=== PATIENT | female | born 1950 | race Caucasian/White ===

== ENCOUNTER → 2016-10-21 | Outpatient (CLI) | payer OTHER ==
[~2016-10-21] MED LIST: CLR10 PO; COEN30CA6 PO; FRS/40 PO; LISI-786 PO; LIVALO PO; MAXAIR INH; MONT1TAB3 PO; POTA1TAB97 PO
[2016-10-21 13:29] LABS: BLOOD UREA NITROGEN 17 mg/dl (7-18); BUN/CREATININE RATIO 23.6 (10-20); CALCIUM 10.2 mg/dl (8.5-10.1); CARBON DIOXIDE 27 mmol/L (21-32); CHLORIDE 103 mmol/L (98-107); CHOLESTEROL 257 mg/dl (0-200); GLUCOSE 94 mg/dl (70-99); SODIUM 137 mmol/L (136-145); TRIGLYCERIDES 107 mg/dl (0-150); VERY LOW DENSITY LIPOPROT CALC 21 mg/dl
[2016-10-21 13:33] LABS: CHOLESTEROL/HDL RATIO 3.6; HDL CHOLESTEROL 72 mg/dl; LDL CHOLESTEROL CALCULATED 164 mg/dl
== END | disposition home or self-care (01) ==
LOC: C.LABPVFM 10:58
PROVIDERS: ATTEND Nurse Practitioner
DX: E78.00 Pure hypercholesterolemia, unspecified (principal); I10 Essential (primary) hypertension

== ENCOUNTER → 2016-12-26 | Outpatient (CLI) | payer OTHER ==
--- NOTE | 2016-12-26 12:44 | MAMMOGRAPHY REPORT ---
BILATERAL DIGITAL SCREENING MAMMOGRAM WITH CAD: 12/26/2016 CLINICAL HISTORY: Routine screening. TECHNIQUE: Current study was also evaluated with a Computer Aided Detection (CAD) system. Bilateral CC and MLO views were obtained. COMPARISON: Comparison is made to exams dated: 04/28/2014 mammogram - [facility] and 12/29/2009 mammogram. BREAST COMPOSITION: The tissue of both breasts is almost entirely fatty. FINDINGS: No suspicious masses, calcifications, or areas of architectural distortion are noted in ei ther breast. There has been no significant interval change compared to prior exams. Scattered bilater al benign-appearing calcifications are not significantly changed. IMPRESSION: ACR BI-RADS CATEGORY 2: BENIGN There is no mammographic evidence of malignancy. A 1 year screening mammogram is recommended. The pa tient will receive written notification of the results. Approximately 10% of breast cancers are not detected with mammography. A negative mammographic report should not delay biopsy if a clinically suggestive mass is present. Autumn Raya M.D. ah/:12/26/2016 11:59:09 Putty Remover: Marian BEAR(R)(M), [facility] letter sent: Normal 1/2 BI-RADS Code: ACR BI-RADS Category 2: Benign
== END | disposition home or self-care (01) ==
LOC: C.MAMM 11:11
PROVIDERS: ATTEND Nurse Practitioner
DX: Z12.31 Encounter for screening mammogram for malignant neoplasm of breast (principal)

== ENCOUNTER → 2017-01-16 | Outpatient (CLI) | payer OTHER | END | disposition home or self-care (01) | LOC: C.LABPVFM 11:58 | PROVIDERS: ATTEND Nurse Practitioner | DX: E83.52 Hypercalcemia (principal) ==

== ENCOUNTER → 2017-01-17 | Outpatient (CLI) | payer OTHER | END | disposition home or self-care (01) | LOC: C.LABPVFM 10:40 | PROVIDERS: ATTEND Nurse Practitioner | DX: E83.52 Hypercalcemia (principal) ==

== ENCOUNTER → 2017-03-05 | Outpatient (CLI) | payer OTHER | END | disposition home or self-care (01) | LOC: C.LABPVFM 14:17 | PROVIDERS: ATTEND Family Medicine Adult Medicine | DX: R30.0 Dysuria (principal) ==

== ENCOUNTER 2019-03-28 23:35 | Inpatient (IN) ==
[~2019-03-28 23:35] MED LIST changes: -CLR10 PO; -COEN30CA6 PO; -FRS/40 PO; -LISI-786 PO; -LIVALO PO; -MAXAIR INH; -MONT1TAB3 PO; -POTA1TAB97 PO; +RAPID SEQUENCE INDUCTION BAG ONE
[2019-03-28] MEDS ORDERED: fentaNYL citrate 100 MCG/2 ML VIAL IV STA (23:53)
[2019-03-29 00:13] LABS: Basophils # (auto) 0.07 K/uL (0-0.2); Basophils % (auto) 1.3 %; Eosinophils # (auto) 0.08 K/uL (0-0.5); Eosinophils % (auto) 1.5 %; Hematocrit (blood only) 38.7 % (37-47); Hemoglobin 12.9 g/dL (12.0-16.0); Immature Granulocytes # (auto) 0.02 K/uL (0.00-0.02); Immature Granulocytes % (auto) 0.4 %; Lymphocytes # (auto) 2.46 K/uL (1.2-3.4); Lymphocytes % (auto) 46.6 %; Mean Corpuscular Hgb Conc 33.3 g/dL (32-36); Mean Platelet Volume 8.6 fL (7.4-10.4); Monocytes # (auto) 0.33 K/uL (0.11-0.59); Monocytes % (auto) 6.3 %; Neutrophils # (auto) 2.32 K/uL (1.4-6.5); Neutrophils % (auto) 43.9 %; Platelet Count 305 K/uL (130-400); RDW Coefficient of Variation 12.8 % (11.5-14.5); RDW Standard Deviation 44.6 fL (36.4-46.3); Red Blood Count 4.03 M/uL (4.2-5.4); White Blood Count 5.28 K/uL (4.8-10.8)
[2019-03-29 00:31] LABS: Prothrombin Time 9.9 Seconds (9.0-12.0)
[2019-03-29 00:43] LABS: BUN Creatinine Ratio 17.6 (10-20); Creatinine Clr Calc Pharmacy 78.1 ml/min; Est GFR (African American) 98.1; Est GFR (Non-African American) 84.6
[2019-03-29] MEDS ORDERED: lisinopriL 20 MG TAB PO STA (02:58)
[2019-03-29 03:22] LABS: Magnesium 2.4 mg/dl (1.8-2.4)
--- NOTE | 2019-03-29 03:43 | History & Physical Report ---
Date of Service March 29, 2019 Assessment & Plan (1) Ankle fracture, right: Secondary to mechanical fall Patient at risk for injury if discharged home from the ER due to alcohol intake. hypertension, stable Hyperglycemia rule out DM Daily alcohol intake, denies abuse OBS [facility] Orthopedics consult RE Right ankle fracture (ER provider already in touch with Dr. Burns.) NPO for now in anticipation of procedure in a.m. Check hemoglobin A1c DVT prophylaxis. SCDs RE possible surgery (Recommend pharmacologic anticoagulation once bleeding risk is deemed to be minimal eligible pending Orthopedics eval.) Full code History of Present Illness Chief Complaint: Right ankle pain, fall Primary Care Provider: Annalee Avalos, DO History obtained from patient and records. Medical history significant for hypertension, GERD, anxiety. Patient was at a neighborhood alliance party last night when she slipped down 5 steps of stairs landing on her right leg. No head trauma, no chest pain, no S OB, no syncope. Patient noted excruciating right ankle pain and deformity. Patient brought to the ER by EMS for evaluation. 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 Verified 03/29/19 00:15 Latex2 -Systemic Allergic Allergy Unknown ANAPHYLAXIS Uncoded 03/29/19 00:15 Response Home Medications Home Medications Medication Instructions Recorded Confirmed Type lisinopril 20 mg PO DAILY 03/29/19 03/29/19 History lorazepam 0.5 mg PO HS 03/29/19 03/29/19 History multivitamin 1 tab PO DAILY 03/29/19 03/29/19 History Past Med/Surg History Medical History GERD (gastroesophageal reflux disease) Hypertension Surgical History S/P right inguinal herniorrhaphy Family History Other No pertinent family history in first degree relatives Social History Preferred Language: Uzbek Communication Ability: Effective Beliefs That Will Affect Care: None marital status: Current Living Situation: Spouse Other Information That Helps Us Care for You: No Feels Safe at Home: Yes Safety Concerns: Feels Safe At This Time Smoking Status: Never smoker Do You Dip or Chew Tobacco: No ; Second Hand Exposure: No ; Hx Alcohol Use: Yes Hx Substance Use: Yes substance use type: marijuana Last Used Substance: Unknown Review of Systems Review of Systems: As per HPI, all 10 systems reviewed, all other ROS negative Physical Exam Physical Exam: GENERAL: Comfortable, pleasant, obese, alcoholic fever, no respiratory distress SKIN: Normal color, warm HEENT: Bespectacled, pink palpebral conjunctivae, no ptosis, dry buccal mucosa NECK : Supple, short neck, no tenderness CHEST : CTA, no tenderness HEART : RRR, no obvious murmurs ABDOMEN: Some distention, nontender EXTREMITIES : RLE splint, no other conspicuous deformities noted NEUROLOGIC : Coherent, no facial asymmetry, no other gross focality Results & Data Vital Signs (Past 12 Hours) Vital Signs Temp Pulse Resp BP Pulse Ox 03/29/19 01:31 76 11 L 95 03/29/19 01:30 81 18 118/75 94 03/29/19 01:01 77 12 97 03/29/19 01:00 78 13 130/69 97 03/29/19 00:31 78 17 130/69 95 03/29/19 00:30 79 16 95 03/29/19 00:01 81 12 99 03/29/19 00:00 84 19 145/84 H 96 03/28/19 23:56 84 20 94 03/28/19 23:55 82 22 138/76 98 03/28/19 23:20 36.7 C 78 22 138/76 96 Laboratory Results Laboratory Results WBC 5.28 K/uL (4.8-10.8) 03/28/19 00:09 RBC 4.03 M/uL (4.2-5.4) L 03/28/19 00:09 Hgb 12.9 g/dL (12.0-16.0) 03/28/19 00:09 Hct 38.7 % (37-47) 03/28/19 00:09 MCV 96.0 fL (80-100) 03/28/19 00:09 MCH 32.0 pg (25-34) 03/28/19 00:09 MCHC 33.3 g/dL (32-36) 03/28/19 00:09 RDW Std Deviation 44.6 fL (36.4-46.3) 03/28/19 00:09 RDW Coeff of Eneida 12.8 % (11.5-14.5) 03/28/19 00:09 Plt Count 305 K/uL (130-400) 03/28/19 00:09 MPV 8.6 fL (7.4-10.4) 03/28/19 00:09 Immature Gran % (Auto) 0.4 % 03/28/19 00:09 Neut % (Auto) 43.9 % 03/28/19 00:09 Lymph % (Auto) 46.6 % 03/28/19 00:09 Addison % (Auto) 6.3 % 03/28/19 00:09 Eos % (Auto) 1.5 % 03/28/19 00:09 Baso % (Auto) 1.3 % 03/28/19 00:09 Immature Gran # (Auto) 0.02 K/uL (0.00-0.02) 03/28/19 00:09 Neut # (Auto) 2.32 K/uL (1.4-6.5) 03/28/19 00:09 Lymph # (Auto) 2.46 K/uL (1.2-3.4) 03/28/19 00:09 Addison # (Auto) 0.33 K/uL (0.11-0.59) 03/28/19 00:09 Eos # (Auto) 0.08 K/uL (0-0.5) 03/28/19 00:09 Baso # (Auto) 0.07 K/uL (0-0.2) 03/28/19 00:09 PT 9.9 Seconds (9.0-12.0) 03/28/19 00:09 INR 1.0 (0.9-1.1) 03/28/19 00:09 Sodium 138 mmol/L (136-145) 03/28/19 00:09 Potassium 4.0 mmol/L (3.5-5.1) 03/28/19 00:09 Chloride 103 mmol/L (98-107) 03/28/19 00:09 Carbon Dioxide 25 mmol/L (21-32) 03/28/19 00:09 Anion Gap 9.0 (3-11) 03/28/19 00:09 BUN 13 mg/dl (7-18) 03/28/19 00:09 Creatinine 0.73 mg/dl (0.6-1.2) 03/28/19 00:09 Est Cr Clr Drug Dosing 78.1 ml/min 03/28/19 00:09 Est GFR ( Amer) 98.1 03/28/19 00:09 Est GFR (Non-Af Amer) 84.6 03/28/19 00:09 BUN/Creatinine Ratio 17.6 (10-20) 03/28/19 00:09 Glucose 121 mg/dl (70-99) H 03/28/19 00:09 Calcium 9.0 mg/dl (8.5-10.1) 03/28/19 00:09 Magnesium 2.4 mg/dl (1.8-2.4) 03/28/19 00:09 Ethyl Alcohol mg/dL 280.0 mg/dl (0-3) H 03/29/19 00:09 Diagnostic Findings Right ankle x-ray as per my interpretation : bimalleolar fracture
[2019-03-29] MEDS ORDERED: LORazepam 0.5 MG/1 ML VIAL IV PRN (05:10)
[2019-03-29] MEDS ORDERED: KETOROLAC TROMETHAMINE 15 MG/ML VIAL IV PRN (05:10)
[2019-03-29] MEDS ORDERED: LORazepam 0.5 MG TAB PO PRN (05:19)
--- NOTE | 2019-03-29 06:10 | Emergency Department Note ---
Entered by Vanessa Mejia acting as a scribe for History of Present Illness General Chief complaint: Fall Stated complaint: Fall, ankle injury Time Seen by Provider: 03/28/19 23:42 Source: patient and family () Mode of arrival: EMS History of Present Illness Onset (ago): hour(s) (just prior to arrival) Location: ankle (right) and buttocks Pain Consistency: + other (episode) Quality: + other (fall) Associated symptoms: + other (positive loss of consciousness; positive right ankle pain) Treatments prior to arrival: none The patient is a 68 year old female with PMHx of HTN who presents to the Emergency Room with complaints of an episode of a fall that occurred just prior to arrival. The patient states that she was walking outside when she slipped on some ice and fell down 5 stairs onto concrete. She states that her right ankle twisted during the fall and she currently has pain in this ankle. The patient states that she landed on her buttocks. She denies hitting her head. The patient's states that after the fall the patient stayed on the ground for approximately 20 minutes and at this time she lost consciousness for approximately 5 seconds. The patient denies receiving pain medication in the ambulance. She states that she was drinking alcohol prior to this episode, stating that she had approximately 5 glasses of champagne. The patient denies any drug use tonight. Home Medications Home Medications Medication Instructions Recorded Confirmed Type lisinopril 20 mg PO DAILY 03/29/19 03/29/19 History lorazepam 0.5 mg PO HS 03/29/19 03/29/19 History multivitamin 1 tab PO DAILY 03/29/19 03/29/19 History Allergies Allergy/AdvReac Type Severity Reaction Status Date / Time Sulfa (Sulfonamide Allergy Severe ANAPHYLAXIS Verified 03/29/19 00:15 Antibiotics) bee venom protein (honey bee) Allergy Unknown . Verified 03/29/19 00:15 Latex2 -Systemic Allergic Allergy Unknown ANAPHYLAXIS Uncoded 03/29/19 00:15 Response Past Med/Surg History Medical History Hypertension Family History Other No pertinent family history in first degree relatives Social History Preferred Language: Micronesian Communication Ability: Effective Beliefs That Will Affect Care: None Current Living Situation: Spouse Other Information That Helps Us Care for You: No Feels Safe at Home: Yes Safety Concerns: Feels Safe At This Time Smoking Status: Never smoker Do You Dip or Chew Tobacco: No ; Second Hand Exposure: No ; Hx Alcohol Use: Yes Hx Substance Use: Yes substance use type: marijuana Last Used Substance: Unknown Review of Systems See HPI for pertinent positives & negatives. and A total of 10 systems reviewed and were otherwise negative Physical Exam Vital Signs Vital Signs - 24 hr 03/28/19 23:20 03/28/19 23:55 03/28/19 23:56 Temperature 36.7 C Temperature Source Oral Pulse Rate 78 82 84 Pulse Rate from SpO2 Sensor 83 87 Respiratory Rate 22 22 20 Respiratory Effort / Characteristics Non-Labored Respiratory Pattern Regular Blood Pressure 138/76 138/76 Blood Pressure Mean 96 102 Blood Pressure Position Lying Pulse Oximetry 96 98 94 Oxygen Delivery Method Room Air Sepsis Recent Fever Within 48 Hours No Sepsis New/Unexplained Change in Mental Status No Sepsis Action Taken by Nursing No Action Required 03/29/19 00:00 03/29/19 00:01 03/29/19 00:30 Temperature Temperature Source Pulse Rate 84 81 79 Pulse Rate from SpO2 Sensor 82 80 79 Respiratory Rate 19 12 16 Respiratory Effort / Characteristics Respiratory Pattern Blood Pressure 145/84 H Blood Pressure Mean 104 Blood Pressure Position Pulse Oximetry 96 99 95 Oxygen Delivery Method Sepsis Recent Fever Within 48 Hours Sepsis New/Unexplained Change in Mental Status Sepsis Action Taken by Nursing 03/29/19 00:31 03/29/19 01:00 03/29/19 01:01 Temperature Temperature Source Pulse Rate 78 78 77 Pulse Rate from SpO2 Sensor 78 78 80 Respiratory Rate 17 13 12 Respiratory Effort / Characteristics Respiratory Pattern Blood Pressure 130/69 130/69 Blood Pressure Mean 86 87 Blood Pressure Position Pulse Oximetry 95 97 97 Oxygen Delivery Method Sepsis Recent Fever Within 48 Hours Sepsis New/Unexplained Change in Mental Status Sepsis Action Taken by Nursing 03/29/19 01:30 03/29/19 01:31 03/29/19 02:00 Temperature Temperature Source Pulse Rate 81 76 72 Pulse Rate from SpO2 Sensor 80 76 72 Respiratory Rate 18 11 L 16 Respiratory Effort / Characteristics Respiratory Pattern Blood Pressure 118/75 126/72 Blood Pressure Mean 81 89 Blood Pressure Position Pulse Oximetry 94 95 96 Oxygen Delivery Method Sepsis Recent Fever Within 48 Hours Sepsis New/Unexplained Change in Mental Status Sepsis Action Taken by Nursing 03/29/19 02:01 03/29/19 02:30 03/29/19 02:31 Temperature Temperature Source Pulse Rate 72 71 69 Pulse Rate from SpO2 Sensor 72 71 70 Respiratory Rate 12 15 14 Respiratory Effort / Characteristics Respiratory Pattern Blood Pressure 112/64 Blood Pressure Mean 77 Blood Pressure Position Pulse Oximetry 95 94 Oxygen Delivery Method Sepsis Recent Fever Within 48 Hours Sepsis New/Unexplained Change in Mental Status Sepsis Action Taken by Nursing 03/29/19 03:00 03/29/19 03:01 03/29/19 03:30 Temperature Temperature Source Pulse Rate 75 73 80 Pulse Rate from SpO2 Sensor 72 73 81 Respiratory Rate 13 18 23 Respiratory Effort / Characteristics Respiratory Pattern Blood Pressure 120/75 Blood Pressure Mean 85 Blood Pressure Position Pulse Oximetry 98 97 96 Oxygen Delivery Method Sepsis Recent Fever Within 48 Hours Sepsis New/Unexplained Change in Mental Status Sepsis Action Taken by Nursing 03/29/19 03:31 Temperature Temperature Source Pulse Rate 83 Pulse Rate from SpO2 Sensor 83 Respiratory Rate 19 Respiratory Effort / Characteristics Respiratory Pattern Blood Pressure 131/87 Blood Pressure Mean 99 Blood Pressure Position Pulse Oximetry 97 Oxygen Delivery Method Sepsis Recent Fever Within 48 Hours Sepsis New/Unexplained Change in Mental Status Sepsis Action Taken by Nursing GENERAL: Awake, alert, well-appearing, in no distress, appears mildly intox icated. HENT: Normocephalic, atraumatic. Oropharynx unremarkable. EYES: Normal conjunctiva. Sclera non-icteric. PERRL. NECK: Supple. No nuchal rigidity. RESPIRATORY: Clear to auscultation. No wheezes. Normal respiratory effort. CARDIAC: Normal rate. Normal rhythm. Extremities warm and well perfused. GI: Soft, non-distended. No tenderness to palpation. No rebound or guarding. RECTAL: Deferred. MUSCULOSKELETAL: Atraumatic. Chest examination reveals no tenderness. LOWER EXTREMITIES: Right foot rotated posteriorly and distracted. NVI right foot. Medial right ankle skin tenting. No right knee or fibular head tenderness. Wiggles R toes. NEURO: No sensory deficits noted. No facial droop. Slightly slurred speech. SKIN: Warm and dry. No rash or jaundice noted. Procedures Orthopedic Fracture Reduction Fracture #1: Time Out Performed: Yes Side: right Fracture Reduction Location: other (ankle) Analgesia: other (fentanyl ) Technique: direct manipulation Post Reduction X-rays Demonstrate: acceptable reduction Post-reduction neuro exam: intact Post-reduction vascular exam: intact Splint Applied: Yes Patient Tolerated Procedure: well Course Course 2348: Past medical records reviewed. The patient was evaluated in room B7. A complete history and physical exam was performed. 0132: I checked on and updated the patient on all results. 0244: I discussed the case with Dr. Burns-Orthopedics who agreed with the care and plan and states that he will see the patient in the morning. 0301: [facility] for further evaluation. Administered Medications Discontinued Medications Fentanyl Citrate (Fentanyl Citrate) 100 mcg IV NOW STA Stop: 03/28/19 23:54 Last Admin: 03/29/19 00:04 Dose: 100 mcg Documented by: [id number] Lisinopril (Zestril) 20 mg PO NOW STA Stop: 03/29/19 02:59 Last Admin: 03/29/19 03:20 Dose: 20 mg Documented by: [id number] Medical Decision Making Differential Diagnosis Differential diagnoses include major intracranial, cervical, spinal, thoracic, abdominal, pelvic and neurologic injury. Fracture, contusion, sprain, strain, laceration, abrasions included as well. Medical Records Attestation: I reviewed the patient's medical records. Home Medications Current Medication List: was personally reviewed by me Laboratory Data Attestation: I reviewed the patient's lab results. Result diagrams: 03/28/19 00:09 03/28/19 00:09 Lab Results 03/28/19 03/28/19 03/28/19 Range/Units 00:09 00:09 00:09 WBC 5.28 (4.8-10.8) K/uL RBC 4.03 L (4.2-5.4) M/uL Hgb 12.9 (12.0-16.0) g/dL Hct 38.7 (37-47) % MCV 96.0 (80-100) fL MCH 32.0 (25-34) pg MCHC 33.3 (32-36) g/dL RDW Std Deviation 44.6 (36.4-46.3) fL RDW Coeff of Eneida 12.8 (11.5-14.5) % Plt Count 305 (130-400) K/uL MPV 8.6 (7.4-10.4) fL Immature Gran % (Auto) 0.4 % Neut % (Auto) 43.9 % Lymph % (Auto) 46.6 % Maries % (Auto) 6.3 % Eos % (Auto) 1.5 % Baso % (Auto) 1.3 % Immature Gran # (Auto) 0.02 (0.00-0.02) K/uL Neut # (Auto) 2.32 (1.4-6.5) K/uL Lymph # (Auto) 2.46 (1.2-3.4) K/uL Maries # (Auto) 0.33 (0.11-0.59) K/uL Eos # (Auto) 0.08 (0-0.5) K/uL Baso # (Auto) 0.07 (0-0.2) K/uL PT 9.9 (9.0-12.0) Seconds INR 1.0 (0.9-1.1) Sodium 138 (136-145) mmol/L Potassium 4.0 (3.5-5.1) mmol/L Chloride 103 (98-107) mmol/L Carbon Dioxide 25 (21-32) mmol/L Anion Gap 9.0 (3-11) BUN 13 (7-18) mg/dl Creatinine 0.73 (0.6-1.2) mg/dl Est Cr Clr Drug Dosing 78.1 ml/min Est GFR ( Amer) 98.1 Est GFR (Non-Af Amer) 84.6 BUN/Creatinine Ratio 17.6 (10-20) Glucose 121 H (70-99) mg/dl Calcium 9.0 (8.5-10.1) mg/dl Magnesium 2.4 (1.8-2.4) mg/dl Ethyl Alcohol mg/dL (0-3) mg/dl 03/29/19 Range/Units 00:09 WBC (4.8-10.8) K/uL RBC (4.2-5.4) M/uL Hgb (12.0-16.0) g/dL Hct (37-47) % MCV (80-100) fL MCH (25-34) pg MCHC (32-36) g/dL RDW Std Deviation (36.4-46.3) fL RDW Coeff of Eneida (11.5-14.5) % Plt Count (130-400) K/uL MPV (7.4-10.4) fL Immature Gran % (Auto) % Neut % (Auto) % Lymph % (Auto) % Maries % (Auto) % Eos % (Auto) % Baso % (Auto) % Immature Gran # (Auto) (0.00-0.02) K/uL Neut # (Auto) (1.4-6.5) K/uL Lymph # (Auto) (1.2-3.4) K/uL Maries # (Auto) (0.11-0.59) K/uL Eos # (Auto) (0-0.5) K/uL Baso # (Auto) (0-0.2) K/uL PT (9.0-12.0) Seconds INR (0.9-1.1) Sodium (136-145) mmol/L Potassium (3.5-5.1) mmol/L Chloride (98-107) mmol/L Carbon Dioxide (21-32) mmol/L Anion Gap (3-11) BUN (7-18) mg/dl Creatinine (0.6-1.2) mg/dl Est Cr Clr Drug Dosing ml/min Est GFR ( Amer) Est GFR (Non-Af Amer) BUN/Creatinine Ratio (10-20) Glucose (70-99) mg/dl Calcium (8.5-10.1) mg/dl Magnesium (1.8-2.4) mg/dl Ethyl Alcohol mg/dL 280.0 H (0-3) mg/dl Imaging Data Attestation: I personally reviewed and interpreted this imaging study as follows: My Impression: TIBIA FIBULA X-RAY: Fibular head fracture. Ankle fracture bhargav. ANKLE X-RAY: Bhargav fracture, medial displacement with some mortise malalignment. FOOT X-RAY: Ankle fracture. 2/3rd metatarsal fracture at base. ECG Data Attestation: I personally reviewed and interpreted this ECG as follows: Indication: + other (trauma) Rate (beats per minute): 75 Rhythm: + normal sinus ECG ST segments: no ST depression and no ST elevation ECG Findings: + Other (normal intervals); no PVCs Blood Pressure Blood Pressure Findings: Elevated blood pressure Blood Pressure Disposition: further management by hospitalist MDM Narrative Patient is a 68-year-old female with a past medical history including hypertension presenting today after slipped on some icy stairs after [employer]. Does states that she drank 5 glasses/flukes of champagne this evening. Appears somewhat intoxicated upon arrival. Has obvious right ankle deformity. Denies other pain. States she had a few second blackout at some point earlier she believes secondary to pain. Denies hitting her head. Neurovascular intact in left foot but evidence of skin tenting. Given her alcohol use and the need for emergent reduction given a dose of fentanyl and reduction performed. Neurovascular intact afterwards. Verbal consent from patient and after discussing risk and benefits. X-ray obtained here. EKG and basic labs obtained as well as medical alcohol. EKG and basic labs unremarkable other than note of a significantly elevated alcohol level. X-rays show improved alignment although not anatomical as well as several metatarsal fracture and fibular head fracture. Discussed with on-call Ortho and given her intoxicated status cussed with medicine team to admit her and watch her overnight for further orthopedic consultation in the morning. Ankle likely surigcal. Patient declined additional pain medications. Given her evening dose of lisinopril. Impression & Plan Fracture of head of right fibula, Displaced bimalleolar fracture of right ankle, Fracture of right foot, Alcohol intoxication Discharge Plan Visit Data *Final* Discharge Date/Time: 03/29/19 04:38 Chief Complaint: Fall Stated Complaint: Fall, ankle injury ED Provider: Cliff Fernandes Discharge Problem: Fracture of head of right fibula, Displaced bimalleolar fracture of right ankle, Fracture of right foot, Alcohol intoxication Patient Disposition: Admitted As Inpatient Discharge Instructions Interventions: ED Discharge Assessment Last Done: 03/29/19 04:38 Discharge Problem: Fracture of head of right fibula Qualifiers: Encounter type: initial encounter Fracture type: closed Qualified Code(s): S82.831A - Other fracture of upper and lower end of right fibula, initial encou nter for closed fracture Displaced bimalleolar fracture of right ankle Qualifiers: Encounter type: initial encounter Fracture type: closed Qualified Code(s): S82.841A - Displaced bimalleolar fracture of right lower leg, initial encounter for closed fracture Fracture of right foot Qualifiers: Encounter type: initial encounter Fracture type: closed Qualified Code(s): S92. 901A - Unspecified fracture of right foot, initial encounter for closed fracture Alcohol intoxication Qualifiers: Complication of substance-induced condition: uncomplicated Qualified Code(s): F10.920 - Alcohol use, unspecified with intoxication, uncomplicated The scribe's documentation has been prepared under my direction and personally reviewed by me in its entirety. I confirm that the note above accurately reflects all work, treatment, procedures, and medical decision making performed by me.
[2019-03-29] MEDS: SODIUM CHLORIDE 0.9% 1000ML 1,000 ML IV SCH ×2 (06:23→20:46)
[2019-03-29 06:37] LABS: Estimated Average Glucose 114 mg/dl; Hemoglobin A1C 5.6 % (4.5-5.6)
[2019-03-29] MEDS ORDERED: IBUPROFEN 200 MG TAB PO PRN (06:45)
--- NOTE | 2019-03-29 07:22 | XRay Report ---
XR tibia fibula RT 2V CLINICAL HISTORY: 68 years-old Female presenting with fall. TECHNIQUE: Frontal and lateral views of the right lower leg were obtained. COMPARISON: Plain radiographs of the right knee from 2016. FINDINGS: Fiberglas casting of the right lower leg is evident. This only mildly obscures underlying osseous det ail. There is a minimally displaced obliquely oriented fracture of the proximal fibular metaphysis as well as fracture dislocation at the ankle mortise. The knee joint remains congruent. The ankle morti se is disrupted. Atherosclerosis noted. Please see separately dictated ankle radiographs. IMPRESSION: Proximal fibular metaphyseal fracture in the setting of fracture dislocation at the ankle. Please see separately dictated ankle radiographs. Electronically signed by: Amado Hoskins M.D. 03/29/2019 7:21 AM
--- NOTE | 2019-03-29 07:28 | XRay Report ---
XR ankle RT min 3V routine CLINICAL HISTORY: 68 years-old Female presenting with fall, fracture. TECHNIQUE: Frontal, mortise, and lateral views of the right ankle were obtained. COMPARISON: None. FINDINGS: A fiberglass splint minimally obscures underlying osseous detail. Fracture dislocation of the ankle m ortise with widening of the tibiofibular syndesmosis. Obliquely oriented fracture of the distal fibul ar metaphysis at the level of the syndesmosis extending from the posterior cortex proximally to the a nterior cortex distally. There is less than one half shaft width displacement. Transversely oriented fracture of the medial malleolus with 7 mm of lateral displacement of the tibia relative to the media l malleolar fracture fragment. The posterior malleolus is grossly intact. There is widening of the an kle mortise anteriorly measuring nearly 1 cm. An os trigonum is noted. IMPRESSION: Bimalleolar fracture dislocation at the ankle mortise. Presumably there is disruption of posterior li gamentous structures given the absence of an posterior malleolar fracture. Displacement is described above. Electronically signed by: Amado Hoskins M.D. 03/29/2019 7:26 AM
--- NOTE | 2019-03-29 07:30 | XRay Report ---
XR foot RT min 3V routine CLINICAL HISTORY: 68 years-old Female presenting with fall. TECHNIQUE: Frontal, oblique, and lateral views of the right foot were obtained. COMPARISON: 01/26/2013. FINDINGS: A fiberglass cast is in place, which only minimally obscures underlying osseous detail. Mild degenera tive changes at the first metatarsophalangeal joint with osteophytosis and overall preservation of emy int space. There is evidence of a fracture dislocation of the ankle mortise with a displaced transver sely oriented medial malleolar fracture and obliquely oriented distal fibular fracture at the level o f the syndesmosis. Mild soft tissue swelling. Os trigonum noted. No additional fracture in the foot. IMPRESSION: 1. Fracture dislocation of the ankle mortise. No additional fracture is evident in the foot. 2. Mild degenerative changes at the first MTP joint. Electronically signed by: Amado Hoskins M.D. 03/29/2019 7:28 AM
[2019-03-29] MEDS: MULTIVITAMIN TAB PO SCH (08:16)
--- NOTE | 2019-03-29 09:05 | Orthopedic Consultation ---
Date of Consultation March 29, 2019 Assessment & Plan (1) Displaced bimalleolar fracture of right ankle: Continue n.p.o. status at this time. Ice, elevation of the right lower extremity. Dr. Guzman to see patient later today. Discussed plans with the possibility of a close reduction possibly today with fixation of the fracture within a week to allow for decreased swelling versus ORIF within the next 48 hours if swelling is minimal. Dr. Guzman to finalize plans today. Supervising Physician Co-Signing Physician Notes Patient seen and examined, agree with above assessment and plan. Will proceed with OR 03/30/19, closed reduction vs ORIF right ankle. NPO after midnight. History of Present Illness Reason for Consultation: Right ankle fracture Attending Physician: Darnell Cowan MD History of Present Illness Patient is a 68-year-old white female who states that she was at a local get together with friends. She states that there was some champagne involved however she had not overindulged. She was going down a flight of stairs which were slippery and she ended up slipping and falling down at least 5 steps. At the end of the fall she noticed that she had moderate to severe pain in her right ankle. She denies bumping her head during the fall. She denies any shortness of breath, chest pain, lightheadedness prior to the fall. She states that she did try to move the ankle into a better position and the pain was excr uciating and she passed out for a minute or 2. Her was there and witnessed the event. She was unable to ambulate and was brought to [facility] emergency room. X-rays were taken and found that she had a right bimalleolar ankle fracture dislocation and also a proximal right fibular head fracture. She was admitted by the medicine service for pain control and we have been asked to see her for her ankle fracture. Allergies Allergy/AdvReac Type Severity Reaction Status Date / Time Sulfa (Sulfonamide Allergy Severe ANAPHYLAXIS Verified 03/29/19 00:15 Antibiotics) bee venom protein (honey bee) Allergy Unknown . Verified 03/29/19 00:15 Latex2 -Systemic Allergic Allergy Unknown ANAPHYLAXIS Uncoded 03/29/19 00:15 Response Home Medications Home Medications Medication Instructions Recorded Confirmed Type lisinopril 20 mg PO DAILY 03/29/19 03/29/19 History lorazepam 0.5 mg PO HS 03/29/19 03/29/19 History multivitamin 1 tab PO DAILY 03/29/19 03/29/19 History Patient History Medical History GERD (gastroesophageal reflux disease) Hypertension Surgical History S/P right inguinal herniorrhaphy Family History Other No pertinent family history in first degree relatives Social History Preferred Language: Wallisian Communication Ability: Effective Beliefs That Will Affect Care: None marital status: Current Living Situation: Spouse Other Information That Helps Us Care for You: No Feels Safe at Home: Yes Safety Concerns: Feels Safe At This Time Smoking Status: Never smoker Do You Dip or Chew Tobacco: No ; Second Hand Exposure: No ; Hx Alcohol Use: Yes Hx Substance Use: Yes substance use type: marijuana Last Used Substance: Unknown Physical Exam Physical Exam: Patient is a 68-year-old white female who looks younger than her stated age. She is currently awake and alert and oriented x3. She is in no acute distress. Focusing on her affected extremity, her right lower extremity has a posterior splint applied at the ankle that goes up to the knee along with a lateral/medial buttress splints. This is left on during exam. Toes are pink and warm with good capillary refill less than 2 seconds. Sensation is intact and she has good range of motion of all of her toes. He has some mild d iscomfort over the lateral knee near the fibular head region due to fracture. She is able to do gentle range of motion of the right knee at this time. Right hip is not affected. Lower extremity is essentially benign at this time and range of motion is within normal limits of the hip knee and ankle. Upper extremities are unaffected and she is nontender at the shoulders elbows and wrists with good range of motion. No overt cervical, thoracic, or or lumbar pain at this time. No gross motor or sensory loss at this time. Results & Data Vital Signs (Past 12 Hours) Vital Signs Temp Pulse Pulse Resp BP BP Pulse Ox 03/29/19 07:14 36.8 C 73 16 108/69 93 03/29/19 05:00 36.8 C 85 16 144/81 H 96 03/29/19 04:31 77 19 03/29/19 04:30 79 20 130/79 97 03/29/19 04:01 70 12 03/29/19 04:00 73 14 126/81 03/29/19 03:31 83 19 131/87 97 03/29/19 03:30 80 23 96 03/29/19 03:01 73 18 97 03/29/19 03:00 75 13 120/75 98 03/29/19 02:31 69 14 03/29/19 02:30 71 15 112/64 94 03/29/19 02:01 72 12 95 03/29/19 02:00 72 16 126/72 96 03/29/19 01:31 76 11 L 95 03/29/19 01:30 81 18 118/75 94 03/29/19 01:01 77 12 97 03/29/19 01:00 78 13 130/69 97 03/29/19 00:31 78 17 130/69 95 03/29/19 00:30 79 16 95 03/29/19 00:01 81 12 99 03/29/19 00:00 84 19 145/84 H 96 03/28/19 23:56 84 20 94 03/28/19 23:55 82 22 138/76 98 03/28/19 23:20 36.7 C 78 22 138/76 96 Diagnostic Findings [facility], [place] [phone] XRay Report Patient: VANDA CARABALLOdmit Date: 03/29/19 MR#: [id number]: [address] [facility] Acct ID:[id number]: Date: [address] [place] [address] Zip: [place] [address] Age: 68Location: 3W Sex: F Room/Bed: [facility] Att Phy: Darnell Cowan, MDDiagnosis: R ANKLE INJURY Vale Phy: Annalee Avalos DOService Date: 03/28/19 Fam Phy: Gwen Mcgovern, DPMInterpreting Phy: Amado Hoskins MD Admit Phy: David Guzman MD Ordering Phy: Cliff Fernandes M.D. cc: ~ XR ankle RT min 3V routine CLINICAL HISTORY: 68 years-old Female presenting with fall, fracture. TECHNIQUE: Frontal, mortise, and lateral views of the right ankle were obtained. COMPARISON: None. FINDINGS: A fiberglass splint minimally obscures underlying osseous detail. Fracture dislocation of the ankle mortise with widening of the tibiofibular syndesmosis. Obliquely oriented fracture of the distal fibular metaphysis at the level of the syndesmosis extending from the posterior cortex proximally to the anterior cortex distally. There is less than one half shaft width displacement. Transversely oriented fracture of the medial malleolus with 7 mm of lateral displacement of the tibia relative to the medial malleolar fracture fragment. The posterior malleolus is grossly intact. There is widening of the ankle mortise anteriorly measuring nearly 1 cm. An os trigonum is noted. IMPRESSION: Bimalleolar fracture dislocation at the ankle mortise. Presumably there is disruption of posterior ligamentous structures given the absence of an posterior malleolar fracture. Displacement is described above. Electronically signed by: Amado Hoskins M.D. 03/29/2019 7:26 AM Dictated: 03/29/19617 Transcribed: 03/29/19617 XR tibia fibula RT 2V CLINICAL HISTORY: 68 years-old Female presenting with fall. TECHNIQUE: Frontal and lateral views of the right lower leg were obtained. COMPARISON: Plain radiographs of the right knee from 2016. FINDINGS: Fiberglas casting of the right lower leg is evident. This only mildly obscures underlying osseous detail. There is a minimally displaced obliquely oriented fracture of the proximal fibular metaphysis as well as fracture dislocation at the ankle mortise. The knee joint remains congruent. The ankle mortise is disrupted. Atherosclerosis noted. Please see separately dictated ankle radiographs. IMPRESSION: Proximal fibular metaphyseal fracture in the setting of fracture dislocation at the ankle. Please see separately dictated ankle radiographs. Electronically signed by: Amado Hoskins M.D. 03/29/2019 7:21 AM Dictated: 03/29/19617 Transcribed: 03/29/19 (1) Displaced bimalleolar fracture of right ankle Encounter type: initial encounter Fracture type: closed Qualified Code(s): S82.841A - Displaced bimalleolar fracture of right lower leg, initial encounter for closed fracture
--- NOTE | 2019-03-29 09:44 | Hospitalist Progress Note ---
Date of Service March 29, 2019 Subjective Patient seen and examined by me, on the floor, room 352. She is lying in bed, comfortable, with a splint at her right ankle that goes up to the knee. Her is at the bedside. Currently denies any fevers, chills, chest pain, shortness of breath, abdominal pain, nausea or vomiting. She was at a [employer] party last night, and unfortunately slipped down the steps. Blood alcohol level elevated in the ED but currently feels well, except for the right ankle discomfort. Patient is breathing comfortably on room air, lungs are clear to auscultation bilaterally, without any wheezes or rhonchi. Heart is regular no murmurs noted, abdomen soft, nontender nondistended. She is able to move all 4 extremities spontaneously, she is alert and oriented and answers questions appropriately. Her toes are pink, warm, good capillary refill, no sensory loss noted. Patient was seen by Ortho this morning, final recommendations pending. Results & Data Vital Signs (Past 12 Hours) Vital Signs Temp Pulse Pulse Resp BP BP Pulse Ox 03/29/19 07:14 36.8 C 73 16 108/69 93 03/29/19 05:00 36.8 C 85 16 144/81 H 96 03/29/19 04:31 77 19 03/29/19 04:30 79 20 130/79 97 03/29/19 04:01 70 12 03/29/19 04:00 73 14 126/81 03/29/19 03:31 83 19 131/87 97 03/29/19 03:30 80 23 96 03/29/19 03:01 73 18 97 03/29/19 03:00 75 13 120/75 98 03/29/19 02:31 69 14 03/29/19 02:30 71 15 112/64 94 03/29/19 02:01 72 12 95 03/29/19 02:00 72 16 126/72 96 03/29/19 01:31 76 11 L 95 03/29/19 01:30 81 18 118/75 94 03/29/19 01:01 77 12 97 03/29/19 01:00 78 13 130/69 97 03/29/19 00:31 78 17 130/69 95 03/29/19 00:30 79 16 95 03/29/19 00:01 81 12 99 03/29/19 00:00 84 19 145/84 H 96 03/28/19 23:56 84 20 94 03/28/19 23:55 82 22 138/76 98 03/28/19 23:20 36.7 C 78 22 138/76 96
[2019-03-29] MEDS: MoRPHine SULFATE 4 MG/ML 1 ML CARP\\VIAL IV PRN (12:08)
[2019-03-29] MEDS: TRIAMCINOLONE ACET NASAL SPRAY 10.8ML BTL NAE SCH (12:57)
[2019-03-29] MEDS: OXYCODONE HCL IR 5 MG TAB (IMMEDIATE RELEASE) PO PRN ×2 (16:41→20:46)
--- NOTE | 2019-03-29 17:43 | Anesthesiology Consultation ---
Date of Service March 29, 2019 Assessment & Plan Chart Review Chart Review: Acceptable Risk for Surgery and Patient NOT seen in Pre Admission Testing Consults Requested none History Surgery Operation Date: 03/30/19 11:25 Proposed Procedures p Right Distal Ankle Fracture Closed Reduction with Splinting versus Right Distal Ankle Fracture Open Reduction Internal Fixation - Kenneth Guzman DO Height/Weight Height: 5 ft 6 in Weight: 88.1 kg Allergies Allergy/AdvReac Type Severity Reaction Status Date / Time Sulfa (Sulfonamide Allergy Severe ANAPHYLAXIS Verified 03/29/19 00:15 Antibiotics) bee venom protein (honey bee) Allergy Unknown . Verified 03/29/19 00:15 Latex2 -Systemic Allergic Allergy Unknown ANAPHYLAXIS Uncoded 03/29/19 00:15 Response Medications Home Medications Medication Instructions Recorded Confirmed Last Taken lisinopril 20 mg PO DAILY 03/29/19 03/29/19 03/28/19 lorazepam 0.5 mg PO HS 03/29/19 03/29/19 03/27/19 multivitamin 1 tab PO DAILY 03/29/19 03/29/19 03/28/19 Active Medications Generic Name Dose Route Start Last Admin Trade Name Freq PRN Reason Stop Dose Admin Sodium Chloride 1,000 mls @ 60 mls/hr 03/29/19 05:10 03/29/19 06:23 Nss 1000ml IV 04/28/19 05:09 60 mls/hr .[id number] SHARON Administration Ketorolac Tromethamine 15 mg 03/29/19 05:10 03/29/19 07:12 Toradol IV 04/03/19 05:09 15 mg Q6H PRN Administration Pain Morphine Sulfate 4 mg 03/29/19 05:10 03/29/19 12:08 Morphine Sulfate IV 04/12/19 05:09 4 mg Q4H PRN Administration Pain Multivitamins 1 tab 03/29/19 09:00 03/29/19 08:16 Multivitamin Tab PO 04/28/19 08:59 Not Given DAILY SHARON Oxycodone HCl 5 mg 03/29/19 05:10 03/29/19 16:41 Roxicodone Immediate Rel PO 04/12/19 05:09 5 mg Q4H PRN Administration Pain Triamcinolone Acetonide 2 sprays 03/29/19 12:00 03/29/19 12:57 Nasacort DAREK 04/28/19 11:59 2 sprays DAILY SHARON Administration NPO Date Last Intake of Fluids: 03/29/19 Time Last Intake of Fluids: 00:00 Date Last Intake of Solids: 03/28/19 Past Medical History Medical History GERD (gastroesophageal reflux disease) Hypertension Exercise / Class Metabolic Activity III < 4 Walking/Shop/Light housework Past Family History Family History Other No pertinent family history in first degree relatives Past Surgical History Surgical History S/P right inguinal herniorrhaphy Past Anesthesia History No Hx of Anesthesia Complications and No Family Hx of Anesthesia Complications History of PONV No Hx of PONV and No Hx of Motion Sickness Social History Smoking Status: Never smoker Do You Dip or Chew Tobacco: No Hx Alcohol Use: Yes alcohol intake frequency: 0-2 drinks per day Hx Substance Use: Yes substance use type: marijuana Last Used Substance: Unknown Physical Exam Vital Signs Last Vital Signs Temp 36.7 C 03/29/19 15:28 Pulse 77 03/29/19 15:28 Resp 16 03/29/19 15:28 BP 136/73 03/29/19 15:28 Pulse Ox 93 03/29/19 15:28 Testing Laboratory Results 03/28/19 00:09 03/28/19 00:09 PT 9.9 Seconds (9.0-12.0) 03/28/19 00:09 INR 1.0 (0.9-1.1) 03/28/19 00:09 Hemoglobin A1c 5.6 % (4.5-5.6) 03/29/19 05:45 Electrocardiogram Date: 03/28/19 Findings: + NSR @ (at 75;poor R wave progression)
[2019-03-29] MEDS: PROMETHAZINE HCL 12.5 MG in SODIUM CHLORIDE 0.9% 50 ML IV PRN (19:58)
[2019-03-29] MEDS: lisinopriL 20 MG TAB PO SCH (20:48)
[2019-03-29] MEDS ORDERED: LORazepam 0.5 MG TAB PO SCH (21:00)
[2019-03-30] MEDS: OXYCODONE HCL IR 5 MG TAB (IMMEDIATE RELEASE) PO PRN ×3 (00:53→21:18)
[2019-03-30] MEDS: MoRPHine SULFATE 4 MG/ML 1 ML CARP\\VIAL IV PRN ×2 (04:40→10:48)
--- NOTE | 2019-03-30 07:58 | Hospitalist Progress Note ---
Date of Service March 30, 2019 Assessment & Plan (1) Ankle fracture, right: Secondary to mechanical fall Orthopedics consulted for Right ankle fracture (ER provider already in touch with Dr. Burns.) Now s/p ORIF of Right ankle (03/30) - tolerated surgery well, only had mild nausea post-op Received Ancef Pain currently well controlled DVT prophylaxis. SCDs Hypertension, stable Hyperglycemia Hgb A1c 5.6% (03/29/2019) - cont. to monitor Daily alcohol intake, denies abuse DVT prophylaxis. SCDs Dispo: home with home health, wheeled walker script provided (wheeled walker now at the bedside) Full code Subjective Pt seen and examined after back from OR ( s/p ORIF of R ankle) today. She tolerated the surgery well, only had mild nausea from anesthesia. Currently feels well, her RLE is in dressings and elevated. Denies any fever, chills, chest pain, shortness of breath, abd. pain. Says she is going home tomorrow, her family is arranging their home so she does not need to use any steps and will be able to get around more easily. Review of Systems Review of Systems: All systems reviewed & are unremarkable except as noted in HPI & below Constitutional: no fever and no chills Respiratory: no cough and no dyspnea Cardiovascular: no chest pain and no palpitations Gastrointestinal: no abdominal pain, no nausea and no vomiting Physical Exam Physical Exam: GENERAL: Elderly female laying in bed in no acute distress, RLE elevated HEENT: NC/AT, EOMI, PERRL, MMM NECK : Supple, no lad CHEST : Normal to inspection HEART : RRR, no obvious murmurs ABDOMEN: soft, nontender, nondistended, + bowel sounds EXTREMITIES : RLE elevated in dressings (post-op), toes are warm and well perfused, no sensory loss, moves toes w/o difficulty NEURO: alert and orientedx3, speech fluent, no facial asymmetry, moves extremities spontaneously SKIN: warm, dry, well perfused Results & Data Vital Signs (Past 12 Hours) Vital Signs Temp Pulse Resp BP Pulse Ox 03/30/19 07:12 37.1 C 63 17 131/73 96 03/29/19 23:20 36.8 C 71 18 128/79 95 Labs reviewed
[2019-03-30] MEDS: TRIAMCINOLONE ACET NASAL SPRAY 10.8ML BTL NAE SCH (08:32)
[2019-03-30] MEDS: MULTIVITAMIN TAB PO SCH (08:32)
[2019-03-30 09:30] LABS: Hematocrit (blood only) 31.4 % (37-47); Hemoglobin 10.4 g/dL (12.0-16.0); Mean Corpuscular Hemoglobin 31.6 pg (25-34); Mean Corpuscular Hgb Conc 33.1 g/dL (32-36); Mean Corpuscular Volume 95.4 fL (80-100); Mean Platelet Volume 8.5 fL (7.4-10.4); Platelet Count 238 K/uL (130-400); RDW Coefficient of Variation 13.2 % (11.5-14.5); RDW Standard Deviation 45.8 fL (36.4-46.3); Red Blood Count 3.29 M/uL (4.2-5.4); White Blood Count 7.18 K/uL (4.8-10.8)
[2019-03-30 10:04] LABS: BUN Creatinine Ratio 16.1 (10-20); Calcium 8.9 mg/dl (8.5-10.1); Creatinine Clr Calc Pharmacy 81.3 ml/min; Est GFR (African American) 96.5; Est GFR (Non-African American) 83.2
[2019-03-30] MEDS ORDERED: DEXAMETHASONE SOD INJ 4 MG/ML VIAL ONE (12:25)
[2019-03-30] MEDS ORDERED: LIDOCAINE HCL 2% 2 ML VIAL/AMP(20MG/ML) INFIL ONE (12:25)
[2019-03-30] MEDS ORDERED: ONDANSETRON INJ 2 MG/ML 2 ML VIAL ONE (12:25)
[2019-03-30] MEDS ORDERED: PROPOFOL IV EMULSION 10 MG/ML 20 ML VIAL IV ONE (12:25)
[2019-03-30] MEDS ORDERED: MIDAZOLAM HCL 1 MG/ML 2ML VIAL ONE (12:25)
[2019-03-30] MEDS ORDERED: fentaNYL citrate 100 MCG/2 ML VIAL ONE ×3 (12:26→13:47)
--- NOTE | 2019-03-30 12:32 | History & Physical Bridge Note ---
Date of Service March 30, 2019 History & Physical Bridge Note I have examined the patient, reviewed the History & Physical and in the interval since the performance of the History & Physical I have noted the following changes of clinical significance: no changes noted
--- NOTE | 2019-03-30 12:40 | Orthopedic Progress Note ---
Date of Service March 30, 2019 Assessment & Plan (1) Displaced bimalleolar fracture of right ankle: I have indicated the patient for Closed reduction and splint application versus open reduction internal fixation of right ankle bimalleolar fracture. There is residual subluxation of the ankle mortise on x-ray. Under anesthesia we will assess the patient's soft tissue if amenable to surgical fixation at this time we will proceed with open reduction internal fixation however if the soft tissue would benefit from delayed fixation we will proceed with closed reduction and splint application. The risks, benefits, complications and alternatives to surgery were explained to the patient and family in detail. These include however not limited to infections, blood clots, acute blood loss, injury to surrounding nerves, bone, vessels, soft tissue, arthrofibrosis, chronic pain, malunion, nonunion, compartment syndrome, need for additional surgery, loss of limb and loss of life. Alternatives include no surgery which would result and worsening symptoms, nonunion or a malunion of the fracture sites. The patient wished to proceed with surgical intervention at this time and informed consent was obtained. Antibiotics on-call to the OR Subjective The patient was seen in preoperative holding. Comfortable, pain well controlled. Patient was accompanied by family. No acute issues overnight. Cleared for OR today. Review of Systems Review of Systems: All systems reviewed & are unremarkable except as noted in HPI & below Constitutional: as per Subjective / HPI Physical Exam Physical Exam: Right lower extremity is neurovascular and sensory intact grossly. Capillary refill less than 2 seconds, splint right ankle clean dry and intact. Constitutional: WD/WN, vitals as above Results & Data Vital Signs (Past 12 Hours) Vital Signs Temp Pulse Resp BP Pulse Ox 03/30/19 11:55 37.3 C 72 18 145/84 H 95 03/30/19 07:12 37.1 C 63 17 131/73 96 (1) Displaced bimalleolar fracture of right ankle Encounter type: initial encounter Fracture type: closed Qualified Code(s): S82.841A - Displaced bimalleolar fracture of right lower leg, initial encounter for closed fracture
[2019-03-30] MEDS ORDERED: BUPIVACAINE/EPINEPHRINE 0.5% MPF 1:200,000 10 ML VIAL ONE (12:43)
[2019-03-30] MEDS ORDERED: BACITRACIN INJ 50,000 UNIT VIAL ONE (12:43)
[2019-03-30] MEDS ORDERED: KETOROLAC 30 MG/ML VIAL ONE (13:17)
[2019-03-30] MEDS ORDERED: HYDROmorphone INJ 2 MG/ML SYR/VIAL ONE (14:02)
--- NOTE | 2019-03-30 15:08 | Post Operative Brief Note ---
Immediate Post Op Note v1 Date of Surgery March 30, 2019 Pre & Post Diagnosis Operation Date: 03/30/19 11:25 Pre-Op Diagnosis: R ANKLE FRACTURE Post-Op Diagnosis: R ANKLE FRACTURE I identified the patient and participated in the time-out.: Yes Procedure Operation Date: 03/30/19 11:25 Actual Procedures p Right Distal Ankle Fracture Open Reduction Internal Fixation - Kenneth Guzman DO Surgeon Kenneth Guzman DO Clutch Mechanic Chucky Newman Estimated Blood Loss 55 Findings Consistent with Post-Op Diagnosis Fluids 1500 cc LR Anesthesia Type General Regional Complications none Disposition Disposition: Recovery Room Overlapping Procedure I was present for: the critical portions of procedure. I was immediately available: during the entire case. Back up surgeon: was not required during procedure.
--- NOTE | 2019-03-30 15:14 | Operative Report ---
Post Operative Report Pre & Post Diagnosis Operation Date: 03/30/19 11:25 Pre-Op Diagnosis: R ANKLE FRACTURE Post-Op Diagnosis: R ANKLE FRACTURE I identified the patient and participated in the time-out.: Yes Procedure Operation Date: 03/30/19 11:25 Actual Procedures p Right Distal Ankle Fracture Open Reduction Internal Fixation - Kenneth Guzman DO Surgeon Kenneth Guzman DO [employer] Install[employer] Chucky Newman Estimated Blood Loss 55 Findings Consistent with Post-Op Diagnosis Fluids 1500 cc LR Specimens None Anesthesia Type General Regional Complications none Disposition Disposition: Recovery Room Indications Patient is a 68-year-old white female who states that she was at a local get together with friends. She states that there was some champagne involved however she had not overindulged. She was going down a flight of stairs which were slippery and she ended up slipping and falling down at least 5 steps. At the end of the fall she noticed that she had moderate to severe pain in her right ankle. She denies bumping her head during the fall. She denies any shortness of breath, chest pain, lightheadedness prior to the fall. She states that she did try to move the ankle into a better position and the pain was excruciating and she passed out for a minute or 2. Her was there and witnessed the event. She was unable to ambulate and was brought to [facility] emergency room. X-rays were taken and found that she had a right bimalleolar ankle fracture dislocation and also a proximal right fibular head fracture. She was admitted by the medicine service for pain control and we have been asked to see her for her ankle fracture. I have indicated the patient for Closed reduction and splint application versus open reduction internal fixation of right ankle bimalleolar fracture. There is residual subluxation of the ankle mortise on x-ray. Under anesthesia we will assess the patient's soft tissue if amenable to surgical fixation at this time we will proceed with open reduction internal fixation however if the soft tissue would benefit from delayed fixation we will proceed with closed reduction and splint application. The risks, benefits, complications and alternatives to surgery were explained to the patient and family in detail. These include however not limited to infections, blood clots, acute blood loss, injury to surrounding nerves, bone, vessels, soft tissue, arthrofibrosis, chronic pain, malunion, nonunion, compartment syndrome, need for additional surgery, loss of limb and loss of life. Alternatives include no surgery which would result and worsening symptoms, nonunion or a malunion of the fracture sites. The patient wished to proceed with surgical intervention at this time and informed consent was obtained. Antibiotics on-call to the OR Description of Procedure The patient was brought to the operating suite and placed in the supine position on the OR table. Upon the administration of general anesthesia, a well-padded tourniquet was applied to the proximal thigh of the right leg. The skin of the right ankle was carefully examined and found to be clean, dry and intact with mild edema, +wrinkle sign. The decision was made to proceed with ORIF right ankle. The surgical limb was prepped and draped in the typical sterile fashion. A time out was performed and site anita confirmed. Antibiotics were verified and given. The limb was exsanguinated and the tourniquet was inflated to 300mmHg. Utilizing c-arm fluoroscopy the lateral malleolus fracture was identified and marked out. I made a longitudinal incision over the distal aspect of the fibula. I sharply incised the skin and then used Bovie electrocautery to achieve hemostasis. Care was taken to protect the neurovascular structures. The superficial peroneal nerve was located 6cm proximal to the tip of the distal fibula, a vessel loop was used to tag the nerve. I then dissected down to the fibular fracture cleared it of any interposing soft tissue with the help of periosteal elevator, dental pick and a small curette and then reduced the fracture with a point to point clamp.Next a 3.5mm lag screw by technique measuring 22mm was placed across the fracture site and countersunk. The clamp was then removed and the fracture remained nicely reduced and was stable. I then positioned the 4 hole distal fibular locking plate laterally over the fibula, two k-wires were placed in the distal aspect of the plate to hold the plate to the bone. Once I was satisfied with the position of the plate I placed a nonlocking cortical screw measuring 14mm proximally in the plate to bring the plate down to bone. I confirmed reduction and plate position with c-arm fluoroscopy. I then placed 4 distal locking screws measuring 10, 14, 16, 16 mm and confirmed screw positioning which was all inside the bone and did not violate the joint. Next two non locking cortical screws were placed in the proximal aspect of the plate measuring 12mm and 12 mm. The c-arm fluoroscopy was utilized to confirm adequate positioning of all screws and plate. Next, I turned my attention to the medial aspect of the ankle. A 3cm curvilinear incision was made over the tip of the medial malleolus. The transverse medial malleolus fracture was cleared of all debris and reduced. Two k-wires were placed in the tip of the medial malleolus perpendicular to the fracture site holding the reduction. C-arm fluoroscopy confirmed reduction and positioning of the k-wires. Next, two 3.5 mm partially long threaded cannulated screws measuring 50 mm were placed over the k-wires. Once again screw placement and fracture reduction was assessed with c-arm fluoroscopy. Both k-wires were removed at this time. I confirmed reduction on AP, lateral and mortise views.Utilizing a towel clamp a stress was applied to the fibula laterally which demonstrated residual widening of the medial clear space. At this time we placed a 4.5mm x 58mm non locking cortical screw was placed across the syndesmosis which reduced the medial clear space nicely. Once again, I confirmed reduction on AP, lateral and mortise views. The wounds were thoroughly irrigated with sterile saline solution. Utilizing 1 Vicryl suture the periosteum was closed over the distal fibular locking place. Laterally subcutaneous tissue was closed with interrupted 2-0 Vicryl sutures and the skin closed with 3-0 vicryl suture. Medially subcutaneous tissue was closed with interrupted 2-0 Vicryl sutures and the skin closed with 3-0 vicryl suture. The skin was approximated nicely and was without tension. A sterile dressing was applied which included xeroform, 4x4s, ABDs and webrill and an AO was splint placed. The tourniquet was deflatted at 115 minutes. All needle and sponge counts were correct at the end of the procedure. The patient was transferred to the PACU in stable condition. The patient tolerated the procedure well and was without apparent complications. Due to the complex nature of the procedure, the entire surgery was performed with the operational assistance of Chucky Newman PA-C. The junior administrative assistant, under direct supervision, was involved in the actual performance of all aspects of the surgical procedure including patient positioning, hemostasis, tissue retraction, instrument management and wound closure. I attest to the content of the Intraoperative Record and any orders documented therein. Any exceptions are noted below.
--- NOTE | 2019-03-30 15:22 | Fluoroscopy Report ---
FL ankle RT 2V CLINICAL HISTORY: RT ORIF DISTALfracture COMPARISON STUDY: 03/29/2019 FLUOROSCOPY TIME: 140 seconds. NUMBER OF FLUOROSCOPIC IMAGES: 3 FINDINGS: 2 intraoperative fluoroscopic spot images are provided for interpretation. There is been fi xation of the medial malleolar fracture to cannulated screws. There is a transverse syndesmotic screw . There is a lateral metallic plate with multiple screws fixating the distal fibular fracture. IMPRESSION: Internally fixated fractures as described above. Electronically signed by: Charlie Kendrick M.D. 03/30/2019 3:21 PM
--- NOTE | 2019-03-30 15:56 | XRay Report ---
XR ankle RT 2V CLINICAL HISTORY: post of ORIF right ankle, in PACU COMPARISON STUDY: Right ankle 03/29/2019. FINDINGS: Overlying splint material obscures fine bony detail. Status post internal fixation of a bim alleolar ankle fracture with cortical plate and screws. The hardware appears intact. The alignment is near-anatomic. IMPRESSION: Status post internal fixation of a bimalleolar ankle fracture. The hardware appears inta ct. Electronically signed by: Saad Fang M.D. 03/30/2019 3:55 PM
--- NOTE | 2019-03-30 16:13 | Orthopedic Progress Note ---
Date of Service March 30, 2019 Assessment & Plan (1) Displaced bimalleolar fracture of right ankle: Status post ORIF right ankle, syndesmotic fixation -Ancef x24 -DVT prophylaxis SCDs, teds, Lovenox daily -Nonweightbearing right lower extremity -Ice and elevation right lower extremity -PT/OT -Postoperative x-ray demonstrates well aligned well fixed orthopedic implants, anatomic alignment of the fracture sites and congruent mortise -A.m. labs Subjective Post Operative Progress Note Patient seen in PACU, comfortable, denies complaints, pain well controlled, no acute issues. Review of Systems Review of Systems: All systems reviewed & are unremarkable except as noted in HPI & below Constitutional: as per Subjective / HPI Physical Exam Physical Exam: RLE NVSI +EHL/FHL SILT grossly, +2 DP pulse, compartments soft NT, dressing cdi. AO splint in place. Constitutional: WD/WN, vitals as above Results & Data Vital Signs (Past 12 Hours) Vital Signs Temp Pulse Pulse Resp BP BP Pulse Ox 03/30/19 16:00 77 16 164/77 H 94 03/30/19 15:50 69 14 122/64 93 03/30/19 15:40 37.0 C 77 84 14 117/70 142/73 H 93 03/30/19 15:34 36.8 C 76 12 122/76 98 03/30/19 11:55 37.3 C 72 18 145/84 H 95 03/30/19 07:12 37.1 C 63 17 131/73 96 (1) Displaced bimalleolar fracture of right ankle Encounter type: initial encounter Fracture type: closed Qualified Code(s): S82.841A - Displaced bimalleolar fracture of right lower leg, initial encounter for closed fracture
--- NOTE | 2019-03-30 16:23 | Anesthesiology Progress Note ---
Date of Service March 30, 2019 Anesthesia Post Procedure Vital Signs Vital Signs: Temp Pulse Pulse Resp BP BP Pulse Ox 03/30/19 16:10 62 16 147/76 H 93 03/30/19 16:00 77 16 164/77 H 94 03/30/19 15:50 69 14 122/64 93 03/30/19 15:40 37.0 C 77 84 14 117/70 142/73 H 93 03/30/19 15:34 36.8 C 76 12 122/76 98 03/30/19 11:55 37.3 C 72 18 145/84 H 95 03/30/19 07:12 37.1 C 63 17 131/73 96 03/29/19 23:20 36.8 C 71 18 128/79 95 Pain Intensity Right Ankle: Pain Intensity: 5 Transfer of Care Handoff Completed per policy Notes Mental Status: alert / awake / arousable Patient Amnestic to Procedure: Yes Nausea / Vomiting: adequately controlled Pain: adequately controlled Airway Patency, RR, SpO2: stable & adequate BP & HR: stable & adequate Hydration State: stable & adequate Anesthetic Complications: no major complications apparent
[2019-03-30] MEDS ORDERED: ePHEDrine sulfate 50 MG/ML AMP IV PRN (16:42)
[2019-03-30] MEDS ORDERED: ATROPINE SULFATE 0.1 MG/ML 10ML SYR IV PRN (16:42)
[2019-03-30] MEDS ORDERED: HYDROmorphone INJ 0.5 MG/0.5 ML SYR IV PRN (17:01)
[2019-03-30] MEDS ORDERED: bisacodyL 10 MG SUPP PR PRN (17:01)
[2019-03-30] MEDS ORDERED: ONDANSETRON INJ 2 MG/ML 2 ML VIAL IV PRN (17:01)
[2019-03-30] MEDS ORDERED: METOCLOPRAMIDE HCL INJ 5 MG/ML 2 ML VIAL IV PRN (17:01)
[2019-03-30] MEDS ORDERED: MAGNESIUM HYDROXIDE SUSP 30 ML UDC PO PRN (17:01)
[2019-03-30] MEDS ORDERED: NALOXONE HCL 0.4 MG/1 ML VIAL/CARP IV PRN (17:01)
[2019-03-30] MEDS ORDERED: SODIUM CHLORIDE 0.9% 1000ML 1,000 ML IV SCH (17:01)
[2019-03-30] MEDS: CEFAZOLIN 2000MG 2,000 MG/15 ML SYR IV SCH (18:07)
[2019-03-30] MEDS: PROMETHAZINE HCL 12.5 MG in SODIUM CHLORIDE 0.9% 50 ML IV PRN (18:07)
[2019-03-30] MEDS: SODIUM CHLORIDE 0.9% 1000ML 1,000 ML IV SCH (18:08)
[2019-03-30] MEDS: lisinopriL 20 MG TAB PO SCH (20:36)
[2019-03-30] MEDS: DOCUSATE SODIUM 100 MG CAP PO SCH (20:41)
[2019-03-30] MEDS ORDERED: SENNA 8.6 MG TAB PO SCH (21:00)
[2019-03-30] MEDS: ACETAMINOPHEN 325 MG TAB PO PRN (21:17)
[2019-03-31] MEDS: CEFAZOLIN 2000MG 2,000 MG/15 ML SYR IV SCH (02:01)
[2019-03-31 06:43] LABS: Hematocrit (blood only) 28.7 % (37-47); Hemoglobin 9.4 g/dL (12.0-16.0); Mean Corpuscular Hemoglobin 31.3 pg (25-34); Mean Corpuscular Hgb Conc 32.8 g/dL (32-36); Mean Corpuscular Volume 95.7 fL (80-100); Mean Platelet Volume 9.1 fL (7.4-10.4); Platelet Count 220 K/uL (130-400); RDW Coefficient of Variation 13.2 % (11.5-14.5); RDW Standard Deviation 45.7 fL (36.4-46.3); White Blood Count 6.37 K/uL (4.8-10.8)
[2019-03-31 07:14] LABS: BUN Creatinine Ratio 16.1 (10-20); Calcium 8.6 mg/dl (8.5-10.1); Creatinine Clr Calc Pharmacy 95.6 ml/min; Est GFR (African American) 106.8; Est GFR (Non-African American) 92.2
--- NOTE | 2019-03-31 08:41 | Orthopedic Progress Note ---
Date of Service March 31, 2019 Assessment & Plan (1) Displaced bimalleolar fracture of right ankle: Status post ORIF right ankle, syndesmotic fixation -Ancef x24 -DVT prophylaxis SCDs, teds, Lovenox daily -Nonweightbearing right lower extremity -Ice and elevation right lower extremity -PT/OT -Postoperative x-ray demonstrates well aligned well fixed orthopedic implants, anatomic alignment of the fracture sites and congruent mortise -A.m. labs: hgb 9.4 Subjective Post Operative Progress Note Patient seen sitting up in bed, comfortable, denies complaints, pain well controlled, no acute issues. Denies F/C/N/V/SOP/CP. Review of Systems Review of Systems: All systems reviewed & are unremarkable except as noted in HPI & below Constitutional: as per Subjective / HPI Physical Exam Physical Exam: RLE NVSI +EHL/FHL SILT grossly, +2 DP pulse, compartments soft NT, dressing cdi. AO splint in place Constitutional: WD/WN, vitals as above Results & Data Vital Signs (Past 12 Hours) Vital Signs Temp Pulse Pulse Resp BP Pulse Ox 03/31/19 08:15 36.8 C 52 L 14 110/70 95 03/31/19 04:01 36.7 C 52 L 16 111/63 96 03/30/19 23:50 36.7 C 56 L 16 113/67 94 Laboratory Results 03/31/19 03/31/19 03/30/19 Range/Units 06:08 06:08 09:15 WBC 6.37 (4.8-10.8) K/uL RBC 3.00 L (4.2-5.4) M/uL Hgb 9.4 L (12.0-16.0) g/dL Hct 28.7 L (37-47) % MCV 95.7 (80-100) fL MCH 31.3 (25-34) pg MCHC 32.8 (32-36) g/dL RDW Std Deviation 45.7 (36.4-46.3) fL RDW Coeff of Eneida 13.2 (11.5-14.5) % Plt Count 220 (130-400) K/uL MPV 9.1 (7.4-10.4) fL Sodium 139 138 (136-145) mmol/L Potassium 4.0 4.0 (3.5-5.1) mmol/L Chloride 109 H 107 (98-107) mmol/L Carbon Dioxide 26 26 (21-32) mmol/L Anion Gap 4.0 5.0 (3-11) BUN 10 12 (7-18) mg/dl Creatinine 0.63 0.74 (0.6-1.2) mg/dl Est Cr Clr Drug Dosing 95.6 81.3 ml/min Est GFR ( Amer) 106.8 96.5 Est GFR (Non-Af Amer) 92.2 83.2 BUN/Creatinine Ratio 16.1 16.1 (10-20) Glucose 120 H 113 H (70-99) mg/dl Calcium 8.6 8.9 (8.5-10.1) mg/dl 03/30/19 Range/Units 09:15 WBC 7.18 (4.8-10.8) K/uL RBC 3.29 L (4.2-5.4) M/uL Hgb 10.4 L (12.0-16.0) g/dL Hct 31.4 L (37-47) % MCV 95.4 (80-100) fL MCH 31.6 (25-34) pg MCHC 33.1 (32-36) g/dL RDW Std Deviation 45.8 (36.4-46.3) fL RDW Coeff of Eneida 13.2 (11.5-14.5) % Plt Count 238 (130-400) K/uL MPV 8.5 (7.4-10.4) fL Sodium (136-145) mmol/L Potassium (3.5-5.1) mmol/L Chloride (98-107) mmol/L Carbon Dioxide (21-32) mmol/L Anion Gap (3-11) BUN (7-18) mg/dl Creatinine (0.6-1.2) mg/dl Est Cr Clr Drug Dosing ml/min Est GFR ( Amer) Est GFR (Non-Af Amer) BUN/Creatinine Ratio (10-20) Glucose (70-99) mg/dl Calcium (8.5-10.1) mg/dl (1) Displaced bimalleolar fracture of right ankle Encounter type: initial encounter Fracture type: closed Qualified Code(s): S82.841A - Displaced bimalleolar fracture of right lower leg, initial encounter for closed fracture
[2019-03-31] MEDS: DOCUSATE SODIUM 100 MG CAP PO SCH (08:49)
[2019-03-31] MEDS: MULTIVITAMIN TAB PO SCH (08:49)
[2019-03-31] MEDS: ENOXAPARIN INJ 40 MG/0.4 ML SYR SQ SCH ×2 (08:50→15:56)
[2019-03-31] MEDS: TRIAMCINOLONE ACET NASAL SPRAY 10.8ML BTL NAE SCH (08:51)
[2019-03-31] MEDS ORDERED: MULTIVITAMIN TAB PO SCH (09:00)
[2019-03-31] MEDS: OXYCODONE HCL IR 5 MG TAB (IMMEDIATE RELEASE) PO PRN (10:43)
[2019-03-31] MEDS: ACETAMINOPHEN 325 MG TAB PO PRN (13:07)
[2019-03-31] MEDS ORDERED: ACETAMINOPHEN 325 MG TAB PO PRN (13:17)
[2019-03-31] MEDS ORDERED: OXYCODONE HCL IR 5 MG TAB (IMMEDIATE RELEASE) PO PRN (13:17)
--- NOTE | 2019-03-31 14:35 | Hospitalist Progress Note ---
Date of Service March 31, 2019 Assessment & Plan (1) Ankle fracture, right: Secondary to mechanical fall Pre-Op Diagnosis of Right ANKLE FRACTURE, and then Right Distal Ankle Fracture Open Reduction Internal Fixation by Kenneth Guzman DO Operation Date: 03/30/19 Acute blood loss anemia -Patient may take acetaminophen 325 mg every 6 hours as needed for pain or fever, Patient may take oxycodone 5 mg every 6 hours as needed for moderate to severe pain (16 pill supply prescribed). Patient should minimize use of Lorazepam (Ativan) when using oxycodone for pain to minimize sedating side effects. Patient should be on Lovenox (Enoxaparin) 40 mg subcutaneous daily injections to prevent blood clots for 4 weeks. While on Lovenox, patient should avoid NSAID medications such as ibuprofen, Aleve, Motrin. -hemoglobin postop of 9.4 on 03/31/19 from admission of 11 to 12 is acceptable given recent surgery -Discharge medications sent electronically to [facility] at [address], [place] [address] Follow up with family medical doctor 04/05/2019 11:20 AM Provider Annalee Avalos DO Department [facility]. Patient should have repeat hemoglobin checked by primary care doctor especially while on Lovenox -PRESCRIPTION PROVIDED TO CASE MANAGEMENT FOR KNEE SCOOTER -Orthopedic Discharge Instructions ACTIVITY RECOMMENDATIONS: ORIF Right ankle * Please maintain strict non weight bearing on your right lower extremity SPECIAL CARE INSTRUCTIONS: * Some drainage onto the dressing is normal and is no cause for alarm. * Some swelling is natural especially after walking. When resting, keep your foot elevated above the level of your heart. * Keep your splint clean and dry at all times. * Call the doctor's office at if you notice increased drainage, fever over 101 degrees F. or severe constant pain. BANDAGE: * Leave bandage/cast in place unless otherwise directed. * Keep bandage/cast dry at all times. Take your blood thinner, Lovenox 40mg Daily x 4 weeks, this is to help prevent blood clots. FOLLOW UP VISIT: If appointment is not already scheduled: Please call [facility] to make a follow-up appointment, 10-14 days after your surgery at . (2) Hypertension: -continue home lisinopril as outpatient Hyperglycemia Hgb A1c 5.6% (03/29/2019) -no acute glucose issues after being further removed from surgical day Discharge Diagnosis: Pre-Op Diagnosis of Right ANKLE FRACTURE, s/p Right Distal Ankle Fracture Open Reduction Internal Fixation, Acute blood loss anemia, Hyper tension Subjective Patient seen and examined at bedside. right leg in dressing. no acute pain of the leg. breathing on room air. no shortness of breath. no abdominal pain. no chest pain. no headache. no dizziness. Review of Systems Review of Systems: All systems reviewed & are unremarkable except as noted in HPI & below Physical Exam Constitutional: WD/WN, vitals as above Eyes: PERRL, conjunctivae normal, anicteric sclerae ENMT: external ear and nose normal, oropharynx normal Neck: normal visual inspection Respiratory: normal respiratory effort, lungs clear to auscultation Cardiovascular: RRR, no murmur, no edema Gastrointestinal (Abdomen): normal bowel sounds, soft, nontender, no hepatosplenomegaly Musculoskeletal: Head/Neck/Chest: normocephalic and head atraumatic Extremities: + lower leg abnormality (right leg in dressing) Neurologic: PERRL, EOMI, accommodation nl, no face palsy, no dysarthria CN's II-XI intact bilaterally Psychiatric: A+Ox3, euthymic affect Results & Data Vital Signs (Past 12 Hours) Vital Signs Temp Pulse Pulse Resp BP Pulse Ox 03/31/19 14:16 36.7 C 58 L 52 L 15 120/78 98 03/31/19 13:19 36.7 C 58 L 52 L 15 120/78 98 03/31/19 12:10 36.7 C 58 L 15 120/78 98 03/31/19 08:15 36.8 C 52 L 14 110/70 95 03/31/19 04:01 36.7 C 52 L 16 111/63 96
--- NOTE | 2019-03-31 14:42 | Discharge Summary ---
Date of Service March 31, 2019 Admission HPI Per Admitting Provider History obtained from patient and records. Medical history significant for hypertension, GERD, anxiety. Patient was at a neighborhood constitution party last night when she slipped down 5 steps of stairs landing on her right leg. No head trauma, no chest pain, no S OB, no syncope. Patient noted excruciating right ankle pain and deformity. Patient brought to the ER by EMS for evaluation. 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 Admission Exam Per Admitting Provider GENERAL: Comfortable, pleasant, obese, alcoholic fever, no respiratory distress SKIN: Normal color, warm HEENT: Bespectacled, pink palpebral conjunctivae, no ptosis, dry buccal mucosa NECK : Supple, short neck, no tenderness CHEST : CTA, no tenderness HEART : RRR, no obvious murmurs ABDOMEN: Some distention, nontender EXTREMITIES : RLE splint, no other conspicuous deformities noted NEUROLOGIC : Coherent, no facial asymmetry, no other gross focality Principal Diagnosis Pre-Op Diagnosis of Right ANKLE FRACTURE, s/p Right Distal Ankle Fracture Open Reduction Internal Fixation, Acute blood loss anemia, Hypertension Discharge Exam Constitutional WD/WN, vitals as above Eyes PERRL, conjunctivae normal, anicteric sclerae ENMT external ear and nose normal, oropharynx normal Neck normal visual inspection Respiratory normal respiratory effort, lungs clear to auscultation Cardiovascular RRR, no murmur, no edema Gastrointestinal (Abdomen) normal bowel sounds, soft, nontender, no hepatosplenomegaly Musculoskeletal Head/Neck/Chest: normocephalic and head atraumatic Extremities: + lower leg abnormality (right leg in dressing) Neurologic PERRL, EOMI, accommodation nl, no face palsy, no dysarthria CN's II-XI intact bilaterally Psychiatric A+Ox3, euthymic affect Discharge Data Allergies Allergy/AdvReac Type Severity Reaction Status Date / Time Sulfa (Sulfonamide Allergy Severe ANAPHYLAXIS Verified 03/29/19 00:15 Antibiotics) bee venom protein (honey bee) Allergy Unknown . Verified 03/29/19 00:15 Latex2 -Systemic Allergic Allergy Unknown ANAPHYLAXIS Uncoded 03/29/19 00:15 Response Consultations 03/29/19 01:32 ED Decision to Admit Stat 03/29/19 05:10 Consult Case Management - Discharge Planning Routine Consult Orthopedic Surgery Routine 03/30/19 17:01 Consult Case Management - Discharge Planning Routine Procedures Performed Operation Date: 03/30/19 11:25 Actual Procedures p Right Distal Ankle Fracture Open Reduction Internal Fixation - Kenneth sutherland DO Ordered Studies 03/30/19 12:00 FL ankle RT 2V Routine FL fluoroscopy <1hr Routine Hospital Course (1) Ankle fracture, right: Secondary to mechanical fall Pre-Op Diagnosis of Right ANKLE FRACTURE, and then Right Distal Ankle Fracture Open Reduction Internal Fixation by Kenneth Guzman DO Operation Date: 03/30/19 Acute blood loss anemia -Patient may take acetaminophen 325 mg every 6 hours as needed for pain or fever, Patient may take oxycodone 5 mg every 6 hours as needed for moderate to severe pain (16 pill supply prescribed). Patient should minimize use of Lorazepam (Ativan) when using oxycodone for pain to minimize sedating side effects. Patient should be on Lovenox (Enoxaparin) 40 mg subcutaneous daily injections to prevent blood clots for 4 weeks. While on Lovenox, patient should avoid NSAID medications such as ibuprofen, Aleve, Motrin. -hemoglobin postop of 9.4 on 03/31/19 from admission of 11 to 12 is acceptable given recent surgery -Discharge medications sent electronically to [facility] at [address] [place] [address] Follow up with family medical doctor 04/05/2019 11:20 AM Provider Annalee Avalos DO Department [facility]. Patient should have repeat hemoglobin checked by primary care doctor especially while on Lovenox -PRESCRIPTION PROVIDED TO CASE MANAGEMENT FOR KNEE SCOOTER -Orthopedic Discharge Instructions ACTIVITY RECOMMENDATIONS: ORIF Right ankle * Please maintain strict non weight bearing on your right lower extremity SPECIAL CARE INSTRUCTIONS: * Some drainage onto the dressing is normal and is no cause for alarm. * Some swelling is natural especially after walking. When resting, keep your foot elevated above the level of your heart. * Keep your splint clean and dry at all times. * Call the doctor's office at if you notice increased drainage, fever over 101 degrees F. or severe constant pain. BANDAGE: * Leave bandage/cast in place unless otherwise directed. * Keep bandage/cast dry at all times. Take your blood thinner, Lovenox 40mg Daily x 4 weeks, this is to help prevent blood clots. FOLLOW UP VISIT: If appointment is not already scheduled: Please call [facility] to make a follow-up appointment, 10-14 days after your surgery at . (2) Hypertension: -continue home lisinopril as outpatient Hyperglycemia Hgb A1c 5.6% (03/29/2019) -no acute glucose issues after being further removed from surgical day Discharge Diagnosis: Pre-Op Diagnosis of Right ANKLE FRACTURE, s/p Right Distal Ankle Fracture Open Reduction Internal Fixation, Acute blood loss anemia, Hypertension Total Time Total Time Spent Total Time Spent (In Minutes): 40 MINUTES Total Time Includes: Examination of the Patient, Discharge Planning, Medication Reconciliation and Communication With Other Providers Discharge Plan Discharge Items Patient Disposition: Home - Home Health Services Reason For Visit: R ANKLE INJURY Discharge Diagnosis: Pre-Op Diagnosis of Right ANKLE FRACTURE, s/p Right Distal Ankle Fracture Open Reduction Internal Fixation, Acute blood loss anemia, Hypertension Condition on Discharge: Good Activity: Per Instructions section Non-emergency contact: Primary Care Provider and Surgeon Call non-emergency contact if: you have any medication questions Follow-up/Referrals: Annalee Avalos DO [Primary Care Provider] - Diet: Regular Addtl Attending Provider Instructions: Pre-Op Diagnosis of Right ANKLE FRACTURE, and then Right Distal Ankle Fracture Open Reduction Internal Fixation by Kenneth Guzman DO Operation Date: 03/30/19 Patient may take acetaminophen 325 mg every 6 hours as needed for pain or fever, Patient may take oxycodone 5 mg every 6 hours as needed for moderate to severe pain (16 pill supply prescribed). Patient should minimize use of Lorazepam (Ativan) when using oxycodone for pain to minimize sedating side effects. Patient should be on Lovenox (Enoxaparin) 40 mg subcutaneous daily injections to prevent blood clots for 4 weeks. While on Lovenox, patient should avoid NSAID medications such as ibuprofen, Aleve, Motrin. Discharge medications sent electronically to [facility] at [address], [place] [address] Follow up with family medical doctor 04/05/2019 11:20 AM Provider Annalee Avalos DO Department [facility]. Patient should have repeat hemoglobin checked by primary care doctor especially while on Lovenox Orthopedic Discharge Instructions ACTIVITY RECOMMENDATIONS: ORIF Right ankle * Please maintain strict non weight bearing on your right lower extremity SPECIAL CARE INSTRUCTIONS: * Some drainage onto the dressing is normal and is no cause for alarm. * Some swelling is natural especially after walking. When resting, keep your foot elevated above the level of your heart. * Keep your splint clean and dry at all times. * Call the doctor's office at if you notice increased drainage, fever over 101 degrees F. or severe constant pain. BANDAGE: * Leave bandage/cast in place unless otherwise directed. * Keep bandage/cast dry at all times. Take your blood thinner, Lovenox 40mg Daily x 4 weeks, this is to help prevent blood clots. FOLLOW UP VISIT: If appointment is not already scheduled: Please call [facility] to make a follow-up appointment, 10-14 days after your surgery at . Pending Studies at Discharge: No Stand-Alone Forms: My [facility], Opioid Pain Management, Smoking Cessation Medications and DC Order Prescriptions: New sennosides [Senokot] 8.6 mg Tablet 17.2 mg PO HS 10 Days Qty: 20 RF: 0 docusate sodium 100 mg Capsule 100 mg PO BID 10 Days Qty: 20 RF: 0 enoxaparin 40 mg/0.4 mL Syringe 40 mg subcut QAM 28 Days Qty: 12 RF: 0 acetaminophen 325 mg tablet 325 mg PO Q6H PRN (Reason: fever or pain) 5 Days Qty: 20 RF: 0 oxycodone 5 mg Tablet 5 mg PO Q6H PRN (Reason: moderate to severe pain) 4 Days Qty: 16 RF: 0 Continued multivitamin Tablet 1 tab PO DAILY RF: 0 lisinopril 20 mg Tablet 20 mg PO DAILY RF: 0 lorazepam 0.5 mg Tablet 0.5 mg PO HS RF: 0 Discharge Orders: Discharge Order (Routine); Ordered 03/31/19 Ordered By: Greg Lora/Other Patient Handouts: Surgery Prevent DVT After, Injection Sub Q Giving, Enoxaparin Sodium Porcine Solution for injection Admission Data Admit Date/Time: 03/30/19 08:22 Attending Provider: Greg Zamarripa Admit Provider: David Guzman Primary Care Provider: Annalee Avalos Other Providers: [facility] ; David Guzman ; Amado Burns Other Interventions: Discharge Summary Assessment (RN) Last Done: 03/31/19 14:16
== END 2019-03-31 16:15 | disposition home health service (06) | DRG 494 ==
LOC: ED 23:35 → 3W 23:35 → SUATTDRO 03-30 08:22 → 3W 03-30 15:47

== ENCOUNTER 2023-12-07 23:06 | Inpatient (IN) ==
--- OUTSIDE RECORDS SUMMARY | 2023-12-07 23:11 | External Medical Summary | Summary of Care ---
Author Name Unknown Organization [facility] Address [address] [place] [address] Phone [phone] Care Team Providers Care Transportation Aide Name Role Phone Dominic Chen DO Primary Care Provider [phone] Reason for Visit * Reason Comments Follow Up Encounter Details Date Type Department Care Team (Latest Contact Info) Description 08/22/2023 10:40 AM EDT Office Visit Family Practice [address] [facility], [place] [address] [place] [address] Dominic Chen DO [address] [place] [address] Gastroesophageal reflux disease without esophagitis*; HTN, goal below 140/90; Hyperparathyroidism, primary (HCC); Pure hypercholesterolemia; JOSE (generalized anxiety disorder); Moderate episode of recurrent major depressive disorder (HCC); 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; Umbilical hernia without obstruction and without gangrene; Hiatal hernia; Encounter for screening mammogram for malignant neoplasm of breast; Iron deficiency anemia, unspecified iron deficiency anemia type Allergies Active Allergy Reactions Criticality Noted Date Comments Amlodipine 07/01/2022 RASH, EDEMA, HEADACHE, Bee Venom Anaphylaxis High 05/29/2017 Blue Dyes (Parenteral) Anaphylaxis,Rash High 022 Red, purple, blue Hydroxyzine 10/10/2022 Latex High 07/30/2018 Anaphalaxis Sulfa Antibiotics Anaphylaxis,Hives High 05/29/2017 Diclofenac Sodium 05/10/2022 documented as of this encounter (statuses as of 08/25/2023) Medications Medication Sig Dispensed Refills Start Date End Date Status Probiotic Acidophilus BioBeads Oral Capsule Take by mouth 1 Capsule 2 times a day . "Women's probiotic" 0 Active Loratadine 10 MG Oral Tablet (Claritin) Take 1 Tablet by mouth in the morning. 0 Active Vitamin C 500 MG Oral Tablet (Ascorbic Acid) Take 1 Tablet by mouth in the morning. 0 Active Ibuprofen 200 MG Oral Capsule Take 2 Capsules by mouth every 4 hours as needed. 0 Active Zinc 50 MG Oral Capsule Take 1 Capsule by mouth in the morning. 0 Active Metamucil Smooth Texture 28.3 % Oral Powder (Psyllium) Take by mouth . 0 Active Fluticasone Propionate 50 MCG/ACT Nasal Suspension (Flonase)Indications:ETD (Eustachian tube dysfunction), bilateral,Allergy, initial encounter Administer 2 Sprays into nostril in the morning. 48 mL 3 3 Active Lisinopril 30 MG Oral TabletIndications:HTN, goal below 140/90 Take 1 Tablet by mouth in the morning. 90 Tablet 3 3 Active Rosuvastatin Calcium 5 MG Oral Tablet (Crestor)Indications:Pur e hypercholesterolemia Take 1 Tablet by mouth in the morning. 90 Tablet 2 3 Active Famotidine 20 MG Oral Tablet (Pepcid)Indications:Chuckie roesophageal reflux disease without esophagitis Take 1 Tablet by mouth daily. 90 Tablet 2 3 Active Ipratropium [place] 0.03 % Nasal Solution (Atrovent)Indications:Ch ronic rhinitis Administer 2 Sprays into each nostril in the morning and 2 Sprays at noon and 2 Sprays before bedtime. for runny nose. 30 mL 3 4 Active LORazepam 1 MG Oral Tablet (Ativan)Indications:Unco mplicated alcohol dependence (HCC),JOSE (generalized anxiety disorder) Take 0.5 tablet by mouth in the morning and 0.5 tablet in the afternoon and 1 tablet at bedtime 60 Tablet 1 4 Active hydroCHLOROthiazide 12.5 MG Oral CapsuleIndications:HTN, goal below 140/90 Take 1 Capsule by mouth in the morning. 90 Capsule 1 4 Active Omeprazole 20 MG Oral Capsule Delayed Release (PriLOSEC)Indications:Ga stroesophageal reflux disease without esophagitis Take 1 Capsule by mouth in the morning. 1 hour before the first meal of the day. 90 Capsule 3 05/03/202 4 Active B Complete Oral Tablet Take by mouth. 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 07/13/2021 JOSE (generalized anxiety disorder) 06/04/2019 Moderate episode of recurrent major depressive d isorder 06/04/2019 HTN, goal below 140/90 05/29/2017 Pure hypercholesterolemia 05/29/2017 documented as of this encounter (statuses as of 08/25/2023) Resolved Problems Problem Noted Date Diagnosed Date Resolved Date Food insecurity 03/03/2023 06/05/2023 Overview: Per [facility] Protocol Calculus of gallbladder with out cholecystitis without obstruction 11/28/2021 03/05/2022 ETD (Eustachian tube dysfunction), bilateral 8 06/04/2019 High risk for fracture due t o osteoporosis by DEXA scan 05/29/2017 12/21/2020 Gastroesophageal reflux disease 05/29/2017 06/04/2019 Allergy 05/29/2017 07/08/2022 Overview: ICD-10 update of inactive term documented as of this encounter (statuses as of 08/25/2023) Immunizations Name Administration Dates Next Due COVID-19 mRNA, LNP-s, No Pre serve, 2-Dose Series (Sara Campbell) 02/03/2021,06/30/2020,06/02/2020 COVID-19, LNP-s, No Preserve , Aubrey-sucrose, Ages 12+ (Sara Campbell) 12/11/2021 COVID-19, MRNA-LNP, 23-24, P F, 30 MCG/0.3 mL, 12 YRS AND ABOVE, IM ([facility]) 03/14/2023 Covid-19, Mrna, Lnp-s, Pf, B ivalent, 30 Mcg, IM, 12 yrs and above (Pfizer) 03/05/2022 Pneumococcal Conjugate Vacc, 13 Valent (Prevnar) 10/04/2016 Pneumococcal Polysaccharide PPV23 (Pneumovax) 06/23/2015 RSV Vac., Bivalent, Perfusio n F, Pf,0.5 Ml (Abrysvo) 02/14/2023 Seasonal Influenza, PF, 6 M & above, IM , (FluLaval or Fluzone) 01/17/2021,01/22/2019,02/09/2018,05/29 Seasonal Influenza, Quadriva lent Hd (Fluzone Hd) 02/14/2023,01/16/2022,01/17/2021 Seasonal Influenza, Quadriva lent Hd, 65+ Yrs 02/01/2020 TD - Tetanus/Diptheria (ADULT) 11/19/2003 TDAP (age 10 and older)(Boostrix) 10/04/2016 Zoster Vaccine Recombinant (Shingrix) 02/21/2020 ,12/22/2019 documented as of this encounter Social History Tobacco Use Types Packs/Day Years Used Date Smoking Tobacco: Never Passive Smoke Exposure: Past Smokeless Tobacco: Never Tobacco Cessation:Counseling Given: Yes Alcohol Use Standard Drinks/Week Comments Not Currently 0 (1 standard drink = 0.6 oz pur e alcohol) heavy since 2018 AUDIT-C Answer Date Recorded Q1: How often do you have a drink containing alc ohol? 2-4 times a month 07/13/2021 Q2: How many drinks containi ng alcohol do you have on a typical day when you are drinking? 1 or 2 07/13/2021 Q3: How often do you have si x or more drinks on one occasion? Never 07/13/2021 PHQ-2 Answer Date Recorded PHQ Adult Total Score 0 06/20/2023 Hunger Vital Sign Answer Date Recorded Within the past 12 months, y ou worried that your food would run out before you got the money to buy more. Sometimes true Within the past 12 months, t he food you bought just didn't last and you didn't have money to get more. Sometimes true Sex and Gender Information Value Date Recorded Sex Assigned at Female 11/28/2021 9:25 AM EDT Gender Identity Female 11/28/2021 9:25 AM EDT Sexual Orientation Straight 11/28/2021 9: 25 AM EDT Job Start Date Occupation Industry Not on file Not on file Not on file documented as of this encounter Last Filed Vital Signs Vital Sign Reading Time Taken Comments Blood Pressure 136/76 08/22/2023 10:51 AM EDT Pulse 68 08/22/2023 10:51 AM EDT Temperature 36 C (96.8 F) 08/22/2023 10: 51 AM EDT Respiratory Rate 14 08/22/2023 10:5 1 AM EDT Oxygen Saturation 99% 08/22/2023 10: 51 AM EDT Inhaled Oxygen Concentration - - Weight 69.7 kg (153 lb 11.2 oz) 024 10:51 AM EDT Height 166.4 cm (5' 5.5") 08/22/2023 10 :51 AM EDT Body Mass Index 25.19 08/22/2023 10:51 AM EDT documented in this encounter Progress Notes * Dominic Chen, - 08/22/2023 12:04 PM EDT SUBJECTIVE: Anupama Caraballo is a 73 year old female. Chief Complaint Patient presents with Follow Up HPI: Patient is a 73 year old female with a history of HTN, Hyperlipidemia, GERD, Allergic Rhinitis, Alcohol Addiction, Hiatal hernia, Anxiety, and NABEEL exposure that is seen for worsening GERD symptoms. Epigastric pain is present as well for a week. No nausea or vomiting. NO chest pain or shortness of breath are present. Chronic bilateral foot pain is unchanged. 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 "Women's probiotic" Loratadine 10 MG Oral Tablet (Claritin) Take 1 Tablet by mouth in the morning. Vitamin C 500 MG Oral Tablet (Ascorbic Acid) Take 1 Tablet by mouth in the morning. Ibuprofen 200 MG Oral Capsule Take 2 Capsules by mouth every 4 hours as needed. Zinc 50 MG Oral Capsule Take 1 Capsule by mouth in the morning. Metamucil Smooth Texture 28.3 % Oral Powder (Psyllium) Take by mouth . Fluticasone Propionate 50 MCG/ACT Nasal Suspension (Flonase) Administer 2 Sprays into nostril in the morning. 48 mL 3 Lisinopril 30 MG Oral Tablet Take 1 Tablet by mouth in the morning. 90 Tablet 3 Rosuvastatin Calcium 5 MG Oral Tablet (Crestor) Take 1 Tablet by mouth in the morning. 90 Tablet 2 Famotidine 20 MG Oral Tablet (Pepcid) Take 1 Tablet by mouth daily. 90 Tablet 2 Ipratropium [place] 0.03 % Nasal Solution (Atrovent) Administer 2 Sprays into each nostril in the morning and 2 Sprays at noon and 2 Sprays before bedtime. for runny nose. 30 mL 3 LORazepam 1 MG Oral Tablet (Ativan) Take 0.5 tablet by mouth in the morning and 0.5 tablet in the afternoon and 1 tablet at bedtime 60 Tablet 1 hydroCHLOROthiazide 12.5 MG Oral Capsule Take 1 Capsule by mouth in the morning. 90 Capsule 1 Omeprazole 20 MG Oral Capsule Delayed Release (PriLOSEC) Take 1 Capsule by mouth in the morning. 1 hour before the first meal of the day. 90 Capsule 3 No current facility-administered medications for this visit. The patient's medication list was reviewed and updated as needed. 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 07/13/2021 ETD (Eustachian tube dysfunction), bilateral 05/29/2017 JOSE (generalized anxiety disorder) 06/04/2019 Gastroesophageal reflux disease 05/29/2017 Hiatal hernia 11/28/2021 HTN, goal below 140/90 05/29/2017 Moderate episode of recurrent major depressive disorder (HCC) 06/04/2019 Non-seasonal allergic rhinitis due to pollen 07/13/2021 Umbilical hernia 11/28/2021 Past Surgical History: Procedure Laterality Date EGD, FLEXIBLE, DIAGNOSTIC 02/18/2022 z-line regular, other monson normal / Biopsies from your esophagus returned mild inflammation / ESOPHAGOGASTRODUODENOSCOPY (EGD), FLEXIBLE, TRANSORAL, DIAGNOSTIC performed by Maryam Nguyen MD at ENDOSCOPY [facility] LAPAROSCOPY; CHOLECYSTECTOMY N/A 12/25/2021 LAPAROSCOPY; REPAIR INITIAL INGUINAL HERNIA Right LIGATE/CUT OVIDUCT(S) WA LAP, VENTRAL HERNIA REPAIR,REDUCIBLE N/A 12/25/2021 SKELETAL FIXATION OF ANKLE FRACTURE Right Review of patient's allergies indicates: Allergen Reactions Bee Venom Anaphylaxis Blue Dyes (Parenteral) Anaphylaxis and Rash Red, purple, blue Latex Anaphalaxis Sulfa Antibiotics Anaphylaxis and Hives Amlodipine RASH, EDEMA, HEADACHE, Hydroxyzine Voltaren [Diclofenac Sodium] Review of Systems Constitutional: Negative for appetite change, fatigue and unexpected weight change. Respiratory: Negative for cough, shortness of breath and wheezing. Cardiovascular: Negative for chest pain, palpitations and leg swelling. Gastrointestinal: Positive for abdominal pain. Negative for blood in stool, constipation, diarrhea,nausea and vomiting. Genitourinary: Negative for dysuria, frequency and hematuria. Musculoskeletal: Positive for gait problem. Negative for back pain. Bilateral foot pain Neurological: Negative for dizziness, syncope and headaches. Psychiatric/Behavioral: Negative for confusion, decreased concentration and sleep disturbance. OBJECTIVE: BP 136/76 | Pulse 68 | Temp 36 C (96.8 F) (Tympanic) | Resp 14 | Ht 1.664 m (5' 5.5") | Wt 69.7kg (153 lb 11.2 oz) | SpO2 99% | BMI 25.19 kg/m | BSA 1.79 m Physical Exam Vitals and nursing note reviewed. Constitutional: General: She is not in acute distress. Appearance: Normal appearance. She is not toxic-appearing. HENT: Head: Normocephalic and atraumatic. Cardiovascular: Rate and Rhythm: Normal rate and regular rhythm. Heart sounds: Normal heart sounds. No murmur heard. No gallop. Pulmonary: Effort: Pulmonary effort is normal. Breath sounds: Normal breath sounds. No wheezing, rhonchi or rales. Abdominal: General: Bowel sounds are normal. There is no distension. Palpations: Abdomen is soft. Tenderness: There is no abdominal tenderness. Musculoskeletal: Right lower leg: No edema. Left lower leg: No edema. Neurological: Mental Status: She is alert and oriented to person, place, and time. Mental status is at baseline. Motor: No weakness. Gait: Gait normal. Psychiatric: Mood and Affect: Mood normal. Behavior: Behavior normal. Thought Content: Thought content normal. Results for orders placed or performed in visit on 06/20/23 PTH Result Value Ref Range PTH 60 15 - 65 pg/mL COMPREHENSIVE METABOLIC PANEL Result Value Ref Range BUN 14 6 - 20 mg/dL Creatinine 0.7 0.5 - 1.0 mg/dL Estimated Glomerular Filtration Rate >90 >=60 mL/min Sodium 136 135 - 146 mmol/L Potassium 3.8 3.5 - 5.1 mmol/L Chloride 100 98 - 107 mmol/L CO2 26 22 - 32 mmol/L Anion Gap 10 7 - 15 mmol/L Glucose 123 (H) 70 - 120 mg/dL Albumin 4.9 3.8 - 5.0 g/dL AST 24 10 - 35 U/L Alkaline Phosphatase 48 35 - 130 U/L Bilirubin, Total 0.3 <=1.2 mg/dL Calcium 10.3 (H) 8.4 - 10.2 mg/dL Protein 6.8 6.0 - 8.3 g/dL ALT 23 10 - 35 U/L 25-HYDROXY VITAMIN D Result Value Ref Range 25-Hydroxy Vitamin D 29 >19 ng/mL LIPID PANEL WITH DIRECT LDL IF TG IS HIGH Result Value Ref Range Triglycerides 132 <=174 mg/dL Cholesterol 149 <200 mg/dL HDL Cholesterol 55 >49 mg/dL Non-HDL Cholesterol 94 <=159 mg/dL LDL Cholesterol 68 <=129 mg/dL CBC Result Value Ref Range WBC 3.21 (L) 4.00 - 10.80 K/uL RBC 3.58 3.85 - 5.15 M/uL HGB 11.4 (L) 12.0 - 15.3 g/dL HCT 34.9 (L) 36.0 - 45.2 % MCV 97.5 81.5 - 97.5 fL MCH 31.8 27.0 - 34.0 pg MCHC 32.7 32.0 - 36.0 g/dL RDW 12.1 11.5 - 15.5 % PLT 223 140 - 400 K/uL MPV 10.4 6.6 - 11.1 fL nRBCs 0 <=0 /100 WBCs DIFFERENTIAL, AUTOMATED Result Value Ref Range WBC 3.21 (L) 4.00 - 10.80 K/uL Neutrophils % 50.8 40.0 - 75.0 % Lymphocytes % 37.7 18.0 - 42.0 % Monocytes % 9.7 1.0 - 11.0 % Eosinophils % 0.9 0.0 - 6.0 % Basophils % 0.9 0.0 - 2.0 % Immature Granulocytes % 0.0 0.0 - 2.0 % Absolute Neutrophils 1.63 (L) 1.80 - 7.70 K/uL Absolute Lymphocytes 1.21 1.00 - 4.80 K/ul Absolute Monocytes 0.31 0.00 - 1.10 K/uL Absolute Eosinophils 0.03 0.00 - 0.70 K/uL Absolute Basophils 0.03 0.00 - 0.20 K/uL Absolute Immature Granulocytes 0.00 0.00 - 0.20 K/uL PLAN AND ASSESSMENT: Gastroesophageal reflux disease without esophagitis (Primary) - Start Omeprazole 20 MG Oral Capsule Delayed Release (PriLOSEC); Take 1 Capsule by mouth in the morning. 1 hour before the first meal of the day. 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 Dominic Chen DO 12:04 PM 08/22/2023 documented in this encounter Nursing Notes * Tamar Russ LPN - 08/22/2023 10:49 AM EDT Does have stomach problem, has problems with hiatal hernia. First bm of day is normal after that it is diarrhea. Has not taken probiotic, has since restarted. documented in this encounter Miscellaneous Notes * Result Encounter Note - Lucia Rodriguez LPN - 08/25/2023 7:54 AM EDT MyG sent to patient. documented in this encounter Plan of Treatment Upcoming Encounters Date Type Department Care Team (Late st Contact Info) Description 10/31/2023 2:20 PM EDT Office Visit Family Practice [address], [place] [address] [place] [address] Dominic Chen, [address] [place] [address] 12/26/2023 11:30 AM EDT Imaging Radiology [facility], [place] [address] [facility] [place] [address] Scheduled Orders Name Type Priority Associated Diagnoses Orde r Schedule MAMMOGRAM SCREENING KAVITHA BILATERAL Medical Imaging Routine Encounter for screening mammogram for malignant neoplasm of breast Expected: 08/22/2023, Expires: 09/21/2024 Health Maintenance Due Date Last Done Comments Colonoscopy 1995 Fecal Occult Blood Test 1995 Sigmoidoscopy 1995 Mammogram 08/10/2023 08/09/2022, 07/21, 12/08/2020, Additional history exists Cologuard 03/28/2024 03/28/2021, 02/21, 03/20/2021 Colorectal Cancer Screening 03/28/2024 GFR 06/19/2024 06/20/2023, 01/20, 09/13/2022, Additional history exists DXA Scan 10/09/2024 10/09/2021, 09/20, 09/09/2017 Albumin/Creatinine Ratio 05/10/2025 023, 03/23/2021, 09/22/2020 DTaP,Tdap,and Td Vaccines (2 - Td or Tdap) 10/04/2026 10/04/2016, 11/19/2003 Lipid Panel 06/19/2028 06/20/2023, 04/22, 03/23/2021, Additional history exists Pneumococcal Vaccine: 65+ Years Completed 10/04/2016, 06/23/2015 Zoster Vaccines Completed 02/21/2020, 05/2019, 02/17/2014 Influenza Vaccine (FLU shot) Completed , 01/16/2022, 01/17/2021, Additional history exists COVID-19 Vaccine Completed 03/14/2023, , 12/11/2021, Additional history exists GARDASIL-HPV IMMUNIZATION SERIES Aged Out No longer eligible based on patient's age to complete this topic Hepatitis B Aged Out No longer eligi ble based on patient's age to complete this topic MENINGOCOCCAL (MENACTRA/MENVEO) Aged Out No longer eligible based on patient's age to complete this topic documented as of this encounter Medical Devices Not on filedocumented as of this encounter Procedures Procedure Name Priority Date/Time Associated Diagnosis Comments DIFFERENTIAL, AUTOMATED Routine 08/22/2023 11:23 AM EDT Iron deficiency anemia, unspecified iron deficiency anemia type CBC Routine 08/22/2023 11:23 AM EDT Iron deficiency anemia, unspecified iron deficiency anemia type CBC Routine 08/22/2023 11:23 AM EDT Iron deficiency anemia, unspecified iron deficiency anemia type documented in this encounter Results * (ABNORMAL) DIFFERENTIAL, AUTOMATED (08/22/2023 11:23 AM EDT) WBC 3.64(L) 4.00 - 10.80 K/uL 08/23/2023 12:25 AM EDT [facility] Neutrophils % 47.8 40.0 - 75.0 % 08/23/2023 12:25 AM EDT [facility] Lymphocytes % 38.2 18.0 - 42.0 % 08/23/2023 12:25 AM EDT [facility] Monocytes % 12.4(H) 1.0 - 11.0 % 08/23/2023 12:25 AM EDT [facility] Eosinophils % 0.8 0.0 - 6.0 % 08/23/2023 12:25 AM EDT [facility] Basophils % 0.5 0.0 - 2.0 % 08/23/2023 12:25 AM EDT [facility] Immature Granulocytes % 0.3 0.0 - 2.0 % 08/23/2023 12:25 AM EDT [facility] Absolute Neutrophils 1.74(L) 1.80 - 7.70 K/uL 08/23/2023 12:25 AM EDT [facility] Absolute Lymphocytes 1.39 1.00 - 4.80 K/ul 08/23/2023 12:25 AM EDT [facility] Absolute Monocytes 0.45 0.00 - 1.10 K/uL 08/23/2023 12:25 AM EDT [facility] Absolute Eosinophils 0.03 0.00 - 0.70 K/uL 08/23/2023 12:25 AM EDT [facility] Absolute Basophils 0.02 0.00 - 0.20 K/uL 08/23/2023 12:25 AM EDT [facility] Absolute Immature Granulocytes 0.01 0.00 - 0.20 K/uL 08/23/2023 12:25 AM EDT [facility] Blood Venous blood specimen / Unknown Venipuncture / Unknown 08/22/2023 11:23 AM EDT 08/22/2023 11:23 AM EDT Dominic Chen DO LAB BLOOD ORDERABLES LAB[facility]ATORY [facility] [address] [place] [address] * (ABNORMAL) CBC (08/22/2023 11:23 AM EDT) WBC 3.64(L) 4.00 - 10.80 K/uL 08/23/2023 12:25 AM EDT [facility] RBC 3.63 3.85 - 5.15 M/uL 08/23/2023 12:25 AM EDT [facility] HGB 11.7(L) 12.0 - 15.3 g/dL 08/23/2023 12:25 AM EDT [facility] HCT 33.7(L) 36.0 - 45.2 % 08/23/2023 12:25 AM EDT [facility] MCV 92.8 81.5 - 97.5 fL 08/23/2023 12:25 AM EDT [facility] MCH 32.2 27.0 - 34.0 pg 08/23/2023 12:25 AM EDT [facility] MCHC 34.7 32.0 - 36.0 g/dL 08/23/2023 12:25 AM EDT [facility] RDW 12.8 11.5 - 15.5 % 08/23/2023 12:25 AM EDT [facility] PLT 239 140 - 400 K/uL 08/23/2023 12:25 AM EDT [facility] MPV 9.7 6.6 - 11.1 fL 08/23/2023 12:25 AM EDT [facility] nRBCs 0 <=0 /100 WBCs 08/23/2023 12:25 AM EDT [facility] Blood Venous blood specimen / Unknown Venipuncture / Unknown 08/22/2023 11:23 AM EDT 08/22/2023 11:23 AM EDT Dominic Chen DO LAB BLOOD ORDERABLES Performing Organization Address City/State/[facility] Co de Phone Number [facility] [address] [place] [address] documented in this encounter Visit Diagnoses Diagnosis Gastroesophageal reflux disease without esophagitis- Primary Esophageal reflux HTN, goal below 140/90 Unspecified essential hypertension Hyperparathyroidism, primary (HCC) Primary hyperparathyroidism Pure hypercholesterolemia JOSE (generalized anxiety disorder) Generalized anxiety disorder Moderate episode of recurrent major depressive disorder (HCC) 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
--- OUTSIDE RECORDS SUMMARY | 2023-12-07 23:11 | External Medical Summary | Summary of Care ---
Author Name Unknown Organization [facility] Address [address] [place] [address] Phone [phone] Care Team Providers Care [employer] Teacher Name Role Phone Dominic Chen DO Primary Care Provider [phone] Reason for Visit * Reason Comments Follow Up Encounter Details Date Type Department Care Team (Latest Contact Info) Description 08/22/2023 10:40 AM EDT Office Visit Family Practice [facility], [place] [address] [place] [address] Dominic Chen DO [address] [place] [address] Gastroesophageal reflux disease without esophagitis*; HTN, goal [...] as of this encounter (statuses as of 08/22/2023) Medications Medication Sig Dispensed Refills Start Date [...] daily. 90 Tablet 2 3 Active Ipratropium [place] 0.03 % Nasal Solution (Atrovent)Indications:Ch ronic rhinitis [...] as of this encounter (statuses as of 08/22/2023) Active Problems Problem Noted Date Diagnosed Date [...] as of this encounter (statuses as of 08/22/2023) Resolved Problems Problem Noted Date Diagnosed Date [...] as of this encounter (statuses as of 08/22/2023) Immunizations Name Administration Dates Next Due COVID-19 mRNA, LNP-s, No Pre serve, 2-Dose Series ([employer]) 02/03/2021,06/30/2020,06/02/2020 COVID-19, LNP-s, No Preserve , Aubrey-sucrose, Ages 12+ ([employer]) 12/11/2021 COVID-19, MRNA-LNP, 23-24, P F, 30 MCG/0.3 mL, 12 YRS AND ABOVE, IM ([facility]) 03/14/2023 Covid-19, Mrna, Lnp-s, Pf, B [...] by mouth daily. 90 Tablet 2 Ipratropium [place] 0.03 % Nasal Solution (Atrovent) Administer 2 [...] performed by Maryam Nguyen MD at [facility] LAPAROSCOPY; CHOLECYSTECTOMY N/A 12/25/2021 LAPAROSCOPY; REPAIR INITIAL INGUINAL HERNIA Right LIGATE/CUT OVIDUCT(S) DC LAP, VENTRAL HERNIA REPAIR,REDUCIBLE N/A 12/25/2021 SKELETAL [...] has since restarted. documented in this encounter Plan of Treatment Upcoming Encounters Date Type Department Care Team (Late st Contact Info) Description 10/31/2023 2:20 PM EDT Office Visit Family Practice [address], [place] [address] [place] [id number] Dominic Chen DO 293 [place] [address] 12/26/2023 11:30 AM EDT Imaging Radiology [facility] 1st [facility], [place] [address] [facility] [place] [address] Pending Results Name Type Priority Associated Diagnoses Date /Time CBC WITH WBC DIFFERENTIAL Lab Routine Iron deficiency anemia, unspecified iron deficiency anemia type 08/22/2023 11:23 AM EDT CBC Lab Routine Iron deficiency anemia, unspecified iron deficiency anemia type 08/22/2023 11:23 AM EDT DIFFERENTIAL, AUTOMATED Lab Routine Iron deficiency anemia, unspecified iron deficiency anemia type 08/22/2023 11:23 AM EDT Scheduled Orders Name Type Priority Associated Diagnoses [...] Not on filedocumented as of this encounter Visit Diagnoses Diagnosis Gastroesophageal reflux [...] type documented in this encounter Care Teams [employer] Teacher Relationship Specialty Start Date End Date Dominic Chen DO [address] [place] [address] PCP - General Internal Medicine 07/13/21 documented as of this encounter
--- OUTSIDE RECORDS SUMMARY | 2023-12-07 23:11 | External Medical Summary | Summary of Care ---
Author Name Unknown Organization [facility] Address [address] [place] [address] Phone [phone] Care Team Providers Care Bottle House Pumper Name Role Phone Dominic Chen DO Primary Care Provider [phone] Reason for Visit * Reason Onset Date Comments Appointment 11/26/202311/25 Encounter Details Date Type Department Care Team (Late st Contact Info) Description 11/26/2023 Telephone Family Practice 65 [facility], [place] [address] [place] [address] Dominic Chen DO [address] [place] [address] Appointment (11/25) Allergies Active Allergy Reactions Criticality Noted Date Comments Amlodipine 07/01/2022 RASH, EDEMA, HEADACHE, Bee Venom Anaphylaxis High 05/29/2017 Blue Dyes (Parenteral) Anaphylaxis,Rash High 022 Red, purple, blue Hydroxyzine 10/10/2022 Latex High 07/30/2018 Anaphalaxis Sulfa Antibiotics Anaphylaxis,Hives High 05/29/2017 Diclofenac Sodium 05/10/2022 documented as of this encounter (statuses as of 11/26/2023) Medications Medication Sig Dispensed Refills Start Date End Date Status Probiotic Acidophilus BioBeads Oral Capsule Take by mouth 1 Capsule 2 times a day . "Women's probiotic" Active Loratadine 10 MG Oral Tablet (Claritin) Take 1 Tablet by mouth in the morning. Active Vitamin C 500 MG Oral Tablet (Ascorbic Acid) Take 1 Tablet by mouth in the morning. Active Ibuprofen 200 MG Oral Capsule Take 2 Capsules by mouth every 4 hours as needed. Active Zinc 50 MG Oral Capsule Take 1 Capsule by mouth in the morning. Active Metamucil Smooth Texture 28.3 % Oral Powder (Psyllium) Take by mouth . Active Fluticasone Propionate 50 MCG/ACT Nasal Suspension (Flonase)Indications:ETD (Eustachian tube dysfunction), bilateral,Allergy, initial encounter Administer 2 Sprays into nostril in the morning. 48 mL 3 3 Active Rosuvastatin Calcium 5 MG Oral Tablet (Crestor)Indications:Pure hypercholesterolemia Take 1 Tablet by mouth in the morning. 90 Tablet 2 3 Active Ipratropium Prospect 0.03 % Nasal Solution (Atrovent)Indications:Chr onic rhinitis Administer 2 Sprays into each nostril in the morning and 2 Sprays at noon and 2 Sprays before bedtime. for runny nose. 30 mL 3 4 Active hydroCHLOROthiazide 12.5 MG Oral CapsuleIndications:HTN, goal below 140/90 Take 1 Capsule by mouth in the morning. 90 Capsule 1 4 Active Omeprazole 20 MG Oral Capsule Delayed Release (PriLOSEC)Indications:Gas troesophageal reflux disease without esophagitis Take 1 Capsule by mouth in the morning. 1 hour before the first meal of the day. 90 Capsule 3 4 Active Famotidine 20 MG Oral Tablet (Pepcid)Indications:Gastr oesophageal reflux disease without esophagitis TAKE 1 TABLET BY MOUTH ONCE DAILY 90 Tablet 2 4 Active Lisinopril 30 MG Oral TabletIndications:HTN, goal below 140/90 TAKE 1 TABLET DAILY IN THE MORNING. 90 Tablet 2 4 Active LORazepam 1 MG Oral Tablet (Ativan)Indications:Uncom plicated alcohol dependence (HCC),JOSE (generalized anxiety disorder) Take 0.5 tablet by mouth in the morning and 0.5 tablet in the afternoon and 1 tablet at bedtime 60 Tablet 1 4 Active documented as of this encounter (statuses as of 11/26/2023) Active Problems Problem Noted Date Diagnosed Date [...] as of this encounter (statuses as of 11/26/2023) Resolved Problems Problem Noted Date Diagnosed Date Resolved Date Food insecurity 03/03/2023 06/05/2023 Overview: Per [facility] Protocol Calculus of gallbladder with out cholecystitis without obstruction 11/28/2021 03/05/2022 ETD (Eustachian tube dysfunction), bilateral 8 06/04/2019 High risk for fracture due t o osteoporosis by DEXA scan 05/29/2017 12/21/2020 Gastroesophageal reflux disease 05/29/2017 06/04/2019 Allergy 05/29/2017 07/08/2022 Overview: ICD-10 update of inactive term documented as of this encounter (statuses as of 11/26/2023) Immunizations Name Administration Dates Next Due COVID-19 mRNA, LNP-s, No Pre serve, 2-Dose Series (i[employer]clude) 02/03/2021,06/30/2020,06/02/2020 COVID-19, LNP-s, No Preserve , Aubrey-sucrose, Ages 12+ (Pfizer) 12/11/2021 COVID-19, MRNA-LNP, 23-24, P F, 30 MCG/0.3 mL, 12 YRS AND ABOVE, IM ([employer]) 03/14/2023 Covid-19, Mrna, Lnp-s, Pf, B ivalent, 30 Mcg, IM, 12 yrs and above (iConclude) 03/05/2022 Pneumococcal Conjugate Vacc, 13 Valent (Prevnar) [...] Passive Smoke Exposure: Past Smokeless Tobacco: Never Alcohol Use Standard Drinks/Week Comments Not Currently [...] have money to get more. Sometimes true Childcare Answer Date Recorded Do you feel overwhelmed with taking care of a child, family member or friend? No 06/05/2023 Does your family need help f inding childcare? (Household - for ages 0-17 years) Not on file 06/05/2023 Clothing Answer Date Recorded Have you been unable to get clothing when it was really needed? No 06/05/2023 Is your family able to get c lothes or diapers when needed? (Household - for ages 0-17 years) Not on file 06/05/2023 Personal Safety Answer Date Recorded Do you feel unsafe or have concerns for your saf ety? No 06/05/2023 Do you have concerns for you r family's safety? (Household - for ages 0-17 years) Not on file 06/05/2023 Utilities Answer Date Recorded Do you have trouble paying y our heating, water, or electric bill? No 06/05/2023 Is your family able to pay t he heat, water, or electric bill? (Household - for ages 0-17 years) Not on file 06/05/2023 Does your family have access to good internet? (Household - for ages 0-17 years) Not on file 06/05/2023 Employment Status Answer Date Recorded Are you unemployed or without regular income? No 06/05/2023 Does the household have a re gular source of income? (Household - for ages 0-17 years) Not on file 06/05/2023 Social Connections Answer Date Recorded How often do you feel lonely or isolated from th ose around you? Never 06/05/2023 Financial Resource Strain Answer Date R ecorded Do you have any trouble payi ng for your medications, or do you think you might in the future? No 06/05/2023 Does your family have troubl e paying for medicine? (Household - for ages 0-17 years) Not on file 06/05/2023 Transportation Needs Answer Date Record ed READ ONLY Do you have troubl e getting a ride to medical visits or work? Sometimes True 06/05/2023 Does your family have a hard time getting a ride to doctors visits? (Household - for ages 0-17 years) Not on file 06/05/2023 Has lack of transportation k ept you from medical appointments, meetings, work, or from getting things needed for daily living? Check all that apply. (Adult - for ages 18 years and over) Not on file 06/05/2023 Do you (or your family) have trouble finding or paying for a ride (transportation)? (Household - for ages 0-17 years) Not on file 06/05/2023 Housing Stability Answer Date Recorded Do you currently live in a s helter or have no steady place to sleep at night? No 06/05/2023 READ ONLY Do you think you a re at risk of becoming homeless? No 06/05/2023 Does your family worry about paying for your home or becoming homeless? (Household - for ages 0-17 years) Not on file 0 06/05/2023 Are you homeless or worried that you might be in the future? (Adult - for ages 18 years and over) Not on file Are you (or your family) alfonso eless or worried that you might be in the future? (Household - for ages 0-17 years) Not on file Food Insecurity Answer Date Recorded Do you need food for this week? No 06/05/2023 Are you able to get enough f ood for your family? (Household - for ages 0-17 years) Not on file 06/05/2023 Does your family need food t his week? (Household - for ages 0-17 years) Not on file 06/05/2023 Do you always have enough fo od for your family? (Household - for ages 0-17 years) Not on file 06/05/2023 Sex and Gender Information Value Date Recorded Sex Assigned at Female 11/28/2021 9:25 AM EDT Gender Identity Female 11/28/2021 9:25 AM EDT Sexual Orientation Straight 11/28/2021 9: 25 AM EDT Job Start Date Occupation Industry Not on file Not on file Not on file documented as of this encounter Miscellaneous Notes * Telephone Encounter - Tamar Russ LPN - 11/26/2023 3:44 PM EDT See my g from today. Thank you * Telephone Encounter - Tamar Russ LPN - 11/26/2023 3:02 PM EDT Called, left message for patient to return call. Is patient having any problems currently that is in need of sooner appt? Thank you * Telephone Encounter - Lucia Rodriguez LPN - 11/26/2023 2:[address] Chen - please advise. * Telephone Encounter - Lucia Rodriguez LPN - 11/26/2023 2:31 PM EDT Call placed to patient for more information. Pt answered phone but connection was bad and we were disconnected. Called back and left a message for her to return call to [phone]. * Telephone Encounter - Isabel Fernandez OSA - 11/26/2023 2:17 PM EDT Has appointment with Dr Chen on 12/17/2023 Feels this is to far out and would like sooner Please advise documented in this encounter Plan of Treatment Upcoming Encounters Date Type Department Care Team (Late st Contact Info) Description 12/17/2023 4:20 PM EDT Office Visit Family Practice [address], [place] [address] [place] [address] Dominic Chen, [address] [place] [address] 12/26/2023 11:30 AM EDT Imaging Radiology [address] 132 [facility] [place] [address] Health Maintenance Due Date Last Done Comments Colonoscopy 1995 Fecal Occult Blood Test 1995 Sigmoidoscopy 1995 Adult Wellness Visit 02/15/2023 02/15/2022 COVID-19 Vaccine ( season) 2023 03/14/2023, 03/05/2022, 12/11/2021, Additional history exists Mammogram 08/10/2023 08/09/2022, 04/2 04/2022, 12/08/2020, Additional history exists Influenza Vaccine (FLU shot) (#1) 2023 02/14/2023, 01/16/2022, 01/17/2021, Additional history exists Cologuard 03/28/2024 03/28/2021, 02/21, 03/20/2021 Colorectal Cancer Screening 03/28/2024 Depression Monitoring 06/19/2024 06/20/2023 GFR 06/19/2024 06/20/2023, 01/20, 09/13/2022, Additional history exists DXA Scan 10/09/2024 10/09/2021, 09/20, 09/09/2017 Albumin/Creatinine Ratio 05/10/2025 023, 03/23/2021, 09/22/2020 DTaP,Tdap,and Td Vaccines (2 - Td or Tdap) 10/04/2026 10/04/2016, 11/19/2003 Lipid Panel 06/19/2028 06/20/2023, 04/22, 03/23/2021, Additional history exists Pneumococcal Vaccine: 65+ Years Completed 10/04/2016, 06/23/2015 Zoster Vaccines Completed 02/21/2020, 05/2019, 02/17/2014 HPV (Gardasil) Vaccine Aged Out No lo nger eligible based on patient's age to complete this topic Hepatitis B Vaccine Aged Out No longe r eligible based on patient's age to complete this topic MENINGOCOCCAL (MENACTRA/MENVEO) Aged Out No longer eligible based on patient's age to complete this topic documented as of this encounter Medical Devices Not on filedocumented as of this encounter Care Teams Bottle House Pumper Relationship Specialty Start Date End Date Dominic Chen DO [address] [place] [address] PCP - General Internal Medicine 10/31/23 documented as of this encounter
--- OUTSIDE RECORDS SUMMARY | 2023-12-07 23:11 | External Medical Summary | Summary of Care ---
Author Name Unknown Organization [facility] Address [address] [place] [address] Phone [phone] Care Team Providers Care Airline Operations Agent Name Role Phone Dominic Chen DO Primary Care Provider [phone] Reason for Visit * Reason Onset Date Comments FYI 10/27/2023 Bats Encounter Details Date Type Department Care Team (Late st Contact Info) Description 10/27/2023 Telephone Family Practice [address], [place] [address] [place] [address] Dominic Chen DO [address] [place] [address] FYI (Bats) Allergies Active Allergy Reactions Criticality Noted Date Comments Amlodipine 07/01/2022 RASH, EDEMA, HEADACHE, Bee Venom Anaphylaxis High 05/29/2017 Blue Dyes (Parenteral) Anaphylaxis,Rash High 022 Red, purple, blue Hydroxyzine 10/10/2022 Latex High 07/30/2018 Anaphalaxis Sulfa Antibiotics Anaphylaxis,Hives High 05/29/2017 Diclofenac Sodium 05/10/2022 documented as of this encounter (statuses as of 10/27/2023) Medications Medication Sig Dispensed Refills Start Date [...] morning. 90 Tablet 2 3 Active Ipratropium [place] 0.03 % Nasal Solution (Atrovent)Indications:Chr onic rhinitis [...] the day. 90 Capsule 3 4 Active LORazepam 1 MG Oral Tablet (Ativan)Indications:Uncom plicated alcohol dependence (HCC),JOSE (generalized anxiety disorder) Take 0.5 tablet by mouth in the morning and 0.5 tablet in the afternoon and 1 tablet at bedtime 60 Tablet 1 4 Active Famotidine 20 MG Oral Tablet (Pepcid)Indications:Gastr oesophageal reflux disease without esophagitis TAKE 1 TABLET BY MOUTH ONCE DAILY 90 Tablet 2 4 Active Lisinopril 30 MG Oral TabletIndications:HTN, goal below 140/90 TAKE 1 TABLET DAILY IN THE MORNING. 90 Tablet 2 4 Active documented as of this encounter (statuses as of 10/27/2023) Active Problems Problem Noted Date Diagnosed Date [...] as of this encounter (statuses as of 10/27/2023) Resolved Problems Problem Noted Date Diagnosed Date [...] as of this encounter (statuses as of 10/27/2023) Immunizations Name Administration Dates Next Due COVID-19 mRNA, LNP-s, No Pre serve, 2-Dose Series ([employer]) 02/03/2021,06/30/2020,06/02/2020 COVID-19, LNP-s, No Preserve , Aubrey-sucrose, Ages 12+ (Pfizer) 12/11/2021 COVID-19, MRNA-LNP, 23-24, P F, 30 MCG/0.3 mL, 12 YRS AND ABOVE, IM ([employer]) 03/14/2023 Covid-19, Mrna, Lnp-s, Pf, B ivalent, 30 Mcg, IM, 12 yrs and above ([employer]) 03/05/2022 Pneumococcal Conjugate Vacc, 13 Valent (Prevnar) [...] encounter Miscellaneous Notes * Telephone Encounter - Dominic Chen DO - 10/27/2023 4:33 PM EDT Noted * Telephone Encounter - Tamar Russ LPN - 10/27/2023 4:30 PM EDT States she is going to have to think about this. Thank you * Telephone Encounter - Isabel Fernandez OSA - 10/27/2023 4:11 PM EDT Returning call * Telephone Encounter - Tamar Russ LPN - 10/27/2023 3:52 PM EDT Called, left message for patient to return call. Will need 4 doses of vaccine, vaccine has been ordered. post-exposure is 4 shots on days 0, 3, 7,and 14 * Telephone Encounter - Tamar Russ LPN - 10/27/2023 2:17 PM EDT Did capture and release bats. Had gloves on. Thank you * Telephone Encounter - Tamar Russ LPN - 10/27/2023 11:47 AM EDT Called, left message for patient to return call. Wanted to ask if exposure. Thank you Any vaccines? * Telephone Encounter - Isabel Fernandez OSA - 10/27/2023 8:33 AM EDT Contacted the [employer] commission They have bats in house and were told to notify PCP They have proper attire to remove When the remove them from house and take outside they do not live long after that Figures they are sick She will be in on Friday for her appt documented in this encounter Plan of Treatment Upcoming Encounters Date Type Department Care Team (Late st Contact Info) Description 10/31/2023 2:20 PM EDT Office Visit Family Practice [address], [place] [facility] [phone] [facility] [address] 12/26/2023 11:30 AM EDT Imaging Radiology [facility] 1st [facility], [place] 132 [facility] [place] [address] [facility] Maintenance Due Date Last Done Comments Colonoscopy 1995 Fecal Occult Blood Test 1995 Sigmoidoscopy 1995 COVID-19 Vaccine ( season) 2023 03/14/2023, 03/05/2022, 12/11/2021, Additional history exists Mammogram 08/10/2023 08/09/2022, 07/21, 12/08/2020, Additional history exists Influenza Vaccine (FLU [...] as of this encounter Visit Diagnoses Diagnosis At increased risk for exposure to rabies virus- Primary documented in this encounter Care Teams Airline Operations Agent Relationship Specialty Start Date End Date Dominic Chen DO PCP - General Internal Medicine 07/13/21 documented as of this encounter
--- OUTSIDE RECORDS SUMMARY | 2023-12-07 23:11 | External Medical Summary | Summary of Care ---
Author Name Unknown Organization [facility] Address [address] [place] [address] Phone [phone] Care Team Providers Care Trench Digger Name Role Phone Dominic Chen DO Primary Care Provider [phone] Reason for Visit * Reason Onset Date Comments FYI 10/27/2023 Bats Encounter Details Date Type Department Care Team (Late st Contact Info) Description 10/27/2023 Telephone Family Practice [address], [place] [address] [place] [address] Dominic Chen DO [address] [place] [address] FYI (Bats) Allergies Active Allergy Reactions Criticality Noted Date Comments Amlodipine 07/01/2022 RASH, EDEMA, HEADACHE, Bee Venom Anaphylaxis High 05/29/2017 Blue Dyes (Parenteral) Anaphylaxis,Rash High 022 Red, purple, blue Hydroxyzine 10/10/2022 Latex High 07/30/2018 Anaphalaxis Sulfa Antibiotics Anaphylaxis,Hives High 05/29/2017 Diclofenac Sodium 05/10/2022 documented as of this encounter (statuses as of 10/31/2023) Medications Medication Sig Dispensed Refills Start Date [...] morning. 90 Tablet 2 3 Active Ipratropium [place] 0.03 % Nasal Solution (Atrovent)Indications:Chr onic rhinitis [...] as of this encounter (statuses as of 10/31/2023) Active Problems Problem Noted Date Diagnosed Date [...] as of this encounter (statuses as of 10/31/2023) Resolved Problems Problem Noted Date Diagnosed Date [...] as of this encounter (statuses as of 10/31/2023) Immunizations Name Administration Dates Next Due COVID-19 mRNA, LNP-s, No Pre serve, 2-Dose Series ([employer]) 02/03/2021,06/30/2020,06/02/2020 COVID-19, LNP-s, No Preserve , Aubrey-sucrose, Ages 12+ (Pfizer) 12/11/2021 COVID-19, MRNA-LNP, 23-24, P F, 30 MCG/0.3 mL, 12 YRS AND ABOVE, IM ([employer]irnat[facility]) 03/14/2023 Covid-19, Mrna, Lnp-s, Pf, B ivalent, 30 Mcg, IM, 12 yrs and above ([employer]) 03/05/2022 Pneumococcal Conjugate Vacc, 13 Valent (Prevnar) [...] Telephone Encounter - Dominic Chen DO - 10/31/2023 3:00 PM EDT Noted * Telephone Encounter - Isabel Fernandez OSA - 10/31/2023 9:01 AM EDT She said that the bats were tested and they are negative for Rabies * Telephone Encounter - Dominic Chen DO [...] - 10/27/2023 8:33 AM EDT Contacted the [employer] commission They have bats in house and [...] Care Team (Late st Contact Info) Description 11/25/2023 10:00 AM EDT Office Visit Family Practice [address], [place] 293 [place] [address] Dominic Chen DO 293 [place] [address] 12/26/2023 11:30 AM EDT Imaging Radiology [facility] 1st Floor, [place] 132 [facility] [place] [address] Health Maintenance Due Date Last Done Comments [...] Primary documented in this encounter Care Teams Trench Digger Relationship Specialty Start Date End Date Dominic Chen DO [address] [place] [address] PCP - General Internal Medicine 10/31/23 documented as of this encounter
--- OUTSIDE RECORDS SUMMARY | 2023-12-07 23:11 | External Medical Summary | Summary of Care ---
Author Name Unknown Organization [facility] Address [address] [place] [address] Phone [phone] Care Team Providers Care General Foundry Worker Name Role Phone Dominic Chen DO Primary Care Provider [phone] Reason for Visit * Reason Onset Date Comments FYI 10/27/2023 Bats Encounter Details Date Type Department Care Team (Late st Contact Info) Description 10/27/2023 Telephone Family Practice [address], [place] [address] [place] [address] Dominic Chen DO [address] [place] [address] FYI (Bats) Allergies Active Allergy Reactions Criticality [...] morning. 90 Tablet 2 3 Active Ipratropium [place] 0.03 % Nasal Solution (Atrovent)Indications:Chr onic rhinitis [...] mRNA, LNP-s, No Pre serve, 2-Dose Series (ELVPHD) 02/03/2021,06/30/2020,06/02/2020 COVID-19, LNP-s, No Preserve , Aubrey-sucrose, Ages 12+ (Pfizer) 12/11/2021 COVID-19, MRNA-LNP, 23-24, P F, 30 MCG/0.3 mL, 12 YRS AND ABOVE, IM ([employer]-Comirnaty) 03/14/2023 Covid-19, Mrna, Lnp-s, Pf, B ivalent, 30 Mcg, IM, 12 yrs and above (ELVPHD) 03/05/2022 Pneumococcal Conjugate Vacc, 13 Valent (Prevnar) [...] encounter Miscellaneous Notes * Telephone Encounter - Isabel Fernandez OSA [...] - 10/27/2023 8:33 AM EDT Contacted the [employer] They have bats in house and were [...] AM EDT Office Visit Family Practice 65 [facility], [address] [place] [address] Dominic Chen, DO [address] [place] [address] 12/26/2023 11:30 AM EDT Imaging Radiology [facility] [address] [facility], [place] [address] [place] [address] Health Maintenance Due Date Last Done Comments [...] Primary documented in this encounter Care Teams General Foundry Worker Relationship Specialty Start Date End Date Dominic Chen DO [address] [place] [address] PCP - General Internal Medicine 10/31/23 documented as of this encounter
--- OUTSIDE RECORDS SUMMARY | 2023-12-07 23:11 | External Medical Summary | Summary of Care ---
Author Name Unknown Organization [facility] Address [address] [place] [address] Phone [phone] Care Team Providers Care Property Condition Assessor Name Role Phone Dominic Chen DO Primary Care Provider [phone] Reason for Visit * Reason Comments eRx-Medication Refill Encounter Details Date Type Department Care Team (Late st Contact Info) Description 08/28/2023 Refill Family Practice [address], [place] [address] [place] [phone] Dominic Chen DO [address] [place] [address] Uncomplicated alcohol dependence (HCC); JOSE (generalized anxiety disorder) Allergies Active Allergy Reactions Criticality Noted Date Comments Amlodipine 07/01/2022 RASH, EDEMA, HEADACHE, Bee Venom Anaphylaxis High 05/29/2017 Blue Dyes (Parenteral) Anaphylaxis,Rash High 022 Red, purple, blue Hydroxyzine 10/10/2022 Latex High 07/30/2018 Anaphalaxis Sulfa Antibiotics Anaphylaxis,Hives High 05/29/2017 Diclofenac Sodium 05/10/2022 documented as of this encounter (statuses as of 08/29/2023) Medications Medication Sig Dispensed Refills Start Date [...] 3 Active Famotidine 20 MG Oral Tablet (Pepcid)Indications:Gastr oesophageal reflux disease without esophagitis Take 1 Tablet by mouth daily. 90 Tablet 2 3 Active Ipratropium [place] 0.03 % Nasal Solution (Atrovent)Indications:Chr onic rhinitis [...] the day. 90 Capsule 3 4 Active documented as of this encounter (statuses as of 08/29/2023) Active Problems Problem Noted Date Diagnosed Date [...] as of this encounter (statuses as of 08/29/2023) Resolved Problems Problem Noted Date Diagnosed Date [...] as of this encounter (statuses as of 08/29/2023) Immunizations Name Administration Dates Next Due COVID-19 mRNA, LNP-s, No Pre serve, 2-Dose Series ([employer]) 02/03/2021,06/30/2020,06/02/2020 COVID-19, LNP-s, No Preserve , Aubrey-sucrose, Ages 12+ ([employer]) 12/11/2021 COVID-19, MRNA-LNP, 23-24, P F, 30 MCG/0.3 mL, 12 YRS AND ABOVE, IM ([employer]Comirnaty) 03/14/2023 Covid-19, Mrna, Lnp-s, Pf, B ivalent, 30 Mcg, IM, 12 yrs and above ([employer]) 03/05/2022 Pneumococcal Conjugate Vacc, 13 Valent (Prevnar) [...] encounter Miscellaneous Notes * Telephone Encounter - [facility] - 08/29/2023 2:58 PM EDTRefused Prescriptions: Disp Refills LORazepam 1 MG Oral Tablet (Ativan) 60 Tab*1 Sig: TAKE 1/2 TABLET BY MOUTH IN THE MORNING AND 1/2 TABLET IN THE AFTERNOON AND 1 TABLET AT BEDTIME.Refused By: Mckenna GARCÍAon for Refusal: Too soon * Telephone Encounter - Blanca García RPh - 08/29/2023 2:57 PM EDT I have reviewed the patients controlled substance dispensing history in the Prescription Drug Monitoring Program in compliance with the [facility] regulations before prescribing a controlled substance. PDMP checked on 08/29/2023. Pending Prescriptions: Disp Refills LORazepam 1 MG Oral Tablet (Ativan) [Phar*60 Tab*1 Sig: TAKE 1/2 TABLET BY MOUTH IN THE MORNING AND 1/2 TABLET IN THE AFTERNOON AND 1 TABLET AT BEDTIME. Last Visit: 08/22/2023 (in office), Visit date not found (telemedicine) Next Visit: 10/31/2023 Date medication was last filled: 08/28/23 Date medication is due for refill: 09/26/23 [facility]acy: [facility] [address] Is this request for a controlled substance? Yes and Urine Drug Screen Not completed Toxicology results: No results found for this or any previous visit. Please approve if appropriate. Thanks, Blanca García, PharmD Clinical Pharmacist [facility] ([facility]) [phone] 08/29/2023, 2:57 PM documented in this encounter Plan of Treatment Upcoming Encounters Date Type Department Care Team (Late st Contact Info) Description 10/31/2023 2:20 PM EDT Office Visit Family Practice [address], [place] [address] [place] [address] Dominic Chen, [address] [place] [address] 12/26/2023 11:30 AM EDT Imaging Radiology [facility] 1st [facility], [place] [address] [place] [address] Health Maintenance Due Date Last Done Comments [...] as of this encounter Visit Diagnoses Diagnosis Uncomplicated alcohol dependence (HCC) Other and unspecified alcohol dependence, unspecified drinking behavior JOSE (generalized anxiety disorder) Generalized anxiety disorder documented in this encounter Care Teams Property Condition Assessor Relationship Specialty Start Date End Date Dominic Chen DO [address] [facility] [place] [address] PCP - General Internal Medicine 07/13/21 documented as of this encounter
--- OUTSIDE RECORDS SUMMARY | 2023-12-07 23:11 | External Medical Summary | Summary of Care ---
Author Name Unknown Organization [facility] Address [address] [place] [address] Phone [phone] Care Team Providers Care Cosmetics And Toiletries Salesperson Name Role Phone Dominic Chen DO Primary Care Provider [phone] Reason for Visit * Reason Onset Date Comments FYI 10/27/2023 Bats Encounter Details Date Type Department Care Team (Late st Contact Info) Description 10/27/2023 Telephone Family Practice [address], [place] [address] [place] [address] Dominic Chen DO [address] [place] [address] FYI (Bats) Allergies Active Allergy Reactions Criticality [...] morning. 90 Tablet 2 3 Active Ipratropium [place] 0.03 % Nasal Solution (Atrovent)Indications:Chr onic rhinitis [...] mRNA, LNP-s, No Pre serve, 2-Dose Series ([employer] 02/03/2021,06/30/2020,06/02/2020 COVID-19, LNP-s, No Preserve , Aubrey-sucrose, Ages 12+ ([employer]) 12/11/2021 COVID-19, MRNA-LNP, 23-24, P F, 30 MCG/0.3 mL, 12 YRS AND ABOVE, IM ([employer]-Comirnaty) 03/14/2023 Covid-19, Mrna, Lnp-s, Pf, B ivalent, 30 Mcg, IM, 12 yrs and above ([employer] 03/05/2022 Pneumococcal Conjugate Vacc, 13 Valent (Prevnar) [...] - 10/27/2023 8:33 AM EDT Contacted the [facility] They have bats in house and were [...] AM EDT Office Visit Family Practice [facility], [address] [place] [address] Dominic Chen, DO [address] [place] [address] 12/26/2023 11:30 AM EDT Imaging Radiology [facility]st [facility], [place] [address] [place] [address] Health Maintenance Due Date Last Done Comments [...] Primary documented in this encounter Care Teams Cosmetics And Toiletries Salesperson Relationship Specialty Start Date End Date Dominic Chen DO [address] [place] [address] PCP - General Internal Medicine 10/31/23 documented as of this encounter
--- OUTSIDE RECORDS SUMMARY | 2023-12-07 23:11 | External Medical Summary | Summary of Care ---
Author Name Unknown Organization [facility] Address [address] [place] [address] Phone [phone] Care Team Providers Care Medical Physiologist Name Role Phone Reji Chen DO Primary Care Provider [phone] Reason for Visit * Reason Onset Date Comments Medication Refill 09/26/2023 Encounter Details Date Type Department Care Team (Late st Contact Info) Description 09/26/2023 Refill Family Practice [address], [place] [address] [place] [address] Reji Chen DO [address] [place] [address] Uncomplicated alcohol dependence (HCC); JOSE (generalized anxiety disorder) Allergies Active Allergy Reactions Criticality Noted Date Comments Amlodipine 07/01/2022 RASH, EDEMA, HEADACHE, Bee Venom Anaphylaxis High 05/29/2017 Blue Dyes (Parenteral) Anaphylaxis,Rash High 022 Red, purple, blue Hydroxyzine 10/10/2022 Latex High 07/30/2018 Anaphalaxis Sulfa Antibiotics Anaphylaxis,Hives High 05/29/2017 Diclofenac Sodium 05/10/2022 documented as of this encounter (statuses as of 09/26/2023) Medications Medication Sig Dispensed Refills Start Date [...] daily. 90 Tablet 2 3 Active Ipratropium [place] 0.03 % Nasal Solution (Atrovent)Indications:Ch ronic rhinitis [...] at bedtime 60 Tablet 1 4 Active LORazepam 1 MG Oral Tablet (Ativan)Indications:Unco mplicated alcohol dependence (HCC),JOSE (generalized anxiety disorder) Take 0.5 tablet by mouth in the morning and 0.5 tablet in the afternoon and 1 tablet at bedtime 60 Tablet 1 4 09/26/19 24 Discontin ued(Refil l) documented as of this encounter (statuses as of 09/26/2023) Active Problems Problem Noted Date Diagnosed Date [...] as of this encounter (statuses as of 09/26/2023) Resolved Problems Problem Noted Date Diagnosed Date [...] as of this encounter (statuses as of 09/26/2023) Immunizations Name Administration Dates Next Due COVID-19 mRNA, LNP-s, No Pre serve, 2-Dose Series ([employer]) 02/03/2021,06/30/2020,06/02/2020 COVID-19, LNP-s, No Preserve , Aubrey-sucrose, Ages 12+ ([employer]) 12/11/2021 COVID-19, MRNA-LNP, 23-24, P F, 30 MCG/0.3 mL, 12 YRS AND ABOVE, IM ([employer]-Comirnat) 03/14/2023 Covid-19, Mrna, Lnp-s, Pf, B ivalent, 30 Mcg, IM, 12 yrs and above ([employer]) 03/05/2022 Pneumococcal Conjugate Vacc, 13 Valent (Prevnar) [...] encounter Miscellaneous Notes * Telephone Encounter - Reji Chen DO - 09/26/2023 12:55 PM EDTSigned Prescriptions: Disp Refills LORazepam 1 MG Oral Tablet (Ativan) 60 Tab*1 Sig: Take 0.5 tablet by mouth in the morning and 0.5 tablet in the afternoon and 1 tablet at bedtimeAuthorizing Provider: REJI CHEN * Telephone Encounter - Reji Chen DO - 09/26/2023 12:55 PM EDT I have reviewed the patients controlled substance dispensing history in the Prescription Drug Monitoring Program in compliance with the [facility] regulations before prescribing a controlled substance. Last Tox Screen Results: No results found for this or any previous visit. Medication due today. * Telephone Encounter - Dena Arcos [facility] - 09/26/2023 12:33 PM EDT Pending Prescriptions: Disp Refills LORazepam 1 MG Oral Tablet (Ativan) 60 Tab*1 Sig: Take 0.5 tablet by mouth in the morning and 0.5 tablet in the afternoon and 1 tablet at bedtime * Telephone Encounter - Dena Arcos [facility] - 09/26/2023 12:30 PM EDT I have reviewed the patients controlled substance dispensing history in the Prescription Drug Monitoring Program in compliance with the [facility] regulations before prescribing a controlled substance. PDMP checked on 09/26/2023. Pending Prescriptions: Disp Refills LORazepam 1 MG Oral Tablet (Ativan) 60 Tab*1 Sig: Take 0.5 tablet by mouth in the morning and 0.5 tablet in the afternoon and 1 tablet at bedtime Last Visit: 08/22/2023 (in office), Visit date not found (telemedicine) Next Visit: 10/31/2023 Date medication was last filled: 08/28/23 Date medication is due for refill: 09/26/23 Pharmacy: [address] Is this request for a controlled substance? Yes and Urine Drug Screen Not completed Toxicology results: No results found for this or any previous visit. Please approve if appropriate. Thanks, Dena Arcos, PharmD PGY1 [employer] Tender 09/26/2023 12:31 PM documented in this encounter Plan of Treatment Upcoming Encounters Date Type Department Care Team (Late st Contact Info) Description 10/31/2023 2:20 PM EDT Office Visit Family Practice [address], [place] [address] [place] [address] Reji Chen, DO [address] [place] [address] 12/26/2023 11:30 AM EDT Imaging Radiology [facility] 1st [facility], [place] [address] [employer] [place] [address] Health Maintenance Due Date Last Done Comments Colonoscopy 1995 Fecal Occult Blood Test 1995 Sigmoidoscopy 1995 COVID-19 Vaccine ( season) 2023 03/14/2023, 03/05/2022, 12/11/2021, Additional history exists Mammogram 08/10/2023 08/09/2022, 0404/2022, 12/08/2020, Additional history exists Cologuard 03/28/2024 03/28/2021, [...] Completed , 01/16/2022, 01/17/2021, Additional history exists GARDASIL-HPV IMMUNIZATION SERIES Aged [...] disorder documented in this encounter Care Teams Medical Physiologist Relationship Specialty Start Date End Date Reji Chen DO [address] [facility] [place] [address] PCP - General Internal Medicine 07/13/21 documented as of this encounter
--- OUTSIDE RECORDS SUMMARY | 2023-12-07 23:11 | External Medical Summary | Summary of Care ---
Author Name Unknown Organization [facility] Address [address] [place] [address] Phone [phone] Care Team Providers Care Obstetrician/Gynecologist Name Role Phone Reji Chen DO Primary Care Provider Reason for Visit * Reason Comments eRx-Medication Refill Encounter Details Date Type Department Care Team (Late st Contact Info) Description 10/25/2023 Refill Family Practice [address], [place] [address] [place] [address] Reji Chen DO [address] [place] [address] Uncomplicated alcohol dependence (HCC); JOSE (generalized anxiety disorder); Gastroesophageal reflux disease without esophagitis; HTN, goal below 140/90 Allergies Active Allergy Reactions Criticality Noted Date [...] nostril in the morning. 48 mL 3 02/15/20 23 Active Rosuvastatin Calcium 5 MG Oral Tablet (Crestor)Indications:Pur e hypercholesterolemia Take 1 Tablet by mouth in the morning. 90 Tablet 2 04/01/20 23 Active Ipratropium [place] 0.03 % Nasal Solution (Atrovent)Indications:Ch ronic rhinitis Administer 2 Sprays into each nostril in the morning and 2 Sprays at noon and 2 Sprays before bedtime. for runny nose. 30 mL 3 05/23/19 24 Active hydroCHLOROthiazide 12.5 MG Oral CapsuleIndications:HTN, goal below 140/90 Take 1 Capsule by mouth in the morning. 90 Capsule 1 08/06/19 24 Active Omeprazole 20 MG Oral Capsule Delayed Release (PriLOSEC)Indications:Ga stroesophageal reflux disease without esophagitis Take 1 Capsule by mouth in the morning. 1 hour before the first meal of the day. 90 Capsule 3 08/22/19 24 Active LORazepam 1 MG Oral Tablet (Ativan)Indications:Unco mplicated alcohol dependence (HCC),JOSE (generalized anxiety disorder) Take 0.5 tablet by mouth in the morning and 0.5 tablet in the afternoon and 1 tablet at bedtime 60 Tablet 1 10/27/19 24 Active Famotidine 20 MG Oral Tablet (Pepcid)Indications:Chuckie roesophageal reflux disease without esophagitis TAKE 1 TABLET BY MOUTH ONCE DAILY 90 Tablet 2 10/27/19 24 Active Lisinopril 30 MG Oral TabletIndications:HTN, goal below 140/90 TAKE 1 TABLET DAILY IN THE MORNING. 90 Tablet 2 10/27/19 24 Active Lisinopril 30 MG Oral TabletIndications:HTN, goal below 140/90 Take 1 Tablet by mouth in the morning. 90 Tablet 3 02/15/20 23 024 Discontinued Famotidine 20 MG Oral Tablet (Pepcid)Indications:Chuckie roesophageal reflux disease without esophagitis Take 1 Tablet by mouth daily. 90 Tablet 2 04/01/20 23 024 Discontinued LORazepam 1 MG Oral Tablet (Ativan)Indications:Unco mplicated alcohol dependence (HCC),JOSE (generalized anxiety disorder) Take 0.5 tablet by mouth in the morning and 0.5 tablet in the afternoon and 1 tablet at bedtime 60 Tablet 1 09/26/19 24 024 Discontinued documented as of this encounter (statuses as [...] mRNA, LNP-s, No Pre serve, 2-Dose Series ([employer]) 02/03/2021,06/30/2020,06/02/2020 COVID-19, LNP-s, No Preserve , Aubrey-sucrose, Ages 12+ ([employer]) 12/11/2021 COVID-19, MRNA-LNP, 23-24, P F, 30 MCG/0.3 mL, 12 YRS AND ABOVE, IM ([facility] 03/14/2023 Covid-19, Mrna, Lnp-s, Pf, B ivalent, [...] Telephone Encounter - Reji Chen DO - 10/27/2023 12:14 PM EDTSigned Prescriptions: Disp Refills LORazepam 1 MG Oral Tablet (Ativan) 60 Tab*1 Sig: Take 0.5 tablet by mouth in the morning and 0.5 tablet in the afternoon and 1 tablet at bedtimeAuthorizing Provider: REJI CHEN Famotidine 20 MG Oral Tablet (Pepcid) 90 Tab*2 Sig: TAKE 1 TABLET BY MOUTH ONCE DAILYAuthorizing Provider: REJI CHEN User: ORION SANTANA Lisinopril 30 MG Oral Tablet 90 Tab*2 Sig: TAKE 1 TABLET DAILY IN THE MORNING.Authorizing Provider: REJI CHEN User: ORION SANTANA * Telephone Encounter - Reji Chen DO - 10/27/2023 12:13 PM EDT I have reviewed the patients controlled substance dispensing history in the Prescription Drug Monitoring Program in compliance with the [facility] regulations before prescribing a controlled substance. Last Tox Screen Results: No results found for this or any previous visit. Medication is due * Telephone Encounter - Orion Santana [facility] - 10/27/2023 10:26 AM EDT Pending Prescriptions: Disp Refills LORazepam 1 MG Oral Tablet (Ativan) 60 Tab*1 Sig: Take 0.5 tablet by mouth in the morning and 0.5 tablet in the afternoon and 1 tablet at bedtime Signed Prescriptions: Disp Refills Famotidine 20 MG Oral Tablet (Pepcid) 90 Tab*2 Sig: TAKE 1 TABLET BY MOUTH ONCE DAILY Authorizing Provider: REJI EDWARDS Ordering User: ORION SANTANA Lisinopril 30 MG Oral Tablet 90 Tab*2 Sig: TAKE 1 TABLET DAILY IN THE MORNING. Authorizing Provider: REJI CHEN Ordering User: ORION SANTANA * Telephone Encounter - Orion Santana RPh - 10/27/2023 10:24 AM EDT I have reviewed the patients controlled substance dispensing history in the Prescription Drug Monitoring Program in compliance with the [facility] regulations before prescribing a controlled substance. PDMP checked on 10/27/2023. Pending Prescriptions: Disp Refills LORazepam 1 MG Oral Tablet (Ativan) [Phar*60 Tab*1 Sig: Take 0.5 tablet by mouth in the morning and 0.5 tablet in the afternoon and 1 tablet at bedtime Signed Prescriptions: Disp Refills Famotidine 20 MG Oral Tablet (Pepcid) 90 Tab*2 Sig: TAKE 1 TABLET BY MOUTH ONCE DAILY Authorizing Provider: REJI CHEN Ordering User: ORION SANTANA Lisinopril 30 MG Oral Tablet 90 Tab*2 Sig: TAKE 1 TABLET DAILY IN THE MORNING. Authorizing Provider: REJI CHEN Ordering User: ORION SANTANA Last Visit: 08/22/2023 (in office), Visit date not found (telemedicine) Next Visit: 10/31/2023 Date medication was last filled: 09/26/23 Date medication is due for refill: 10/24/23 [facility]acy: [facility] [address] Is this request for a controlled substance? Yes and Urine Drug Screen Not completed Toxicology results: No results found for this or any previous visit. Please approve if appropriate. Thanks, Orion Santana, PharmD Clinical Pharmacist [facility] ([facility]) [phone] 10/27/2023, 10:24 AM documented in this encounter Plan of Treatment Upcoming Encounters Date Type Department Care Team (Late st Contact Info) Description 10/31/2023 2:20 PM EDT Office Visit Family Practice [address], [place] [address] [facility] [place] [address] Reji Chen, 293 [facility], [place] [address] 12/26/2023 11:30 AM EDT Imaging Radiology [facility], [place] [address] [place] [address] Health Maintenance Due Date Last Done Comments [...] and unspecified alcohol dependence, unspecified drinking behavior JSOE (generalized anxiety disorder) Generalized anxiety disorder Gastroesophageal reflux disease without esophagitis Esophageal reflux HTN, goal below 140/90 Unspecified essential hypertension documented in this encounter Care Teams Obstetrician/Gynecologist Relationship Specialty Start Date End Date Reji Chen DO PCP - General Internal Medicine 07/13/21 documented as of this encounter
--- OUTSIDE RECORDS SUMMARY | 2023-12-07 23:11 | External Medical Summary ---
Author Name Unknown Address Unknown Organization K01:[facility] [place] [address] [facility] [address] Laboratory Report Ordering Provider Test Date Status PUSHPA MENDOZA 08/22/2023 11:23:43 Final Observation Date Value Abnormality Reference (Units ) Status SYNC LEUKOCYTES IN BLOOD BY AUTOMATED COUNT 08/22/2023 11:23:43 3.64 Below low normal 4.00-10.80 (K/uL) Final Segs 08/22/2023 11:23:43 47.8 40.0-75.0 (%) Final Lymphs % 08/22/2023 11:23:43 38.2 18.0-42.0 (%) Final Monos 08/22/2023 11:23:43 12.4 Above high normal 1.0-11.0 (%) Final Eosinophils 08/22/2023 11:23:43 0.8 0.0-6.0 (%) Final Basos 08/22/2023 11:23:43 0.5 0.0-2.0 (%) Final Immature Granulocyte, Percent 08/22/2023 11:23:43 0.3 0.0-2.0 (%) Final Absolute Segs 08/22/2023 11:23:43 1.74 Below low normal 1.80-7.70 (K/uL) Final Lymphs, absolute 08/22/2023 11:23:43 1.39 1.00-4.80 (K/ul) Final Monos, Abs 08/22/2023 11:23:43 0.45 0.00-1.10 (K/uL) Final Eos, Abs 08/22/2023 11:23:43 0.03 0.00-0.70 (K/uL) Final Basos, Abs 08/22/2023 11:23:43 0.02 0.00-0.20 (K/uL) Final Immature Granulocytes, Number 08/22/2023 11:23:43 0.01 0.00-0.20 (K/uL) Final Performing Location [facility] [place] [address] [facility] [id number]
--- OUTSIDE RECORDS SUMMARY | 2023-12-07 23:11 | External Medical Summary | Summary of Care ---
Author Name Unknown Organization [facility] Address [address] [place] [address] Phone [phone] Care Team Providers Care Educational Program Assistant Name Role Phone Dominic Chen DO Primary Care Provider [phone] Reason for Visit * Reason Onset Date Comments FYI 10/31/2023 Encounter Details Date Type Department Care Team (Late st Contact Info) Description 10/31/2023 Telephone Family Practice [address], [place] [address] [place] [address] Dominic Chen DO [address] [place] [address] FYI Allergies Active Allergy Reactions Criticality Noted Date [...] morning. 90 Tablet 2 3 Active Ipratropium [place] 0.03 % Nasal Solution (Atrovent)Indications:Chr onic rhinitis [...] mRNA, LNP-s, No Pre serve, 2-Dose Series ([employer]) 02/03/2021,06/30/2020,06/02/2020 COVID-19, LNP-s, No Preserve , Aubrey-sucrose, Ages 12+ ([employer]) 12/11/2021 COVID-19, MRNA-LNP, 23-24, P F, 30 MCG/0.3 mL, 12 YRS AND ABOVE, IM ([employer]) 03/14/2023 Covid-19, Mrna, Lnp-s, Pf, B ivalent, 30 Mcg, IM, 12 yrs and above ([employer]) 03/05/2022 Pneumococcal Conjugate Vacc, 13 Valent (Prevnar) [...] on file documented as of this encounter Plan of Treatment Upcoming Encounters Date Type Department Care Team (Late st Contact Info) Description 11/25/2023 10:00 AM EDT Office Visit Family Practice [address], [place] [address] [place] [address] Dominic Chen, DO [address] [place] [address] 12/26/2023 11:30 AM EDT Imaging Radiology [facility] 1st [facility] [address] [facility] [place] [address] Health Maintenance Due Date Last Done Comments [...] filedocumented as of this encounter Care Teams Educational Program Assistant Relationship Specialty Start Date End Date Dominic Chen DO [address] [facility] [place] [address] PCP - General Internal Medicine 10/31/23 documented as of this encounter
--- OUTSIDE RECORDS SUMMARY | 2023-12-07 23:11 | External Medical Summary | Summary of Care ---
Author Name Unknown Organization [facility] Address [address] [place] [address] Phone [phone] Care Team Providers Care Basting Cleaner Name Role Phone Reji Chen DO Primary Care Provider Reason for Visit * Reason Onset Date Comments Medication Refill 11/25/2023 Encounter Details Date Type Department Care Team (Late st Contact Info) Description 11/25/2023 Refill Family Practice [address] [place] [address] [place] [address] Reji Chen DO [address] [place] [address] Uncomplicated alcohol dependence (HCC); JOSE (generalized anxiety [...] morning. 90 Tablet 2 3 Active Ipratropium [place] 0.03 % Nasal Solution (Atrovent)Indications:Ch ronic rhinitis [...] 4 Active Famotidine 20 MG Oral Tablet (Pepcid)Indications:Chuckie [...] tablet at bedtime 60 Tablet 1 4 11/25/19 24 Discontin ued(Refil l) documented as of [...] mRNA, LNP-s, No Pre serve, 2-Dose Series ([employer]) 02/03/2021,06/30/2020,06/02/2020 COVID-19, LNP-s, No Preserve , Aubrey-sucrose, Ages 12+ (Admitly) 12/11/2021 COVID-19, MRNA-LNP, 23-24, P F, 30 MCG/0.3 mL, 12 YRS AND ABOVE, IM ([facility]) 03/14/2023 Covid-19, Mrna, Lnp-s, Pf, B ivalent, 30 Mcg, IM, 12 yrs and above ([employer]) 03/05/2022 Pneumococcal Conjugate Vacc, 13 Valent (Prevnar) [...] No 06/05/2023 Does the household have a [facility] source of income? (Household - for ages [...] Telephone Encounter - Reji Chen DO - 11/26/2023 11:31 AM EDTSigned Prescriptions: Disp Refills LORazepam 1 MG Oral Tablet (Ativan) 60 Tab*1 Sig: Take 0.5 tablet by mouth in the morning and 0.5 tablet in the afternoon and 1 tablet at bedtimeAuthorizing Provider: REJI CHEN * Telephone Encounter - Reji Chen DO - 11/26/2023 11:30 AM EDT I have reviewed the patients controlled substance dispensing history in the Prescription Drug Monitoring Program in compliance with the [facility] regulations before prescribing a controlled substance. Last Tox Screen Results: No results found for this or any previous visit. Medication is due today * Telephone Encounter - Josephine Hector [facility] - 11/26/2023 8:29 AM EDTPending Prescriptions: Disp Refills LORazepam 1 MG Oral Tablet (Ativan) 60 Tab*1 Sig: Take 0.5 tablet by mouth in the morning and 0.5 tablet in the afternoon and 1 tablet at bedtime documented in this encounter Plan of Treatment Upcoming Encounters Date Type Department Care Team (Late st Contact Info) Description 12/11/2023 8:00 AM EDT Office Visit Family Practice [address] [phone] Reji Chen, [address] [place] [address] 12/17/2023 4:20 PM EDT Office Visit Family Practice [facility] 293 [place] [phone] Reji Chen, [address] [place] [address] 12/26/2023 11:30 AM EDT Imaging Radiology [address], [address] [place] [address] Health Maintenance Due Date Last Done Comments [...] disorder documented in this encounter Care Teams Basting Cleaner Relationship Specialty Start Date End Date Reji Chen DO [address] [place] [address] PCP - General Internal Medicine 10/31/23 documented as of this encounter
--- OUTSIDE RECORDS SUMMARY | 2023-12-07 23:11 | External Medical Summary ---
Author Name Unknown Address Unknown Organization [id number]:[facility] - [facility] [address] [facility] [address] Laboratory Report Ordering Provider Test Date Status PUSHPA MENDOZA 08/22/2023 11:23:43 Final Observation Date Value Abnormality Reference (Units ) Status WBC, Total 08/22/2023 11:23:43 3.64 Below low normal 4.00-10.80 (K/uL) Final RBC 08/22/2023 11:23:43 3.63 3.85-5.15 (M/uL) Final Hemoglobin 08/22/2023 11:23:43 11.7 Below low normal 12.0-15.3 (g/dL) Final HCT 08/22/2023 11:23:43 33.7 Below low normal 36.0-45.2 (%) Final MCV 08/22/2023 11:23:43 92.8 81.5-97.5 (fL) Final MCH 08/22/2023 11:23:43 32.2 27.0-34.0 (pg) Final MCHC 08/22/2023 11:23:43 34.7 32.0-36.0 (g/dL) Final RDW 08/22/2023 11:23:43 12.8 11.5-15.5 (%) Final Platelets 08/22/2023 11:23:43 239 140-400 (K/uL) Final MPV 08/22/2023 11:23:43 9.7 6.6-11.1 (fL) Final Nucleated erythrocytes/100 leukocytes [Ratio] in Blood by Automated count 08/22/2023 11:23:43 0 <=0 (/100 WBCs) Final Performing Location [facility] - [address] [place] [address]
--- OUTSIDE RECORDS SUMMARY | 2023-12-07 23:12 | External Medical Summary ---
Author Name Unknown Address Unknown Organization [id number]:[facility] - [address] [place] [address] Laboratory Report Ordering Provider Test Date Status PUSHPA MENDOZA 06/20/2023 14:45:18 Final Observation Date Value Abnormality Reference (Units ) Status Parathyrin.intact [Mass/volume] in Serum or Plasma 06/20/2023 14:45:18 60 15-65 (pg/mL) Final Performing Location [facility] - [address] [place] [address]
--- OUTSIDE RECORDS SUMMARY | 2023-12-07 23:12 | External Medical Summary ---
Author Name Unknown Address Unknown Organization [id number]:[facility] [place] [address] [facility] [address] Laboratory Report Ordering Provider Test Date Status PUSHPA MENDOZA 06/20/2023 14:45:18 Final Observation Date Value Abnormality Reference (Units ) Status SYNC LEUKOCYTES IN BLOOD BY AUTOMATED COUNT 06/20/2023 14:45:18 3.21 Below low normal 4.00-10.80 (K/uL) Final Segs 06/20/2023 14:45:18 50.8 40.0-75.0 (%) Final Lymphs % 06/20/2023 14:45:18 37.7 18.0-42.0 (%) Final Monos 06/20/2023 14:45:18 9.7 1.0-11.0 (%) Final Eosinophils 06/20/2023 14:45:18 0.9 0.0-6.0 (%) Final Basos 06/20/2023 14:45:18 0.9 0.0-2.0 (%) Final Immature Granulocyte, Percent 06/20/2023 14:45:18 0.0 0.0-2.0 (%) Final Absolute Segs 06/20/2023 14:45:18 1.63 Below low normal 1.80-7.70 (K/uL) Final Lymphs, absolute 06/20/2023 14:45:18 1.21 1.00-4.80 (K/ul) Final Monos, Abs 06/20/2023 14:45:18 0.31 0.00-1.10 (K/uL) Final Eos, Abs 06/20/2023 14:45:18 0.03 0.00-0.70 (K/uL) Final Basos, Abs 06/20/2023 14:45:18 0.03 0.00-0.20 (K/uL) Final Immature Granulocytes, Number 06/20/2023 14:45:18 0.00 0.00-0.20 (K/uL) Final Performing Location [facility] [place] [address] [facility] [address]
--- OUTSIDE RECORDS SUMMARY | 2023-12-07 23:12 | External Medical Summary | Summary of Care ---
Author Name Unknown Organization [facility] Address [address] [place] [address] Phone [phone] Care Team Providers Care Underwriting Analyst Name Role Phone Dominic Chen DO Primary Care Provider [phone] Encounter Details Date Type Department Care Team (Late st Contact Info) Description 08/18/2023 Population Health External Data Unspecified Department Allergies Active Allergy Reactions Criticality Noted Date Comments Amlodipine 07/01/2022 RASH, EDEMA, HEADACHE, Bee Venom Anaphylaxis High 05/29/2017 Blue Dyes (Parenteral) Anaphylaxis,Rash High 022 Red, purple, blue Hydroxyzine 10/10/2022 Latex High 07/30/2018 Anaphalaxis Sulfa Antibiotics Anaphylaxis,Hives High 05/29/2017 Diclofenac Sodium 05/10/2022 documented as of this encounter (statuses as of 08/18/2023) Medications Medication Sig Dispensed Refills Start Date End Date Status Probiotic Acidophilus BioBeads Oral Capsule Take by mouth 1 Capsule 2 times a day . "Women's probiotic" 0 Active Loratadine 10 MG Oral Tablet (Claritin) Take 1 Tablet by mouth in the morning. 0 Active B Complete Oral Tablet Take by mouth. 0 Active Vitamin C 500 MG Oral [...] daily. 90 Tablet 2 3 Active Ipratropium [place] 0.03 % Nasal Solution (Atrovent)Indications:Chr onic rhinitis [...] the morning. 90 Capsule 1 4 Active documented as of this encounter (statuses as of 08/18/2023) Active Problems Problem Noted Date Diagnosed Date [...] as of this encounter (statuses as of 08/18/2023) Resolved Problems Problem Noted Date Diagnosed Date [...] as of this encounter (statuses as of 08/18/2023) Immunizations Name Administration Dates Next Due COVID-19 mRNA, LNP-s, No Pre serve, 2-Dose Series ([employer]) 02/03/2021,06/30/2020,06/02/2020 COVID-19, LNP-s, No Preserve , Aubrey-sucrose, Ages 12+ (Smart Checkout) 12/11/2021 COVID-19, MRNA-LNP, 23-24, P F, 30 MCG/0.3 mL, 12 YRS AND ABOVE, IM ([email or web address] 03/14/2023 Covid-19, Mrna, Lnp-s, Pf, B ivalent, 30 Mcg, IM, 12 yrs and above (Smart Checkout) 03/05/2022 Pneumococcal Conjugate Vacc, 13 Valent (Prevnar) [...] Care Team (Late st Contact Info) Description 08/22/2023 10:40 AM EDT Office Visit Family Practice 65 [facility] [address] [place] [address] Dominic Chen, [address] [place] [address] 10/31/2023 2:20 PM EDT Office Visit Family Practice 65 [facility] [address] [place] [address] Dominic Chen, [address] [place] [address] Health Maintenance Due Date Last Done Comments [...] filedocumented as of this encounter Care Teams Underwriting Analyst Relationship Specialty Start Date End Date Dominic Chen DO [address] [place] [address] PCP - General Internal Medicine 07/13/21 documented as of this encounter
--- OUTSIDE RECORDS SUMMARY | 2023-12-07 23:12 | External Medical Summary | Summary of Care ---
Author Name Unknown Organization [facility] Address [address] [place] [address] Phone [phone] Care Team Providers Care Rubber Goods Inspector Tester Name Role Phone Reji Chen DO Primary Care Provider [phone] Reason for Visit * Reason Onset Date Comments Medication Refill 08/04/2023 Encounter Details Date Type Department Care Team (Late st Contact Info) Description 08/04/2023 Refill Family Practice [address] [place] [address] [place] [address] Reji Chen DO [address] [place] [address] HTN, goal below 140/90 Allergies Active Allergy Reactions Criticality Noted Date Comments Amlodipine 07/01/2022 RASH, EDEMA, HEADACHE, Bee Venom Anaphylaxis High 05/29/2017 Blue Dyes (Parenteral) Anaphylaxis,Rash High 022 Red, purple, blue Hydroxyzine 10/10/2022 Latex High 07/30/2018 Anaphalaxis Sulfa Antibiotics Anaphylaxis,Hives High 05/29/2017 Diclofenac Sodium 05/10/2022 documented as of this encounter (statuses as of 08/06/2023) Medications Medication Sig Dispensed Refills Start Date [...] daily. 90 Tablet 2 3 Active Ipratropium [place] 0.03 % Nasal Solution (Atrovent)Indications:Ch ronic rhinitis [...] the morning. 90 Capsule 1 4 Active hydroCHLOROthiazide 12.5 MG Oral Capsule (Hydrodiuril)Indications :HTN, goal below 140/90 Take 1 Capsule by mouth in the morning. 90 Capsule 1 3 08/04/19 24 Discontin ued(Refil l) documented as of this encounter (statuses as of 08/06/2023) Active Problems Problem Noted Date Diagnosed Date [...] as of this encounter (statuses as of 08/06/2023) Resolved Problems Problem Noted Date Diagnosed Date [...] as of this encounter (statuses as of 08/06/2023) Immunizations Name Administration Dates Next Due COVID-19 mRNA, LNP-s, No Pre serve, 2-Dose Series ([employer]) 02/03/2021,06/30/2020,06/02/2020 COVID-19, LNP-s, No Preserve , Aubrey-sucrose, Ages 12+ (Pfizer) 12/11/2021 COVID-19, MRNA-LNP, 23-24, P F, 30 MCG/0.3 mL, 12 YRS AND ABOVE, IM ([employer]) 03/14/2023 Covid-19, Mrna, Lnp-s, Pf, B ivalent, [...] encounter Miscellaneous Notes * Telephone Encounter - Ingrid Riggs, [facility] - 08/06/2023 8:22 AM EDTSigned Prescriptions: Disp Refills hydroCHLOROthiazide 12.5 MG Oral Capsule 90 Cap*1 Sig: Take 1 Capsule by mouth in the morning.Authorizing Provider: REJI [facility]ENmedical [facility] of the [facility] User: INGRID RIGGS documented in this encounter Plan of Treatment Upcoming Encounters Date Type Department Care Team (Late st Contact Info) Description 10/31/2023 2:20 PM EDT Office Visit Family Practice [address] [place] [address] [place] [address] Reji Chen, [address] [place] [address] Health Maintenance Due Date Last Done Comments [...] as of this encounter Visit Diagnoses Diagnosis HTN, goal below 140/90 Unspecified essential hypertension documented in this encounter Care Teams Rubber Goods Inspector Tester Relationship Specialty Start Date End Date Reji Chen DO [address] [place] [address] PCP - General Internal Medicine 07/13/21 documented as of this encounter
--- OUTSIDE RECORDS SUMMARY | 2023-12-07 23:12 | External Medical Summary | Summary of Care ---
Author Name Unknown Organization [facility] Address [address] [place] [address] Phone [phone] Care Team Providers Care Nursery Attendant Name Role Phone Dominic Chen DO Primary Care Provider [phone] Reason for Visit * Reason Onset Date Comments Test Results 06/23/202306/22 Encounter Details Date Type Department Care Team (Late st Contact Info) Description 06/23/2023 Telephone Family Practice [address] [place] [address] [place] [address] Dominic Chen DO [address] [place] [address] Test Results (06/22) Allergies Active Allergy Reactions Criticality Noted Date Comments Amlodipine 07/01/2022 RASH, EDEMA, HEADACHE, Bee Venom Anaphylaxis High 05/29/2017 Blue Dyes (Parenteral) Anaphylaxis,Rash High 022 Red, purple, blue Hydroxyzine 10/10/2022 Latex High 07/30/2018 Anaphalaxis Sulfa Antibiotics Anaphylaxis,Hives High 05/29/2017 Diclofenac Sodium 05/10/2022 documented as of this encounter (statuses as of 06/24/2023) Medications Medication Sig Dispensed Refills Start Date [...] (Psyllium) Take by mouth . 0 Active hydroCHLOROthiazide 12.5 MG Oral Capsule (Hydrodiuril)Indications: HTN, goal below 140/90 Take 1 Capsule by mouth in the morning. 90 Capsule 1 3 Active Fluticasone Propionate 50 MCG/ACT Nasal Suspension [...] mouth daily. 90 Tablet 2 3 Active LORazepam 1 MG Oral Tablet (Ativan)Indications:Uncom plicated alcohol dependence (HCC),JOSE (generalized anxiety disorder) Take 0.5 tablet by mouth in the morning and 0.5 tablet in the afternoon and 1 tablet at bedtime 60 Tablet 1 4 Active Ipratropium [place] 0.03 % Nasal Solution (Atrovent)Indications:Chr onic rhinitis Administer 2 Sprays into each nostril in the morning and 2 Sprays at noon and 2 Sprays before bedtime. for runny nose. 30 mL 3 4 Active documented as of this encounter (statuses as of 06/24/2023) Active Problems Problem Noted Date Diagnosed Date [...] as of this encounter (statuses as of 06/24/2023) Resolved Problems Problem Noted Date Diagnosed Date Resolved Date Food insecurity 03/03/2023 06/05/2023 Overview: Per [facility] Protocol Calculus of gallbladder with out cholecystitis without obstruction 11/28/2021 03/05/2022 ETD (Eustachian tube dysfunction), bilateral 8 06/04/2019 High risk for fracture due t o osteoporosis by DEXA scan 05/29/2017 12/21/2020 Gastroesophageal reflux disease 05/29/2017 06/04/2019 Allergy 05/29/2017 07/08/2022 Overview: ICD-10 update of inactive term documented as of this encounter (statuses as of 06/24/2023) Immunizations Name Administration Dates Next Due COVID-19 mRNA, LNP-s, No Pre serve, 2-Dose Series ([employer]) 02/03/2021,06/30/2020,06/02/2020 COVID-19, LNP-s, No Preserve , Aubrey-sucrose, Ages 12+ (Pfizer) 12/11/2021 COVID-19, MRNA-LNP, 23-24, P F, 30 MCG/0.3 mL, 12 YRS AND ABOVE, IM ([facility]) 03/14/2023 Covid-19, Mrna, Lnp-s, Pf, B ivalent, 30 Mcg, IM, 12 yrs and above ([employer]) 03/05/2022 Pneumococcal Conjugate Vacc, 13 Valent (Prevnar) [...] Miscellaneous Notes * Telephone Encounter - Tamar uRss LPN - 06/24/2023 11:43 AM EST Patient is aware and will comply. Thank you * Telephone Encounter - Isabel Fernandez OSA - 06/24/2023 8:44 AM EST Returning call * Telephone Encounter - Lucia Rodriguez LPN - 06/23/2023 4:13 PM EST Call placed to patient - no answer. Message left to return call to [phone]. Lab order pended. * Telephone Encounter - Lucia Rodriguez LPN - 06/23/2023 4:12 PM EST ----- Message from Dominic Chen DO sent at 06/22/2023 1:12 PM EST ----- Mild Anemia is present. Calcium level improved. PTH is normal Vitamin D is good. Repeat CBC with diff in 1 month. documented in this encounter Plan of Treatment Upcoming Encounters Date Type Department Care Team (Late st Contact Info) Description 10/31/2023 2:20 PM EDT Office Visit Family Practice 65 [facility] [place] [address] [place] [address] Dominic Chen DO [address] [place] [address] Scheduled Orders Name Type Priority Associated Diagnoses Orde r Schedule CBC WITH WBC DIFFERENTIAL Lab Routine Anemia Expected: 07/24/2023 (Approximate), Expires: 06/22/2024 Health Maintenance Due Date Last Done Comments Colonoscopy 1995 Fecal Occult Blood Test 1995 Sigmoidoscopy 1995 Mammogram 08/10/2023 08/09/2022, 07/21, 12/08/2020, Additional history exists Cologuard 03/28/2024 03/28/2021, 02/21, 03/20/2021 Colorectal Cancer Screening 03/28/2024 Depression Screening 06/19/2024 06/20/2023 GFR 06/19/2024 06/20/2023, 01/20, 09/13/2022, [...] as of this encounter Visit Diagnoses Diagnosis Anemia- Primary Anemia, unspecified documented in this encounter Care Teams Nursery Attendant Relationship Specialty Start Date End Date Dominic Chen DO [address] [place] [address] PCP - General Internal Medicine 07/13/21 documented as of this encounter
--- OUTSIDE RECORDS SUMMARY | 2023-12-07 23:12 | External Medical Summary | Summary of Care ---
Author Name Unknown Organization [facility] Address [address] [place] [address] Phone [phone] Care Team Providers Care Scrummaster Name Role Phone Dominic Chen DO Primary Care Provider Reason for Referral * Evaluate & Treat - Unlimited Visits (Within 30 days (routine)) - Authorized Specialty Diagnoses / Procedures Referred By Mikie kat Referred To Contact Podiatry Diagnoses Acquired bilateral foot deformity Dominic Chen DO [address] [place] [address] Referral ID Status Reason Start Date Expiration Date Visits Requested Visits Authorized [id number] Authorized Specialty Services Required 06/20/2023 999 999 Question Answer Referral Priority Within 30 days (routine) Where should this appointment be scheduled? Matt Which condition are you referring this patient for? 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; Gastroesophageal reflux disease without esophagitis; Hyperparathyroidism, primary (HCC); Uncomplicated alcohol dependence (HCC); Non-seasonal allergic rhinitis due to pollen; Acquired bilateral foot deformity Allergies Active Allergy Reactions Criticality Noted Date Comments Amlodipine 07/01/2022 RASH, EDEMA, HEADACHE, Bee Venom Anaphylaxis High 05/29/2017 Blue Dyes (Parenteral) Anaphylaxis,Rash High 022 Red, purple, blue Hydroxyzine 10/10/2022 Latex High 07/30/2018 Anaphalaxis Sulfa Antibiotics Anaphylaxis,Hives High 05/29/2017 Diclofenac Sodium 05/10/2022 documented as of this encounter (statuses as of 06/23/2023) Medications Medication Sig Dispensed Refills Start Date [...] bedtime 60 Tablet 1 4 Active Ipratropium Dubois 0.03 % Nasal Solution (Atrovent)Indications:Chr onic rhinitis Administer 2 Sprays into each nostril in the morning and 2 Sprays at noon and 2 Sprays before bedtime. for runny nose. 30 mL 3 4 Active documented as of this encounter (statuses as of 06/23/2023) Active Problems Problem Noted Date Diagnosed Date [...] as of this encounter (statuses as of 06/23/2023) Resolved Problems Problem Noted Date Diagnosed Date Resolved Date Food insecurity 03/03/2023 06/05/2023 Overview: Per [facility] Protocol Calculus of gallbladder with out cholecystitis without obstruction 11/28/2021 03/05/2022 ETD (Eustachian tube dysfunction), bilateral 8 06/04/2019 High risk for fracture due t o osteoporosis by DEXA scan 05/29/2017 12/21/2020 Gastroesophageal reflux disease 05/29/2017 06/04/2019 Allergy 05/29/2017 07/08/2022 Overview: ICD-10 update of inactive term documented as of this encounter (statuses as of 06/23/2023) Immunizations Name Administration Dates Next Due COVID-19 mRNA, LNP-s, No Pre serve, 2-Dose Series (Biom'Up) 02/03/2021,06/30/2020,06/02/2020 COVID-19, LNP-s, No Preserve , Aubrey-sucrose, Ages 12+ (Pfizer) 12/11/2021 COVID-19, MRNA-LNP, 23-24, P F, 30 MCG/0.3 mL, 12 YRS AND ABOVE, IM (PFIZER-Comirnat) 03/14/2023 Covid-19, Mrna, Lnp-s, Pf, B ivalent, [...] Sign Reading Time Taken Comments Blood Pressure 124/66 06/20/2023 2:12 PM EST Pulse 76 06/20/2023 2:12 PM EST Temperature 36.6 C (97.8 F) 06/20/2023 2:12 PM ES T Respiratory Rate 13 06/20/2023 2:12 PM EST Oxygen Saturation 99% 06/20/2023 2:12 PM EST Inhaled Oxygen Concentration - - Weight 73.2 kg (161 lb 4.8 oz) 06/20/2023 2:12 P M EST Height 166.4 cm (5' 5.5") 06/20/2023 2:12 PM ES T Body Mass Index 26.43 06/20/2023 2:12 PM EST documented in this encounter Progress Notes * Dominic Chen, - 06/20/2023 2:39 PM EST SUBJECTIVE: Anupama Caraballo is a 73 year old female. 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 She has not had any alcohol for 2.5 weeks. No chest pain or shortness of breath are present. Weight is stable and appetite is good. She has chronic bilateral foot pains that are worsening. Patient Active Problem List Diagnosis Code HTN, [...] 1 Tablet by mouth in the morning. B Complete Oral Tablet Take by mouth. Vitamin C 500 MG Oral Tablet (Ascorbic Acid) Take 1 Tablet by mouth in the morning. Ibuprofen 200 MG Oral Capsule Take 2 Capsules by mouth every 4 hours as needed. Zinc 50 MG Oral Capsule Take 1 Capsule by mouth in the morning. Metamucil Smooth Texture 28.3 % Oral Powder (Psyllium) Take by mouth . hydroCHLOROthiazide 12.5 MG Oral Capsule (Hydrodiuril) Take 1 Capsule by mouth in the morning. 90 Capsule 1 Fluticasone Propionate 50 MCG/ACT Nasal Suspension (Flonase) [...] Tablet by mouth daily. 90 Tablet 2 LORazepam 1 MG Oral Tablet (Ativan) Take 0.5 tablet by mouth in the morning and 0.5 tablet in the afternoon and 1 tablet at bedtime 60 Tablet 1 Ipratropium Dubois 0.03 % Nasal Solution (Atrovent) Administer 2 Sprays into each nostril in the morning and 2 Sprays at noon and 2 Sprays before bedtime. for runny nose. 30 mL 3 No current facility-administered medications for this visit. The patient's medication list was reviewed and updated as needed. Past Medical History: Diagnosis Date Alcohol addiction ([facility]) Allergy 05/29/2017 ICD-10 update of inactive term [...] performed by Maryam Nguyen MD at ENDOSCOPY [facility] LAPAROSCOPY; CHOLECYSTECTOMY N/A 12/25/2021 LAPAROSCOPY; REPAIR INITIAL INGUINAL HERNIA Right LIGATE/CUT OVIDUCT(S) HI LAP, VENTRAL HERNIA REPAIR,REDUCIBLE N/A 12/25/2021 SKELETAL FIXATION OF ANKLE FRACTURE Right Review of patient's allergies indicates: Allergen Reactions Bee Venom Anaphylaxis Blue Dyes (Parenteral) Anaphylaxis and Rash Red, purple, blue Latex Anaphalaxis Sulfa Antibiotics Anaphylaxis and Hives Amlodipine RASH, EDEMA, HEADACHE, Hydroxyzine Voltaren [Diclofenac Sodium] Review of Systems Constitutional: Negative for appetite change, fatigue and unexpected weight change. HENT: Positive for postnasal drip and rhinorrhea. Negative for congestion, sore throat and trouble swallowing. Respiratory: Negative for cough, shortness of breath and wheezing. Cardiovascular: Negative for chest pain, palpitations and leg swelling. Gastrointestinal: Negative for abdominal pain, blood in stool, constipation, diarrhea, nausea and vomiting. Genitourinary: Negative for dysuria, frequency and hematuria. Neurological: Negative for dizziness, syncope and headaches. Psychiatric/Behavioral: Negative for confusion, decreased concentration and sleep disturbance. OBJECTIVE: BP 124/66 | Pulse 76 | Temp 36.6 C (97.8 F) (Tympanic) | Resp 13 | Ht 1.664 m (5' 5.5") | Wt 73.2 kg (161 lb 4.8 oz) | SpO2 99% | BMI 26.43 kg/m | BSA 1.84 m Physical Exam Vitals and nursing note [...] No edema. Left lower leg: No edema. Right foot: Deformity and bunion present. No Charcot foot. Left foot: Deformity and bunion present. No Charcot foot. Neurological: Mental Status: She is alert and oriented to person, place, and time. Mental status is at baseline. Motor: No weakness. Gait: Gait normal. Psychiatric: Mood and Affect: Mood normal. Behavior: Behavior normal. Thought Content: Thought content normal. 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 Dominic Chen DO 2:39 PM 06/20/2023 * Tamar Russ LPN - 06/20/2023 2:38 PM EST Will need podiatry office visit--[facility] [facility] documented in this encounter Nursing Notes * Tamar Russ LPN - 06/20/2023 2:12 PM EST Patient presents for follow up, voices no complaints. documented in this encounter Plan of Treatment Upcoming Encounters Date Type Department Care Team (Late st Contact Info) Description 10/31/2023 2:20 PM EDT Office Visit Family [facility] [address] [place] [address] [place] [address] Dominic Chen, DO [address] [place] [address] Scheduled Referrals Name Type Priority Associated Diagnoses Orde r Schedule PODIATRY REFERRAL OP Referral Within 30 days (routine) Acquired bilateral foot deformity Ordered: 06/20/2023 Health Maintenance Due Date Last Done Comments [...] Date/Time Associated Diagnosis Comments DIFFERENTIAL, AUTOMATED Routine 06/20/2023 2:45 PM EST HTN, goal below 140/90 LIPID PANEL WITH DIRECT LDL IF TG IS HIGH Routine 06/20/2023 2:45 PM EST Pure hypercholesterolemia 25-HYDROXY VITAMIN D Routine 06/20/2023 2:45 PM EST Hyperparathyroidism, primary (HCC) COMPREHENSIVE METABOLIC PANEL Routine 06/20/2023 2:45 PM EST HTN, goal below 140/90 Pure hypercholesterolemia Hyperparathyroidism, primary (HCC) CBC Routine 06/20/2023 2:45 PM EST HTN, goal below 140/90 PTH Routine 06/20/2023 2:45 PM EST Hyperparathyroidism, primary (HCC) CBC Routine 06/20/2023 2:45 PM EST HTN, goal below 140/90 documented in this encounter Results * (ABNORMAL) DIFFERENTIAL, AUTOMATED (06/20/2023 2:45 PM EST) WBC 3.21(L) 4.00 - 10.80 K/uL 06/20/2023 11:56 PM EST [facility] Neutrophils % 50.8 40.0 - 75.0 % 06/20/2023 11:56 PM EST [facility] Lymphocytes % 37.7 18.0 - 42.0 % 06/20/2023 11:56 PM EST [facility] Monocytes % 9.7 1.0 - 11.0 % 06/20/2023 11:56 PM EST [facility] Eosinophils % 0.9 0.0 - 6.0 % 06/20/2023 11:56 PM EST [facility] Basophils % 0.9 0.0 - 2.0 % 06/20/2023 11:56 PM EST [facility] Immature Granulocytes % 0.0 0.0 - 2.0 % 06/20/2023 11:56 PM EST [facility] Absolute Neutrophils 1.63(L) 1.80 - 7.70 K/uL 06/20/2023 11:56 PM EST [facility] Absolute Lymphocytes 1.21 1.00 - 4.80 K/ul 06/20/2023 11:56 PM EST [facility] Absolute Monocytes 0.31 0.00 - 1.10 K/uL 06/20/2023 11:56 PM EST [facility] Absolute Eosinophils 0.03 0.00 - 0.70 K/uL 06/20/2023 11:56 PM EST [facility] Absolute Basophils 0.03 0.00 - 0.20 K/uL 06/20/2023 11:56 PM EST [facility] Absolute Immature Granulocytes 0.00 0.00 - 0.20 K/uL 06/20/2023 11:56 PM EST [facility] Blood Venous blood specimen / Unknown Venipuncture / Unknown 06/20/2023 2:45 PM EST 06/20/2023 2:45 PM EST Dominic Chen DO LAB BLOOD ORDERABLES [facility] [address] [place] [address] * (ABNORMAL) CBC (06/20/2023 2:45 PM EST) WBC 3.21(L) 4.00 - 10.80 K/uL 06/20/2023 11:56 PM EST [facility] RBC 3.58 3.85 - 5.15 M/uL 06/20/2023 11:56 PM EST [facility] HGB 11.4(L) 12.0 - 15.3 g/dL 06/20/2023 11:56 PM EST [facility] HCT 34.9(L) 36.0 - 45.2 % 06/20/2023 11:56 PM EST [facility] MCV 97.5 81.5 - 97.5 fL 06/20/2023 11:56 PM EST [facility] MCH 31.8 27.0 - 34.0 pg 06/20/2023 11:56 PM EST [facility] MCHC 32.7 32.0 - 36.0 g/dL 06/20/2023 11:56 PM EST [facility] RDW 12.1 11.5 - 15.5 % 06/20/2023 11:56 PM EST [facility] PLT 223 140 - 400 K/uL 06/20/2023 11:56 PM EST [facility] MPV 10.4 6.6 - 11.1 fL 06/20/2023 11:56 PM EST [facility] nRBCs 0 <=0 /100 WBCs 06/20/2023 11:56 PM EST [facility] Blood Venous blood specimen / Unknown Venipuncture / Unknown 06/20/2023 2:45 PM EST 06/20/2023 2:45 PM EST Dominic Chen DO LAB BLOOD ORDERABLES [facility] [address] [place] [address] * LIPID PANEL WITH DIRECT LDL IF TG IS HIGH (06/20/2023 2:45 PM EST) Triglycerides 132 <=174 mg/dL 06/20/2023 11:09 PM EST [facility] Comment: Triglyceride Reference Ranges (mg/dL): <150 Acceptable 150-174 Borderline high 175-499 High >=500 Very high Cholesterol 149 <200 mg/dL 06/20/2023 11:09 PM EST [facility] Comment: Total Cholesterol Reference Ranges (mg/dL): <200 Desirable 200-239 Borderline high >=240 High HDL Cholesterol 55 >49 mg/dL 11:09 PM EST [facility] Comment: HDL Cholesterol Reference Ranges (mg/dL): >=60 High (Desirable) <50 Low (Undesirable) For Females <40 Low (Undesirable) For Males Non-HDL Cholesterol 94 <=159 mg/dL 06/20/2023 11:09 PM EST [facility] Comment: Non-HDL Cholesterol Reference Range (mg/dL): <100 Target level for high risk ASCVD patient <130 Optimal for general population 130-159 Near optimal for general population 160-189 Borderline High 190-219 High >=220 Very High LDL Cholesterol 68 <=129 mg/dL 06/20/2023 11:09 PM EST [facility] Comment: LDL Cholesterol Reference Ranges (mg/dL): <70 Target level for high risk ASCVD patient <100 Optimal for general population 100-129 Near optimal for general population 130-159 Borderline high 160-189 High >=190 Very high Blood Venous blood specimen / Unknown Venipuncture / Unknown 06/20/2023 2:45 PM EST 06/20/2023 2:45 PM EST Dominic Chen LAB BLOOD ORDERABLES Performing Organization Address [facility] de Phone Number [facility]AT[facility] [address] [place] [address] * 25-HYDROXY VITAMIN D (06/20/2023 2:45 PM EST) 25-Hydroxy Vitamin D 29 >19 ng/mL 06/20/2023 11:55 PM EST [facility] Blood Venous blood specimen / Unknown Venipuncture / Unknown 06/20/2023 2:45 PM EST 06/20/2023 2:45 PM EST Narrative [facility] - 06/20/2023 11:55 PM EST Deficient: <20 ng/mL Insufficient: 20-29 ng/mL Recommended/Optimum:30-50 ng/mL Vitamin D intoxication is rare. If suspicious of Vitamin D toxicity, evaluation of serum Calcium and PTH is recommended. Dominic Chen LAB BLOOD ORDERABLES Performing Organization Address [facility] de Phone Number LABORATORY [place] [address] [place] [address] * (ABNORMAL) COMPREHENSIVE METABOLIC PANEL (06/20/2023 2:45 PM EST) BUN 14 6 - 20 mg/dL 06/20/2023 11:09 PM EST [facility] Creatinine 0.7 0.5 - 1.0 mg/dL 06/20/2023 11:09 PM EST [facility] Estimated Glomerular Filtration Rate >90 >=60 mL/min 06/20/2023 11:09 PM EST [facility] Comment:eGFR is calculated b ased on the CKD-EPI 2020 equation Sodium 136 135 - 146 mmol/L 06/20/2023 11:09 PM EST [facility] Potassium 3.8 3.5 - 5.1 mmol/L 06/20/2023 11:09 PM EST [facility] Chloride 100 98 - 107 mmol/L 06/20/2023 11:09 PM EST [facility] CO2 26 22 - 32 mmol/L 06/20/2023 11:09 PM EST [facility] Anion Gap 10 7 - 15 mmol/L 06/20/2023 11:09 PM EST [facility] Glucose 123(H) 70 - 120 mg/dL 06/20/2023 11:09 PM EST [facility] Albumin 4.9 3.8 - 5.0 g/dL 06/20/2023 11:09 PM EST [facility] AST 24 10 - 35 U/L 06/20/2023 11:09 PM EST [facility] Alkaline Phosphatase 48 35 - 130 U/L 06/20/2023 11:09 PM EST [facility] Bilirubin, Total 0.3 <=1.2 mg/dL 06/20/2023 11:09 PM EST [facility] Calcium 10.3(H) 8.4 - 10.2 mg/dL 06/20/2023 11:09 PM EST [facility] Protein 6.8 6.0 - 8.3 g/dL 06/20/2023 11:09 PM EST [facility] ALT 23 10 - 35 U/L 06/20/2023 11:09 PM EST [facility] Blood Venous blood specimen / Unknown Venipuncture / Unknown 06/20/2023 2:45 PM EST 06/20/2023 2:45 PM EST Dominic Chen DO LAB BLOOD ORDERABLES [facility] [address] [place] [address] * PTH (06/20/2023 2:45 PM EST) PTH 60 15 - 65 pg/mL 06/20/2023 11:55 PM EST [facility] Blood Venous blood specimen / Unknown Venipuncture / Unknown 06/20/2023 2:45 PM EST 06/20/2023 2:45 PM EST Dominic Chen DO LAB BLOOD ORDERABLES LAB[facility]AT[facility] [address] [place] [address] documented in this encounter Visit Diagnoses Diagnosis HTN, goal below 140/90- Primary Unspecified essential hypertension Pure hypercholesterolemia 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
--- OUTSIDE RECORDS SUMMARY | 2023-12-07 23:12 | External Medical Summary ---
Author Name Unknown Address Unknown Organization [id number]:[facility] [place] [address] [facility] [facility] [address] Laboratory Report Ordering Provider Test Date Status PUSHPA MENDOZA 06/20/2023 14:45:18 Final Observation Date Value Abnormality Reference (Units ) Status BUN 06/20/2023 14:45:18 14 6-20 (mg/dL) Final Creatinine 06/20/2023 14:45:18 0.7 0.5-1.0 (mg/dL) Final Glomerular filtration rate/1.73 sq M.predicted [Volume Rate/Area] in Serum, Plasma or Blood by Creatinine-based formula (CKD-EPI) 06/20/2023 14:45:18 >90 >=60 (mL/min) Final eGFR is calculated based on the CKD-EPI 2020 equation SODIUM 06/20/2023 14:45:18 136 135-146 (m mol/L) Final Potassium 06/20/2023 14:45:18 3.8 3.5-5.1 (m mol/L) Final Cl 06/20/2023 14:45:18 100 98-107 (mm ol/L) Final CO2 06/20/2023 14:45:18 26 22-32 (mmo l/L) Final Anion gap 06/20/2023 14:45:18 10 7-15 (mmol /L) Final Glucose 06/20/2023 14:45:18 123 Above high normal 70 -120 (mg/dL) Final Albumin 06/20/2023 14:45:18 4.9 3.8-5.0 (g /dL) Final AST (Aspartate aminotransferase) 06/20/2023 14:45:18 24 10-35 (U/L) Fin al Alk Phos 06/20/2023 14:45:18 48 35-130 (U/ L) Final Bilirubin, Total 06/20/2023 14:45:18 0.3 <=1 .2 (mg/dL) Final Calcium 06/20/2023 14:45:18 10.3 Above high normal 8. 4-10.2 (mg/dL) Final Protein 06/20/2023 14:45:18 6.8 6.0-8.3 (g /dL) Final ALT (Alanine aminotransferase) 06/20/2023 14:45:18 23 10-35 (U/L) Armin herman Performing Location [facility] [place] [facility] [address] [facility] [address]
--- OUTSIDE RECORDS SUMMARY | 2023-12-07 23:12 | External Medical Summary ---
Author Name Unknown Address Unknown Organization [id number]:[facility]ORY [facility] [place] - [facility] [address] [facility] [address] Laboratory Report Ordering Provider Test Date Status PUSHPA MENDOZA 06/20/2023 14:45:18 Final Observation Date Value Abnormality Reference (Units ) Status WBC, Total 06/20/2023 14:45:18 3.21 Below low normal 4.00-10.80 (K/uL) Final RBC 06/20/2023 14:45:18 3.58 3.85-5.15 (M/uL) Final Hemoglobin 06/20/2023 14:45:18 11.4 Below low normal 12.0-15.3 (g/dL) Final HCT 06/20/2023 14:45:18 34.9 Below low normal 36.0-45.2 (%) Final MCV 06/20/2023 14:45:18 97.5 81.5-97.5 (fL) Final MCH 06/20/2023 14:45:18 31.8 27.0-34.0 (pg) Final MCHC 06/20/2023 14:45:18 32.7 32.0-36.0 (g/dL) Final RDW 06/20/2023 14:45:18 12.1 11.5-15.5 (%) Final Platelets 06/20/2023 14:45:18 223 140-400 (K/uL) Final MPV 06/20/2023 14:45:18 10.4 6.6-11.1 (fL) Final Nucleated erythrocytes/100 leukocytes [Ratio] in Blood by Automated count 06/20/2023 14:45:18 0 <=0 (/100 WBCs) Final Performing Location LABORATORY [facility] [place] - [address] [facility] [address]
--- OUTSIDE RECORDS SUMMARY | 2023-12-07 23:12 | External Medical Summary ---
Author Name Unknown Address Unknown Organization [id number]:[facility] [place] [address] [facility] [address] Laboratory Report Ordering Provider Test Date Status PUSHPA MENDOZA 06/20/2023 14:45:18 Final Observation Date Value Abnormality Reference (Units ) Status Triglyceride 06/20/2023 14:45:18 132 <=174 ( mg/dL) Final Triglyceride Reference Range s (mg/dL):
<150 Acceptable
150-174 Borderline high
175-499 High
>=500 Very high Cholesterol 06/20/2023 14:45:18 149 <200 (mg /dL) Final Total Cholesterol Reference Ranges (mg/dL):
<200 Desirable
200-239 Borderline high
>=240 High HDL 06/20/2023 14:45:18 55 >49 (mg/dL ) Final HDL Cholesterol Reference Ra nges (mg/dL):
>=60 High (Desirable)
<50 Low (Undesirable) For Females
<40 Low (Undesirable) For Males NON-HDL CHOLESTEROL 06/20/2023 14:45:18 94 <=159 (mg/dL) Final Non-HDL Cholesterol Referenc e Range (mg/dL):
<100 Target level for high risk ASCVD patient
<130 Optimal for general population
130-159 Near optimal for general population
160-189 Borderline High
190-219 High
>=220 Very High LDL, (calculated) 06/20/2023 14:45:18 68 <= 129 (mg/dL) Final LDL Cholesterol Reference Ra nges (mg/dL):
<70 Target level for high risk ASCVD patient
<100 Optimal for general population
100-129 Near optimal for general population
130-159 Borderline high
160-189 High
>=190 Very high Performing Location [facility] [place] [address] [place] [address]
--- OUTSIDE RECORDS SUMMARY | 2023-12-07 23:12 | External Medical Summary | Summary of Care ---
Author Name Unknown Organization [facility] Address [address] [place] [address] Phone [phone] Care Team Providers Care Primary Products Inspectors Name Role Phone Dominic Chen DO Primary Care Provider [phone] Reason for Visit * Reason Onset Date Comments Appointment 06/20/2023 PODIATRY REFERRA L OP Encounter Details Date Type Department Care Team (Late st Contact Info) Description 06/20/2023 Telephone Family Practice [address], [place] [address] [place] [address] Dominic Chen DO [address] [place] [address] Appointment (PODIATRY REFERRAL OP /) Allergies Active Allergy Reactions Criticality Noted Date Comments Amlodipine 07/01/2022 RASH, EDEMA, HEADACHE, Bee Venom Anaphylaxis High 05/29/2017 Blue Dyes (Parenteral) Anaphylaxis,Rash High 022 Red, purple, blue Hydroxyzine 10/10/2022 Latex High 07/30/2018 Anaphalaxis Sulfa Antibiotics Anaphylaxis,Hives High 05/29/2017 Diclofenac Sodium 05/10/2022 documented as of this encounter (statuses as of 06/20/2023) Medications Medication Sig Dispensed Refills Start Date [...] bedtime 60 Tablet 1 4 Active Ipratropium [place] 0.03 % Nasal Solution (Atrovent)Indications:Chr onic rhinitis Administer 2 Sprays into each nostril in the morning and 2 Sprays at noon and 2 Sprays before bedtime. for runny nose. 30 mL 3 4 Active documented as of this encounter (statuses as of 06/20/2023) Active Problems Problem Noted Date Diagnosed Date [...] as of this encounter (statuses as of 06/20/2023) Resolved Problems Problem Noted Date Diagnosed Date [...] as of this encounter (statuses as of 06/20/2023) Immunizations Name Administration Dates Next Due COVID-19 mRNA, LNP-s, No Pre serve, 2-Dose Series ([employer]) 02/03/2021,06/30/2020,06/02/2020 COVID-19, LNP-s, No Preserve , Aubrey-sucrose, Ages 12+ (Pfizer) 12/11/2021 COVID-19, MRNA-LNP, 23-24, P F, 30 MCG/0.3 mL, 12 YRS AND ABOVE, IM ([facility]) 03/14/2023 Covid-19, Mrna, Lnp-s, Pf, B ivalent, 30 Mcg, IM, 12 yrs and above (JamKazam) 03/05/2022 Pneumococcal Conjugate Vacc, 13 Valent (Prevnar) [...] Answer Date Recorded PHQ Adult Total Score 10 06/05/2023 Hunger Vital Sign Answer Date Recorded Within [...] Miscellaneous Notes * Telephone Encounter - Isabel Killian OSA - 06/20/2023 3:16 PM EST PODIATRY REFERRAL OP - pt scheduled at [facility] for ankle and footcare on 07.03.23 at 3:[address] Tulio Haas Pt aware date/time/location of this appt. Order and recs were faxed per office request. documented in this encounter Plan of Treatment Upcoming Encounters Date Type Department Care Team (Late st Contact Info) Description 10/31/2023 2:20 PM EDT Office Visit Family Practice [address], [place] [address] [place] [address] Dominic Chen DO [address] [place] [address] Health Maintenance Due Date Last Done Comments Colonoscopy 1995 Fecal Occult Blood Test 1995 Sigmoidoscopy 1995 Mammogram 08/10/2023 08/09/2022, 07/21, 12/08/2020, Additional history exists GFR 02/15/2024 02/14/2023, 08/20, 07/24/2022, Additional history exists Cologuard 03/28/2024 03/28/2021, 02/21, 03/20/2021 Colorectal Cancer Screening 03/28/2024 Depression Screening 06/19/2024 06/20/2023 DXA Scan 10/09/2024 10/09/2021, 09/20, 09/09/2017 Albumin/Creatinine Ratio 05/10/2025 023, 03/23/2021, 09/22/2020 DTaP,Tdap,and Td Vaccines (2 - Td or Tdap) 10/04/2026 10/04/2016, 11/19/2003 Lipid Panel 05/10/2027 05/10/2022, 06/2020, 09/22/2020, Additional history exists Pneumococcal Vaccine: 65+ Years [...] filedocumented as of this encounter Care Teams Primary Products Inspectors Relationship Specialty Start Date End Date Dominic Chen DO [address] [place] [address] PCP - General Internal Medicine 07/13/21 documented as of this encounter
--- OUTSIDE RECORDS SUMMARY | 2023-12-07 23:12 | External Medical Summary | Summary of Care ---
Author Name Unknown Organization [facility] Address [address] [place] [address] Phone [phone] Care Team Providers Care Photostat Operator Name Role Phone Dominic Chen DO Primary Care Provider [phone] Reason for Referral * Evaluate & Treat - Unlimited Visits (Within 30 days (routine)) - Authorized Specialty Diagnoses / Procedures Referred By Mikie kat Referred To Contact Podiatry Diagnoses Acquired bilateral foot deformity Dominic Chen DO [address] [place] [address] Referral ID Status Reason Start Date Expiration Date Visits Requested Visits Authorized [id number] Authorized Specialty Services Required 06/20/2023 999 999 [...] PM EST Office Visit Family Practice [address] [facility] [address] [place] [address] Dominic Chen DO [address] [place] [address] HTN, goal below 140/90*; Pure hypercholesterolemia; NABEEL [...] bedtime 60 Tablet 1 4 Active Ipratropium [place] 0.03 % Nasal Solution (Atrovent)Indications:Chr onic rhinitis [...] Date Food insecurity 03/03/2023 06/05/2023 Overview: Per [facility] Protocol Calculus of gallbladder with [...] mRNA, LNP-s, No Pre serve, 2-Dose Series ([employer]) 02/03/2021,06/30/2020,06/02/2020 COVID-19, LNP-s, No Preserve , Aubrey-sucrose, [...] 166.4 cm (5' 5.5") 06/20/2023 2:12 PM EST Body Mass Index 26.43 06/20/2023 2:12 PM [...] tablet at bedtime 60 Tablet 1 Ipratropium [place] 0.03 % Nasal Solution (Atrovent) Administer 2 [...] performed by Maryam Nguyen MD at [facility] LAPAROSCOPY; CHOLECYSTECTOMY N/A 12/25/2021 LAPAROSCOPY; REPAIR INITIAL INGUINAL HERNIA Right LIGATE/CUT OVIDUCT(S) [place] LAP, VENTRAL HERNIA REPAIR,REDUCIBLE N/A 12/25/2021 SKELETAL [...] ankle institute LAB DRAWN AND SENT TO [facility] [place]. documented in this encounter Nursing Notes * Tamar Russ LPN - 06/20/2023 2:12 PM EST Patient presents for follow up, voices no complaints. documented in this encounter Plan of Treatment Upcoming Encounters Date Type Department Care Team (Late st Contact Info) Description 10/31/2023 2:20 PM EDT Office Visit Family [facility] [address], [address] [place] [address] Dominic Chen, DO [address] [place] [address] Pending Results Name Type Priority Associated Diagnoses Date /Time PTH Lab Routine Hyperparathyroidism, primary (HCC) 06/20/2023 2:45 PM EST COMPREHENSIVE METABOLIC PANEL Lab Routine HTN, goal below 140/90 Pure hypercholesterolemia Hyperparathyroidism, primary (HCC) 06/20/2023 2:45 PM EST 25-HYDROXY VITAMIN D Lab Routine Hyperparathyroidism, primary (HCC) 06/20/2023 2:45 PM EST LIPID PANEL WITH DIRECT LDL IF TG IS HIGH Lab Routine Pure hypercholesterolemia 06/20/2023 2:45 PM EST CBC WITH WBC DIFFERENTIAL Lab Routine HTN, goal below 140/90 06/20/2023 2:45 PM EST CBC Lab Routine HTN, goal below 140/90 06/20/2023 2:45 PM EST DIFFERENTIAL, AUTOMATED Lab Routine HTN, goal below 140/90 06/20/2023 2:45 PM EST Scheduled Referrals Name Type Priority Associated Diagnoses [...] deformity documented in this encounter Care Teams Photostat Operator Relationship Specialty Start Date End Date Dominic Chen DO [address] [place] [address] PCP - General Internal Medicine 07/13/21 documented as of this encounter
--- OUTSIDE RECORDS SUMMARY | 2023-12-07 23:12 | External Medical Summary ---
Author Name Unknown Address Unknown Organization [id number]:[facility] - [address] [facility] [address] Laboratory Report Ordering Provider Test Date Status PUSHPA MENDOZA 06/20/2023 14:45:18 Final Deficient: <20 ng/mL
Ins ufficient: 20-29 ng/mL
Recommended/Optimum:30-50 ng/mL

Vitamin D intoxication is rare. If suspicious of Vitamin D toxicity, evaluation of serum Calcium and PTH is recommended. Observation Date Value Abnormality Reference (Units ) Status 25-OH Vitamin D total 06/20/2023 14:45:18 29 >19 (ng/mL) Final Performing Location [facility] [address] [facility] [address]
--- NOTE | 2023-12-07 23:22 | Emergency Department Note ---
History of Present Illness General Chief complaint: Dizziness Stated complaint: DIZZINESS, BRAIN FOG Time Seen by Provider: 12/07/23 23:12 History of Present Illness This 73-year-old female that has been drinking scotch night that occasionally uses marijuana presents to the ER complaining of nausea lightheadedness and abdominal pain. Patient denies chest pain, dyspnea, fever, chills, vomiting, diarrhea, flulike illness. She states a week and half ago she tested positive for COVID but has recovered from that. She lives at home with her . Home Medications Medication Instructions Recorded Confirmed Type Lactobacillus acidophilus 10 10,000 mmu cells PO DAILY 11/20/21 12/08/23 History billion cell capsule (Probiotic) ascorbic acid (vitamin C) 500 mg 500 mg PO QAM 11/20/21 12/08/23 History tablet (Vitamin C) cetirizine 10 mg tablet (All Day 10 mg PO QAM PRN Allergy Symptoms 11/20/21 12/08/23 History Allergy (cetirizine)) cyanocobalamin (vitamin B-12) 50 50 mcg PO QAM 11/20/21 12/08/23 History mcg tablet (Vitamin B-12) lorazepam 1 mg tablet 1 mg PO HS 11/20/21 12/08/23 History psyllium husk 3.4 gram/5.4 gram 1 tbsp PO QAM 11/20/21 12/08/23 History oral powder (Metamucil) rosuvastatin 5 mg tablet 5 mg PO HS 11/20/21 12/08/23 History lansoprazole 15 mg capsule,delayed 15 mg PO QAM 12/18/21 12/08/23 History release lorazepam 0.5 mg tablet 0.5 mg PO .IN AM AND AFTERNOON 12/18/21 12/08/23 History fluticasone propionate 50 2 spray intranasal DAILY 12/25/21 12/08/23 History mcg/actuation nasal spray,suspension ibuprofen 200 mg capsule (Advil 400 mg PO Q6H PRN Pain 12/25/21 12/08/23 History Liqui-Gel) ipratropium bromide 21 mcg (0.03 1 spray intranasal BID 12/08/23 12/08/23 History %) nasal spray lisinopril 30 mg tablet 30 mg PO QAM 12/08/23 12/08/23 History methylprednisolone 4 mg tablets in 4 mg PO UD 12/08/23 12/08/23 History a dose pack Allergies Allergy/AdvReac Type Severity Reaction Status Date / Time bee venom protein (honey bee) Allergy Severe Anaphylaxis Verified 12/25/21 05:44 Latex, Natural Rubber Allergy Severe Anaphylaxis Verified 12/25/21 07:04 Sulfa (Sulfonamide Allergy Severe ANAPHYLAXIS Verified 12/25/21 05:44 Antibiotics) blue dye Allergy Intermediate Rash Verified 12/25/21 05:45 codeine Allergy Intermediate Agitated, Verified 12/25/21 06:11 rash, itchy red dye Allergy Intermediate Rash Verified 12/25/21 05:45 Past Med/Surg History Problem List (Updated 12/08/23 @ 01:24 by Sunita Dallas PA-C) Light-headedness (Acute) Weakness (Acute) Acute alcohol intoxication (Acute) Abdominal pain, acute (Acute) Acute UTI (Acute) Encounter for pre-operative examination Fracture of head of right fibula (Acute) Displaced bimalleolar fracture of right ankle (Acute) Fracture of right foot (Acute) Alcohol intoxication (Acute) Ankle fracture, right Hypertension GERD (gastroesophageal reflux disease) Medical History Alcohol abuse 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 [employer] Required: No Beliefs That Will Affect Care: None marital status: Current Living Situation: Spouse Feels Safe at Home: Yes Assistive Devices: Glasses and Walker Review of Systems A total of 10 systems reviewed and were otherwise negative Physical Exam Vital Signs Vital Signs - 24 hr 12/07/23 23:13 12/07/23 23:19 12/08/23 00:10 Temperature 36.5 C Temperature Source Oral Pulse Rate 65 62 Pulse Rate [Apical] 62 Respiratory Rate 13 12 Respiratory Effort / Characteristics Non-Labored Spontaneous Respiratory Depth Normal Respiratory Pattern Regular Blood Pressure 141/86 H Blood Pressure [Right Arm] 144/95 H Blood Pressure Mean 104 Blood Pressure Mean [Right Arm] 111 Pulse Oximetry 96 98 Oxygen Delivery Method Room Air Room Air Sepsis Recent Fever Within 48 Hours No Sepsis New/Unexplained Change in Mental Status No Sepsis Action Taken by Nursing No Action Required 12/08/23 00:11 Temperature Temperature Source Pulse Rate 60 Pulse Rate [Apical] Respiratory Rate 14 Respiratory Effort / Characteristics Respiratory Depth Respiratory Pattern Blood Pressure Blood Pressure [Right Arm] Blood Pressure Mean Blood Pressure Mean [Right Arm] Pulse Oximetry 98 Oxygen Delivery Method Room Air Sepsis Recent Fever Within 48 Hours Sepsis New/Unexplained Change in Mental Status Sepsis Action Taken by Nursing VITALS: Vitals are noted on the nurse's note and reviewed by myself. Vital signs stable. GENERAL: Pleasant female with EtOH odor following commands, in no acute distress, nondiaphoretic, well-developed well-nourished. SKIN: The skin was without rashes, erythema, edema, or bruising. There is no tenting of the skin. Capillary reflex less than 2 seconds. HEAD: Normocephalic atraumatic. EARS: External auditory canals clear EYES: Pupils equal round and reactive to light and accommodation. Conjunctivae without injection, sclerae without icterus. Extraocular movements intact. NOSE: Patent, no discharge. MOUTH: Mucous membranes moist. Pharynx without erythema or exudate. Uvula midline. Airway patent. Tongue does not deviate. NECK: Supple without nuchal rigidity. No lymphadenopathy. No thyromegaly. Cervical spine is nontender. No JVD. HEART: Regular rate and rhythm LUNGS: Clear to auscultation bilaterally without wheezes, rales or rhonchi. No retractions or accessory muscle use. ABDOMEN: Positive bowel sounds x 4. Normal tympanic percussion. Soft, tender right lower quadrant, without masses or organomegaly. Crowe sign negative. No guarding or rebound tenderness. No CVA tenderness MUSCULOSKELETAL: No muscle atrophy, erythema, or edema noted. NEURO: Patient was alert and oriented to person place and time. Normal sensation to light and sharp touch. No focal neurological deficits. Course Administered Medications Discontinued Medications Multivitamins 10 ml/ Thiamine HCl 100 mg/ Folic Acid 1 mg/Sodium Chloride 1,011.2 mls @ 500 mls/hr IV .Q2H2M ONE Stop: 12/08/23 01:18 Last Admin: 12/08/23 00:08 Dose: 500 mls/hr Documented By: MED Ceftriaxone Sodium (Rocephin) 2,000 mg in 50 mls @ 100 mls/hr IV NOW STA Stop: 12/08/23 00:50 Last Admin: 12/08/23 00:54 Dose: 100 mls/hr Documented By: ENRIKE Ioversol (Optiray 320 125ml) 125 ml IV ONCE ONE Stop: 12/08/23 00:12 Last Admin: 12/08/23 00:11 Dose: 118 ml Documented By: ALDO Medical Decision Making Medical Records Attestation: I reviewed the patient's medical records. Home Medications Current Medication List: was personally reviewed by me Laboratory Data Attestation: I reviewed the patient's lab results. 12/07/23 23:33 12/07/23 23:33 Lab Results 12/07/23 12/07/23 12/07/23 Range/Units 23:33 23:40 23:49 WBC 3.49 L (4.8-10.8) K/ul RBC 3.52 L (4.20-5.40) M/uL Hgb 11.1 L (12.0-16.0) g/dl POC Hgb 10.9 L (12.0-16.0) g/dl Hct 32.2 L (37.0-47.0) % POC Hct 32 L (37-47) % MCV 91.5 (80.0-100.0) fL MCH 31.5 (25.0-34.0) pg MCHC 34.5 (32.0-36.0) g/dL RDW Std Deviation 46.1 (36.4-46.3) fL RDW Coeff of Eneida 13.7 (11.5-14.5) % Plt Count 178 (130-400) K/uL MPV 9.1 L (9.4-12.4) fL Immature Gran % (Auto) 0.3 % Neut % (Auto) 69.5 % Lymph % (Auto) 24.1 % Edgar % (Auto) 5.2 % Eos % (Auto) 0.0 % Baso % (Auto) 0.9 % Neut # (Auto) 2.43 (1.40-6.50) K/uL Lymph # (Auto) 0.84 L (1.20-3.40) K/uL Edgar # (Auto) 0.18 (0.11-0.59) K/uL Eos # (Auto) 0.00 (0.00-0.50) K/uL Baso # (Auto) 0.03 (0.00-0.20) K/uL Immature Gran # (Auto) 0.01 (0.01-0.20) K/uL POC Sodium 143 (135-144) mmol/L Sodium 143 (136-145) mmol/L POC Potassium 3.2 L (3.3-5.0) mmol/L Potassium TNP POC Chloride 104 (101-112) mmol/L Chloride 104 (98-107) mmol/L Carbon Dioxide 24 (21-32) mmol/L POC Total CO2 25 (24-31) mmol/L Anion Gap 15 H (3-11) POC Anion Gap 19.0 (16-25) mmol/L POC BUN 16 (7-18) mg/dl BUN 17 (6-23) mg/dl Creatinine 0.70 (0.6-1.2) mg/dl POC Creatinine 1.1 (0.6-1.3) mg/dl Est Cr Clr Drug Dosing 67.0 ml/min Est GFR ( Amer) 99.6 ml/min Est GFR (Non-Af Amer) 86.0 ml/min BUN/Creatinine Ratio 24.3 H (10-20) Glucose 118 H (70-99(Fasting)) mg/dl POC Glucose (other) 118 H (70-99) mg/dl Calcium 9.8 (8.6-10.3) mg/dl POC Ioniz Calcium Ubaldo 1.06 L (1.12-1.32) mmol/l Magnesium 1.8 (1.7-2.4) mg/dl Total Bilirubin 0.3 (0.2-1.0) mg/dl AST TNP ALT 25 (7-52) U/L Alkaline Phosphatase 47 (34-104) U/L Ammonia (18-72) umol/L Total Creatine Kinase 73 (26-192) U/L Troponin I High Sens 7.0 (0-14) pg/ml Total Protein 7.3 (6.0-8.3) gm/dl Albumin 4.8 (3.4-5.0) gm/dl Globulin 2.5 (2.5-4.0) gm/dl Albumin/Globulin Ratio 1.9 (0.9-2) TSH 0.915 (0.300-4.500) uIu/ml Urine Color Yellow Urine Appearance Cloudy A (Clear) Urine pH 6.5 (4.5-7.5) Ur Specific [place] 1.011 (1.000-1.030) Urine Protein Trace H (Negative) Urine Glucose (UA) Negative (Negative) Urine Ketones Negative (Negative) Urine Blood Negative (Negative) Urine Nitrite Positive A (Negative) Urine Bilirubin Negative (Negative) Urine Urobilinogen Negative (Negative) Ur Leukocyte Esterase 2+ H (Negative) Urine WBC (Auto) 11-20 H (0-5) /hpf Urine RBC (Auto) 0-2 (0-2) /hpf U Hyaline Cast (Auto) 0-2 (0-2) /lpf U Epithel Cells (Auto) 0-2 (0-2) /hpf Urine Bacteria (Auto) 4+ H (None Seen) Urine Opiates Screen Neg (Neg) Ur Methadone, Qual Neg (Neg) Urine Fentanyl Screen Neg (Neg) Urine Barbiturates Neg (Neg) Ur Phencyclidine (PCP) Neg (Neg) U Amphetamin/Meth Scrn Neg (Neg) MDMA (Ecstasy) Screen Neg (Neg) U Benzodiazepines Scrn Neg (Neg) Ur Cocaine Metabolite Neg (Neg) U Marijuana (THC) Screen Pos H (Neg) Ethyl Alcohol mg/dL 304.2 H (<10.0) mg/dl 12/08/23 Range/Units 00:15 WBC (4.8-10.8) K/ul RBC (4.20-5.40) M/uL Hgb (12.0-16.0) g/dl POC Hgb (12.0-16.0) g/dl Hct (37.0-47.0) % POC Hct (37-47) % MCV (80.0-100.0) fL MCH (25.0-34.0) pg MCHC (32.0-36.0) g/dL RDW Std Deviation (36.4-46.3) fL RDW Coeff of Eneida (11.5-14.5) % Plt Count (130-400) K/uL MPV (9.4-12.4) fL Immature Gran % (Auto) % Neut % (Auto) % Lymph % (Auto) % Edgar % (Auto) % Eos % (Auto) % Baso % (Auto) % Neut # (Auto) (1.40-6.50) K/uL Lymph # (Auto) (1.20-3.40) K/uL Edgar # (Auto) (0.11-0.59) K/uL Eos # (Auto) (0.00-0.50) K/uL Baso # (Auto) (0.00-0.20) K/uL Immature Gran # (Auto) (0.01-0.20) K/uL POC Sodium (135-144) mmol/L Sodium (136-145) mmol/L POC Potassium (3.3-5.0) mmol/L Potassium POC Chloride (101-112) mmol/L Chloride (98-107) mmol/L Carbon Dioxide (21-32) mmol/L POC Total CO2 (24-31) mmol/L Anion Gap (3-11) POC Anion Gap (16-25) mmol/L POC BUN (7-18) mg/dl BUN (6-23) mg/dl Creatinine (0.6-1.2) mg/dl POC Creatinine (0.6-1.3) mg/dl Est Cr Clr Drug Dosing ml/min Est GFR ( Amer) ml/min Est GFR (Non-Af Amer) ml/min BUN/Creatinine Ratio (10-20) Glucose (70-99(Fasting)) mg/dl POC Glucose (other) (70-99) mg/dl Calcium (8.6-10.3) mg/dl POC Ioniz Calcium Ubaldo (1.12-1.32) mmol/l Magnesium (1.7-2.4) mg/dl Total Bilirubin (0.2-1.0) mg/dl AST ALT (7-52) U/L Alkaline Phosphatase (34-104) U/L Ammonia 16.0 L (18-72) umol/L Total Creatine Kinase (26-192) U/L Troponin I High Sens (0-14) pg/ml Total Protein (6.0-8.3) gm/dl Albumin (3.4-5.0) gm/dl Globulin (2.5-4.0) gm/dl Albumin/Globulin Ratio (0.9-2) TSH (0.300-4.500) uIu/ml Urine Color Urine Appearance (Clear) Urine pH (4.5-7.5) Ur Specific [place] (1.000-1.030) Urine Protein (Negative) Urine Glucose (UA) (Negative) Urine Ketones (Negative) Urine Blood (Negative) Urine Nitrite (Negative) Urine Bilirubin (Negative) Urine Urobilinogen (Negative) Ur Leukocyte Esterase (Negative) Urine WBC (Auto) (0-5) /hpf Urine RBC (Auto) (0-2) /hpf U Hyaline Cast (Auto) (0-2) /lpf U Epithel Cells (Auto) (0-2) /hpf Urine Bacteria (Auto) (None Seen) Urine Opiates Screen (Neg) Ur Methadone, Qual (Neg) Urine Fentanyl Screen (Neg) Urine Barbiturates (Neg) Ur Phencyclidine (PCP) (Neg) U Amphetamin/Meth Scrn (Neg) MDMA (Ecstasy) Screen (Neg) U Benzodiazepines Scrn (Neg) Ur Cocaine Metabolite (Neg) U Marijuana (THC) Screen (Neg) Ethyl Alcohol mg/dL (<10.0) mg/dl Imaging Data Attestation: I personally reviewed and interpreted this imaging study as follows: Radiologist's Impression: Abdomen/Pelvis CT 12/07/23 23:17 Exam(s): CT ABDOMEN + PELVIS With Contrast IV Amt: 118 ML OPTIRAY 320 EXAM: CT Abdomen and Pelvis With Intravenous Contrast CLINICAL HISTORY: Reason for exam: rlq pain. TECHNIQUE: Axial computed tomography images of the abdomen and pelvis with intravenous contrast. Automated exposure control was utilized for the study. A dose lowering technique was utilized adhering to the principles of ALARA. CONTRAST: Patient received 118 ML OPTIRAY 320 of IV contrast COMPARISON: 11/20/2021. FINDINGS: Lung bases: No consolidation. ABDOMEN: Liver: The liver is enlarged and of diffuse decreased attenuation. Gallbladder and bile ducts: The patient is status post cholecystectomy.. No ductal dilation. Pancreas: No mass. No ductal dilation. Spleen: No splenomegaly. Adrenals: No mass. Kidneys and ureters: No hydronephrosis. There is a 1 cm rounded lucency in the left kidney. Stomach and bowel: The stomach is relatively decompressed. There is air and stool noted in the colon. There are diverticula present on the colon. No significant inflammatory changes are seen. There are mildly distended loops of small bowel containing air and stool. PELVIS: Appendix: Unremarkable CT scan appearance noted the appendix. Bladder: Urinary bladder is distended. It contains air. No bladder calculi are seen.. Reproductive: Unremarkable as visualized. ABDOMEN and PELVIS: Intraperitoneal space: No free air. No significant fluid collection. Bones/joints: There are degenerative changes in the spine with osteopenia. There is a grade 1 spondylolisthesis of L4 on L5. Soft tissues: Unremarkable. Vasculature: There are atherosclerotic changes. No abdominal aortic aneurysm. Lymph nodes: No enlarged lymph nodes. IMPRESSION: The urinary bladder is distended containing air. Unless there has been recent instrumentation, cannot exclude a process such as cystitis. The overall bowel gas pattern may represent an ileus. There is a possible left renal cyst. The liver is enlarged and of diffuse decreased attenuation which may be due to fatty infiltration. See discussion above Electronically signed by: Raul Kelly MD 12/08/23 01:[address] 12/07/23 23:18 CR Exam(s): CT HEAD Without Contrast EXAM: CT Head Without Intravenous Contrast CLINICAL HISTORY: Reason for exam: weakness. TECHNIQUE: Axial computed tomography images of the head/brain without intravenous contrast. Automated exposure control was utilized for the study. A dose lowering technique was utilized adhering to the principles of ALARA. COMPARISON: Prior head CT from November 18, 2022. FINDINGS: Brain: Unremarkable. No hemorrhage. Mild nonspecific white matter changes. No edema. There is a moderate sized direct choroidal fissure cyst. Ventricles: Mild ventriculomegaly. Bones/joints: Unremarkable. No acute fracture. Soft tissues: Unremarkable. Sinuses: Unremarkable as visualized. No acute sinusitis. Mastoid air cells: Unremarkable as visualized. No mastoid effusion. IMPRESSION: No evidence of acute intracranial pathology. Communications: Call Doctor Stroke Electronically signed by: Emily Benítez MD 12/08/23 00:50 AM Head CTA 12/07/23 23:28 CR Exam(s): CTA HEAD With Contrast IV Amt: 118 ML OPTIRAY 320 EXAM: CT Angiography Head With Intravenous Contrast CLINICAL HISTORY: Reason for exam: neuro deficit, acute stroke suspected. TECHNIQUE: Axial computed tomographic angiography images of the head with intravenous contrast. Automated exposure control was utilized for the study. A dose lowering technique was utilized adhering to the principles of ALARA. MIP reconstructed images were created and reviewed. CONTRAST: Patient received 118 ML OPTIRAY 320 of IV contrast COMPARISON: No relevant prior studies available. FINDINGS: The dural venous sinuses are patent. Right internal carotid artery: No acute findings. Intracranial segment is patent with no significant stenosis. No aneurysm. Right anterior cerebral artery: Unremarkable. No occlusion or significant stenosis. No aneurysm. Right middle cerebral artery: Unremarkable. No occlusion or significant stenosis. No aneurysm. Right posterior cerebral artery: Unremarkable. No occlusion or significant stenosis. No aneurysm. Right vertebral artery: Unremarkable as visualized. Left internal carotid artery: No acute findings. Intracranial segment is patent with no significant stenosis. No aneurysm. Left anterior cerebral artery: Unremarkable. No occlusion or significant stenosis. No aneurysm. Left middle cerebral artery: Unremarkable. No occlusion or significant stenosis. No aneurysm. Left posterior cerebral artery: Unremarkable. No occlusion or significant stenosis. No aneurysm. Left vertebral artery: Unremarkable as visualized. Basilar artery: Unremarkable. No occlusion or significant stenosis. No aneurysm. IMPRESSION: Negative CT angiogram of the head. Communications: Verify Receipt Call Doctor Stroke Electronically signed by: Emily Benítez MD 12/08/23 00:53 AM Neck CTA 12/07/23 23:28 CR Exam(s): CTA NECK With Contrast IV Amt: 118 ML OPTIRAY 320 EXAM: CT Angiography Neck With Intravenous Contrast CLINICAL HISTORY: Reason for exam: neuro deficit, acute stroke suspected. TECHNIQUE: Routine carotid CT angiography protocol was performed with intravenous contrast. NASCET criteria using the distal ICAs for comparison were used for evaluation of stenoses. Automated exposure control was utilized for the study. A dose lowering technique was utilized adhering to the principles of ALARA. MIP reconstructed images were created and reviewed. CONTRAST: Patient received 118 ML OPTIRAY 320 of IV contrast COMPARISON: None. FINDINGS: VASCULATURE: Right common carotid artery: Unremarkable. No occlusion or significant stenosis. No dissection. Right internal carotid artery: Unremarkable. Extracranial segment is patent with no occlusion or significant stenosis. No dissection. Right external carotid artery: Unremarkable. No occlusion. Right vertebral artery: Unremarkable. No occlusion or significant stenosis. No dissection. Left common carotid artery: Unremarkable. No occlusion or significant stenosis. No dissection. Left internal carotid artery: Unremarkable. Extracranial segment is patent with no occlusion or significant stenosis. No dissection. Left external carotid artery: Unremarkable. No occlusion. Left vertebral artery: Unremarkable. No occlusion or significant stenosis. No dissection. NECK: Bones/joints: Unremarkable. No acute fracture. Soft tissues: Unremarkable. Lung apices: Bronchitis, which may be of infectious or inflammatory etiologies. CAROTID STENOSIS REFERENCE USING NASCET CRITERIA: % ICA stenosis = (1 - narrowest ICA diameter/diameter of distal cervical ICA) x 100. Mild - <50% stenosis. Moderate - 50-69% stenosis. Severe - 70-94% stenosis. Near occlusion - 95-99% stenosis. Occluded - 100% stenosis. IMPRESSION: Negative CTA neck. Communications: Verify Receipt Call Doctor Stroke Electronically signed by: Emily Benítez MD 12/08/23 00:56 AM MDM Narrative Prior records/ancillary studies reviewed and summarized above. Nursing notes reviewed. Additional history obtained from EMS. The patient's history was concerning for lightheadedness, abdominal pain in a patient that is intoxicated. Differential diagnosis: Etiologies such as polysubstance abuse, metabolic, infection, hypo/hyperglycemia, electrolyte abnormalities, cardiac sources, intracerebral event, toxicologic, neurologic, as well as others were entertained. Physical examination: As above. ER treatment provided: IV Lock An order was placed for continuous cardiac monitoring. The monitor shows a rate of 60-100 with a sinus rhythm per my interpretation. Banana bag, Rocephin for UTI Potassium was ordered for hypokalemia On reassessment the patient felt better. Diagnostics interpretation by me: ECG: Ordered for weakness EKG: Poor baseline, normal sinus, normal intervals, no acute ST-T changes. Impression sinus bradycardia 57 independent interpreted by myself The labs Independently Interpreted by myself revealed mild anemia, no worrisome leukocytosis, Hypokalemia, normal magnesium, alcohol 300 urine concerning for infection sent for culture. Prior culture was reviewed [address] [place] [address] / Director: Amado Reardon M.D. Clinical Laboratory Report Name: CHRISTOFER CARABALLO Acct: [id number] Status: CRITICAL ACCESS [facility] : 1950 [facility] [place] Date: 0 11/18/22 Age: 73 Sex: F Dis Date: Loc: Emergency Department Spec: [id number] Collected: 11/18/22 Received: 11/18/[address]: Param Mcintyre M.D. Source: Urine,Clean Catch OV Order: Ordered: Urine Culture Procedure Result Verified Site Urine Culture Final 11/20/22 Organism 1 Escherichia coli [place] Count >100,000 CFU/ml Sens Sensitivities to Follow E coli RX M.I.C. --- --------- Amox/Clav S <=8/4 Ampicillin S <=8 Amp/Sul S <=8/4 Cefazolin S <=2 Cefepime S <=2 Ceftriaxone S <=1 Ciprofloxacin S <=0.25 Ertapenem S <=0.5 Gentamicin S <=4 Levofloxacin S <=0.5 Meropenem S <=1 Nitrofurantoin S <=32 Tobramycin S <=4 Trimeth/Sulfa S <=2/38 Pip/Tazo S <=16 S = SENSITIVE I = INTERMEDIATE R = RESISTANT Imaging studies: Chest x-ray with no acute consolidation, pneumothorax or free air per my independent interpretation Imaging as above Consultation: A consultation was placed with the hospitalist. The case was discussed and diagnostics were reviewed. The patient was evaluated in the ER for further treatment. Exam and history seem consistent with UTI with weakness, dizziness who is intoxicated. Patient was given antibiotics. She was medicated as above. Medicine was consulted and case was discussed. She will be admitted to the medical service. By the evaluation outlined above emergent etiologies such as electrolyte abnormalities, cardiac sources, intracerebral event, abnormalities blood glucose, metabolic, as well as others were deemed relatively unlikely. The pt informed about the findings as listed above. All questions were answered and pleased with the treatment. The chart was completed utilizing [employer] Speech voice recognition software. Grammatical errors, random word insertions, pronoun errors, and incomplete sentences are an occassional consequence of this system due to software limitations, ambient noise, and hardware issues. Any formal questions or concerns about the content, text, or information contained within the body of this dictation should be directly addressed to the physician assistant superintendent for curriculum for clarification. Impression & Plan Acute UTI, Abdominal pain, acute, Acute alcohol intoxication, Weakness, Light- headedness Discharge Plan Visit Data Chief Complaint: Dizziness Stated Complaint: DIZZINESS, BRAIN FOG ED Provider: Citlaly Cardozo ED Midlevel Provider: Sunita Dallas Discharge Problem: Acute UTI, Abdominal pain, acute, Acute alcohol intoxication, Weakness, Light- headedness Patient Disposition: Admitted As Inpatient Condition: Fair Forms Stand Alone Forms: [employer] [facility] [employer] Prescriptions Prescriptions: No Action lorazepam 1 mg tablet 1 mg PO HS cetirizine [All Day Allergy (cetirizine)] 10 mg Tablet 10 mg PO QAM PRN (Reason: Allergy Symptoms) Vitamin B-12 50 mcg Tablet 50 mcg PO QAM ascorbic acid (vitamin C) [Vitamin C] 500 mg Tablet 500 mg PO QAM rosuvastatin 5 mg tablet 5 mg PO HS Probiotic 10 billion cell Capsule 10,000 mmu cells PO DAILY Metamucil 3.4 gram/5.4 gram Powder 1 tbsp PO QAM Rx Instructions: mix into at least 8 oz of water or juice before administering lorazepam 0.5 mg Tablet 0.5 mg PO .IN AM AND AFTERNOON lansoprazole 15 mg Capsule,Delayed Release(Dr/Ec) 15 mg PO QAM ibuprofen [Advil Liqui-Gel] 200 mg Capsule 400 mg PO Q6H PRN (Reason: Pain) fluticasone propionate 50 mcg/actuation [place],Suspension 2 spray INTRANASAL DAILY Rx Instructions: administer into each nostril lisinopril 30 mg tablet 30 mg PO QAM methylprednisolone 4 mg tablets,dose pack 4 mg PO UD ipratropium bromide 21 mcg (0.03 %) spray,non-aerosol 1 spray INTRANASAL BID Referrals Referrals: Dominic Chen, [Primary Care Provider] -
[2023-12-07 23:57] LABS: Basophils # (auto) 0.03 K/uL (0.00-0.20); Basophils % (auto) 0.9 %; Hematocrit (blood only) 32.2 % (37.0-47.0); Hemoglobin 11.1 g/dl (12.0-16.0); Immature Granulocytes # (auto) 0.01 K/uL (0.01-0.20); Immature Granulocytes % (auto) 0.3 %; Lymphocytes # (auto) 0.84 K/uL (1.20-3.40); Lymphocytes % (auto) 24.1 %; Mean Corpuscular Hemoglobin 31.5 pg (25.0-34.0); Mean Corpuscular Hgb Conc 34.5 g/dL (32.0-36.0); Mean Corpuscular Volume 91.5 fL (80.0-100.0); Mean Platelet Volume 9.1 fL (9.4-12.4); Monocytes # (auto) 0.18 K/uL (0.11-0.59); Monocytes % (auto) 5.2 %; Neutrophils # (auto) 2.43 K/uL (1.40-6.50); Neutrophils % (auto) 69.5 %; Platelet Count 178 K/uL (130-400); RDW Coefficient of Variation 13.7 % (11.5-14.5); RDW Standard Deviation 46.1 fL (36.4-46.3); Red Blood Count 3.52 M/uL (4.20-5.40); White Blood Count 3.49 K/ul (4.8-10.8)
[2023-12-08] LABS: iSTAT Creatinine 1.1 mg/dl (0.6-1.3); iSTAT Hemoglobin 10.9 g/dl (12.0-16.0); iSTAT Ionized Calcium 1.06 mmol/l (1.12-1.32); iSTAT Potassium 3.2 mmol/L (3.3-5.0)
[2023-12-08] MEDS: MULTI-VITAMIN INFUSION 10 ML, THIAMINE HCL 100 MG, FOLIC ACID 1 MG in SODIUM CHLORIDE 0... IV ONE (00:08)
[2023-12-08] MEDS: OPTIRAY 320 125ml IV ONE (00:11)
[2023-12-08 00:13] LABS: Appearance Urine Cloudy (Clear); Bacteria Urine Automated 4+ (None Seen); Bilirubin Urine Negative (Negative); Blood Urine Negative (Negative); Cast Urine Automated 0-2 /lpf (0-2); Color Urine Yellow; Epithelial Cell Urine Auto 0-2 /hpf (0-2); Glucose Urine UA Negative (Negative); Ketones Urine Negative (Negative); Leukocyte Esterase Urine 2+ (Negative); Nitrite Urine Positive (Negative); Protein Urine Trace (Negative); RBC Urine Automated 0-2 /hpf (0-2); Specific Gravity Urine 1.011 (1.000-1.030); Urobilinogen Urine Negative (Negative); pH Urine 6.5 (4.5-7.5)
[2023-12-08 00:32] LABS: Thyroid Stimulating Hormone 0.915 uIu/ml (0.300-4.500)
--- NOTE | 2023-12-08 00:51 | CT Scan Report ---
Exam(s): CT HEAD Without Contrast EXAM: CT Head Without Intravenous Contrast CLINICAL HISTORY: Reason for exam: weakness. TECHNIQUE: Axial computed tomography images of the head/brain without intravenous contrast. Automated exposure control was utilized for the study. A dose lowering technique was utilized adhering to the principles of ALARA. COMPARISON: Prior head CT from November 18, 2022. FINDINGS: Brain: Unremarkable. No hemorrhage. Mild nonspecific white matter changes. No edema. There is a moderate sized direct choroidal fissure cyst. Ventricles: Mild ventriculomegaly. Bones/joints: Unremarkable. No acute fracture. Soft tissues: Unremarkable. Sinuses: Unremarkable as visualized. No acute sinusitis. Mastoid air cells: Unremarkable as visualized. No mastoid effusion. IMPRESSION: No evidence of acute intracranial pathology. Communications: Call Doctor Stroke Electronically signed by: Emily Benítez MD 12/08/23 00:50 AM
[2023-12-08 00:52] LABS: Alanine Aminotransferase 25 U/L (7-52); Albumin Globulin Ratio 1.9 (0.9-2); Albumin Level 4.8 gm/dl (3.4-5.0); Alkaline Phosphatase 47 U/L (34-104); Anion Gap 15 (3-11); BUN Creatinine Ratio 24.3 (10-20); Bilirubin,Total 0.3 mg/dl (0.2-1.0); Blood Urea Nitrogen 17 mg/dl (6-23); Calcium 9.8 mg/dl (8.6-10.3); Carbon Dioxide 24 mmol/L (21-32); Chloride 104 mmol/L (98-107); Creatine Kinase 73 U/L (26-192); Est GFR (African American) 99.6 ml/min; Globulin 2.5 gm/dl (2.5-4.0); Glucose 118 mg/dl (70-99(Fasting)); Magnesium 1.8 mg/dl (1.7-2.4); Sodium 143 mmol/L (136-145); Total Protein 7.3 gm/dl (6.0-8.3)
[2023-12-08] MEDS: cefTRIAXone SODIUM 2,000 MG/50 ML BAG IV STA (00:54)
--- NOTE | 2023-12-08 00:54 | CT Scan Report ---
Exam(s): CTA HEAD With Contrast IV Amt: 118 ML OPTIRAY 320 EXAM: CT Angiography Head With Intravenous Contrast CLINICAL HISTORY: Reason for exam: neuro deficit, acute stroke suspected. TECHNIQUE: Axial computed tomographic angiography images of the head with intravenous contrast. Automated exposure control was utilized for the study. A dose lowering technique was utilized adhering to the principles of ALARA. MIP reconstructed images were created and reviewed. CONTRAST: Patient received 118 ML OPTIRAY 320 of IV contrast COMPARISON: No relevant prior studies available. FINDINGS: The dural venous sinuses are patent. Right internal carotid artery: No acute findings. Intracranial segment is patent with no significant stenosis. No aneurysm. Right anterior cerebral artery: Unremarkable. No occlusion or significant stenosis. No aneurysm. Right middle cerebral artery: Unremarkable. No occlusion or significant stenosis. No aneurysm. Right posterior cerebral artery: Unremarkable. No occlusion or significant stenosis. No aneurysm. Right vertebral artery: Unremarkable as visualized. Left internal carotid artery: No acute findings. Intracranial segment is patent with no significant stenosis. No aneurysm. Left anterior cerebral artery: Unremarkable. No occlusion or significant stenosis. No aneurysm. Left middle cerebral artery: Unremarkable. No occlusion or significant stenosis. No aneurysm. Left posterior cerebral artery: Unremarkable. No occlusion or significant stenosis. No aneurysm. Left vertebral artery: Unremarkable as visualized. Basilar artery: Unremarkable. No occlusion or significant stenosis. No aneurysm. IMPRESSION: Negative CT angiogram of the head. Communications: Verify Receipt Call Doctor Stroke Electronically signed by: Emily Benítez MD 12/08/23 00:53 AM
[2023-12-08 00:55] LABS: Amphetamines+Metham, Urine Neg (Neg); Barbiturates, Urine Neg (Neg); Benzodiazepine, Urine Neg (Neg); Cocaine, Urine Neg (Neg); Fentanyl, Urine Neg (Neg); MDMA (Ecstacy), Urine Neg (Neg); Marijuana, Urine Pos (Neg); Methadone, Urine Neg (Neg); Opiate, Urine Neg (Neg); Phencyclidine, Urine Neg (Neg)
--- NOTE | 2023-12-08 00:57 | CT Scan Report ---
Exam(s): CTA NECK With Contrast IV Amt: 118 ML OPTIRAY 320 EXAM: CT Angiography Neck With Intravenous Contrast CLINICAL HISTORY: Reason for exam: neuro deficit, acute stroke suspected. TECHNIQUE: Routine carotid CT angiography protocol was performed with intravenous contrast. NASCET criteria using the distal ICAs for comparison were used for evaluation of stenoses. Automated exposure control was utilized for the study. A dose lowering technique was utilized adhering to the principles of ALARA. MIP reconstructed images were created and reviewed. CONTRAST: Patient received 118 ML OPTIRAY 320 of IV contrast COMPARISON: None. FINDINGS: VASCULATURE: Right common carotid artery: Unremarkable. No occlusion or significant stenosis. No dissection. Right internal carotid artery: Unremarkable. Extracranial segment is patent with no occlusion or significant stenosis. No dissection. Right external carotid artery: Unremarkable. No occlusion. Right vertebral artery: Unremarkable. No occlusion or significant stenosis. No dissection. Left common carotid artery: Unremarkable. No occlusion or significant stenosis. No dissection. Left internal carotid artery: Unremarkable. Extracranial segment is patent with no occlusion or significant stenosis. No dissection. Left external carotid artery: Unremarkable. No occlusion. Left vertebral artery: Unremarkable. No occlusion or significant stenosis. No dissection. NECK: Bones/joints: Unremarkable. No acute fracture. Soft tissues: Unremarkable. Lung apices: Bronchitis, which may be of infectious or inflammatory etiologies. CAROTID STENOSIS REFERENCE USING NASCET CRITERIA: % ICA stenosis = (1 - narrowest ICA diameter/diameter of distal cervical ICA) x 100. Mild - <50% stenosis. Moderate - 50-69% stenosis. Severe - 70-94% stenosis. Near occlusion - 95-99% stenosis. Occluded - 100% stenosis. IMPRESSION: Negative CTA neck. Communications: Verify Receipt Call Doctor Stroke Electronically signed by: Emily Benítez MD 12/08/23 00:56 AM
--- NOTE | 2023-12-08 01:16 | CT Scan Report ---
Exam(s): CT ABDOMEN + PELVIS With Contrast IV Amt: 118 ML OPTIRAY 320 EXAM: CT Abdomen and Pelvis With Intravenous Contrast CLINICAL HISTORY: Reason for exam: rlq pain. TECHNIQUE: Axial computed tomography images of the abdomen and pelvis with intravenous contrast. Automated exposure control was utilized for the study. A dose lowering technique was utilized adhering to the principles of ALARA. CONTRAST: Patient received 118 ML OPTIRAY 320 of IV contrast COMPARISON: 11/20/2021. FINDINGS: Lung bases: No consolidation. ABDOMEN: Liver: The liver is enlarged and of diffuse decreased attenuation. Gallbladder and bile ducts: The patient is status post cholecystectomy.. No ductal dilation. Pancreas: No mass. No ductal dilation. Spleen: No splenomegaly. Adrenals: No mass. Kidneys and ureters: No hydronephrosis. There is a 1 cm rounded lucency in the left kidney. Stomach and bowel: The stomach is relatively decompressed. There is air and stool noted in the colon. There are diverticula present on the colon. No significant inflammatory changes are seen. There are mildly distended loops of small bowel containing air and stool. PELVIS: Appendix: Unremarkable CT scan appearance noted the appendix. Bladder: Urinary bladder is distended. It contains air. No bladder calculi are seen.. Reproductive: Unremarkable as visualized. ABDOMEN and PELVIS: Intraperitoneal space: No free air. No significant fluid collection. Bones/joints: There are degenerative changes in the spine with osteopenia. There is a grade 1 spondylolisthesis of L4 on L5. Soft tissues: Unremarkable. Vasculature: There are atherosclerotic changes. No abdominal aortic aneurysm. Lymph nodes: No enlarged lymph nodes. IMPRESSION: The urinary bladder is distended containing air. Unless there has been recent instrumentation, cannot exclude a process such as cystitis. The overall bowel gas pattern may represent an ileus. There is a possible left renal cyst. The liver is enlarged and of diffuse decreased attenuation which may be due to fatty infiltration. See discussion above Electronically signed by: Raul Kelly MD 12/08/23 01:15 AM
--- NOTE | 2023-12-08 01:23 | Emergency Department Note ---
ED Visit Note I agree with the diagnosis and management decisions and have been personally involved in the case. Patient's laboratory findings were reviewed. Patient will be evaluated by the hospitalist service for admission due to alcohol intoxication, UTI and ambulatory dysfunction. Please see Karen Dallas PA-C's notes for further details of the history, physical and visit. .
--- NOTE | 2023-12-08 02:26 | History & Physical Report ---
Date of Service December 08, 2023 Assessment & Plan (1) Dizziness: Plan: 73-year-old female with past medical significant for primary hyperparathyroidism, hypercholesterolemia, seasonal allergic rhinitis, hiatal hernia, hypertension, GERD, generalized anxiety disorder, history of depression, history of alcoholism presents with a dizziness and feeling weak and was not able to get up from the bed and was brought to the hospital and was found to UTI and also alcohol level was 304. Patient states her 13-year-old cat is sick and she was feeling sad and was drinking more today. is in the room. Drinks alcohol almost daily. Drinks usually 2 shots of 100% proof alcohol but today she drank about 4 shots. Was feeling dizzy and weak. Denies any spinning of the room. Was nauseous. Was not able to get up from the bed as per . Today had burning micturition. Denies headache. Vision is okay. Has chronic runny nose. Has some sore throat. Has occasional cough. Denies any chest pain or shortness of breath. No abdominal pain. Patient states she has on and off diarrhea. Denies Any Blood in the Stools. Patient States She Was Diagnosed with COVID about 10 Days Back When She Was Feeling Sick at That Time but Her COVID Symptoms Has Been Resolved and Was Doing Fine Last Few Days. Currently Resting Comfortably and Hemodynamically Stable. Dizziness Weakness Mostly from alcohol intoxication and UTI CT head unremarkable CTA head and neck unremarkable If not improving will get MRI Close monitor PT OT when stable Alcoholism Will place on alcohol withdrawal protocol with gabapentin and IV Ativan as needed Received banana bag IV thiamine and folic acid and multivitamins Close monitor UTI On Rocephin Will follow cultures Recent history of COVID covid test came back negative. Leukopenia and mild anemia needs follow-up Will check stool for Hemoccult Possible ileus Clears for now Follow KUB in a.m. Hypertension On lisinopril Will monitor Hyperlipidemia On statin GERD Omeprazole DVT prophylaxis Lovenox Disposition Med/telemetry Full code. History of Present Illness Chief Complaint: Dizziness, weakness and alcoholism Primary Care Provider: Dominic Chen DO 73-year-old female with past medical history significant for primary hyperparathyroidism, hypercholesterolemia, seasonal allergic rhinitis, hiatal hernia, hypertension, GERD, generalized anxiety disorder, history of depression, history of alcoholism presents with a dizziness and feeling weak and was not able to get up from the bed and was brought to the hospital and was found to UTI and also alcohol level was 304. Patient states her 13-year-old cat is sick and she was feeling sad and was drinking more today. is in the room. Drinks alcohol almost daily. Drinks usually 2 shots of 100% proof alcohol but today she drank about 4 shots. Was feeling dizzy and weak. Denies any s pinning of the room. Was nauseous. Was not able to get up from the bed as per . Today had burning micturition. Denies headache. Vision is okay. Has chronic runny nose. Has some sore throat. Has occasional cough. Denies any chest pain or shortness of breath. No abdominal pain. Patient states she has on and off diarrhea. Denies Any Blood in the Stools. Patient States She Was Diagnosed with COVID about 10 Days Back When She Was Feeling Sick at That Time but Her COVID Symptoms Has Been Resolved and Was Doing Fine Last Few Days. Currently Resting Comfortably and Hemodynamically Stable. Past medical history as mentioned above. Past surgical history. EGD. Laparoscopic cholecystectomy. Right laparoscopic inguinal hernia repair. Ligation of oviducts. Ventral hernia repair. Fixation of right ankle fracture. Social history. . No smoking. Drinks alcohol daily. History of marijuana use. Family history. Father with alcoholism. GI bleed. Mother had colon cancer. Dementia. Hypothyroidism. Brother has heart disease. Hyperlipidemia. Hypertension. Allergies Allergy/AdvReac Type Severity Reaction Status Date / Time bee venom protein (honey bee) Allergy Severe Anaphylaxis Verified 12/25/21 05:44 Latex, Natural Rubber Allergy Severe Anaphylaxis Verified 12/25/21 07:04 Sulfa (Sulfonamide Allergy Severe ANAPHYLAXIS Verified 12/25/21 05:44 Antibiotics) blue dye Allergy Intermediate Rash Verified 12/25/21 05:45 codeine Allergy Intermediate Agitated, Verified 12/25/21 06:11 rash, itchy red dye Allergy Intermediate Rash Verified 12/25/21 05:45 Home Medications Medication Instructions Recorded Confirmed Type Lactobacillus acidophilus 10 10,000 mmu cells PO DAILY 11/20/21 12/08/23 History billion cell capsule (Probiotic) ascorbic acid (vitamin C) 500 mg 500 mg PO QAM 11/20/21 12/08/23 History tablet (Vitamin C) cetirizine 10 mg tablet (All Day 10 mg PO QAM PRN Allergy Symptoms 11/20/21 12/08/23 History Allergy (cetirizine)) cyanocobalamin (vitamin B-12) 50 50 mcg PO QAM 11/20/21 12/08/23 History mcg tablet (Vitamin B-12) lorazepam 1 mg tablet 1 mg PO HS 11/20/21 12/08/23 History psyllium husk 3.4 gram/5.4 gram 1 tbsp PO QAM 11/20/21 12/08/23 History oral powder (Metamucil) rosuvastatin 5 mg tablet 5 mg PO HS 11/20/21 12/08/23 History lansoprazole 15 mg capsule,delayed 15 mg PO QAM 12/18/21 12/08/23 History release lorazepam 0.5 mg tablet 0.5 mg PO .IN AM AND AFTERNOON 12/18/21 12/08/23 History fluticasone propionate 50 2 spray intranasal DAILY 12/25/21 12/08/23 History mcg/actuation nasal spray,suspension ibuprofen 200 mg capsule (Advil 400 mg PO Q6H PRN Pain 12/25/21 12/08/23 History Liqui-Gel) ipratropium bromide 21 mcg (0.03 1 spray intranasal BID 12/08/23 12/08/23 History %) nasal spray lisinopril 30 mg tablet 30 mg PO QAM 12/08/23 12/08/23 History methylprednisolone 4 mg tablets in 4 mg PO UD 12/08/23 12/08/23 History a dose pack Past Med/Surg History Problem List (Updated 12/08/23 @ 04:27 by Paddy Cruz) Dizziness Light-headedness (Acute) Weakness (Acute) Acute alcohol intoxication (Acute) Abdominal pain, acute (Acute) Acute UTI (Acute) Encounter for pre-operative examination Fracture of head of right fibula (Acute) Displaced bimalleolar fracture of right ankle (Acute) Fracture of right foot (Acute) Alcohol intoxication (Acute) Ankle fracture, right Hypertension GERD (gastroesophageal reflux disease) Medical History Alcohol abuse 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 ENT- oropharynx clear Neck- supple, no JVD. Lungs- clear to auscultation no wheezing or crackles Heart- regular rate and rhythm no murmur, no gallop. Abdomen- normal bowel sounds, soft, nontender, no distension Extremities- no pretibial edema, no erythema seen Neuro- alert, oriented ; PERRL,no facial palsy; no dysarthria; motor 5/5 bilaterally; no pronator drift sensations intact. Skin- warm & dry Results & Data Results & Data Vital Signs (Past 12 Hours) Vital Signs Temp Pulse Pulse Resp BP BP Pulse Ox 12/08/23 00:11 60 14 98 12/08/23 00:10 62 12 144/95 H 98 12/07/23 23:19 62 12/07/23 23:13 36.5 C 65 13 141/86 H 96 O2 Del Method 12/08/23 00:11 Room Air 12/08/23 00:10 Room Air 12/07/23 23:19 12/07/23 23:13 Room Air Diagnostic Findings Laboratory Results WBC 3.49 K/ul (4.8-10.8) L 12/07/23 23:33 RBC 3.52 M/uL (4.20-5.40) L 12/07/23 23:33 Hgb 11.1 g/dl (12.0-16.0) L 12/07/23 23:33 POC Hgb 10.9 g/dl (12.0-16.0) L 12/07/23 23:40 Hct 32.2 % (37.0-47.0) L 12/07/23 23: POC Hct 32 % (37-47) L 12/07/23 23:40 MCV 91.5 fL (80.0-100.0) 12/07/23 23: MCH 31.5 pg (25.0-34.0) 12/07/23 23: MCHC 34.5 g/dL (32.0-36.0) 12/07/23: RDW Std Deviation 46.1 fL (36.4-46.3) 12/07/23: RDW Coeff of Eneida 13.7 % (11.5-14.5) 12/07/23: Plt Count 178 K/uL (130-400) 12/07/23 23: MPV 9.1 fL (9.4-12.4) L 12/07/23 23:33 Immature Gran % (Auto) 0.3 % 12/07/23 23: Neut % (Auto) 69.5 % 12/07/23 23: Lymph % (Auto) 24.1 % 12/07/23 23: Morgan % (Auto) 5.2 % 12/07/23: Eos % (Auto) 0.0 % 12/07/23 23: Baso % (Auto) 0.9 % 12/07/23 23: Neut # (Auto) 2.43 K/uL (1.40-6.50) 12/07/23 23: Lymph # (Auto) 0.84 K/uL (1.20-3.40) L 12/07/23: Morgan # (Auto) 0.18 K/uL (0.11-0.59) 12/07/23 23: Eos # (Auto) 0.00 K/uL (0.00-0.50) 12/07/23 23: Baso # (Auto) 0.03 K/uL (0.00-0.20) 12/07/23 23:33 Immature Gran # (Auto) 0.01 K/uL (0.01-0.20) 12/07/23 23:33 POC Sodium 143 mmol/L (135-144) 12/07/23 23:40 Sodium 143 mmol/L (136-145) 12/07/23 23:33 POC Potassium 3.2 mmol/L (3.3-5.0) L 12/07/23 23:40 Potassium TNP 12/07/23 23:33 POC Chloride 104 mmol/L (101-112) 12/07/23 23:40 Chloride 104 mmol/L (98-107) 12/07/23 23:33 Carbon Dioxide 24 mmol/L (21-32) 12/07/23 23:33 POC Total CO2 25 mmol/L (24-31) 12/07/23 23:40 Anion Gap 15 (3-11) H 12/07/23 23:33 POC Anion Gap 19.0 mmol/L (16-25) 12/07/23 23:40 POC BUN 16 mg/dl (7-18) 12/07/23 23:40 BUN 17 mg/dl (6-23) 12/07/23 23:33 Creatinine 0.70 mg/dl (0.6-1.2) 12/07/23 23:33 POC Creatinine 1.1 mg/dl (0.6-1.3) 12/07/23 23:40 Est Cr Clr Drug Dosing 67.0 ml/min 12/07/23 23:33 Est GFR ( Amer) 99.6 ml/min 12/07/23 23:33 Est GFR (Non-Af Amer) 86.0 ml/min 12/07/23 23:33 BUN/Creatinine Ratio 24.3 (10-20) H 12/07/23 23:33 Glucose 118 mg/dl (70-99(Fasting)) H 12/07/23 23:33 POC Glucose (other) 118 mg/dl (70-99) H 12/07/23 23:40 Calcium 9.8 mg/dl (8.6-10.3) 12/07/23 23:33 POC Ioniz Calcium Ubaldo 1.06 mmol/l (1.12-1.32) L 12/07/23 23:40 Magnesium 1.8 mg/dl (1.7-2.4) 12/07/23 23:33 Total Bilirubin 0.3 mg/dl (0.2-1.0) 12/07/23 23:33 AST TNP 12/07/23 23:33 ALT 25 U/L (7-52) 12/07/23 23:33 Alkaline Phosphatase 47 U/L (34-104) 12/07/23 23:33 Ammonia 16.0 umol/L (18-72) L 12/08/23 00:15 Total Creatine Kinase 73 U/L (26-192) 12/07/23 23:33 Troponin I High Sens 7.0 pg/ml (0-14) 12/07/23 23:33 Total Protein 7.3 gm/dl (6.0-8.3) 12/07/23 23:33 Albumin 4.8 gm/dl (3.4-5.0) 12/07/23 23:33 Globulin 2.5 gm/dl (2.5-4.0) 12/07/23 23:33 Albumin/Globulin Ratio 1.9 (0.9-2) 12/07/23 23:33 TSH 0.915 uIu/ml (0.300-4.500) 12/07/23 23:33 Urine Color Yellow 12/07/23 23:49 Urine Appearance Cloudy (Clear) A 12/07/23 23:49 Urine pH 6.5 (4.5-7.5) 12/07/23 23:49 Ur Specific [place] 1.011 (1.000-1.030) 12/07/23 23:49 Urine Protein Trace (Negative) H 12/07/23 23:49 Urine Glucose (UA) Negative (Negative) 12/07/23 23:49 Urine Ketones Negative (Negative) 12/07/23 23:49 Urine Blood Negative (Negative) 12/07/23 23:49 Urine Nitrite Positive (Negative) A 12/07/23 23:49 Urine Bilirubin Negative (Negative) 12/07/23 23:49 Urine Urobilinogen Negative (Negative) 12/07/23 23:49 Ur Leukocyte Esterase 2+ (Negative) H 12/07/23 23:49 Urine WBC (Auto) 11-20 /hpf (0-5) H 12/07/23 23:49 Urine RBC (Auto) 0-2 /hpf (0-2) 12/07/23 23:49 U Hyaline Cast (Auto) 0-2 /lpf (0-2) 12/07/23 23:49 U Epithel Cells (Auto) 0-2 /hpf (0-2) 12/07/23 23:49 Urine Bacteria (Auto) 4+ (None Seen) H 12/07/23 23:49 Urine Opiates Screen Neg (Neg) 12/07/23 23:49 Ur Methadone, Qual Neg (Neg) 12/07/23 23:49 Urine Fentanyl Screen Neg (Neg) 12/07/23 23:49 Urine Barbiturates Neg (Neg) 12/07/23 23:49 Ur Phencyclidine (PCP) Neg (Neg) 12/07/23 23:49 U Amphetamin/Meth Scrn Neg (Neg) 12/07/23 23:49 MDMA (Ecstasy) Screen Neg (Neg) 12/07/23 23:49 U Benzodiazepines Scrn Neg (Neg) 12/07/23 23:49 Ur Cocaine Metabolite Neg (Neg) 12/07/23 23:49 U Marijuana (THC) Screen Pos (Neg) H 12/07/23 23:49 Ethyl Alcohol mg/dL 304.2 mg/dl (<10.0) H 12/07/23 23:33 Impressions Abdomen/Pelvis CT 12/07/23 23:17 Exam(s): CT ABDOMEN + PELVIS With Contrast IV Amt: 118 ML OPTIRAY 320 EXAM: CT Abdomen and Pelvis With Intravenous Contrast CLINICAL HISTORY: Reason for exam: rlq pain. TECHNIQUE: Axial computed tomography images of the abdomen and pelvis with intravenous contrast. Automated exposure control was utilized for the study. A dose lowering technique was utilized adhering to the principles of ALARA. CONTRAST: Patient received 118 ML OPTIRAY 320 of IV contrast COMPARISON: 11/20/2021. FINDINGS: Lung bases: No consolidation. ABDOMEN: Liver: The liver is enlarged and of diffuse decreased attenuation. Gallbladder and bile ducts: The patient is status post cholecystectomy.. No ductal dilation. Pancreas: No mass. No ductal dilation. Spleen: No splenomegaly. Adrenals: No mass. Kidneys and ureters: No hydronephrosis. There is a 1 cm rounded lucency in the left kidney. Stomach and bowel: The stomach is relatively decompressed. There is air and stool noted in the colon. There are diverticula present on the colon. No significant inflammatory changes are seen. There are mildly distended loops of small bowel containing air and stool. PELVIS: Appendix: Unremarkable CT scan appearance noted the appendix. Bladder: Urinary bladder is distended. It contains air. No bladder calculi are seen.. Reproductive: Unremarkable as visualized. ABDOMEN and PELVIS: Intraperitoneal space: No free air. No significant fluid collection. Bones/joints: There are degenerative changes in the spine with osteopenia. There is a grade 1 spondylolisthesis of L4 on L5. Soft tissues: Unremarkable. Vasculature: There are atherosclerotic changes. No abdominal aortic aneurysm. Lymph nodes: No enlarged lymph nodes. IMPRESSION: The urinary bladder is distended containing air. Unless there has been recent instrumentation, cannot exclude a process such as cystitis. The overall bowel gas pattern may represent an ileus. There is a possible left renal cyst. The liver is enlarged and of diffuse decreased attenuation which may be due to fatty infiltration. See discussion above Electronically signed by: Raul Kelly MD 12/08/23 01:[address] 12/07/23 23:18 CR Exam(s): CT HEAD Without Contrast EXAM: CT Head Without Intravenous Contrast CLINICAL HISTORY: Reason for exam: weakness. TECHNIQUE: Axial computed tomography images of the head/brain without intravenous contrast. Automated exposure control was utilized for the study. A dose lowering technique was utilized adhering to the principles of ALARA. COMPARISON: Prior head CT from November 18, 2022. FINDINGS: Brain: Unremarkable. No hemorrhage. Mild nonspecific white matter changes. No edema. There is a moderate sized direct choroidal fissure cyst. Ventricles: Mild ventriculomegaly. Bones/joints: Unremarkable. No acute fracture. Soft tissues: Unremarkable. Sinuses: Unremarkable as visualized. No acute sinusitis. Mastoid air cells: Unremarkable as visualized. No mastoid effusion. IMPRESSION: No evidence of acute intracranial pathology. Communications: Call Doctor Stroke Electronically signed by: Emily Benítez MD 12/08/23 00:50 AM Head CTA 12/07/23 23:28 CR Exam(s): CTA HEAD With Contrast IV Amt: 118 ML OPTIRAY 320 EXAM: CT Angiography Head With Intravenous Contrast CLINICAL HISTORY: Reason for exam: neuro deficit, acute stroke suspected. TECHNIQUE: Axial computed tomographic angiography images of the head with intravenous contrast. Automated exposure control was utilized for the study. A dose lowering technique was utilized adhering to the principles of ALARA. MIP reconstructed images were created and reviewed. CONTRAST: Patient received 118 ML OPTIRAY 320 of IV contrast COMPARISON: No relevant prior studies available. FINDINGS: The dural venous sinuses are patent. Right internal carotid artery: No acute findings. Intracranial segment is patent with no significant stenosis. No aneurysm. Right anterior cerebral artery: Unremarkable. No occlusion or significant stenosis. No aneurysm. Right middle cerebral artery: Unremarkable. No occlusion or significant stenosis. No aneurysm. Right posterior cerebral artery: Unremarkable. No occlusion or significant stenosis. No aneurysm. Right vertebral artery: Unremarkable as visualized. Left internal carotid artery: No acute findings. Intracranial segment is patent with no significant stenosis. No aneurysm. Left anterior cerebral artery: Unremarkable. No occlusion or significant stenosis. No aneurysm. Left middle cerebral artery: Unremarkable. No occlusion or significant stenosis. No aneurysm. Left posterior cerebral artery: Unremarkable. No occlusion or significant stenosis. No aneurysm. Left vertebral artery: Unremarkable as visualized. Basilar artery: Unremarkable. No occlusion or significant stenosis. No aneurysm. IMPRESSION: Negative CT angiogram of the head. Communications: Verify Receipt Call Doctor Stroke Electronically signed by: Emily Benítez MD 12/08/23 00:53 AM Neck CTA 12/07/23 23:28 CR Exam(s): CTA NECK With Contrast IV Amt: 118 ML OPTIRAY 320 EXAM: CT Angiography Neck With Intravenous Contrast CLINICAL HISTORY: Reason for exam: neuro deficit, acute stroke suspected. TECHNIQUE: Routine carotid CT angiography protocol was performed with intravenous contrast. NASCET criteria using the distal ICAs for comparison were used for evaluation of stenoses. Automated exposure control was utilized for the study. A dose lowering technique was utilized adhering to the principles of ALARA. MIP reconstructed images were created and reviewed. CONTRAST: Patient received 118 ML OPTIRAY 320 of IV contrast COMPARISON: None. FINDINGS: VASCULATURE: Right common carotid artery: Unremarkable. No occlusion or significant stenosis. No dissection. Right internal carotid artery: Unremarkable. Extracranial segment is patent with no occlusion or significant stenosis. No dissection. Right external carotid artery: Unremarkable. No occlusion. Right vertebral artery: Unremarkable. No occlusion or significant stenosis. No dissection. Left common carotid artery: Unremarkable. No occlusion or significant stenosis. No dissection. Left internal carotid artery: Unremarkable. Extracranial segment is patent with no occlusion or significant stenosis. No dissection. Left external carotid artery: Unremarkable. No occlusion. Left vertebral artery: Unremarkable. No occlusion or significant stenosis. No dissection. NECK: Bones/joints: Unremarkable. No acute fracture. Soft tissues: Unremarkable. Lung apices: Bronchitis, which may be of infectious or inflammatory etiologies. CAROTID STENOSIS REFERENCE USING NASCET CRITERIA: % ICA stenosis = (1 - narrowest ICA diameter/diameter of distal cervical ICA) x 100. Mild - <50% stenosis. Moderate - 50-69% stenosis. Severe - 70-94% stenosis. Near occlusion - 95-99% stenosis. Occluded - 100% stenosis. IMPRESSION: Negative CTA neck. Communications: Verify Receipt Call Doctor Stroke Electronically signed by: Emily Benítez MD 12/08/23 00:56 AM ECG Additional Comments: ECG junctional rhythm with rate of 57. QTc 426 Code Status & VTE Plan VTE Prophylaxis Plan VTE Prophylaxis will be ordered: Yes
[2023-12-08 02:39] LABS: Influenza A virus by PCR Negative (Neg); Influenza B virus by PCR Negative (Neg); RSV by PCR Negative (Neg); SARS CoV2 RNA(COVID-19) Ceph NEGATIVE (Negative)
[2023-12-08] MEDS: POTASSIUM CHLORIDE CRTAB 20 MEQ TABCR PO STA (02:48)
[2023-12-08] MEDS ORDERED: Ativan IV Alcohol Withdrawal--Active Protocol IV PRN (04:28)
[2023-12-08] MEDS ORDERED: ACETAMINOPHEN 325 MG TAB PO PRN (04:28)
[2023-12-08] MEDS ORDERED: LORazepam 2 MG in SYRINGE 1 ML IV PRN (04:28)
[2023-12-08] MEDS ORDERED: GABAPENTIN 1200MG ALCOHOL WITHDRAWAL LOAD PO STA (04:28)
[2023-12-08] MEDS ORDERED: CETIRIZINE HCL 10 MG TABLET PO PRN (04:28)
[2023-12-08] MEDS ORDERED: NITROGLYCERIN SL 0.4 MG/TAB TAB SL PRN (04:28)
[2023-12-08] MEDS ORDERED: LORazepam 1 MG in SYRINGE 0.5 ML IV PRN (04:28)
[2023-12-08] MEDS ORDERED: ONDANSETRON INJ 2 MG/ML 2 ML VIAL IV PRN (04:28)
[2023-12-08] MEDS ORDERED: LORazepam 3 MG in SYRINGE 1.5 ML IV PRN (04:28)
[2023-12-08] MEDS ORDERED: LORazepam 0.5 MG TAB PO SCH (04:28)
[2023-12-08] MEDS: SODIUM CHLORIDE 0.9% 1,000 ML IV SCH (04:53)
[2023-12-08] MEDS: GABAPENTIN 600 MG TAB PO ONE (04:54)
[2023-12-08 06:41] LABS: Basophils # (auto) 0.03 K/uL (0.00-0.20); Basophils % (auto) 0.9 %; Hematocrit (blood only) 29.1 % (37.0-47.0); Hemoglobin 9.9 g/dl (12.0-16.0); Immature Granulocytes # (auto) 0.01 K/uL (0.01-0.20); Immature Granulocytes % (auto) 0.3 %; Lymphocytes # (auto) 0.89 K/uL (1.20-3.40); Lymphocytes % (auto) 28.1 %; Mean Corpuscular Hemoglobin 31.5 pg (25.0-34.0); Mean Corpuscular Volume 92.7 fL (80.0-100.0); Mean Platelet Volume 9.3 fL (9.4-12.4); Monocytes # (auto) 0.38 K/uL (0.11-0.59); Neutrophils # (auto) 1.86 K/uL (1.40-6.50); Neutrophils % (auto) 58.7 %; Platelet Count 157 K/uL (130-400); RDW Coefficient of Variation 13.7 % (11.5-14.5); RDW Standard Deviation 46.6 fL (36.4-46.3); Red Blood Count 3.14 M/uL (4.20-5.40); White Blood Count 3.17 K/ul (4.8-10.8)
[2023-12-08 06:54] LABS: Albumin Level 4.3 gm/dl (3.4-5.0); BUN Creatinine Ratio 26.2 (10-20); Bilirubin Direct 0.1 mg/dl (0-0.2); Bilirubin,Total 0.3 mg/dl (0.2-1.0); Calcium 8.7 mg/dl (8.6-10.3); Creatinine Clr Calc Pharmacy 76.9 ml/min; Est GFR (African American) 104.2 ml/min; Est GFR (Non-African American) 89.9 ml/min; Magnesium 1.7 mg/dl (1.7-2.4); Potassium 3.3 mmol/L (3.5-5.1); Total Protein 6.3 gm/dl (6.0-8.3)
--- NOTE | 2023-12-08 07:08 | XRay Report ---
XR chest 1V portable CLINICAL HISTORY: weakness TECHNIQUE: Single frontal radiograph of the chest was obtained. Comparison: Comparison is made to chest radiograph 11/18/2022 FINDINGS: No lines and tubes are seen. Cardiomegaly is noted. The aortic arch is calcified. The lungs are clear . No evidence of pleural effusion or pneumothorax. IMPRESSION: No acute chest disease. ACT 112: Negative or not required by law. Electronically signed by: Kev Hu M.D. 12/08/2023 7:06 AM
[2023-12-08 07:23] LABS: Folate (Folic Acid),Ser orPlas > 22.30 ng/ml (>5.38)
[2023-12-08 07:24] LABS: Vitamin B12 362 pg/ml (180-914)
[2023-12-08] MEDS: GABAPENTIN 600 MG TAB PO SCH ×2 (08:12→21:34)
[2023-12-08] MEDS: ASCORBIC ACID 500 MG TAB PO SCH (08:12)
[2023-12-08] MEDS: ENOXAPARIN INJ 40 MG/0.4 ML SYR SQ SCH (08:12)
[2023-12-08] MEDS: FOLIC ACID 1 MG in SYRINGE 9.8 ML IV SCH (08:15)
[2023-12-08] MEDS: lisinopril 10 MG TAB PO SCH (08:16)
[2023-12-08] MEDS: THIAMINE HCL 100 MG in SYRINGE 9 ML IV SCH (08:16)
[2023-12-08] MEDS: PANTOprazole 40 MG TAB PO SCH (08:16)
[2023-12-08] MEDS: IPRATROPIUM BROMIDE NASAL SPRAY 0.06% 15ML NAE SCH (08:16)
[2023-12-08] MEDS: FLUTICASONE PROPIONATE NA SPR 16 GM BTL SCH (08:19)
[2023-12-08] MEDS ORDERED: NON-FORMULARY MEDICATION (Cyanocobalamin (Vitamin B-12) [Vitamin B-12] 50 mcg Tablet) PO SCH (09:00)
[2023-12-08] MEDS ORDERED: NON-FORMULARY MEDICATION (Lactobacillus Acidophilus [Probiotic] 10 billion cell Capsule) PO SCH (09:00)
--- NOTE | 2023-12-08 09:31 | Electrocardiogram Report ---
Test Reason : Blood Pressure : */* mmHG Vent. Rate : 57 BPM Atrial Rate : * BPM P-R Int : * ms QRS Dur : 80 ms QT Int : 438 ms P-R-T Axes : * -2 15 degrees QTcB Int : 426 ms Sinus rhythm Poor R wave progression, consider anterior FL vs. lead placement vs. LVH Abnormal ECG When compared with ECG of 18-Nov-2022 12:40, No significant change Confirmed by Shan Clarke ([id number]) on 12/08/2023 9:30:55 AM Referred By: REFERRED SELF Confirmed By: Shan Clarke
--- NOTE | 2023-12-08 10:59 | XRay Report ---
XR KUB/Abdomen 1 view CLINICAL HISTORY: ileus TECHNIQUE: 1 view of the abdomen was obtained. Comparison: Comparison is made to CT abdomen pelvis 12/07/2023 FINDINGS: Cholecystomy clips are seen in the right upper quadrant. Degenerative changes are seen in the visuali zed skeleton. The bowel gas pattern is nonobstructive. Small stool burden is seen. IMPRESSION: Nonobstructive bowel gas pattern. ACT 112: Negative or not required by law. Electronically signed by: Kev Hu M.D. 12/08/2023 10:58 AM
--- NOTE | 2023-12-08 11:14 | Hospitalist Progress Note ---
Date of Service December 08, 2023 Assessment & Plan (1) Acute alcohol intoxication: (2) Alcohol withdrawal: (3) Suspected UTI: (4) Alcohol abuse: (5) Hypertension: (6) Hypokalemia: (7) Normocytic anemia: Plan Patient presents to the emergency room with acute alcohol intoxication no evidence of withdrawal symptoms. Continue gabapentin alcohol withdrawal protocol with as needed Ativan Continue empiric ceftriaxone for presumed urinary tract infection, follow urine culture Replace electrolytes Check iron levels Monitor laboratory studies and electrolytes Advance diet, Discussion with patient at bedside about her plans and how she is going to abstain from alcohol. She is already been through AA and will continue and be more compliant with her AA meetings. I also did offer her ReVia, she says she does not tolerate this medication. States that her already is cleared the house of any alcohol and they will avoid any places/restaurants/events that would serve alcohol. Admission and Anticipated Discharge Date Admission Date: December 08, 2023 Subjective Patient feeling improved. Passing flatus. Hungry, would like to eat. States that she is already involved with alcoholic Anonymous Physical Exam Physical Exam: Constitutional: Alert HEENT: Mucous membranes moist. Lungs: Clear to auscultation, decreased, no wheezes rales or rhonchi CV: S1-S2, regular Abdomen: Soft, nontender, nondistended Extremities: No significant edema Neuro: No focal deficits Psych: Cooperative, normal mood Results & Data Results & Data Vital Signs (Past 12 Hours) Vital Signs Temp Pulse Pulse Pulse Resp BP BP 12/08/23 07:59 36.7 C 67 15 12/08/23 07:30 66 12/08/23 04:08 68 12/08/23 04:05 167/85 H 12/08/23 03:50 36.8 C 72 18 181/90 H 12/08/23 03:28 57 L 140/99 12/08/23 03:11 57 L 12/08/23 02:00 57 L 16 12/08/23 00:11 60 14 12/08/23 00:10 62 12 12/07/23 23:19 62 12/07/23 23:13 36.5 C 65 13 141/86 H BP Pulse Ox O2 Del Method O2 Flow Rate 12/08/23 07:59 149/74 H 96 Room Air 12/08/23 07:30 12/08/23 04:08 12/08/23 04:05 12/08/23 03:50 96 Room Air 12/08/23 03:28 99 Nasal Cannula 3 12/08/23 03:11 12/08/23 02:00 140/99 99 Nasal Cannula 3 12/08/23 00:11 98 Room Air 12/08/23 00:10 144/95 H 98 Room Air 12/07/23 23:19 12/07/23 23:13 96 Room Air Diagnostic Findings Reviewed imaging, laboratory and diagnostic studies. Pertinent findings as below. Potassium 3.2 B12, folate acid levels within normal range TSH within normal range Personally reviewed KUB images, no evidence of ileus or obstruction Critical Care Time Prolonged Care Time 40 minutes prolonged care including review of records, counseling and communication with patient, communication with medical team, additional treatments throughout the day
[2023-12-08] MEDS: POTASSIUM CHLORIDE CRTAB 20 MEQ TABCR PO SCH (13:01)
[2023-12-08] MEDS: LORazepam 0.5 MG TAB PO SCH (14:12)
[2023-12-08] MEDS: LORazepam 1 MG TAB PO SCH (21:33)
[2023-12-08] MEDS: ROSUVASTATIN CALCIUM 5 MG TAB PO SCH (21:34)
[2023-12-08] MEDS: traMADol HCL 50 MG TABLET PO PRN (23:02)
[2023-12-08] MEDS: cefTRIAXone SODIUM 2,000 MG/50 ML BAG IV SCH (23:09)
[2023-12-09 05:40] VITALS: PULSE 64; TEMP 97.7
[2023-12-09 06:28] LABS: Hematocrit (blood only) 31.2 % (37.0-47.0); Hemoglobin 10.6 g/dl (12.0-16.0); Mean Corpuscular Hemoglobin 32.4 pg (25.0-34.0); Mean Corpuscular Volume 95.4 fL (80.0-100.0); Mean Platelet Volume 9.4 fL (9.4-12.4); Platelet Count 151 K/uL (130-400); RDW Coefficient of Variation 13.5 % (11.5-14.5); RDW Standard Deviation 47.5 fL (36.4-46.3); Red Blood Count 3.27 M/uL (4.20-5.40); White Blood Count 3.57 K/ul (4.8-10.8)
[2023-12-09 06:42] LABS: BUN Creatinine Ratio 16.4 (10-20); Calcium 8.4 mg/dl (8.6-10.3); Creatinine Clr Calc Pharmacy 76.9 ml/min; Est GFR (African American) 104.2 ml/min; Est GFR (Non-African American) 89.9 ml/min; Magnesium 1.5 mg/dl (1.7-2.4)
[2023-12-09 07:07] LABS: Ferritin 245.2 ng/ml (8-388)
[2023-12-09] MEDS: PSYLLIUM or GUAR GUM FIBER 4GM PACKET PO SCH (07:44)
[2023-12-09] MEDS: FOLIC ACID 1 MG TAB PO SCH (07:46)
[2023-12-09] MEDS: THIAMINE HCL 100 MG TAB PO SCH (07:46)
[2023-12-09] MEDS: MAGNESIUM SULFATE / D5W 1 GM/100 ML BAG IV SCH (07:48)
[2023-12-09 07:59] VITALS: BP 171/96; RESP 18; O2SAT 98
[2023-12-09] MEDS: MAGNESIUM OXIDE 400 MG TAB PO SCH (09:08)
--- NOTE | 2023-12-09 09:55 | Discharge Summary ---
Discharge Summary Date of Service December 09, 2023 Principal Dx & Hospital Course #1 = Principal Diagnosis (1) Acute alcohol intoxication: (2) Alcohol withdrawal: (3) Suspected UTI: (4) Alcohol abuse: (5) Hypertension: (6) Hypokalemia: (7) Normocytic anemia: Plan Patient presents emergency room with acute alcohol intoxication and weakness. In the emergency room also appear that she had a urinary tract infection. Patient was admitted to the hospital. She was placed on gabapentin withdrawal protocol. She had minimal withdrawal symptoms. She was treated with IV Rocephin for presumed urinary tract infection. Urine culture was growing gram- negative bacilli. She will be converted to oral Keflex to complete a course of treatment of antibiotics for her UTI. Over the course of the hospitalization the patient significantly improved. Electrolytes were replaced. On the morning of discharge she did not require any as needed medications for withdrawal symptoms. She was tolerating her diet. She was getting magnesium supplementation. Her other laboratory studies were stable. She has struggled with alcohol abuse in the past. She does occasionally go to alcoholic Anonymous meetings. Discussed plan to keep her abstinent. She is recommitted herself to attending AA meetings. Her has cleared the house of any alcohol and they will avoid going to places that serve alcohol. Patient had an acute relapse in her alcohol addiction due to her pets having some illness in one of her pets having to be euthanized here this coming week. She understands that it is important to treat her emotional pain and care for her emotional pain otherwise other than using alcohol. She will follow-up with her outpatient providers. Notes For Next Care Provider Continue to encourage alcohol abstinence Medication Changes From Visit [facility] for UTI Magnesium supplementation Admission HPI Per Admitting Provider 73-year-old female with past medical history significant for primary hyperparathyroidism, hypercholesterolemia, seasonal allergic rhinitis, hiatal hernia, hypertension, GERD, generalized anxiety disorder, history of depression, history of alcoholism presents with a dizziness and feeling weak and was not able to get up from the bed and was brought to the hospital and was found to UTI and also alcohol level was 304. Patient states her 13-year-old cat is sick and she was feeling sad and was drinking more today. is in the room. Drinks alcohol almost daily. Drinks usually 2 shots of 100% proof alcohol but today she drank about 4 shots. Was feeling dizzy and weak. Denies any spinning of the room. Was nauseous. Was not able to get up from the bed as per . Today had burning micturition. Denies headache. Vision is okay. Has chronic runny nose. Has some sore throat. Has occasional cough. Denies any chest pain or shortness of breath. No abdominal pain. Patient states she has on and off diarrhea. Denies Any Blood in the Stools. Patient States She Was Diagnosed with COVID about 10 Days Back When She Was Feeling Sick at That Time but Her COVID Symptoms Has Been Resolved and Was Doing Fine Last Few Days. Currently Resting Comfortably and Hemodynamically Stable. Past medical history as mentioned above. Past surgical history. EGD. Laparoscopic cholecystectomy. Right laparoscopic inguinal hernia repair. Ligation of oviducts. Ventral hernia repair. Fixation of right ankle fracture. Social history. . No smoking. Drinks alcohol daily. History of marijuana use. Family history. Father with alcoholism. GI bleed. Mother had colon cancer. Dementia. Hypothyroidism. Brother has heart disease. Hyperlipidemia. Hypertension. Admission Exam Per Admitting Provider See H&P Discharge Exam Constitutional: Alert HEENT: Mucous membranes moist. Lungs: Clear to auscultation, decreased, no wheezes rales or rhonchi CV: S1-S2, regular Abdomen: Soft, nontender, nondistended Extremities: No significant edema Neuro: No focal deficits, no tremor Psych: Cooperative, normal mood, no significant alcohol withdrawal symptoms Updated Medication List Medication Instructions Recorded Confirmed Type Lactobacillus acidophilus 10 10,000 mmu cells PO DAILY 11/20/21 12/08/23 History billion cell capsule (Probiotic) ascorbic acid (vitamin C) 500 mg 500 mg PO QAM 11/20/21 12/08/23 History tablet (Vitamin C) cetirizine 10 mg tablet (All Day 10 mg PO QAM PRN Allergy Symptoms 11/20/21 12/08/23 History Allergy (cetirizine)) cyanocobalamin (vitamin B-12) 50 50 mcg PO QAM 11/20/21 12/08/23 History mcg tablet (Vitamin B-12) lorazepam 1 mg tablet 1 mg PO HS 11/20/21 12/08/23 History psyllium husk 3.4 gram/5.4 gram 1 tbsp PO QAM 11/20/21 12/08/23 History oral powder (Metamucil) rosuvastatin 5 mg tablet 5 mg PO HS 11/20/21 12/08/23 History lansoprazole 15 mg capsule,delayed 15 mg PO QAM 12/18/21 12/08/23 History release lorazepam 0.5 mg tablet 0.5 mg PO .IN AM AND AFTERNOON 12/18/21 12/08/23 History fluticasone propionate 50 2 spray intranasal DAILY 12/25/21 12/08/23 History mcg/actuation nasal spray,suspension ibuprofen 200 mg capsule (Advil 400 mg PO Q6H PRN Pain 12/25/21 12/08/23 History Liqui-Gel) ipratropium bromide 21 mcg (0.03 1 spray intranasal BID 12/08/23 12/08/23 History %) nasal spray lisinopril 30 mg tablet 30 mg PO QAM 12/08/23 12/08/23 History methylprednisolone 4 mg tablets in 4 mg PO UD 12/08/23 12/08/23 History a dose pack cephalexin 250 mg capsule 250 mg PO TID 3 days #9 caps 12/09/23 Rx magnesium oxide 500 mg capsule 500 mg PO BID 3 days #6 caps 12/09/23 Rx Hospital Stay Data Consultations 12/08/23 01:08 ED Decision to Admit Stat Diagnostic Imagining Performed Reviewed imaging, laboratory and diagnostic studies. Pertinent findings as below. Urine culture growing gram-negative bacilli Magnesium 1.5, repleted prior to discharge iron 140, trans ferritin 203, ferritin 245 Hemoglobin 10.6, stable Potassium 4.0 B12 and folate within normal ranges TSH 0.9 12/07/23 23:17 CT Abd and Pelvis [CT abd pelvis IV con only] Stat 12/07/23 23:18 CT head/brain wo con Stat 12/07/23 23:28 CT angio head w con Stat CT angio neck with con Stat Pending Results Patient Have Any Pending Studies at Discharge: Yes Discharge Instructions Given to Patient (Per Discharging Provider) Strongly recommend you stop all beer and alcohol Strongly recommend you continue with your AA meetings Total Time Total Time Spent Total Time Spent (In Minutes): 34
[2023-12-10] MEDS ORDERED: GABAPENTIN 600 MG TAB PO SCH (02:15)
[2023-12-10 14:07] LABS: Marijuana Quant, GCMS Urine 171 ng/mL (<5)
[2023-12-11] MEDS ORDERED: GABAPENTIN 600 MG TAB PO SCH (14:15)
== END 2023-12-09 12:23 | disposition home or self-care (01) | DRG 690 ==
LOC: ED 23:06 → 2W 12-08 02:03 → SUATTDRO 12-08 02:03 → 2W 12-08 03:28

== ENCOUNTER 2024-05-13 19:51 | Inpatient (IN) ==
[2024-05-13 21:30] LABS: Basophils # (auto) 0.03 K/uL (0.00-0.20); Basophils % (auto) 0.8 %; Eosinophils # (auto) 0.05 K/uL (0.00-0.50); Eosinophils % (auto) 1.4 %; Hematocrit (blood only) 35.7 % (37.0-47.0); Immature Granulocytes # (auto) 0.02 K/uL (0.01-0.20); Immature Granulocytes % (auto) 0.6 %; Lymphocytes # (auto) 1.51 K/uL (1.20-3.40); Lymphocytes % (auto) 42.5 %; Mean Corpuscular Hemoglobin 31.9 pg (25.0-34.0); Mean Corpuscular Hgb Conc 33.6 g/dL (32.0-36.0); Mean Corpuscular Volume 94.9 fL (80.0-100.0); Mean Platelet Volume 8.7 fL (9.4-12.4); Monocytes # (auto) 0.34 K/uL (0.11-0.59); Monocytes % (auto) 9.6 %; Neutrophils % (auto) 45.1 %; Platelet Count 183 K/uL (130-400); RDW Coefficient of Variation 15.1 % (11.5-14.5); RDW Standard Deviation 52.2 fL (36.4-46.3); Red Blood Count 3.76 M/uL (4.20-5.40); White Blood Count 3.55 K/ul (4.8-10.8)
[2024-05-13 21:35] LABS: Albumin Globulin Ratio 1.9 (0.9-2); Albumin Level 4.6 gm/dl (3.4-5.0); BUN Creatinine Ratio 24.5 (10-20); Bilirubin,Total 0.4 mg/dl (0.2-1.0); Calcium 9.2 mg/dl (8.6-10.3); Creatinine Clr Calc Pharmacy 94.9 ml/min; Globulin 2.4 gm/dl (2.5-4.0); Potassium 3.8 mmol/L (3.5-5.1)
--- NOTE | 2024-05-13 21:36 | Emergency Department Note ---
Impression & Plan Weakness, Acute alcohol intoxication, Alcohol abuse, Leukopenia ED Provider Note NAME: CHRISTOFER CARABALLO AGE: 74 SEX: F : 1950 ARRIVES VIA: Ambulance INFORMANT: Patient ED PROVIDER(S): Pee Barclay DO CHIEF COMPLAINT: Confusion, weakness HPI: Patient is a 74-year-old female with a past medical history of alcohol intoxication, dizziness, alcohol withdrawal, hypertension and GERD who presents to the ER for weakness which has been present for the past 2 days. notes that she has been confused for the past 24 hours. She feels very shaky and nauseated. She has some burning and urgency. She admits to upper respiratory symptoms that were present several weeks ago and she is currently recovering from that. She denies any chest pain. No hip pain. No neck pain. No other exacerbating or remitting factors. She does not believe that she is drink alcohol at all today. She admits to 3-4 shots per day and is present at bedside and provides additional history confirms this ADDITIONAL HISTORY OBTAINED: Per HPI Chronic Medical/Social Conditions Affecting Care: Per HPI PAST MEDICAL HISTORY:See Below PAST SURGICAL HISTORY:See Below FAMILY HISTORY:See Below SOCIAL HISTORY:See Below HOME MEDICATIONS:See Below ALLERGIES:See Below VITALS:See Below PHYSICAL EXAMINATION: GENERAL: Sitting up in bed, alert, chronically ill-appearing, disheveled, shaky hands EYE EXAM: normal conjunctiva. PERRL and EOM's grossly intact. OROPHARYNX: no exudate, no erythema, lips, buccal mucosa, and tongue normal and mucous membranes are moist NECK: supple, no nuchal rigidity, no adenopathy, non-tender LUNGS: Clear to auscultation. Normal chest wall mechanics HEART: no murmurs, S1 normal and S2 normal ABDOMEN: abdomen soft, non-tender, normo-active bowel sounds, no masses, no rebound or guarding. UPPER EXTREMITIES: upper extremities are grossly normal. LOWER EXTREMITIES: No pitting edema. NEURO EXAM: Oriented to person place, year, cranial nerves II-XII intact, normal speech, no weakness of arms, no weakness of legs. No drift. Finger to nose intact. Gross sensation intact. MEDICAL DECISION MAKING: Patient is a 74-year-old female who presents ER with at bedside for weakness and confusion. IV was established and blood work was obtained. Labs show mild leukopenia 3.5. No significant anemia. BMP along with LFTs bilirubin was unremarkable. Lipase was normal. UA was clean. Alcohol positive at 170. CT of the head shows no acute pathology. Chest x-ray was unremarkable. Patient was feeling extremely weak. Family did not feel comfortable taking her home and consequently discussed case with the hospitalist for further evaluation management treatment. Consults/Care Managements Discussions: Per MDM Triage Nursing notes reviewed. Limited review of prior medical records performed Vital Signs: reviewed and remarkable for HTN Differential diagnosis: Cardiac ischemia, aortic dissection, pulmonary embolism, pneumothorax, pneumonia, pericarditis, myocarditis, esophageal rupture, GERD, cholecystitis, pancreatitis, musculoskeletal, as well as other pathologies. ER treatment provided: See below Diagnostics interpreted by me include EKG and cardiac monitoring as listed below: -Cardiac Monitoring: An order was placed for continuous cardiac monitoring. The monitor shows a rate of 70 with sinus rhythm. -ECG: Sinus rhythm rate of 77 normal axis No PVCs QTc 430 -Laboratory studies:Interpreted by me as stated above in MDM and shown below. Imaging studies: Xrays: As interpreted by me: Portable AP upright 1 view of the chest shows no focal infiltrate CTs show: CT head was negative Procedures:none Critical Care: None Past Med/Surg History Problem List (Updated 05/14/24 @ 01:18 by Pee Barclay DO) Leukopenia (Acute) Alcohol abuse (Acute) Weakness (Acute) Suspected UTI Normocytic anemia Hypokalemia Alcohol withdrawal Dizziness Light-headedness (Acute) Weakness (Acute) Acute alcohol intoxication (Acute) Abdominal pain, acute (Acute) Encounter for pre-operative examination Fracture of head of right fibula (Acute) Displaced bimalleolar fracture of right ankle (Acute) Fracture of right foot (Acute) Alcohol intoxication (Acute) Ankle fracture, right Hypertension GERD (gastroesophageal reflux disease) Medical History Alcohol abuse 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 Beliefs That Will Affect Care: None marital status: Current Living Situation: Spouse Current Living Situation Comment: lives at home with Feels Safe at Home: Yes Assistive Devices: Glasses Allergies Allergies Allergy/AdvReac Type Severity Reaction Status Date / Time bee venom protein (honey bee) Allergy Severe Anaphylaxis Verified 05/14/24 01:06 Latex, Natural Rubber Allergy Severe Anaphylaxis Verified 05/14/24 01:06 Sulfa (Sulfonamide Allergy Severe ANAPHYLAXIS Verified 05/14/24 01:06 Antibiotics) blue dye Allergy Intermediate Rash Verified 05/14/24 01:06 codeine Allergy Intermediate Agitated, Verified 05/14/24 01:06 rash, itchy red dye Allergy Intermediate Rash Verified 05/14/24 01:06 duloxetine Allergy HIVES,INSOM Verified 05/14/24 01:06 MANDO,DIARRHE A Home Meds Home Medications Medication Instructions Recorded Confirmed ascorbic acid (vitamin C) 500 mg 500 mg PO QAM 11/20/21 05/14/24 tablet (Vitamin C) cetirizine 10 mg tablet (All Day 10 mg PO QAM Allergy Symptoms 11/20/21 05/14/24 Allergy (cetirizine)) lorazepam 1 mg tablet 1 mg PO HS 11/20/21 05/14/24 psyllium husk 3.4 gram/5.4 gram 1 tbsp PO QAM 11/20/21 05/14/24 oral powder (Metamucil) rosuvastatin 5 mg tablet 5 mg PO HS 11/20/21 05/14/24 lorazepam 0.5 mg tablet 0.5 mg PO .MORNING & AFTERNOON 12/18/21 05/14/24 fluticasone propionate 50 2 spray intranasal QAM 12/25/21 05/14/24 mcg/actuation nasal spray,suspension ibuprofen 200 mg capsule (Advil 400 mg PO Q4 PRN Pain 12/25/21 05/14/24 Liqui-Gel) ipratropium bromide 21 mcg (0.03 2 spray intranasal TID 12/08/23 05/14/24 %) nasal spray L.acidophilus-L.plantarum-B.animalis-B.longum 1 cap PO BID 05/14/24 05/14/24 2 billion cell capsule (Probiotic Acidophilus Beads) benzonatate 100 mg capsule 100 mg PO TID PRN Cough 05/14/24 05/14/24 cyanocobalamin (vitamin B-12) 500 500 mcg PO QPM 05/14/24 05/14/24 mcg tablet (Vitamin B-12) famotidine 20 mg tablet 20 mg PO QAM 05/14/24 05/14/24 gabapentin 300 mg capsule 300 mg PO TID 05/14/24 05/14/24 lisinopril 40 mg tablet 20 mg PO AMHS 05/14/24 05/14/24 magnesium oxide 500 mg PO AMHS 05/14/24 05/14/24 tizanidine 4 mg tablet 4 mg PO Q8 PRN BACK PAIN/MUSCLE 05/14/24 05/14/24 SPASM Results & Data (ED) Vital Signs Vital Signs - 24 hr 05/13/24 19:51 05/13/24 20:03 05/13/24 20:32 Temperature 36.9 C Temperature Source Oral Pulse Rate 86 78 Pulse Rate [Apical] Pulse Rhythm [Apical] Respiratory Rate 17 Blood Pressure 176/97 H Blood Pressure [Right Arm] Blood Pressure Mean 123 Blood Pressure Mean [Right Arm] Blood Pressure Position Semi-fowlers Blood Pressure Position [Right Arm] Pulse Oximetry 96 Oxygen Delivery Method Room Air Room Air Sepsis Recent Fever Within 48 Hours No Sepsis New/Unexplained Change in Mental Status No Sepsis Action Taken by Nursing No Action Required 05/13/24 22:17 05/13/24 22:17 05/13/24 23:00 Temperature Temperature Source Pulse Rate 84 Pulse Rate [Apical] 84 83 Pulse Rhythm [Apical] Regular Respiratory Rate 21 21 16 Blood Pressure Blood Pressure [Right Arm] 149/89 H 154/86 H Blood Pressure Mean Blood Pressure Mean [Right Arm] 109 108 Blood Pressure Position Blood Pressure Position [Right Arm] Semi-fowlers Pulse Oximetry 94 94 96 Oxygen Delivery Method Room Air Room Air Room Air Sepsis Recent Fever Within 48 Hours Sepsis New/Unexplained Change in Mental Status Sepsis Action Taken by Nursing Laboratory Data 05/13/24 20:04 05/13/24 20:04 Lab Results 05/13/24 05/13/24 Range/Units 20:04 22:16 WBC 3.55 L (4.8-10.8) K/ul RBC 3.76 L (4.20-5.40) M/uL Hgb 12.0 (12.0-16.0) g/dl Hct 35.7 L (37.0-47.0) % MCV 94.9 (80.0-100.0) fL MCH 31.9 (25.0-34.0) pg MCHC 33.6 (32.0-36.0) g/dL RDW Std Deviation 52.2 H (36.4-46.3) fL RDW Coeff of [place] 15.1 H (11.5-14.5) % Plt Count 183 (130-400) K/uL MPV 8.7 L (9.4-12.4) fL Immature Gran % (Auto) 0.6 % Neut % (Auto) 45.1 % Lymph % (Auto) 42.5 % Schleicher % (Auto) 9.6 % Eos % (Auto) 1.4 % Baso % (Auto) 0.8 % Neut # (Auto) 1.60 (1.40-6.50) K/uL Lymph # (Auto) 1.51 (1.20-3.40) K/uL [place] # (Auto) 0.34 (0.11-0.59) K/uL Eos # (Auto) 0.05 (0.00-0.50) K/uL Baso # (Auto) 0.03 (0.00-0.20) K/uL Immature Gran # (Auto) 0.02 (0.01-0.20) K/uL Sodium 144 (136-145) mmol/L Potassium 3.8 (3.5-5.1) mmol/L Chloride 106 (98-107) mmol/L Carbon Dioxide 27 (21-32) mmol/L Anion Gap 11 (3-11) BUN 13 (6-23) mg/dl Creatinine 0.53 L (0.6-1.2) mg/dl Est Cr Clr Drug Dosing 94.9 ml/min eGFR 96.99 BUN/Creatinine Ratio 24.5 H (10-20) Glucose 97 (70-99(Fasting)) mg/dl Calcium 9.2 (8.6-10.3) mg/dl Magnesium 1.9 (1.7-2.4) mg/dl Total Bilirubin 0.4 (0.2-1.0) mg/dl AST 29 (13-39) U/L ALT 23 (7-52) U/L Alkaline Phosphatase 60 (34-104) U/L Troponin I High Sens 6.2 (0-14) pg/ml Total Protein 7.0 (6.0-8.3) gm/dl Albumin 4.6 (3.4-5.0) gm/dl Globulin 2.4 L (2.5-4.0) gm/dl Albumin/Globulin Ratio 1.9 (0.9-2) Lipase 27 (11-82) U/L Urine Color Yellow Urine Appearance Clear (Clear) Urine pH >= 9.0 H (4.5-7.5) Ur Specific [place] 1.015 (1.000-1.030) Urine Protein 1+ H (Negative) Urine Glucose (UA) Negative (Negative) Urine Ketones Negative (Negative) Urine Blood Negative (Negative) Urine Nitrite Negative (Negative) Urine Bilirubin Negative (Negative) Urine Urobilinogen Negative (Negative) Ur Leukocyte Esterase Negative (Negative) Urine WBC (Auto) 0-5 (0-5) /hpf Urine RBC (Auto) 0-2 (0-2) /hpf U Hyaline Cast (Auto) 0-2 (0-2) /lpf U Epithel Cells (Auto) 0-2 (0-2) /hpf Urine Bacteria (Auto) None Seen (None Seen) Ethyl Alcohol mg/dL 170.8 H (<10.0) mg/dl Administered Medications Discontinued Medications Sodium Chloride (Nss) 1,000 mls @ 999 mls/hr IV .Q1H1M ONE Stop: 05/13/24 22:33 Last Infusion: 05/14/24 00:45 Dose: Infused Documented By: Admin: 05/13/24 22:15 Dose: 999 mls/hr Documented By: CEF Imaging Data Radiologist's Impression: Chest X-Ray 05/13/24 21:32 Chest radiograph, one view History: Chest pain Comparison: 12/07/2023 Findings: Single AP view of the chest performed. No focal consolidation or pleural effusion. No pneumothorax. The cardiomediastinal silhouette is within normal limits. Normal pulmonary vascularity. No evidence for lymphadenopathy. No visualized bony or soft tissue abnormality. Impression: Normal chest radiograph Electronically signed by Jignesh Waters 05-13-2024 10:[address] 05/13/24 21:32 Exam(s): CT HEAD Without Contrast EXAM: CT Head Without Intravenous Contrast CLINICAL HISTORY: Reason for exam: ams. TECHNIQUE: Axial computed tomography images of the head/brain without intravenous contrast. CTDI is 36.43 mGy and DLP is 547.75 mGy-cm. Automated exposure control was utilized for the study. A dose lowering technique was utilized adhering to the principles of ALARA. COMPARISON: Prior head CT from December 07, 2023. FINDINGS: Brain: Unremarkable. No hemorrhage. No significant white matter disease. No edema. There is a small right choroid fissure cyst. Ventricles: Unremarkable. No ventriculomegaly. Bones/joints: Unremarkable. No acute fracture. Soft tissues: Unremarkable. Sinuses: Unremarkable as visualized. No acute sinusitis. Mastoid air cells: Unremarkable as visualized. No mastoid effusion. IMPRESSION: No evidence of acute intracranial pathology. Electronically signed by: Emily Benítez MD 05/14/24 00:17 AM Discharge Plan Visit Data Chief Complaint: Weakness Stated Complaint: WEAKNESS, DEHYDRATION ED Provider: Pee Barclay Discharge Problem: Weakness, Acute alcohol intoxication, Alcohol abuse, Leukopenia Forms Stand Alone Forms: [facility] Prescriptions Prescriptions: No Action lorazepam 1 mg tablet 1 mg PO HS cetirizine [All Day Allergy (cetirizine)] 10 mg Tablet 10 mg PO QAM ascorbic acid (vitamin C) [Vitamin C] 500 mg Tablet 500 mg PO QAM rosuvastatin 5 mg tablet 5 mg PO HS Metamucil 3.4 gram/5.4 gram Powder 1 tbsp PO QAM Rx Instructions: mix into at least 8 oz of water or juice before administering lorazepam 0.5 mg Tablet 0.5 mg PO .MORNING & AFTERNOON ibuprofen [Advil Liqui-Gel] 200 mg Capsule 400 mg PO Q4 PRN (Reason: Pain) fluticasone propionate 50 mcg/actuation [place],Suspension 2 spray INTRANASAL QAM Rx Instructions: administer into each nostril ipratropium bromide 21 mcg (0.03 %) spray,non-aerosol 2 spray INTRANASAL TID Rx Instructions: 2 SPRAYS MORNING,NOON AND BEDTIME gabapentin 300 mg capsule 300 mg PO TID tizanidine 4 mg tablet 4 mg PO Q8 PRN (Reason: BACK PAIN/MUSCLE SPASM) benzonatate 100 mg capsule 100 mg PO TID PRN (Reason: Cough) famotidine 20 mg tablet 20 mg PO QAM lisinopril 40 mg tablet 20 mg PO AMHS magnesium oxide 500 mg magnesium Tablet 500 mg PO AMHS cyanocobalamin (vitamin B-12) [Vitamin B-12] 500 mcg Tablet 500 mcg PO QPM Probiotic Acidophilus Beads 2 billion cell Capsule 1 cap PO BID Referrals Referrals: Dominic Chen DO [Primary Care Provider] - Discharge Problem: Acute alcohol intoxication Qualifiers: Complication of substance-induced condition: with unspecified complication Q ualified Code(s): F10.929 - Alcohol use, unspecified with intoxication, unspecified Leukopenia Qualifiers: Neutropenia type: unspecified
--- NOTE | 2024-05-13 22:01 | XRay Report ---
Chest radiograph, one view History: Chest pain Comparison: 12/07/2023 Findings: Single AP view of the chest performed. No focal consolidation or pleural effusion. No pneumothorax. The cardiomediastinal silhouette is within normal limits. Normal pulmonary vascularity. No evidence for lymphadenopathy. No visualized bony or soft tissue abnormality. Impression: Normal chest radiograph Electronically signed by Jignesh Waters 05-13-2024 10:00 PM
[2024-05-13] MEDS: SODIUM CHLORIDE 0.9% 1,000 ML IV ONE (22:15)
[2024-05-13 22:44] LABS: Appearance Urine Clear (Clear); Bacteria Urine Automated None Seen (None Seen); Bilirubin Urine Negative (Negative); Blood Urine Negative (Negative); Cast Urine Automated 0-2 /lpf (0-2); Color Urine Yellow; Epithelial Cell Urine Auto 0-2 /hpf (0-2); Glucose Urine UA Negative (Negative); Ketones Urine Negative (Negative); Leukocyte Esterase Urine Negative (Negative); Nitrite Urine Negative (Negative); Protein Urine 1+ (Negative); RBC Urine Automated 0-2 /hpf (0-2); Specific Gravity Urine 1.015 (1.000-1.030); Urobilinogen Urine Negative (Negative); WBC Urine Automated 0-5 /hpf (0-5); pH Urine >= 9.0 (4.5-7.5)
[2024-05-13 23:24] LABS: Troponin I High Sensitivity 6.2 pg/ml (0-14)
--- NOTE | 2024-05-14 00:19 | CT Scan Report ---
Exam(s): CT HEAD Without Contrast EXAM: CT Head Without Intravenous Contrast CLINICAL HISTORY: Reason for exam: ams. TECHNIQUE: Axial computed tomography images of the head/brain without intravenous contrast. CTDI is 36.43 mGy and DLP is 547.75 mGy-cm. Automated exposure control was utilized for the study. A dose lowering technique was utilized adhering to the principles of ALARA. COMPARISON: Prior head CT from December 07, 2023. FINDINGS: Brain: Unremarkable. No hemorrhage. No significant white matter disease. No edema. There is a small right choroid fissure cyst. Ventricles: Unremarkable. No ventriculomegaly. Bones/joints: Unremarkable. No acute fracture. Soft tissues: Unremarkable. Sinuses: Unremarkable as visualized. No acute sinusitis. Mastoid air cells: Unremarkable as visualized. No mastoid effusion. IMPRESSION: No evidence of acute intracranial pathology. Electronically signed by: Emily Benítez MD 05/14/24 00:17 AM
--- NOTE | 2024-05-14 00:37 | History & Physical Report ---
Date of Service May 14, 2024 Assessment & Plan (1) Alcohol withdrawal: Plan: Alcohol withdrawal/benzo withdrawal hypertension, elevated secondary to above hyperlipidemia, on statin Rx primary hyperparathyroidism, outpatient [facility] Endocrinology eval contemplated as per outpatient records anxiety/mood disorder, at baseline chronic anemia, hemoglobin better than baseline likely secondary to hemoconcentration Admit to medical telemetry CAIN S, DT precautions Librium taper then restart patient's home Ativan regimen PT OT eval DVT prophylaxis. Lovenox subcu Full code Patient requesting updates providers. Mr. Randal Nieto, contact #[phone]. Text document was generated using Runner voice recognition software. It may contain grammatical or spelling errors. Kindly contact undersigned for clarification of any documentation item in question. History of Present Illness Chief Complaint: Confusion, shaky Primary Care Provider: Dominic Chen, History obtained from patient, family, and records. Medical history significant for hypertension, hyperlipidemia, GERD, primary hyperparathyroidism, anxiety/mood disorder, chronic anemia (baseline hemoglobin 11), alcohol abuse. Last confinement November 2023 for alcohol withdrawal and complicated UTI. 3 weeks history of junky cough symptoms with congestion, body aches and diarrhea. Symptoms preceded by fall last month resulting in shoulder and hip pain. Outpatient x-ray from last month showed L2 compression fracture and left hip osteoarthritis. Outpatient flu, RSV and COVID swab negative from PCP visit 3 weeks ago. Patient prescribed prednisone course, antitussives, and tizanidine by PCP. Outpatient lumbar spine CT contemplated. Cough symptoms improving. Patient noted to be increasingly shaky, weak, and confused over the last 2 days. Not drinking as much alcohol as per patient. Patient ran out of lorazepam tablets yesterday. Patient denies unusual headache, chest pain, SOB. Transient diarrhea and nausea symptoms. Denies abdominal pain. Back pain not any worse as per patient. Patient denies worsening depression or suicidality. Patient brought to ER for evaluation. 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 Allergies Allergy/AdvReac Type Severity Reaction Status Date / Time bee venom protein (honey bee) Allergy Severe Anaphylaxis Verified 05/14/24 01:06 Latex, Natural Rubber Allergy Severe Anaphylaxis Verified 05/14/24 01:06 Sulfa (Sulfonamide Allergy Severe ANAPHYLAXIS Verified 05/14/24 01:06 Antibiotics) blue dye Allergy Intermediate Rash Verified 05/14/24 01:06 codeine Allergy Intermediate Agitated, Verified 05/14/24 01:06 rash, itchy red dye Allergy Intermediate Rash Verified 05/14/24 01:06 duloxetine Allergy HIVES,INSOM Verified 05/14/24 01:06 MANDO,DIARRHE A Home Medications Medication Instructions Recorded Confirmed Type ascorbic acid (vitamin C) 500 mg 500 mg PO QAM 11/20/21 05/14/24 History tablet (Vitamin C) cetirizine 10 mg tablet (All Day 10 mg PO QAM Allergy Symptoms 11/20/21 05/14/24 History Allergy (cetirizine)) lorazepam 1 mg tablet 1 mg PO HS 11/20/21 05/14/24 History psyllium husk 3.4 gram/5.4 gram 1 tbsp PO QAM 11/20/21 05/14/24 History oral powder (Metamucil) rosuvastatin 5 mg tablet 5 mg PO HS 11/20/21 05/14/24 History lorazepam 0.5 mg tablet 0.5 mg PO .MORNING & AFTERNOON 12/18/21 05/14/24 History fluticasone propionate 50 2 spray intranasal QAM 12/25/21 05/14/24 History mcg/actuation nasal spray,suspension ibuprofen 200 mg capsule (Advil 400 mg PO Q4 PRN Pain 12/25/21 05/14/24 History Liqui-Gel) ipratropium bromide 21 mcg (0.03 2 spray intranasal TID 12/08/23 05/14/24 History %) nasal spray L.acidophilus-L.plantarum-B.animalis-B.longum 1 cap PO BID 05/14/24 05/14/24 History 2 billion cell capsule (Probiotic Acidophilus Beads) benzonatate 100 mg capsule 100 mg PO TID PRN Cough 05/14/24 05/14/24 History cyanocobalamin (vitamin B-12) 500 500 mcg PO QPM 05/14/24 05/14/24 History mcg tablet (Vitamin B-12) famotidine 20 mg tablet 20 mg PO QAM 05/14/24 05/14/24 History gabapentin 300 mg capsule 300 mg PO TID 05/14/24 05/14/24 History lisinopril 40 mg tablet 20 mg PO AMHS 05/14/24 05/14/24 History magnesium oxide 500 mg PO AMHS 05/14/24 05/14/24 History tizanidine 4 mg tablet 4 mg PO Q8 PRN BACK PAIN/MUSCLE 05/14/24 05/14/24 History SPASM Past Med/Surg History Problem List (Updated 05/14/24 @ 01:18 by Pee Barclay DO) Leukopenia (Acute) Alcohol abuse (Acute) Weakness (Acute) Suspected UTI Normocytic anemia Hypokalemia Alcohol withdrawal Dizziness Light-headedness (Acute) Weakness (Acute) Acute alcohol intoxication (Acute) Abdominal pain, acute (Acute) Encounter for pre-operative examination Fracture of head of right fibula (Acute) Displaced bimalleolar fracture of right ankle (Acute) Fracture of right foot (Acute) Alcohol intoxication (Acute) Ankle fracture, right Hypertension GERD (gastroesophageal reflux disease) Medical History Alcohol abuse 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 S/P colonoscopy S/P tubal ligation S/P right inguinal herniorrhaphy Family History Other No pertinent family history in first degree relatives Social History Smoking Status: Never smoker Second Hand Exposure: No; Do You Dip or Chew Tobacco: No; Hx Alcohol Use: Yes Alcohol type: hard liquor Hx Substance Use: Yes Last Used Substance: Days (ago) Last Used Substance Other:: "2 months ago" Preferred Language: Mohawk Communication Ability: Effective Supervisor Molding Required: No Beliefs That Will Affect Care: None marital status: Current Living Situation: Spouse Current Living Situation Comment: lives at home with Other Information That Helps Us Care for You: No Feels Safe at Home: Yes Safety Concerns: Feels Safe At This Time Assistive Devices: Glasses Review of Systems Review of Systems: As per HPI, all other systems reviewed and negative Physical Exam Physical Exam: GENERAL: Oriented to month, tremulous, no respiratory distress SKIN: Normal color, warm HEENT: [place]alante palpebral conjunctivae, no ptosis, dry buccal mucosa NECK : Supple, no tenderness CHEST : CTA, no tenderness HEART : RRR, no obvious murmurs ABDOMEN: Some distention, nontender EXTREMITIES : No LE swelling/tenderness, no other conspicuous deformities noted NEUROLOGIC : Oriented to month, no facial asymmetry, tremulous, gait and stance not assessed Results & Data Results & Data Vital Signs (Past 12 Hours) Vital Signs Temp Pulse Pulse Resp BP BP Pulse Ox 05/13/24 23:00 83 16 154/86 H 96 05/13/24 22:17 84 21 94 05/13/24 22:17 84 21 149/89 H 94 05/13/24 20:32 05/13/24 20:03 78 05/13/24 19:51 36.9 C 86 17 176/97 H 96 O2 Del Method 05/13/24 23:00 Room Air 05/13/24 22:17 Room Air 05/13/24 22:17 Room Air 05/13/24 20:32 Room Air 05/13/24 20:03 05/13/24 19:51 Room Air Laboratory Results Laboratory Results WBC 3.55 K/ul (4.8-10.8) L 05/13/24 20:04 RBC 3.76 M/uL (4.20-5.40) L 05/13/24 20:04 Hgb 12.0 g/dl (12.0-16.0) 05/13/24 20:04 Hct 35.7 % (37.0-47.0) L 05/13/24 20:04 MCV 94.9 fL (80.0-100.0) 05/13/24 20:04 MCH 31.9 pg (25.0-34.0) 05/13/24 20:04 MCHC 33.6 g/dL (32.0-36.0) 05/13/24 20:04 RDW Std Deviation 52.2 fL (36.4-46.3) H 05/13/24 20:04 RDW Coeff of Eneida 15.1 % (11.5-14.5) H 05/13/24 20:04 Plt Count 183 K/uL (130-400) 05/13/24 20:04 MPV 8.7 fL (9.4-12.4) L 05/13/24 20:04 Immature Gran % (Auto) 0.6 % 05/13/24 20:04 Neut % (Auto) 45.1 % 05/13/24 20:04 Lymph % (Auto) 42.5 % 05/13/24 20:04 Kimball % (Auto) 9.6 % 05/13/24 20:04 Eos % (Auto) 1.4 % 05/13/24 20:04 Baso % (Auto) 0.8 % 05/13/24 20:04 Neut # (Auto) 1.60 K/uL (1.40-6.50) 05/13/24 20:04 Lymph # (Auto) 1.51 K/uL (1.20-3.40) 05/13/24 20:04 Kimball # (Auto) 0.34 K/uL (0.11-0.59) 05/13/24 20:04 Eos # (Auto) 0.05 K/uL (0.00-0.50) 05/13/24 20:04 Baso # (Auto) 0.03 K/uL (0.00-0.20) 05/13/24 20:04 Immature Gran # (Auto) 0.02 K/uL (0.01-0.20) 05/13/24 20:04 Sodium 144 mmol/L (136-145) 05/13/24 20:04 Potassium 3.8 mmol/L (3.5-5.1) 05/13/24 20:04 Chloride 106 mmol/L (98-107) 05/13/24 20:04 Carbon Dioxide 27 mmol/L (21-32) 05/13/24 20:04 Anion Gap 11 (3-11) 05/13/24 20:04 BUN 13 mg/dl (6-23) 05/13/24 20:04 Creatinine 0.53 mg/dl (0.6-1.2) L 05/13/24 20:04 Est Cr Clr Drug Dosing 94.9 ml/min 05/13/24 20:04 eGFR 96.99 05/13/24 20:04 BUN/Creatinine Ratio 24.5 (10-20) H 05/13/24 20:04 Glucose 97 mg/dl (70-99(Fasting)) 05/13/24 20:04 Calcium 9.2 mg/dl (8.6-10.3) 05/13/24 20:04 Total Bilirubin 0.4 mg/dl (0.2-1.0) 05/13/24 20:04 AST 29 U/L (13-39) 05/13/24 20:04 ALT 23 U/L (7-52) 05/13/24 20:04 Alkaline Phosphatase 60 U/L (34-104) 05/13/24 20:04 Troponin I High Sens 6.2 pg/ml (0-14) 05/13/24 20:04 Total Protein 7.0 gm/dl (6.0-8.3) 05/13/24 20:04 Albumin 4.6 gm/dl (3.4-5.0) 05/13/24 20:04 Globulin 2.4 gm/dl (2.5-4.0) L 05/13/24 20:04 Albumin/Globulin Ratio 1.9 (0.9-2) 05/13/24 20:04 Lipase 27 U/L (11-82) 05/13/24 20:04 Urine Color Yellow 05/13/24 22:16 Urine Appearance Clear (Clear) 05/13/24 22:16 Urine pH >= 9.0 (4.5-7.5) H 05/13/24 22:16 Ur Specific Acra 1.015 (1.000-1.030) 05/13/24 22:16 Urine Protein 1+ (Negative) H 05/13/24 22:16 Urine Glucose (UA) Negative (Negative) 05/13/24 22:16 Urine Ketones Negative (Negative) 05/13/24 22:16 Urine Blood Negative (Negative) 05/13/24 22:16 Urine Nitrite Negative (Negative) 05/13/24 22:16 Urine Bilirubin Negative (Negative) 05/13/24 22:16 Urine Urobilinogen Negative (Negative) 05/13/24 22:16 Ur Leukocyte Esterase Negative (Negative) 05/13/24 22:16 Urine WBC (Auto) 0-5 /hpf (0-5) 05/13/24 22:16 Urine RBC (Auto) 0-2 /hpf (0-2) 05/13/24 22:16 U Hyaline Cast (Auto) 0-2 /lpf (0-2) 05/13/24 22:16 U Epithel Cells (Auto) 0-2 /hpf (0-2) 05/13/24 22:16 Urine Bacteria (Auto) None Seen (None Seen) 05/13/24 22:16 Ethyl Alcohol mg/dL 170.8 mg/dl (<10.0) H 05/13/24 20:04 Impressions Chest X-Ray 05/13/24 21:32 Chest radiograph, one view History: Chest pain Comparison: 12/07/2023 Findings: Single AP view of the chest performed. No focal consolidation or pleural effusion. No pneumothorax. The cardiomediastinal silhouette is within normal limits. Normal pulmonary vascularity. No evidence for lymphadenopathy. No visualized bony or soft tissue abnormality. Impression: Normal chest radiograph Electronically signed by Jignesh Waters 05-13-2024 10:[address] 05/13/24 21:32 Exam(s): CT HEAD Without Contrast EXAM: CT Head Without Intravenous Contrast CLINICAL HISTORY: Reason for exam: ams. TECHNIQUE: Axial computed tomography images of the head/brain without intravenous contrast. CTDI is 36.43 mGy and DLP is 547.75 mGy-cm. Automated exposure control was utilized for the study. A dose lowering technique was utilized adhering to the principles of ALARA. COMPARISON: Prior head CT from December 07, 2023. FINDINGS: Brain: Unremarkable. No hemorrhage. No significant white matter disease. No edema. There is a small right choroid fissure cyst. Ventricles: Unremarkable. No ventriculomegaly. Bones/joints: Unremarkable. No acute fracture. Soft tissues: Unremarkable. Sinuses: Unremarkable as visualized. No acute sinusitis. Mastoid air cells: Unremarkable as visualized. No mastoid effusion. IMPRESSION: No evidence of acute intracranial pathology. Electronically signed by: Emily Benítez MD 05/14/24 00:17 AM Diagnostic Findings EKG as per my interpretation :Rate 80, NSR, normal axis, incomplete RBBB, no ischemia
[2024-05-14 01:04] LABS: Magnesium 1.9 mg/dl (1.7-2.4)
[2024-05-14] MEDS ORDERED: chlordiazePOXIDE ALCOHOL WITHDRAWL 25MG PO STA (01:09)
[2024-05-14] MEDS ORDERED: Ativan IV Alcohol Withdrawal--Active Protocol IV PRN (01:09)
[2024-05-14] MEDS ORDERED: LORazepam 2 MG/1 ML VIAL IV PRN ×2 (01:10)
[2024-05-14] MEDS ORDERED: ACETAMINOPHEN 500 MG TAB PO PRN (01:16)
[2024-05-14 01:20] LABS: Thyroid Stimulating Hormone 1.263 uIu/ml (0.300-4.500)
[2024-05-14] MEDS: cloNIDine HCL 0.1 MG TAB PO ONE ×2 (01:32→23:01)
[2024-05-14] MEDS: chlordiazePOXIDE HCl 25 MG CAP PO SCH (01:32)
[2024-05-14] MEDS: LORazepam 2 MG/1 ML VIAL IV STA (01:32)
[2024-05-14] MEDS: THIAMINE HCL 100 MG in SYRINGE 9 ML IV STA (01:32)
[2024-05-14 03:12] LABS: Basophils # (auto) 0.02 K/uL (0.00-0.20); Basophils % (auto) 0.5 %; Eosinophils # (auto) 0.02 K/uL (0.00-0.50); Eosinophils % (auto) 0.5 %; Hematocrit (blood only) 31.4 % (37.0-47.0); Hemoglobin 10.7 g/dl (12.0-16.0); Immature Granulocytes # (auto) 0.01 K/uL (0.01-0.20); Immature Granulocytes % (auto) 0.3 %; Lymphocytes # (auto) 0.82 K/uL (1.20-3.40); Lymphocytes % (auto) 22.5 %; Mean Corpuscular Hgb Conc 34.1 g/dL (32.0-36.0); Mean Platelet Volume 8.4 fL (9.4-12.4); Monocytes # (auto) 0.31 K/uL (0.11-0.59); Monocytes % (auto) 8.5 %; Neutrophils # (auto) 2.46 K/uL (1.40-6.50); Neutrophils % (auto) 67.7 %; Platelet Count 143 K/uL (130-400); RDW Coefficient of Variation 14.9 % (11.5-14.5); RDW Standard Deviation 51.4 fL (36.4-46.3); Red Blood Count 3.34 M/uL (4.20-5.40); White Blood Count 3.64 K/ul (4.8-10.8)
[2024-05-14 03:27] LABS: Calcium 8.5 mg/dl (8.6-10.3); Creatinine Clr Calc Pharmacy 88.9 ml/min; Potassium 3.6 mmol/L (3.5-5.1)
[2024-05-14] MEDS: LORazepam 2 MG/1 ML VIAL IV PRN (04:10)
--- OUTSIDE RECORDS SUMMARY | 2024-05-14 05:32 | External Medical Summary | Summary of Care ---
Author Name Unknown Organization [facility] Address [address] [place] [address] Phone [phone] Care Team Providers Care Ham Curer Name Role Phone Reji Chen DO Primary Care Provider [phone] Reason for Visit * Reason Onset Date Comments Medication Refill 04/26/2024 Encounter Details Date Type Department Care Team (Late st Contact Info) Description 04/26/2024 Refill Family Practice [address], [place] [address] [place] [address] Reji Chen DO [address] [place] [address] ETD (Eustachian tube dysfunction), bilateral; Allergy, initial encounter; Chronic rhinitis Allergies Active Allergy Reactions Criticality Noted Date Comments Amlodipine 07/01/2022 RASH, EDEMA, HEADACHE, Bee Venom Anaphylaxis High 05/29/2017 Blue Dyes (Parenteral) Anaphylaxis,Rash High 022 Red, purple, blue Hydroxyzine 10/10/2022 Latex High 07/30/2018 Anaphalaxis Omeprazole 12/17/2023 Sulfa Antibiotics Anaphylaxis,Hives High 05/29/2017 Diclofenac Sodium 05/10/2022 documented as of this encounter (statuses as of 04/26/2024) Medications Probiotic Acidophilus BioBeads Oral Capsule Take by mouth 1 Capsule 2 times a day . "Women's probiotic" Active Vitamin C 500 MG Oral Tablet (Ascorbic Acid) Take 1 Tablet by mouth in the morning. Active Ibuprofen 200 MG Oral Capsule Take 2 Capsules by mouth every 4 hours as needed. Active Metamucil Smooth Texture 28.3 % Oral Powder (Psyllium) Take by mouth . Active Magnesium Oxide -Mg Supplement 500 MG Oral Tablet Take 1 Tablet by mouth in the morning and 1 Tablet before bedtime. Active Vitamin B 12 500 MCG Oral Tablet Take by mouth every evening. Active Triamcinolone Acetonide 0.1 % External Ointment (Aristocort)Indications :Dermatitis Apply topically to affected area 2 times a day. To affected area. 60 g 5 024 Active Rosuvastatin Calcium 5 MG Oral Tablet (Crestor)Indications:Pu re hypercholesterolemia TAKE 1 TABLET BY MOUTH IN THE MORNING 90 Tablet 1 024 Active ZyrTEC Allergy 10 MG Oral Capsule (Cetirizine HCl) Take 1 Capsule by mouth in the morning. Active Lisinopril 40 MG Oral TabletIndications:HTN, goal below 140/90 Take 1 Tablet by mouth in the morning. 30 Tablet 5 024 Active Additional Information Patient taking differently: 20 mgOral Daily(AM),Twice a day, Reported on 04/23/2024 Famotidine 20 MG Oral Tablet (Pepcid)Indications:Gas troesophageal reflux disease without esophagitis Take 1 Tablet by mouth in the morning. 90 Tablet 3 024 Active Gabapentin 300 MG Oral Capsule (Neurontin)Indications: JOSE (generalized anxiety disorder) Take 1 Capsule by mouth in the morning and 1 Capsule at noon and 1 Capsule before bedtime. 270 Capsule 3 024 Active LORazepam 1 MG Oral Tablet (Ativan)Indications:Unc omplicated alcohol dependence (HCC),JOSE (generalized anxiety disorder) Take 0.5 tablet by mouth in the morning and 0.5 tablet in the afternoon and 1 tablet at bedtime 60 Tablet 1 024 Active DULoxetine HCl 20 MG Oral Capsule Delayed Release Particles (duloxetine)Indications :Moderate episode of recurrent major depressive disorder (HCC) Take 1 Capsule by mouth in the morning. Do not cut, crush or chew. 30 Capsule 5 024 Active tiZANidine HCl 4 MG Oral Tablet (Zanaflex)Indications:C ompression fracture of L2 vertebra, initial encounter ([facility]) Take 1 Tablet by mouth every 8 hours as needed (back pain / muscle spasm). 30 Tablet 025 Active predniSONE 20 MG Oral Tablet (Deltasone)Indications: Acute cough Take 1 Tablet by mouth in the morning for 7 days. 7 Tablet 025 2024 Active Benzonatate 100 MG Oral CapsuleIndications:Acut e cough Take 1 Capsule by mouth 3 times a day as needed for Cough. 30 Capsule 1 025 Active Fluticasone Propionate 50 MCG/ACT Nasal Suspension (Flonase)Indications:ET D (Eustachian tube dysfunction), bilateral,Allergy, initial encounter Administer 2 Sprays into nostril in the morning. 48 mL 3 025 Active Ipratropium [place] 0.03 % Nasal Solution (Atrovent)Indications:C hronic rhinitis Administer 2 Sprays into each nostril in the morning and 2 Sprays at noon and 2 Sprays before bedtime. for runny nose. 30 mL 3 025 Active Amoxicillin-Pot Clavulanate 875-125 MG Oral Tablet (Augmentin) Take 1 Tablet by mouth in the morning and 1 Tablet before bedtime. Do all this for 7 days. 14 Tablet 025 2024 Active Fluticasone Propionate 50 MCG/ACT Nasal Suspension (Flonase)Indications:ET D (Eustachian tube dysfunction), bilateral,Allergy, initial encounter Administer 2 Sprays into nostril in the morning. 48 mL 3 023 2024 Disconti nued(Ref ill) Ipratropium [place] 0.03 % Nasal Solution (Atrovent)Indications:C hronic rhinitis Administer 2 Sprays into each nostril in the morning and 2 Sprays at noon and 2 Sprays before bedtime. for runny nose. 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 07/13/2021 JOSE (generalized anxiety disorder) 06/04/2019 Moderate episode of recurrent major depressive d isorder 06/04/2019 HTN, goal below 140/90 05/29/2017 Pure hypercholesterolemia 05/29/2017 documented as of this encounter (statuses as of 04/26/2024) Resolved Problems Problem Noted Date Diagnosed Date Resolved Date Food insecurity 03/03/2023 06/05/2023 Overview: Per [facility] Protocol Uncomplicated alcohol dependence 07/12/2022 04/06/2024 Overview (04/06/2024): duplicate Calculus of gallbladder with out cholecystitis without obstruction 11/28/2021 03/05/2022 ETD (Eustachian tube dysfunction), bilateral 8 06/04/2019 High risk for fracture due t o osteoporosis by DEXA scan 05/29/2017 12/21/2020 Gastroesophageal reflux disease 05/29/2017 06/04/2019 Allergy 05/29/2017 07/08/2022 Overview (07/22/2018): ICD-10 update of inactive term documented as of this encounter (statuses as of 04/26/2024) Immunizations Name Administration Dates Next Due COVID-19 mRNA, LNP-s, No Pre serve, 2-Dose Series ([employer]) 02/03/2021,06/30/2020,06/02/2020 COVID-19, LNP-s, No Preserve , Aubrey-sucrose, Ages 12+ (Pfizer) 12/11/2021 COVID-19, MRNA-LNP, PF, 30 M CG/0.3 mL, 12 YRS AND ABOVE, IM ([facility]) 04/07/2024,03/14/2023 Covid-19, Mrna, Lnp-s, Pf, B ivalent, 30 Mcg, IM, 12 yrs and above ([employer]) 03/05/2022 Pneumococcal Conjugate Vacc, 13 Valent (Prevnar) 10/04/2016 Pneumococcal Conjugate Vacci ne, 20-valent ([id number]) 02/13/2024 Pneumococcal Polysaccharide PPV23 (Pneumovax) 06/23/2015 RSV Vac., Bivalent, Perfusio n F, Pf,0.5 Ml (Abrysvo) 02/14/2023 Seasonal Influenza, High Dos e, Trivalent, PF, IM (Fluzone HD) 01/30/2024 Seasonal Influenza, PF, 6 M & above, [...] No 06/05/2023 Does the household have a [facility] source of income? (Household - for ages [...] ages 0-17 years) Not on file 06/05/2023 Comments No Sex and Gender Information Value Date Recorded Sex Assigned at Female 11/28/2021 9:25 AM EDT Legal Sex Female 5:42 AM EST Gender Identity Female 11/28/2021 9:25 AM EDT Sexual Orientation Straight 11/28/2021 9: 25 AM EDT documented as of this encounter Miscellaneous Notes * Telephone Encounter - Reji Chen, - 04/26/2024 4:08 PM ESTSigned Prescriptions: Disp Refills Fluticasone Propionate 50 MCG/ACT Nasal Minor*48 mL 3 Sig: Administer 2 Sprays into nostril in the morning.Authorizing Provider: REJI CHEN Ipratropium [place] 0.03 % Nasal Solution *30 mL 3 Sig: Administer 2 Sprays into each nostril in the morning and 2 Sprays at noon and 2 Sprays before bedtime. for runny nose.Authorizing Provider: REJI CHEN * Telephone Encounter - Ingrid Yeh, [facility] - 04/26/2024 4:07 PM ESTPending Prescriptions: Disp Refills Fluticasone Propionate 50 MCG/ACT Nasal Minor*48 mL 3 Sig: Administer 2 Sprays into nostril in the morning. Ipratropium [place] 0.03 % Nasal Solution *30 mL 3 Sig: Administer 2 Sprays into each nostril in the morning and 2 Sprays at noon and 2 Sprays before bedtime. for runny nose. * Telephone Encounter - Ingrid Yeh, [facility] - 04/26/2024 4:01 PM EST Did you pend patient's preferred pharmacy and medication before forwarding?yes Pharmacy: [facility] Pending Prescriptions: Disp Refills Fluticasone Propionate 50 MCG/ACT Nasal S*48 mL 3 Sig: Administer 2 Sprays into nostril in the morning. Ipratropium [place] 0.03 % Nasal Solution*30 mL 3 Sig: Administer 2 Sprays into each nostril in the morning and 2 Sprays at noon and 2 Sprays before bedtime. for runny nose. Last Visit: 04/23/2024 (in office), Visit date not found (telemedicine) Next Visit: 04/28/2024 If no future appointments scheduled, and last appointment is greater than a year ago, please schedule patient for a follow-up appointment Last date the medication was ordered: 02/14/23 and 05/23/23 Is this request for a controlled substance?No Urine Drug Screen:No results found for this or any previous visit. Patient Phone Numbers Labs: Lab Results Component Value Date/Time CREAT 0.7 02/13/2024 11:23 AM CREAT 0.63 03/23/2021 12:00 AM CREAT 0.7 01/22/2019 10:24 AM POTASSIUM 3.8 02/13/2024 11:23 AM POTASSIUM 4.2 03/23/2021 12:00 AM POTASSIUM 4.4 01/22/2019 10:24 AM TSH 2.47 02/13/2024 11:23 AM TSH 2.29 03/24/2015 12:47 PM LDL 68 06/20/2023 02:45 PM LDL 206 (H) 01/22/2019 10:24 AM LDL NOT APPLICABLE 01/22/2019 10:24 AM LDLCALC 84 03/23/2021 12:00 AM ALT 21 02/13/2024 11:23 AM ALT 28 01/22/2019 10:24 AM HGBA1C 5.6 03/23/2021 12:00 AM HGBA1C 5.1 01/22/2019 10:24 AM documented in this encounter Plan of Treatment Upcoming Encounters Date Type Department Care Team (Late st Contact Info) Description 04/27/2024 4:30 PM EST Imaging Radiology [address] [address] 04/28/2024 3:00 PM EST Office Visit Orthopaedics [facility] [address] [address] Tone Paulino MD [address] [phone] 04/28/2024 4:00 PM EST Office Visit Family Practice [address] [place] [address] [address] [place] [address] Reji Chen, DO [address] [place] [address] Health Maintenance Due Date Last Done Comments Colonoscopy 1995 Fecal Occult Blood Test 1995 Sigmoidoscopy 1995 Adult Wellness Visit 02/15/2023 02/15/2022 Mammogram 08/10/2023 08/09/2022, 07/21, 12/08/2020, Additional history exists Cologuard 03/28/2024 03/28/2021, 02/21, 03/20/2021 Colorectal Cancer Screening 03/28/2024 Depression Monitoring 06/19/2024 06/20/2023 DXA Scan 10/09/2024 10/09/2021, 09/20, 09/09/2017 GFR 02/12/2025 02/13/2024, 04/2023, 02/14/2023, Additional history exists HOME BP CUFF VALIDATION YEARLY 02/12/2025 02/13/2024 Albumin/Creatinine Ratio 05/10/2025 023, 03/23/2021, 09/22/2020 DTap/Tdap Vaccines (2 - Td or Tdap) 10/04/2026 10/04/2016, 11/19/2003 Lipid Panel 06/19/2028 06/20/2023, 04/22, 03/23/2021, Additional history exists Zoster Vaccines Completed 02/21/2020, 05/2019, 02/17/2014 Influenza Vaccine (FLU shot) Completed 02/2024, 02/14/2023, 01/16/2022, Additional history exists Pneumococcal Vaccine: 50+ Years Completed 02/13/2024, 10/04/2016, 06/23/2015 COVID-19 Vaccine Completed 04/07/2024, , 03/05/2022, Additional history exists HPV (Gardasil) Vaccine Aged Out No lo [...] as of this encounter Visit Diagnoses Diagnosis ETD (Eustachian tube dysfunction), bilateral Allergy, initial encounter Chronic rhinitis documented in this encounter Care Teams Ham Curer Relationship Specialty Start Date End Date Reji Chen DO [address] [place] [address] PCP - General Internal Medicine 10/31/23 documented as of this encounter
--- OUTSIDE RECORDS SUMMARY | 2024-05-14 05:32 | External Medical Summary | Summary of Care ---
Author Name Unknown Organization [facility] Address [address] [place] [address] Phone [phone] Care Team Providers Care Genetics Nurse Name Role Phone Dominic Chen DO Primary Care Provider [phone] Encounter Details Date Type Department Care Team (Late st Contact Info) Description 05/10/2024 Population Health External Data Unspecified Department Allergies Active Allergy Reactions Criticality Noted Date Comments Amlodipine 07/01/2022 RASH, EDEMA, HEADACHE, Bee Venom Anaphylaxis High 05/29/2017 Blue Dyes (Parenteral) Anaphylaxis,Rash High 022 Red, purple, blue Hydroxyzine 10/10/2022 Latex High 07/30/2018 Anaphalaxis Omeprazole 12/17/2023 Sulfa Antibiotics Anaphylaxis,Hives High 05/29/2017 Diclofenac Sodium 05/10/2022 documented as of this encounter (statuses as of 05/10/2024) Medications Probiotic Acidophilus BioBeads Oral Capsule Take [...] 20 mgOral Daily(AM),Twice a day, Reported on 05/04/2024 Famotidine 20 MG Oral Tablet (Pepcid)Indications:Gas troesophageal [...] or chew. 30 Capsule 5 024 Active Additional Information Patient not taking.Reported on 05/04/2024 tiZANidine HCl 4 MG Oral Tablet (Zanaflex)Indications:C ompression fracture of L2 vertebra, initial encounter ([facility]) Take 1 Tablet by mouth every 8 hours as needed (back pain / muscle spasm). 30 Tablet 025 Active Benzonatate 100 MG Oral CapsuleIndications:Acut e cough Take 1 Capsule by mouth 3 times a day as needed for Cough. 30 Capsule 1 025 Active Fluticasone Propionate 50 MCG/ACT Nasal Suspension (Flonase)Indications:ET D (Eustachian tube dysfunction), bilateral,Allergy, initial encounter Administer 2 Sprays into nostril in the morning. 48 g 3 5 11:05 AM EST 025 Active Ipratropium [place] 0.03 % Nasal Solution (Atrovent)Indications:C hronic rhinitis Administer 2 Sprays into each nostril in the morning and 2 Sprays at noon and 2 Sprays before bedtime. for runny nose. 30 mL 3 5 11:05 AM EST 025 Active documented as of this encounter (statuses as of 05/10/2024) Active Problems Problem Noted Date Diagnosed Date [...] as of this encounter (statuses as of 05/10/2024) Resolved Problems Problem Noted Date Diagnosed Date [...] as of this encounter (statuses as of 05/10/2024) Immunizations Name Administration Dates Next Due COVID-19 mRNA, LNP-s, No Pre serve, 2-Dose Series ([employer]) 02/03/2021,06/30/2020,06/02/2020 COVID-19, LNP-s, No Preserve , Aubrey-sucrose, Ages 12+ ([employer]) 12/11/2021 COVID-19, MRNA-LNP, PF, 30 M CG/0.3 mL, 12 YRS AND ABOVE, IM ([facility]) 04/07/2024,03/14/2023 Covid-19, Mrna, Lnp-s, Pf, B ivalent, 30 Mcg, IM, 12 yrs and above ([employer]) 03/05/2022 Pneumococcal Conjugate Vacc, 13 Valent (Prevnar) 10/04/2016 Pneumococcal Conjugate Vacci ne, 20-valent ([id number]) 02/13/2024 Pneumococcal Polysaccharide PPV23 (Pneumovax) 06/23/2015 RSV [...] Date Recorded PHQ Adult Total Score 0 05/04/2024 Hunger Vital Sign Answer Date Recorded Within the past 12 months, y ou worried that your food would run out before you got the money to buy more. Never true 05/04/19 25 Within the past 12 months, t he food you bought just didn't last and you didn't have money to get more. Never true 05/04/2024 Childcare Answer Date Recorded Do you feel overwhelmed with taking care of a child, family member or friend? No 05/04/2024 Does your family need help f inding childcare? (Household - for ages 0-17 years) Not on file 05/04/2024 Clothing Answer Date Recorded Have you been unable to get clothing when it was really needed? No 05/04/2024 Is your family able to get c lothes or diapers when needed? (Household - for ages 0-17 years) Not on file 05/04/2024 Personal Safety Answer Date Recorded Do you feel unsafe or have concerns for your saf ety? No 05/04/2024 Do you have concerns for you r family's safety? (Household - for ages 0-17 years) Not on file 05/04/2024 Utilities Answer Date Recorded Do you have trouble paying y our heating, water, or electric bill? No 05/04/2024 Is your family able to pay t he heat, water, or electric bill? (Household - for ages 0-17 years) Not on file 05/04/2024 Does your family have access to good internet? (Household - for ages 0-17 years) Not on file 05/04/2024 Employment Status Answer Date Recorded Are you unemployed or without regular income? No 05/04/2024 Does the household have a re gular source of income? (Household - for ages 0-17 years) Not on file 05/04/2024 Social Connections Answer Date Recorded How often do you feel lonely or isolated from th ose around you? Never 05/04/2024 Financial Resource Strain Answer Date R ecorded Do you have any trouble payi ng for your medications, or do you think you might in the future? No 05/04/2024 Does your family have troubl e paying for medicine? (Household - for ages 0-17 years) Not on file 05/04/2024 Transportation Needs Answer Date Record ed READ ONLY Do you have troubl e getting a ride to medical visits or work? Sometimes True 05/04/2024 Does your family have a hard time getting a ride to doctors visits? (Household - for ages 0-17 years) Not on file 05/04/2024 Has lack of transportation k ept you from medical appointments, meetings, work, or from getting things needed for daily living? Check all that apply. No 025 Do you (or your family) have trouble finding or paying for a ride (transportation)? (Household - for ages 0-17 years) Not on file 05/04/2024 Housing Stability Answer Date Recorded Do you currently live in a s helter or have no steady place to sleep at night? No 05/04/2024 READ ONLY Do you think you a re at risk of becoming homeless? No 05/04/2024 Does your family worry about paying for your home or becoming homeless? (Household - for ages 0-17 years) Not on file 0 05/04/2024 Are you homeless or worried that you might be in the future? No 05/04/2024 Are you (or your family) alfonso eless or worried that you might be in the future? (Household - for ages 0-17 years) Not on file Food Insecurity Answer Date Recorded Do you need food for this week? No 05/04/2024 Are you able to get enough f ood for your family? (Household - for ages 0-17 years) Not on file 05/04/2024 Does your family need food t his week? (Household - for ages 0-17 years) Not on file 05/04/2024 Do you always have enough fo od for your family? (Household - for ages 0-17 years) Not on file 05/04/2024 Comments No Sex and Gender Information Value Date Recorded Sex Assigned at Female 11/28/2021 9:25 AM EDT Legal Sex Female 5:42 AM EST Gender Identity Female 11/28/2021 9:25 AM EDT Sexual Orientation Straight 11/28/2021 9: 25 AM EDT documented as of this encounter Plan of Treatment Upcoming Encounters Date Type Department Care Team (Late st Contact Info) Description 05/12/2024 7:30 AM EST Imaging Radiology [address] [place] [phone] 05/12/2024 8:00 AM EST Office Visit Orthopaedics [facility] [address] [place] [phone] Tone Paulino MD [address] [place] [phone] 05/12/2024 9:20 AM EST Office Visit Family Practice [address] [place] [address] [address] [place] [address] Dominic Chen, [address] [place] [address] Health Maintenance Due Date Last Done Comments Colonoscopy 1995 Fecal Occult Blood Test 1995 Sigmoidoscopy 1995 Adult Wellness Visit 02/15/2023 02/15/2022 Mammogram 08/10/2023 08/09/2022, 07/21, 12/08/2020, Additional history exists Cologuard 03/28/2024 03/28/2021, 02/21, 03/20/2021 Colorectal Cancer Screening 03/28/2024 DXA Scan 10/09/2024 10/09/2021, 09/20, 09/09/2017 GFR 02/12/2025 02/13/2024, 03/04/2023, 02/14/2023, Additional history exists HOME BP CUFF VALIDATION YEARLY 02/12/2025 02/13/2024 Depression Monitoring 05/04/2025 05/04/2024 Albumin/Creatinine Ratio 05/10/2025 023, 03/23/2021, 09/22/2020 DTap/Tdap [...] filedocumented as of this encounter Care Teams Genetics Nurse Relationship Specialty Start Date End Date Dominic Chen DO [address] [facility] [place] [address] PCP - General Internal Medicine 10/31/23 documented as of this encounter
--- OUTSIDE RECORDS SUMMARY | 2024-05-14 05:32 | External Medical Summary | Summary of Care ---
Author Name Unknown Organization [facility] Address [address] [place] [address] Phone [phone] Care Team Providers Care Staff Nuclear Medicine Technologist Name Role Phone Dominic Chen DO Primary Care Provider [phone] Reason for Visit * Reason Onset Date Comments Test Results 04/26/202404/26 Encounter Details Date Type Department Care Team (Late st Contact Info) Description 04/26/2024 Telephone Family Practice [address], [place] [address] [place] [address] Dominic Chen DO [address] [place] [address] Test Results (04/26) Allergies Active Allergy Reactions Criticality Noted Date [...] in the morning. 48 mL 3 023 Active Ipratropium [place] 0.03 % Nasal Solution (Atrovent)Indications:C hronic rhinitis Administer 2 Sprays into each nostril in the morning and 2 Sprays at noon and 2 Sprays before bedtime. for runny nose. 30 mL 3 024 Active Magnesium Oxide -Mg Supplement 500 MG Oral Tablet Take 1 Tablet by mouth in the morning and 1 Tablet before bedtime. 024 Active Vitamin B 12 500 MCG Oral Tablet Take by mouth every evening. 024 Active Triamcinolone Acetonide 0.1 % External Ointment [...] ompression fracture of L2 vertebra, initial encounter ([facility]) Take 1 Tablet by mouth every 8 [...] for Cough. 30 Capsule 1 025 Active documented as of this encounter [...] mRNA, LNP-s, No Pre serve, 2-Dose Series ([employer]) 02/03/2021,06/30/2020,06/02/2020 COVID-19, LNP-s, No Preserve , Aubrey-sucrose, Ages 12+ ([employer]) 12/11/2021 COVID-19, MRNA-LNP, PF, 30 M CG/0.3 mL, 12 YRS AND ABOVE, IM ([facility] 04/07/2024,03/14/2023 Covid-19, Mrna, Lnp-s, Pf, B ivalent, 30 Mcg, IM, 12 yrs and above ([employer]) 03/05/2022 Pneumococcal Conjugate Vacc, 13 Valent (Prevnar) 10/04/2016 Pneumococcal Conjugate Vacci ne, 20-valent ([id number]) 02/13/2024 Pneumococcal Polysaccharide PPV23 (Pneumovax) 06/23/2015 RSV [...] encounter Miscellaneous Notes * Telephone Encounter - Lucia Rodriguez LPN - 04/26/2024 1:53 PM EST Call placed to patient and relayed information from Dr. Chen. Pt acknowledged understanding. * Telephone Encounter - Lucia Rodriguez LPN - 04/26/2024 1:53 PM EST ----- Message from Dominic Chen DO sent at 04/25/2024 10:08 AM EST ----- Flu, COVID, and RSV testing are negative. documented in this encounter Plan of Treatment Upcoming Encounters Date Type Department Care Team (Late st Contact Info) Description 04/27/2024 4:30 PM EST Imaging Radiology [address] [place] [address] 04/28/2024 3:00 PM EST Office Visit Orthopaedics [facility] [address] [place] [address] Tone Paulino MD [address] [place] [phone] 04/28/2024 4:00 PM EST Office Visit Family Practice [address] [place] [address] [place] [phone] Dominic Chen DO 293 [place] [address] Health Maintenance Due Date Last Done Comments [...] filedocumented as of this encounter Care Teams Staff Nuclear Medicine Technologist Relationship Specialty Start Date End Date Dominic Chen DO [address] [place] [address] PCP - General Internal Medicine 10/31/23 documented as of this encounter
--- OUTSIDE RECORDS SUMMARY | 2024-05-14 05:32 | External Medical Summary | Summary of Care ---
Author Name Unknown Organization [facility] Address [address] [place] [address] Phone [phone] Care Team Providers Care Vine Pruner Name Role Phone Dominic Chen DO Primary Care Provider Reason for Visit * Reason Comments eRx-Medication Refill Encounter Details Date Type Department Care Team (Late st Contact Info) Description 04/26/2024 Refill Family Practice [address], [place] [address] [place] [phone] Dominic Chen DO [address] [place] [address] Uncomplicated alcohol dependence (HCC); JOSE (generalized anxiety disorder) Allergies Active Allergy Reactions Criticality Noted Date Comments Amlodipine 07/01/2022 RASH, EDEMA, HEADACHE, Bee Venom Anaphylaxis High 05/29/2017 Blue Dyes (Parenteral) Anaphylaxis,Rash High 022 Red, purple, blue Hydroxyzine 10/10/2022 Latex High 07/30/2018 Anaphalaxis Omeprazole 12/17/2023 Sulfa Antibiotics Anaphylaxis,Hives High 05/29/2017 Diclofenac Sodium 05/10/2022 documented as of this encounter (statuses as of 04/27/2024) Medications Probiotic Acidophilus BioBeads Oral Capsule Take [...] ompression fracture of L2 vertebra, initial encounter ([facility]) Take 1 Tablet by mouth every 8 [...] morning. 48 mL 3 025 Active Ipratropium [place] 0.03 % Nasal Solution (Atrovent)Indications:C hronic rhinitis [...] 7 days. 14 Tablet 025 2024 Active documented as of this encounter (statuses as of 04/27/2024) Active Problems Problem Noted Date Diagnosed Date [...] as of this encounter (statuses as of 04/27/2024) Resolved Problems Problem Noted Date Diagnosed Date [...] as of this encounter (statuses as of 04/27/2024) Immunizations Name Administration Dates Next Due COVID-19 mRNA, LNP-s, No Pre serve, 2-Dose Series ([employer]) 02/03/2021,06/30/2020,06/02/2020 COVID-19, LNP-s, No Preserve , Aubrey-sucrose, Ages 12+ ([employer]) 12/11/2021 COVID-19, MRNA-LNP, PF, 30 M CG/0.3 mL, 12 YRS AND ABOVE, IM ([facility]) 04/07/2024,03/14/2023 Covid-19, Mrna, Lnp-s, Pf, B ivalent, 30 Mcg, IM, 12 yrs and above ([employer]) 03/05/2022 Pneumococcal Conjugate Vacc, 13 Valent (Prevnar) 10/04/2016 Pneumococcal Conjugate Vacci ne, 20-valent ([id number]) 02/13/2024 Pneumococcal Polysaccharide PPV23 (Pneumovax) 06/23/2015 RSV [...] encounter Miscellaneous Notes * Telephone Encounter - Faby Lee RPh - 04/27/2024 2:54 PM EST Refused Prescriptions: Disp Refills LORazepam 1 MG Oral Tablet (Ativan) 60 Tab*1 Sig: Take 1/2 tablet by mouth in the morning and 1/2 tablet in the afternoon and 1 tablet at bedtimeRefused By: FABY LEE for Refusal: Too soonReason for Refusal Comment: last filled on 04/26/24-------- documented in this encounter Plan of Treatment Health Maintenance Due Date Last Done Comments [...] disorder documented in this encounter Care Teams Vine Pruner Relationship Specialty Start Date End Date Dominic Chen DO [address] [place] [address] PCP - General Internal Medicine 7/12/24 documented as of this encounter
--- OUTSIDE RECORDS SUMMARY | 2024-05-14 05:32 | External Medical Summary | Summary of Care ---
Author Name Unknown Organization [facility] Address [address] [place] [address] Phone [phone] Care Team Providers Care Ambulatory Technologist Name Role Phone Dominic Chen DO Primary Care Provider [phone] Reason for Visit * Reason Onset Date Comments Appointment 05/04/2024 Encounter Details Date Type Department Care Team (Late st Contact Info) Description 05/04/2024 Telephone Family Practice [address] [facility] [place] [address] [place] [address] Doimnic Chen DO [address] [place] [address] Appointment Allergies Active Allergy Reactions Criticality Noted Date Comments Amlodipine 07/01/2022 RASH, EDEMA, HEADACHE, Bee Venom Anaphylaxis High 05/29/2017 Blue Dyes (Parenteral) Anaphylaxis,Rash High 022 Red, purple, blue Hydroxyzine 10/10/2022 Latex High 07/30/2018 Anaphalaxis Omeprazole 12/17/2023 Sulfa Antibiotics Anaphylaxis,Hives High 05/29/2017 Diclofenac Sodium 05/10/2022 documented as of this encounter (statuses as of 05/05/2024) Medications Probiotic Acidophilus BioBeads Oral Capsule Take [...] ompression fracture of L2 vertebra, initial encounter ([facility]) Take 1 Tablet by mouth every 8 [...] 5 11:05 AM EST 025 Active Ipratropium [place] 0.03 % Nasal Solution (Atrovent)Indications:C hronic rhinitis Administer 2 Sprays into each nostril in the morning and 2 Sprays at noon and 2 Sprays before bedtime. for runny nose. 30 mL 3 5 11:05 AM EST 025 Active documented as of this encounter (statuses as of 05/05/2024) Active Problems Problem Noted Date Diagnosed Date [...] as of this encounter (statuses as of 05/05/2024) Resolved Problems Problem Noted Date Diagnosed Date [...] as of this encounter (statuses as of 05/05/2024) Immunizations Name Administration Dates Next Due COVID-19 mRNA, LNP-s, No Pre serve, 2-Dose Series ([employer]) 02/03/2021,06/30/2020,06/02/2020 COVID-19, LNP-s, No Preserve , Aubrey-sucrose, Ages 12+ ([employer]) 12/11/2021 COVID-19, MRNA-LNP, PF, 30 M CG/0.3 mL, 12 YRS AND ABOVE, IM ([employer] 04/07/2024,03/14/2023 Covid-19, Mrna, Lnp-s, Pf, B ivalent, 30 Mcg, IM, 12 yrs and above ([employer]) 03/05/2022 Pneumococcal Conjugate Vacc, 13 Valent (Prevnar) 10/04/2016 Pneumococcal Conjugate Vacci ne, 20-valent ([id number]) 02/13/2024 Pneumococcal Polysaccharide PPV23 (Pneumovax) 06/23/2015 RSV [...] money to buy more. Never true 05/04/19 Within the past 12 months, t he [...] encounter Miscellaneous Notes * Telephone Encounter - Yandy Billingsley RN - 05/04/2024 2:19 PM EST [address] staff: please call to reschedule patient's PCP follow up with Dr. Chen; she had to cancel last week's appt due to feeling ill. Also, please schedule for patient to get CT scan of her back, preferably before her appt with Dr. Chen. Also,please set up appt for patient at [facility] after CT scan has been completed (if possible). Patient reports fall and she had x-rays done and reports from Dr. Chen on 04/12: "Patient has L2 compression fracture. Bilateral shoulder arthritis and mild left hip arthritis on x-rays. Refer to Orthopedics for shoulder pain Needs CT of the Lumbar Spine" Patient lives in [place] and wants to try and have multiple appts on the same day, if possible. Thank you so much! documented in this encounter Plan of Treatment Upcoming Encounters Date Type Department Care Team (Late st Contact Info) Description 05/12/2024 7:30 AM EST Imaging Radiology [facility] [facility] [address] [place] [phone] 05/12/2024 8:00 AM EST Office Visit Orthopaedics [facility] [address] [place] [phone] Tone Paulino MD [address] [place] [phone] 05/12/2024 9:20 AM EST Office Visit Family Practice [address], [place] [address] [place] [address] Dominic Chen, 293 [place] [address] Health Maintenance Due Date Last Done Comments Colonoscopy 1995 Fecal Occult Blood Test 1995 Sigmoidoscopy 1995 Adult Wellness Visit 02/15/2023 02/15/2022 Mammogram 08/10/2023 08/09/2022, 07/21, 12/08/2020, Additional history exists Cologuard 03/28/2024 03/28/2021, 02/21, 03/20/2021 Colorectal Cancer Screening 03/28/2024 DXA Scan 10/09/2024 10/09/2021, 09/20, 09/09/2017 GFR 02/12/2025 02/13/2024, 03/0 04/2023, 02/14/2023, Additional history exists HOME BP [...] filedocumented as of this encounter Care Teams Ambulatory Technologist Relationship Specialty Start Date End Date Dominic Chen DO [address] [place] [address] PCP - General Internal Medicine 10/31/23 documented as of this encounter
--- OUTSIDE RECORDS SUMMARY | 2024-05-14 05:33 | External Medical Summary | Summary of Care ---
Author Name Unknown Organization [facility] Address [address] [place] [address] Phone [phone] Care Team Providers Care 6Th Grade Teacher Name Role Phone Dominic Chen DO Primary Care Provider [phone] Reason for Visit * Reason Comments Acute Encounter Details Date Type Department Care Team (Latest Contact Info) Description 04/23/2024 9:40 AM EST Office Visit Family Practice [address] [facility], [place] [address] [place] [address] Dominic Chen DO [address] [place] [address] Acute cough*; Compression fracture of L2 vertebra, initial encounter ([facility]); Primary osteoarthritis of both shoulders; Moderate episode of recurrent major depressive disorder ([facility]); JOSE (generalized anxiety disorder); HTN, goal below 140/90; Hyperparathyroidism, primary ([facility]); Pure hypercholesterolemia; Alcohol dependence, continuous ([facility]) Allergies Active Allergy Reactions Criticality Noted Date Comments Amlodipine 07/01/2022 RASH, EDEMA, HEADACHE, Bee Venom Anaphylaxis High 05/29/2017 Blue Dyes (Parenteral) Anaphylaxis,Rash High 022 Red, purple, blue Hydroxyzine 10/10/2022 Latex High 07/30/2018 Anaphalaxis Omeprazole 12/17/2023 Sulfa Antibiotics Anaphylaxis,Hives High 05/29/2017 Diclofenac Sodium 05/10/2022 documented as of this encounter (statuses as of 04/23/2024) Medications Probiotic Acidophilus BioBeads Oral Capsule Take [...] morning. 48 mL 3 023 Active Ipratropium Wells 0.03 % Nasal Solution (Atrovent)Indications:C hronic rhinitis [...] initial encounter ([facility]) Take 1 Tablet by mouth every 8 [...] for Cough. 30 Capsule 1 025 Active tiZANidine HCl 4 MG Oral Tablet (Zanaflex)Indications:C ompression fracture of L2 vertebra, initial encounter ([facility]) Take 1 Tablet by mouth every 8 hours as needed (back pain / muscle spasm). 30 Tablet 024 2024 Disconti nued(Ref ill) documented as of this encounter (statuses as of 04/23/2024) Active Problems Problem Noted Date Diagnosed Date [...] as of this encounter (statuses as of 04/23/2024) Resolved Problems Problem Noted Date Diagnosed Date [...] as of this encounter (statuses as of 04/23/2024) Immunizations Name Administration Dates Next Due COVID-19 mRNA, LNP-s, No Pre serve, 2-Dose Series ([employer]) 02/03/2021,06/30/2020,06/02/2020 COVID-19, LNP-s, No Preserve , Aubrey-sucrose, Ages 12+ ([employer]) 12/11/2021 COVID-19, MRNA-LNP, PF, 30 M CG/0.3 mL, 12 YRS AND ABOVE, IM ([facility]) 04/07/2024,03/14/2023 Covid-19, Mrna, Lnp-s, Pf, B ivalent, 30 Mcg, IM, 12 yrs and above ([employer]) 03/05/2022 Pneumococcal Conjugate Vacc, 13 Valent (Prevnar) 10/04/2016 Pneumococcal Conjugate Vacci ne, 20-valent ([id number]) 02/13/2024 Pneumococcal Polysaccharide PPV23 (Pneumovax) 06/23/2015 RSV [...] AM EDT documented as of this encounter Last Filed Vital Signs Vital Sign Reading Time Taken Comments Blood Pressure 160/92 04/23/2024 9:56 AM EST Pulse 72 04/23/2024 9:56 AM EST Temperature 36.7 C (98.1 F) 04/23/2024 9:56 AM ES T Respiratory Rate 16 04/23/2024 9:56 AM EST Oxygen Saturation 99% 04/23/2024 9:56 AM EST Inhaled Oxygen Concentration - - Weight 69.8 kg (153 lb 14.4 oz) 04/23/2024 9:56 AM EST Height 166.4 cm (5' 5.5") 04/23/2024 9:56 AM EST Body Mass Index 25.22 04/23/2024 9:56 AM EST documented in this encounter Progress Notes * Dominic Chen DO - 04/23/2024 10:49 AM EST SUBJECTIVE: Anupama Caraballo is a 73 year old female. Chief Complaint Patient presents with Acute HPI: Patient is a 73 year old female with a history of HTN, Hyperlipidemia, GERD, Allergic Rhinitis, Alcohol Addiction, Hiatal Hernia, elevated PTH, Anxiety, and NABEEL exposure in Utero that is seen for productive cough that has been present for 1 week. The patient has nasal drainage, myalgias, fatigue, and sore throat. DIarrhea is unchanged. The patient has diarrhea since starting Paroxetine. Paroxetine was stopped on 04/07. No chest pain or shortness of breath are present. No alcohol intake since hospitalization in 11/2023. Patient fell 2 week ago and has bilateral shoulder pain,left hip pain, and low back pain since falling. 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 "Women's probiotic" Vitamin C 500 MG Oral Tablet (Ascorbic Acid) Take 1 Tablet by mouth in the morning. Ibuprofen 200 MG Oral Capsule Take 2 Capsules by mouth every 4 hours as needed. Metamucil Smooth Texture 28.3 % Oral Powder (Psyllium) Take by mouth . Fluticasone Propionate 50 MCG/ACT Nasal Suspension (Flonase) Administer 2 Sprays into nostril in the morning. 48 mL 3 Ipratropium Wells 0.03 % Nasal Solution (Atrovent) Administer 2 Sprays into each nostril in the morning and 2 Sprays at noon and 2 Sprays before bedtime. for runny nose. 30 mL 3 Magnesium Oxide -Mg Supplement 500 MG Oral Tablet Take 1 Tablet by mouth in the morning and 1 Tablet before bedtime. Vitamin B 12 500 MCG Oral Tablet Take by mouth every evening. Triamcinolone Acetonide 0.1 % External Ointment (Aristocort) Apply topically to affected area 2 times a day. To affected area. 60 g 5 Rosuvastatin Calcium 5 MG Oral Tablet (Crestor) TAKE 1 TABLET BY MOUTH IN THE MORNING 90 Tablet 1 ZyrTEC Allergy 10 MG Oral Capsule (Cetirizine HCl) Take 1 Capsule by mouth in the morning. Lisinopril 40 MG Oral Tablet Take 1 Tablet by mouth in the morning. (Patient taking differently: Take 0.5 Tablets by mouth in the morning. Twice a day .) 30 Tablet 5 Famotidine 20 MG Oral Tablet (Pepcid) Take 1 Tablet by mouth in the morning. 90 Tablet 3 Gabapentin 300 MG Oral Capsule (Neurontin) Take 1 Capsule by mouth in the morning and 1 Capsule at noon and 1 Capsule before bedtime. 270 Capsule 3 LORazepam 1 MG Oral Tablet (Ativan) Take 0.5 tablet by mouth in the morning and 0.5 tablet in the afternoon and 1 tablet at bedtime 60 Tablet 1 DULoxetine HCl 20 MG Oral Capsule Delayed Release Particles (duloxetine) Take 1 Capsule by mouth inthe morning. Do not cut, crush or chew. 30 Capsule 5 tiZANidine HCl 4 MG Oral Tablet (Zanaflex) Take 1 Tablet by mouth every 8 hours as needed (back pain / muscle spasm). 30 Tablet 0 predniSONE 20 MG Oral Tablet (Deltasone) Take 1 Tablet by mouth in the morning for 7 days. 7 Tablet0 Benzonatate 100 MG Oral Capsule Take 1 Capsule by mouth 3 times a day as needed for Cough. 30 Capsule 1 No current facility-administered medications for this visit. [...] performed by Maryam Nguyen MD at ENDOSCOPY [facility] LAPAROSCOPY; CHOLECYSTECTOMY N/A 12/25/2021 LAPAROSCOPY; REPAIR INITIAL INGUINAL HERNIA Right LIGATE/CUT OVIDUCT(S) [place] LAP, VENTRAL HERNIA REPAIR,REDUCIBLE N/A 12/25/2021 SKELETAL FIXATION OF ANKLE FRACTURE Right Review of patient's allergies indicates: Allergen Reactions Bee Venom Anaphylaxis Blue Dyes (Parenteral) Anaphylaxis and Rash Red, purple, blue Latex Anaphalaxis Sulfa Antibiotics Anaphylaxis and Hives Amlodipine RASH, EDEMA, HEADACHE, Hydroxyzine Prilosec [Omeprazole] Voltaren [Diclofenac Sodium] Review of Systems Constitutional: Positive for appetite change, chills, fatigue and fever. HENT: Positive for congestion, rhinorrhea and sore throat. Respiratory: Positive for cough. Negative for shortness of breath and wheezing. Cardiovascular: Negative for chest pain, palpitations and leg swelling. Gastrointestinal: Negative for abdominal pain, blood in stool, constipation, diarrhea, nausea and vomiting. Genitourinary: Negative for dysuria, frequency and hematuria. Musculoskeletal: Positive for back pain. Bilateral shoulder pain Neurological: Positive for headaches. Negative for dizziness and syncope. Psychiatric/Behavioral: Positive for dysphoric mood. Negative for confusion, decreased concentration and sleep disturbance. OBJECTIVE: BP 160/92 (BP Site: Left Arm, BP Position: Sitting, BP Cuff Size: Regular) | Pulse 72 | Temp 98.1 F (36.7 C) (Tympanic) | Resp 16 | Ht 5' 5.5" (1.664 m) | Wt 153 lb 14.4 oz (69.8 kg) | SpO2 99% |BMI 25.22 kg/m | BSA 1.8 m Physical Exam Vitals and nursing note reviewed. Constitutional: General: She is not in acute distress. Appearance: Normal appearance. She is not toxic-appearing. HENT: Head: Normocephalic and atraumatic. Cardiovascular: Rate and Rhythm: Normal rate and regular rhythm. Heart sounds: Normal heart sounds. No murmur heard. No gallop. Pulmonary: Effort: No respiratory distress. Breath sounds: Wheezing present. No rhonchi or rales. Abdominal: General: Bowel sounds [...] and Affect: Mood normal. Behavior: Behavior normal. PLAN AND ASSESSMENT: Acute cough (Primary) - INFLUENZA A/B RSV SARS-COV2,PCR; Future; Expected date: 04/23/2024 - INFLUENZA A/B RSV SARS-COV2,PCR - predniSONE 20 MG Oral Tablet (Deltasone); Take 1 Tablet by mouth in the morning for 7 days. - Benzonatate 100 MG Oral Capsule; Take 1 Capsule by mouth 3 times a day as needed for Cough. Compression fracture of L2 vertebra, initial encounter (HCC) - tiZANidine HCl 4 MG Oral Tablet (Zanaflex); Take 1 Tablet by mouth every 8 hours as needed (back pain / muscle spasm). Primary osteoarthritis of both shoulders Moderate episode of recurrent major depressive disorder (HCC) Continue Duloxetine JOSE (generalized anxiety disorder) Continue Lorazepam HTN, goal below 140/90 Continue Lisinopril Hyperparathyroidism, primary ([facility]) Pure hypercholesterolemia Continue Rosuvastatin Alcohol dependence, continuous ([facility]) Follow-up: Return in about 5 days (around 04/28/2024), or if symptoms worsen or fail to improve. | Check-out note: Make sure CT lumbar spine is scheduled Dominic Chen DO 10:49 AM 04/23/2024 documented in this encounter Nursing Notes * Lucia Rodriguez LPN - 04/23/2024 9:55 AM EST Patient here for acute visit. Reports constant cough, runny nose, headache, diarrhea, sore throat, fever, body aches. States symptoms started on . States she is unable to sleep d/t symptoms. documented in this encounter Plan of Treatment Upcoming Encounters Date Type Department Care Team (Late st Contact Info) Description 04/27/2024 4:30 PM EST Imaging Radiology [facility] [address] [place] [address] 04/28/2024 3:00 PM EST Office Visit Orthopaedics [address] [place] [address] Tone Paulino MD [address] [place] [phone] 04/28/2024 4:00 PM EST Office Visit Family Practice [address], [place] [address] [place] [address] Dominic Chen, [address] [facility] [place] [address] Pending Results Name Type Priority Associated Diagnoses Date /Time INFLUENZA A/B RSV SARS-COV2,PCR Lab Routine Acute cough 04/23/2024 10:18 AM EST Scheduled Orders Name Type Priority Associated Diagnoses Orde r Schedule INFLUENZA A/B RSV SARS-COV2,PCR Lab Routine Acute cough Expected: 04/23/2024 (Approximate), Expires: 04/23/2025 Health Maintenance Due Date Last Done Comments [...] as of this encounter Visit Diagnoses Diagnosis Acute cough- Primary Compression fracture of L2 vertebra, initial encounter (HCC) Primary osteoarthritis of both shoulders Moderate episode of recurrent major depressive disorder (HCC) JOSE (generalized anxiety disorder) Generalized anxiety disorder HTN, goal below 140/90 Unspecified essential hypertension Hyperparathyroidism, primary (HCC) Primary hyperparathyroidism Pure hypercholesterolemia Alcohol dependence, continuous (HCC) Other and unspecified alcohol dependence, continuous drinking behavior documented in this encounter Care Teams 6Th Grade Teacher Relationship Specialty Start Date End Date Dominic Chen DO [address] [place] [address] PCP - General Internal Medicine 10/31/23 documented as of this encounter
--- OUTSIDE RECORDS SUMMARY | 2024-05-14 05:33 | External Medical Summary | Summary of Care ---
Author Name Unknown Organization [facility] Address [address] [place] [address] Phone [phone] Care Team Providers Care Sand Caster Name Role Phone Dominic Chen DO Primary Care Provider [phone] Reason for Visit * Reason Onset Date Comments Test Results 04/16/2024 Encounter Details Date Type Department Care Team (Late st Contact Info) Description 04/16/2024 Telephone Family Practice [address], [place] [address] [place] [address] Dominic Chen DO [address] [place] [address] Test Results Allergies Active Allergy Reactions Criticality Noted Date Comments Amlodipine 07/01/2022 RASH, EDEMA, HEADACHE, Bee Venom Anaphylaxis High 05/29/2017 Blue Dyes (Parenteral) Anaphylaxis,Rash High 022 Red, purple, blue Hydroxyzine 10/10/2022 Latex High 07/30/2018 Anaphalaxis Omeprazole 12/17/2023 Sulfa Antibiotics Anaphylaxis,Hives High 05/29/2017 Diclofenac Sodium 05/10/2022 documented as of this encounter (statuses as of 04/16/2024) Medications Probiotic Acidophilus BioBeads Oral Capsule Take [...] morning. 48 mL 3 023 Active Ipratropium Sublimity 0.03 % Nasal Solution (Atrovent)Indications:C hronic rhinitis [...] 20 mgOral Daily(AM),Twice a day, Reported on 04/07/2024 Famotidine 20 MG Oral Tablet (Pepcid)Indications:Gas troesophageal [...] fracture of L2 vertebra, initial encounter ([facility]) Take 1 Tablet by mouth every 8 hours as needed (back pain / muscle spasm). 30 Tablet 024 Active documented as of this encounter (statuses as of 04/16/2024) Active Problems Problem Noted Date Diagnosed Date [...] as of this encounter (statuses as of 04/16/2024) Resolved Problems Problem Noted Date Diagnosed Date [...] as of this encounter (statuses as of 04/16/2024) Immunizations Name Administration Dates Next Due COVID-19 mRNA, LNP-s, No Pre serve, 2-Dose Series ([employer]) 02/03/2021,06/30/2020,06/02/2020 COVID-19, LNP-s, No Preserve , Aubrey-sucrose, Ages 12+ ([employer]) 12/11/2021 COVID-19, MRNA-LNP, PF, 30 M CG/0.3 mL, 12 YRS AND ABOVE, IM ([facility]) 04/07/2024,03/14/2023 Covid-19, Mrna, Lnp-s, Pf, B ivalent, 30 Mcg, IM, 12 yrs and above ([employer]) 03/05/2022 Pneumococcal Conjugate Vacc, 13 Valent (Prevnar) 10/04/2016 Pneumococcal Conjugate Vacci ne, 20-valent ([id number]) 02/13/2024 Pneumococcal Polysaccharide PPV23 (Pneumovax) 06/23/2015 RSV [...] Telephone Encounter - Tamar Russ LPN - 04/16/2024 3:18 PM EST Patient is aware and will comply. Thank you * Telephone Encounter - Dominic Chen DO - 04/16/2024 3:12 PM EST Patient has L2 compression fracture. Bilateral shoulder arthritis and mild left hip arthritis on x-rays. Refer to Orthopedics for shoulder pain Needs CT of the Lumbar Spine Start Tizanidine 4 mg two times a day for back pain. * Telephone Encounter - Isabel Fernandez OSA - 04/16/2024 2:46 PM EST Returning call to [facility] * Telephone Encounter - Tamar Russ LPN - 04/16/2024 2:37 PM EST See recent imaging and email on 04/12 * Telephone Encounter - Val Hussein RT (R) - 04/16/2024 12:12 PM EST Patient calling asking for further explanation of xray results. Please return patient call. documented in this encounter Plan of Treatment Upcoming Encounters Date Type Department Care Team (Late st Contact Info) Description 04/22/2024 9:45 AM EST Imaging Radiology [facility] [address] [address] [place] [address] 04/28/2024 3:00 PM EST Office Visit Orthopaedics [facility] [address] [place] [address] Tone Paulino MD [address] [place] [phone] 04/28/2024 4:00 PM EST Office Visit Family Practice [address] [facility] [address] [place] [address] Dominic Chen, [address] [place] [address] Health Maintenance Due Date Last Done Comments Colonoscopy 1995 Fecal Occult Blood Test 1995 Sigmoidoscopy 1995 Adult Wellness Visit 02/15/2023 02/15/2022 Mammogram 08/10/2023 08/09/2022, 07/21, 12/08/2020, Additional history exists Cologuard 03/28/2024 03/28/2021, 02/21, 03/20/2021 Colorectal Cancer Screening 03/28/2024 Depression Monitoring 06/19/2024 06/20/2023 DXA Scan 10/09/2024 10/09/2021, 09/20, 09/09/2017 GFR 02/12/2025 02/13/2024, 0304/2023, 02/14/2023, Additional history exists HOME BP CUFF [...] filedocumented as of this encounter Care Teams Sand Caster Relationship Specialty Start Date End Date Dominic Chen DO [address] [place] [address] PCP - General Internal Medicine 10/31/23 documented as of this encounter
--- OUTSIDE RECORDS SUMMARY | 2024-05-14 05:33 | External Medical Summary ---
Author Name Unknown Address Unknown Organization [id number]:[facility] - [address] [facility] [address] Laboratory Report Ordering Provider Test Date Status PUSHPA MENDOZA 04/23/2024 10:18:35 Final Observation Date Value Abnormality Reference (Units ) Status SARS Coronavirus 2 04/23/2024 10:18:35 Negative N egative Final No SARS-CoV2 Coronavirus RNA detected by PCR (amplified probe).
This express test was developed and its performance characteristics determined by [facility]. It has not been cleared or approved by the U.S. Food and Drug Administration (FDA). FDA does not require this test to go thru premarket FDA review. This test is used for clinical purposes. It should not be regarded as investigational or for research. This laboratory is certified under the Clinical Laboratory Improvement Amendments (CLIA) as qualified to perform high complexity clinical laboratory testing.

This test is a nucleic acid amplification test (NAAT), a reverse transcriptase polymerase chain reaction (RT-PCR) test, or a Centers for Disease Control-acceptable equivalent. The test is performed in a high complexity Clinical Laboratory Improvement Amendments-(CLIA) certified laboratory. The test is acceptable for SARS-CoV-2 diagnosis, surveillance, and travel within the [place] and to most countries. Please check with local testing authorities about requirements before travel.

The validation of bronchial specimens, tracheal aspirates, and sputum for this assay was developed and performance characteristics determined by [facility]. The validation of alternate specimen types has not been cleared or approved by the U.S. Food and Drug Administration (FDA). It has been determined that such clearance is not necessary. Influenza virus A RNA [Prese nce] in Specimen by BAILEY with probe detection 04/23/2024 10:18:35 Negative Negative Final No Influenza A RNA detected by PCR (amplified probe) Influenza virus B RNA [Prese nce] in Specimen by BAILEY with probe detection 04/23/2024 10:18:35 Negative Negative Final No Influenza B RNA detected by PCR (amplified probe) Respiratory syncytial virus RNA [Identifier] in Specimen by BAILEY with probe detection 04/23/2024 10:18:35 Negative Negative Final No Respiratory Syncytial Vir us RNA detected by PCR (amplified probe) Performing Location LABORATORY [place] [address] [facility] [address]
--- OUTSIDE RECORDS SUMMARY | 2024-05-14 05:33 | External Medical Summary | Summary of Care ---
Author Name Unknown Organization [facility] Address [address] [place] [address] Phone [phone] Care Team Providers Care Dietitian Consultant Name Role Phone Reji Chen DO Primary Care Provider [phone] Reason for Referral * Evaluate & Treat - Unlimited Visits (Within 10 days (routine)) - Authorized Specialty Diagnoses / Procedures Referred By Contac t Referred To Contact Orthopaedic Surgery / Orthopedics Diagnoses Primary osteoarthritis of both shoulders Reji Chen DO [address] [place] [address] Phone: tel: fax: Referral ID Status Reason Start Date Expiration Date Visits Requested Visits Authorized [id number] Authorized Specialty Services Required 999 999 Question Answer Referral Priority Within 10 days (routine) Where should this appointment be scheduled? [facility] What body part is the patient being seen for? Shoulder What condition is the patient being seen for? Arthritis including related infection * Precert (Within 10 days (routine)) - Authorized Specialty Diagnoses / Procedures Referred By Contac t Referred To Contact Radiology Diagnoses Compression fracture of L2 vertebra, initial encounter (HCC) Procedures CT L SPINE WO CONTRAST Reji Chen DO [address] [place] [address] Phone: tel: fax: Referral ID Status Reason Start Date Expiration Date V isits Requested Visits Authorized [id number] Authorized 04/13/2024 999 999 Reason for Visit * Reason Onset Date Comments Med Request 04/13/2024 Pain meds Encounter Details Date Type Department Care Team (Late st Contact Info) Description 04/13/2024 Telephone Family Practice [address], [place] [address] [facility] [place] [address] Reji Chen DO 293 [place] [address] Med Request (Pain meds) Allergies Active Allergy Reactions Criticality Noted Date Comments Amlodipine 07/01/2022 RASH, EDEMA, HEADACHE, Bee Venom Anaphylaxis High 05/29/2017 Blue Dyes (Parenteral) Anaphylaxis,Rash High 022 Red, purple, blue Hydroxyzine 10/10/2022 Latex High 07/30/2018 Anaphalaxis Omeprazole 12/17/2023 Sulfa Antibiotics Anaphylaxis,Hives High 05/29/2017 Diclofenac Sodium 05/10/2022 documented as of this encounter (statuses as of 04/13/2024) Medications Probiotic Acidophilus BioBeads Oral Capsule Take [...] morning. 48 mL 3 023 Active Ipratropium [place] 0.03 % Nasal Solution (Atrovent)Indications:C hronic rhinitis Administer 2 Sprays into each nostril in the morning and 2 Sprays at noon and 2 Sprays before bedtime. for runny nose. 30 mL 3 024 Active Magnesium Oxide -Mg Supplement 500 MG Oral Tablet Take 1 Tablet by mouth in the morning and 1 Tablet before bedtime. 08/28/2 024 Active Vitamin B 12 500 MCG [...] or chew. 30 Capsule 5 024 Active Nitrofurantoin Monohyd Macro 100 MG Oral Capsule (Macrobid)Indications:A cute cystitis without hematuria Take 1 Capsule by mouth in the morning and 1 Capsule before bedtime. Do all this for 7 days. With food until gone. 14 Capsule 024 2023 Active tiZANidine HCl 4 MG Oral Tablet (Zanaflex)Indications:C ompression fracture of L2 vertebra, initial encounter ([facility]) Take 1 Tablet by mouth every 8 hours as needed (back pain / muscle spasm). 30 Tablet 024 Active documented as of this encounter (statuses as of 04/13/2024) Active Problems Problem Noted Date Diagnosed Date [...] as of this encounter (statuses as of 04/13/2024) Resolved Problems Problem Noted Date Diagnosed Date [...] as of this encounter (statuses as of 04/13/2024) Immunizations Name Administration Dates Next Due COVID-19 mRNA, LNP-s, No Pre serve, 2-Dose Series ([employer]) 02/03/2021,06/30/2020,06/02/2020 COVID-19, LNP-s, No Preserve , Aubrey-sucrose, Ages 12+ ([employer]) 12/11/2021 COVID-19, MRNA-LNP, PF, 30 M CG/0.3 mL, 12 YRS AND ABOVE, IM ([employer]-Comirnat[employer]) 04/07/2024,03/14/2023 Covid-19, Mrna, Lnp-s, Pf, B ivalent, 30 Mcg, IM, 12 yrs and above (Pfizer) 03/05/2022 Pneumococcal Conjugate Vacc, 13 Valent (Prevnar) 10/04/2016 Pneumococcal Conjugate Vacci ne, 20-valent ([id number]) 02/13/2024 Pneumococcal Polysaccharide PPV23 (Pneumovax) 06/23/2015 RSV [...] Miscellaneous Notes * Telephone Encounter - Isabel Fernandez, SIMONE - 04/13/2024 11:[address] on April 22 Ortho 04/15 Patient aware * Addendum Note - Reji Chen DO - 04/13/2024 11:25 AM ESTAddended by: REJI CHEN on: 04/13/2024 11:25 AM Modules accepted: Orders * Addendum Note - Reji Chen DO - 04/13/2024 11:21 AM ESTAddended by: REJI CHEN on: 04/13/2024 11:21 AM Modules accepted: Orders * Telephone Encounter - Reji Chen DO - 04/13/2024 11:[address] scan ordered. Orthopedics referral signed Confirm pharmacy for Tizanidine * Telephone Encounter - Shellie Buck CCMA - 04/13/2024 11:12 AM EST Pt returned call and made aware of the results and recommendation at this time. Pt wanted referral to ortho and would like to have CT scan done. Please place orders and send to administrative assistant front desk for scheduling. * Telephone Encounter - Shellie Buck CCMA - 04/13/2024 11:04 AM EST Left message for patient to call back * Telephone Encounter - Shellie Buck CCMA - 04/13/2024 11:02 AM EST ----- Message from Reji Chen DO sent at 04/12/2024 9:17 PM EST ----- Patient has L2 compression fracture. Bilateral shoulder arthritis and mild left hip arthritis on x-rays. Refer to Orthopedics for shoulder pain Needs CT of the Lumbar Spine Start Tizanidine 4 mg three times a day for back pain as needed. * Telephone Encounter - Shellie Buck CCMA - 04/13/2024 9:32 AM EST Please advise. * Telephone Encounter - Isabel Fernandez OSA - 04/13/2024 9:25 AM EST Has a fracture in her spine and is in severe pain Wants pain meds Please advise documented in this encounter Plan of Treatment Upcoming Encounters Date Type Department Care Team (Late st Contact Info) Description 04/15/2024 1:30 PM EST Office Visit Orthopaedics [facility] [address] [facility] [place] [address] Tone Paulino MD 132 [facility] [place] [phone] 04/22/2024 9:45 AM EST Imaging Radiology [address] 132 [facility] [place] [address] 04/23/2024 1:00 PM EST Office Visit Family Practice [address] [place] [address] 293 [facility] [place] [address] Reji Chen DO 293 [place] [address] Scheduled Orders Name Type Priority Associated Diagnoses Orde r Schedule CT L SPINE WO CONTRAST Medical Imaging Routine Compression fracture of L2 vertebra, initial encounter (HCC) Expected: 04/13/2024, Expires: 05/14/2025 Scheduled Referrals Name Type Priority Associated Diagnoses Orde r Schedule ORTHOPAEDICS REFERRAL OP Referral Within 10 days (routine) Primary osteoarthritis of both shoulders Ordered: 04/13/2024 Health Maintenance Due Date Last Done Comments [...] 02/14/2023, 01/16/2022, Additional history exists Pneumococcal Vaccine: 65+ Years Completed 02/13/2024, 10/04/2016, 06/23/2015 COVID-19 Vaccine [...] as of this encounter Visit Diagnoses Diagnosis Compression fracture of L2 vertebra, initial encounter (HCC)- Primary Primary osteoarthritis of both shoulders documented in this encounter Care Teams Dietitian Consultant Relationship Specialty Start Date End Date Reji Chen DO [address] [place] [address] PCP - General Internal Medicine 10/31/23 documented as of this encounter
--- OUTSIDE RECORDS SUMMARY | 2024-05-14 05:33 | External Medical Summary | Summary of Care ---
Author Name Unknown Organization [facility] Address [address] [place] [address] Phone [phone] Care Team Providers Care Exercise Equipment Repair Technician Name Role Phone Dominic Chen DO Primary Care Provider [phone] Encounter Details Date Type Department Care Team (Late st Contact Info) Description 04/07/2024 1:30 PM EST Nurse Only Family Practice [address] [facility] [address] [place] [address] College, Nurse [facility] [place] [address] [address] Allergies Active Allergy Reactions Criticality Noted Date Comments Amlodipine 07/01/2022 RASH, EDEMA, HEADACHE, Bee Venom Anaphylaxis High 05/29/2017 Blue Dyes (Parenteral) Anaphylaxis,Rash High 022 Red, purple, blue Hydroxyzine 10/10/2022 Latex High 07/30/2018 Anaphalaxis Omeprazole 12/17/2023 Sulfa Antibiotics Anaphylaxis,Hives High 05/29/2017 Diclofenac Sodium 05/10/2022 documented as of this encounter (statuses as of 04/22/2024) Medications Probiotic Acidophilus BioBeads Oral Capsule Take [...] morning. 48 mL 3 023 Active Ipratropium [place] 0.03 % Nasal Solution (Atrovent)Indications:C hronic rhinitis [...] at bedtime 60 Tablet 1 024 Active documented as of this encounter (statuses as of 04/22/2024) Active Problems Problem Noted Date Diagnosed Date [...] as of this encounter (statuses as of 04/22/2024) Resolved Problems Problem Noted Date Diagnosed Date [...] as of this encounter (statuses as of 04/22/2024) Immunizations Name Administration Dates Next Due COVID-19 mRNA, LNP-s, No Pre serve, 2-Dose Series ([facility]) 02/03/2021,06/30/2020,06/02/2020 COVID-19, LNP-s, No Preserve , Aubrey-sucrose, Ages 12+ ([facility]) 12/11/2021 COVID-19, MRNA-LNP, PF, 30 M CG/0.3 mL, 12 YRS AND ABOVE, IM ([facility]) 04/07/2024,03/14/2023 Covid-19, Mrna, Lnp-s, Pf, B ivalent, 30 Mcg, IM, 12 yrs and above (Pfizer) 03/05/2022 Pneumococcal Conjugate Vacc, 13 Valent (Prevnar) 10/04/2016 Pneumococcal Conjugate Vacci ne, 20-valent ([id number]) 02/13/2024 Pneumococcal Polysaccharide PPV23 (Pneumovax) 06/23/2015 RSV [...] AM EDT documented as of this encounter Progress Notes * Tamar Russ LPN - 04/22/2024 11:19 AM EST Urine poc was done per order. documented in this encounter Plan of Treatment Upcoming Encounters Date Type Department Care Team (Late st Contact Info) Description 04/23/2024 9:40 AM EST Office Visit Family Practice [facility] 293 [place] [address] Dominic Chen, DO 293 [facility] [place] [address] 04/28/2024 3:00 PM EST Office Visit Orthopaedics [facility] [address] [place] [address] Tone Paulino MD [address] [place] [phone] 04/28/2024 4:00 PM EST Office Visit Family Practice [facility] 293 [place] [address] Dominic Chen, 293 [facility] [place] [address] Health Maintenance Due Date Last Done Comments [...] filedocumented as of this encounter Care Teams Exercise Equipment Repair Technician Relationship Specialty Start Date End Date Dominic Chen DO [address] [facility] [place] [address] PCP - General Internal Medicine 10/31/23 documented as of this encounter
--- OUTSIDE RECORDS SUMMARY | 2024-05-14 05:33 | External Medical Summary | Summary of Care ---
Author Name Unknown Organization [facility] Address [address] [place] [address] Phone [phone] Care Team Providers Care Hanging Flags Decorator Name Role Phone Reji Chen DO Primary Care Provider [phone] Reason for Referral * Evaluate & Treat - Unlimited Visits (Within 10 days (routine)) - Authorized Specialty Diagnoses / Procedures Referred By Contac t Referred To Contact Orthopaedic Surgery / Orthopedics Diagnoses Primary osteoarthritis of both shoulders Reji Chen DO [address] [place] [address] Phone: tel: fax: Referral ID Status Reason Start Date Expiration Date Visits Requested Visits Authorized [id number] Authorized Specialty Services Required 999 999 Question [...] L SPINE WO CONTRAST Reji Chen DO [address] [place] [address] Phone: tel: fax: Referral ID Status Reason Start Date Expiration Date V isits Requested Visits Authorized [id number] Authorized 04/13/2024 999 999 Reason for Visit * Reason Onset Date Comments Med Request 04/13/2024 Pain meds Encounter Details Date Type Department Care Team (Late st Contact Info) Description 04/13/2024 Telephone Family Practice [address], [place] 293 [place] [address] Reji Chen DO 293 [place] [address] Med Request (Pain meds) Allergies Active Allergy [...] morning. 48 mL 3 023 Active Ipratropium [place] 0.03 % Nasal Solution (Atrovent)Indications:C hronic rhinitis [...] ompression fracture of L2 vertebra, initial encounter ([facility]) Take 1 Tablet by mouth every [...] mRNA, LNP-s, No Pre serve, 2-Dose Series ([facility]) 02/03/2021,06/30/2020,06/02/2020 COVID-19, LNP-s, No Preserve , Aubrey-sucrose, Ages 12+ ([facility] [facility]) 12/11/2021 COVID-19, MRNA-LNP, PF, 30 M CG/0.3 mL, 12 YRS AND ABOVE, IM (PFIZER-Comirnaty) 04/07/2024,03/14/2023 Covid-19, Mrna, Lnp-s, Pf, B ivalent, 30 Mcg, IM, 12 yrs and above (Pfizer) 03/05/2022 Pneumococcal Conjugate Vacc, 13 Valent (Prevnar) 10/04/2016 Pneumococcal Conjugate Vacci ne, 20-valent ([id number]) 02/13/2024 Pneumococcal Polysaccharide PPV23 (Pneumovax) 06/23/2015 RSV [...] done. Please place orders and send to front end mechanic for scheduling. * Telephone Encounter - Shellie [...] 04/15/2024 1:30 PM EST Office Visit Orthopaedics [facility] 132 [facility] [place] [address] Tone Paulino MD 132 [facility] [place] [phone] 04/22/2024 9:45 AM EST Imaging Radiology [address] 132 [facility] [place] [address] 04/23/2024 1:00 PM EST Office Visit Family Practice [address] [place] [address] [facility] [phone] Reji Chen DO 293 [place] [address] Scheduled Orders Name Type Priority Associated Diagnoses [...] shoulders documented in this encounter Care Teams Hanging Flags Decorator Relationship Specialty Start Date End Date Reji Chen DO [address] [place] [address] PCP - General Internal Medicine 10/31/23 documented as of this encounter
--- OUTSIDE RECORDS SUMMARY | 2024-05-14 05:34 | External Medical Summary | Summary of Care ---
Author Name Unknown Organization [facility] Address [address] [place] [address] Phone [phone] Care Team Providers Care Agriculture Worker Name Role Phone Dominic Chen DO Primary Care Provider [phone] Reason for Visit * Reason Onset Date Comments Med Request 04/13/2024 Pain meds Encounter Details Date Type Department Care Team (Late st Contact Info) Description 04/13/2024 [facility] [address] [place] [address] Dominic Chen DO [address] [place] [address] Med Request (Pain meds) Allergies Active Allergy [...] morning. 48 mL 3 023 Active Ipratropium [place] 0.03 % Nasal Solution (Atrovent)Indications:C hronic rhinitis [...] 1 tablet at bedtime 60 Tablet 1 Active DULoxetine HCl 20 MG Oral Capsule [...] until gone. 14 Capsule 024 2023 Active documented as of this encounter (statuses [...] mRNA, LNP-s, No Pre serve, 2-Dose Series ([employer] 02/03/2021,06/30/2020,06/02/2020 COVID-19, LNP-s, No Preserve , Aubrey-sucrose, Ages 12+ ([employer] 12/11/2021 COVID-19, MRNA-LNP, PF, 30 M CG/0.3 mL, 12 YRS AND ABOVE, IM ([facility]) 04/07/2024,03/14/2023 Covid-19, Mrna, Lnp-s, Pf, B ivalent, 30 Mcg, IM, 12 yrs and above ([employer] 03/05/2022 Pneumococcal Conjugate Vacc, 13 Valent (Prevnar) 10/04/2016 Pneumococcal Conjugate Vacci ne, 20-valent ([id number]) 02/13/2024 Pneumococcal Polysaccharide PPV23 (Pneumovax) 06/23/2015 RSV [...] encounter Miscellaneous Notes * Telephone Encounter - Shellie Buck CCMA - 04/13/2024 11:12 AM EST Pt returned call and made aware of the results and recommendation at this time. Pt wanted referral to ortho and would like to have CT scan done. Please place orders and send to front desk manager for scheduling. * Telephone Encounter - Shellie Buck CCMA - 04/13/2024 11:04 AM EST Left message for patient to call back * Telephone Encounter - Shellie Buck CCMA - 04/13/2024 11:02 AM EST ----- Message from Dominic Chen DO sent at 04/12/2024 9:17 PM EST ----- Patient has L2 compression fracture. Bilateral shoulder arthritis and mild left hip arthritis on x-rays. Refer to Orthopedics for shoulder pain Needs CT of the Lumbar Spine Start Tizanidine 4 mg two times a day for back pain. * Telephone Encounter - Shellie Buck CCMA - 04/13/2024 9:32 AM EST Please advise. * Telephone Encounter - Isabel Fernandez OSA - 04/13/2024 9:25 AM EST Has a fracture in her spine and is in severe pain Wants pain meds Please advise documented in this encounter Plan of Treatment Upcoming Encounters Date Type Department Care Team (Late st Contact Info) Description 04/23/2024 1:00 PM EST Office Visit Family Practice [address], [place] [address] [place] [phone] Dominic Chen, 293 [place] [address] Health Maintenance Due Date Last Done Comments [...] filedocumented as of this encounter Care Teams Agriculture Worker Relationship Specialty Start Date End Date Dominic Chen DO 293 [place] [address] PCP - General Internal Medicine 10/31/23 documented as of this encounter
--- OUTSIDE RECORDS SUMMARY | 2024-05-14 05:34 | External Medical Summary | Summary of Care ---
Author Name Unknown Organization [facility] Address [address] [place] [address] Phone [phone] Care Team Providers Care Production Control Scheduler Name Role Phone Dominic Chen DO Primary Care Provider Reason for Visit * Reason Onset Date Comments Med Request 04/13/2024 Pain meds Encounter Details Date Type Department Care Team (Late st Contact Info) Description 04/13/2024 [facility]phone [facility] [address] [place] [address] Dominic Chen DO [address] [place] [address] Med Request (Pain meds) Allergies Active Allergy [...] morning. 48 mL 3 023 Active Ipratropium [place] 0.03 % Nasal Solution (Atrovent)Indications:C hronic rhinitis [...] mRNA, LNP-s, No Pre serve, 2-Dose Series ([facility]) 02/03/2021,06/30/2020,06/02/2020 COVID-19, LNP-s, No Preserve , Aubrey-sucrose, Ages 12+ ([facility]) 12/11/2021 COVID-19, MRNA-LNP, PF, 30 M CG/0.3 mL, 12 YRS AND ABOVE, IM ([facility]) 04/07/2024,03/14/2023 Covid-19, Mrna, Lnp-s, Pf, B ivalent, 30 Mcg, IM, 12 yrs and above ([facility]) 03/05/2022 Pneumococcal Conjugate Vacc, 13 Valent (Prevnar) 10/04/2016 Pneumococcal Conjugate Vacci ne, 20-valent ([id number]) 02/13/2024 Pneumococcal Polysaccharide PPV23 (Pneumovax) 06/23/2015 RSV [...] EST Office Visit Family Practice [address], [place] [address] [place] [address] Dominic Chen, [address] [place] [address] Health Maintenance Due Date Last Done Comments [...] shoulders documented in this encounter Care Teams Production Control Scheduler Relationship Specialty Start Date End Date Dominic Chen DO [address] [place] [address] PCP - General Internal Medicine 10/31/23 documented as of this encounter
--- OUTSIDE RECORDS SUMMARY | 2024-05-14 05:34 | External Medical Summary | Summary of Care ---
Author Name Unknown Organization [facility] Address [address] [place] [address] Phone [phone] Care Team Providers Care Loan Documentation Specialist Name Role Phone Reji Chen DO Primary Care Provider [phone] Reason for Referral * Evaluate & Treat - Unlimited Visits (Within 10 days (routine)) - Authorized Specialty Diagnoses / Procedures Referred By Contac t Referred To Contact Orthopaedic Surgery / Orthopedics Diagnoses Primary osteoarthritis of both shoulders Reji Chen DO [address] [place] [address] Phone: tel: fax: Referral ID Status Reason Start Date Expiration Date Visits Requested Visits Authorized [id number] Authorized Specialty Services Required 999 999 Question [...] L SPINE WO CONTRAST Reji Chen DO [address] [place] [address] Phone: tel: fax: Referral ID Status Reason Start Date Expiration Date V isits Requested Visits Authorized [id number] Authorized 04/13/2024 999 999 Reason for Visit * Reason Onset Date Comments Med Request 04/13/2024 Pain meds Encounter Details Date Type Department Care Team (Late st Contact Info) Description 04/13/2024 Telephone Family Practice [address], [place] 293 [facility] [place] [address] Reji Chen DO 293 [facility] [place] [address] Med Request (Pain meds) Allergies Active Allergy [...] morning. 48 mL 3 023 Active Ipratropium [place] 0.03 % Nasal Solution (Atrovent)Indications:C hronic rhinitis [...] of L2 vertebra, initial encounter ([facility]) Take 1 Tablet by mouth every [...] mRNA, LNP-s, No Pre serve, 2-Dose Series ([employer]) 02/03/2021,06/30/2020,06/02/2020 COVID-19, LNP-s, No Preserve , Aubrey-sucrose, Ages 12+ ([employer]) 12/11/2021 COVID-19, MRNA-LNP, PF, 30 M CG/0.3 mL, 12 YRS AND ABOVE, IM (PFI[employer]ER-Comirnaty) 04/07/2024,03/14/2023 Covid-19, Mrna, Lnp-s, Pf, B ivalent, 30 Mcg, IM, 12 yrs and above (Pfizer) 03/05/2022 Pneumococcal Conjugate Vacc, 13 Valent (Prevnar) 10/04/2016 Pneumococcal Conjugate Vacci ne, 20-valent ([id number]) 02/13/2024 Pneumococcal Polysaccharide PPV23 (Pneumovax) 06/23/2015 RSV [...] as of this encounter Miscellaneous Notes * Addendum Note - Reji Chen, DO - 04/13/2024 11:25 AM ESTAddended by: [...] place orders and send to front end software developer for scheduling. * Telephone Encounter - Shellie [...] PM EST Office Visit Family Practice 65 [facility], [place] [address] [place] [address] Reji Chen DO [address] [place] [address] Scheduled Orders Name Type Priority Associated Diagnoses [...] shoulders documented in this encounter Care Teams Loan Documentation Specialist Relationship Specialty Start Date End Date Reji Chen DO [address] [place] [facility] [place] [address] PCP - General Internal Medicine 10/31/23 documented as of this encounter
--- OUTSIDE RECORDS SUMMARY | 2024-05-14 05:34 | External Medical Summary | Summary of Care ---
Author Name Unknown Organization [facility] Address [address] [place] [address] Phone [phone] Care Team Providers Care Mountain Services Manager Name Role Phone Reji Chen DO Primary Care Provider [phone] Reason for Referral * Evaluate & Treat - Unlimited Visits (Within 10 days (routine)) - Authorized Specialty Diagnoses / Procedures Referred By Contac t Referred To Contact Orthopaedic Surgery / Orthopedics Diagnoses Primary osteoarthritis of both shoulders Reji Chen DO [address] [place] [address] Phone: tel: fax: Referral ID Status Reason Start Date Expiration Date Visits Requested Visits Authorized [id number] Authorized Specialty Services Required 999 999 Question [...] L SPINE WO CONTRAST Reji Chen DO [address] [place] [address] Phone: tel: fax: Referral ID Status Reason Start Date Expiration Date V isits Requested Visits Authorized [id number] Authorized 04/13/2024 999 999 Reason for Visit * Reason Onset Date Comments Med Request 04/13/2024 Pain meds Encounter Details Date Type Department Care Team (Late st Contact Info) Description 04/13/2024 Telephone Family Practice [address], [place] [address] [place] [address] Reji Chen DO [address] [place] [address] Med Request (Pain meds) Allergies Active Allergy [...] morning. 48 mL 3 023 Active Ipratropium Art 0.03 % Nasal Solution (Atrovent)Indications:C hronic rhinitis [...] mRNA, LNP-s, No Pre serve, 2-Dose Series ([employer]) 02/03/2021,06/30/2020,06/02/2020 COVID-19, LNP-s, No Preserve , Aubrey-sucrose, Ages 12+ ([employer]) 12/11/2021 COVID-19, MRNA-LNP, PF, 30 M CG/0.3 mL, 12 YRS AND ABOVE, IM ([facility]) 04/07/2024,03/14/2023 Covid-19, Mrna, Lnp-s, Pf, B ivalent, 30 Mcg, IM, 12 yrs and above ([employer]) 03/05/2022 Pneumococcal Conjugate Vacc, 13 Valent (Prevnar) 10/04/2016 Pneumococcal Conjugate Vacci ne, 20-valent ([id number]) 02/13/2024 Pneumococcal Polysaccharide PPV23 (Pneumovax) 06/23/2015 RSV [...] No 06/05/2023 Does the household have a [facility] source of income? (Household - for ages [...] Miscellaneous Notes * Addendum Note - Reji Chen DO [...] place orders and send to front end technician for scheduling. * Telephone Encounter - Shellie [...] EST Office Visit Family Practice [address], [place] [address] [place] [phone] Reji Chen, [address] [place] [address] Scheduled Orders Name Type Priority Associated Diagnoses [...] shoulders documented in this encounter Care Teams Mountain Services Manager Relationship Specialty Start Date End Date Reji Chen DO [address] [place] [facility] [place] [address] PCP - General Internal Medicine 10/31/23 documented as of this encounter
--- OUTSIDE RECORDS SUMMARY | 2024-05-14 05:35 | External Medical Summary ---
Author Name Unknown Address Unknown Organization : Laboratory Report Ordering Provider Test Date Status PUSHPA MENDOZA 04/07/2024 16:24:00 Final Observation Date Value Abnormality Reference (Units ) Status Color of Urine by Auto 04/07/2024 16:24:00 Yellow Light Yellow, Yellow Final Clarity, Urine 04/07/2024 16:24:00 Clear Clear Final Glucose [Mass/volume] in Urine by Automated test strip 04/07/2024 16:24:00 Negative Negative (mg/dL) Final Bilirubin.total [Presence] in Urine by Automated test strip 04/07/2024 16:24:00 Negative Negative Final Ketones [Mass/volume] in Urine by Automated test strip 04/07/2024 16:24:00 Negative Negative (mg/dL) Final Specific gravity, Urine 04/07/2024 16:24:00 1.010 1.003-1.030 Final Hemoglobin [Presence] in Urine by Automated test strip 04/07/2024 16:24:00 Negative Negative Final pH, Urine 04/07/2024 16:24:00 5.5 5.0, 5.5, 6.0, 6.5, 7.0, 7.5 (units) Final Protein [Mass/volume] in Urine by Automated test strip 04/07/2024 16:24:00 Negative Negative (mg/dL) Final Urobilinogen, Urine 04/07/2024 16:24:00 0.2 0.2, 1.0 (mg/dL) Final Nitrite [Presence] in Urine by Automated test strip 04/07/2024 16:24:00 Negative Negative Final Leukocyte esterase [Presence] in Urine by Automated test strip 04/07/2024 16:24:00 Trace Abnormal Negative Final Performing Location
--- OUTSIDE RECORDS SUMMARY | 2024-05-14 05:35 | External Medical Summary | Summary of Care ---
Author Name Unknown Organization [facility] Address [address] [place] [address] Phone [phone] Care Team Providers Care Health Physicist Name Role Phone Dominic Chen DO Primary Care Provider [phone] Reason for Visit * Reason Comments Follow Up Encounter Details Date Type Department Care Team (Late st Contact Info) Description 04/07/2024 4:00 PM EST Office Visit Family Practice [address] [facility], [place] [address] [place] [phone] Dominic Chen DO [address] [place] [address] Moderate episode of recurrent major depressive disorder (HCC)*; HTN, goal below 140/90; JOSE (generalized anxiety disorder); 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; Gastroesophageal reflux disease without esophagitis; Hyperparathyroidism, primary (HCC); Pure hypercholesterolemia; Acute cystitis without hematuria; Acute pain of both shoulders; Hip pain, left; Acute midline low back pain with left-sided sciatica; Alcohol dependence, continuous (HCC); Need for COVID-19 vaccine Allergies Active Allergy Reactions Criticality Noted Date Comments Amlodipine 07/01/2022 RASH, EDEMA, HEADACHE, Bee Venom Anaphylaxis High 05/29/2017 Blue Dyes (Parenteral) Anaphylaxis,Rash High 022 Red, purple, blue Hydroxyzine 10/10/2022 Latex High 07/30/2018 Anaphalaxis Omeprazole 12/17/2023 Sulfa Antibiotics Anaphylaxis,Hives High 05/29/2017 Diclofenac Sodium 05/10/2022 documented as of this encounter (statuses as of 04/08/2024) Medications Probiotic Acidophilus BioBeads Oral Capsule Take [...] morning. 48 mL 3 023 Active Ipratropium [place] 0.03 % Nasal Solution (Atrovent)Indications:C hronic rhinitis [...] 1 Capsule before bedtime. 270 Capsule 3 Active LORazepam 1 MG Oral Tablet (Ativan)Indications:Unc [...] cut, crush or chew. 30 Capsule 5 Active Nitrofurantoin Monohyd Macro 100 MG Oral Capsule (Macrobid)Indications:A cute cystitis without hematuria Take 1 Capsule by mouth in the morning and 1 Capsule before bedtime. Do all this for 7 days. With food until gone. 14 Capsule 2023 Active PARoxetine HCl 20 MG Oral Tablet (pAXil)Indications:Mode rate episode of recurrent major depressive disorder (HCC) Take 0.5 Tablets by mouth in the morning. 024 2023 Disconti nued(Adv erse reaction ) documented as of this encounter (statuses as of 04/08/2024) Active Problems Problem Noted Date Diagnosed Date [...] as of this encounter (statuses as of 04/08/2024) Resolved Problems Problem Noted Date Diagnosed Date [...] as of this encounter (statuses as of 04/08/2024) Immunizations Name Administration Dates Next Due COVID-19 mRNA, LNP-s, No Pre serve, 2-Dose Series ([employer]) 02/03/2021,06/30/2020,06/02/2020 COVID-19, LNP-s, No Preserve , Aubrey-sucrose, Ages 12+ ([employer]) 12/11/2021 COVID-19, MRNA-LNP, PF, 30 M CG/0.3 mL, 12 YRS AND ABOVE, IM ([facility]) 04/07/2024,03/14/2023 Covid-19, Mrna, Lnp-s, Pf, B ivalent, 30 Mcg, IM, 12 yrs and above ([employer]) 03/05/2022 Pneumococcal Conjugate Vacc, 13 Valent (Prevnar) 10/04/2016 Pneumococcal Conjugate Vacci ne, 20-valent ([id number]) 02/13/2024 Pneumococcal Polysaccharide PPV23 (Pneumovax) 06/23/2015 RSV Vac., Bivalent, Perfusio n F, Pf,0.5 Ml ([employer]) 02/14/2023 Seasonal Influenza, High Dos e, Trivalent, PF, IM ([facility]) 01/30/2024 Seasonal Influenza, PF, 6 M & above, IM , (FluLaval or Fluzone) 01/17/2021,01/22/2019,02/09/2018,05/29 Seasonal Influenza, Quadriva lent Hd (Fluzone Hd) 02/14/2023,01/16/2022,01/17/2021 Seasonal Influenza, Quadriva jean pault Hd, 65+ Yrs 02/01/2020 TD - Tetanus/Diptheria [...] No 06/05/2023 Does the household have a [facility] source [facility] income? (Household - for ages [...] Sign Reading Time Taken Comments Blood Pressure 152/94 04/07/2024 3:59 PM EST Pulse 77 04/07/2024 3:59 PM EST Temperature 36.2 C (97.1 F) 04/07/2024 3:59 PM ES T Respiratory Rate - - Oxygen Saturation 99% 04/07/2024 3:59 PM EST Inhaled Oxygen Concentration - - Weight 69.3 kg (152 lb 12.8 oz) 04/07/2024 3:59 PM EST Height 166.4 cm (5' 5.5") 04/07/2024 3:59 PM EST Body Mass Index 25.04 04/07/2024 3:59 PM EST documented in this encounter Progress Notes * Dominic Chen, - 04/08/2024 8:01 AM EST SUBJECTIVE: Anupama Caraballo is a 73 year old female. Chief Complaint Patient presents with Follow Up HPI: Patient is a 73 year old female with a history of HTN, Hyperlipidemia, GERD, Allergic Rhinitis, Alcohol Addiction, Hiatal Hernia, elevated PTH, Anxiety, and NABEEL exposure in Utero that is seen for follow up. The patient has diarrhea since starting Paroxetine. No chest pain or shortness of breath arepresent. No alcohol intake since hospitalization in 11/2023. Patient has frequency and dysuria for a few days. No chest pain or shortness of breath are present. Patient fell 1 week ago and has bilateral shoulder pain,left hip pain, and low back pain since falling. 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 48 mL 3 Ipratropium [place] 0.03 % Nasal Solution (Atrovent) Administer 2 [...] cut, crush or chew. 30 Capsule 5 Nitrofurantoin Monohyd Macro 100 MG Oral Capsule (Macrobid) Take 1 Capsule by mouth in the morning and 1 Capsule before bedtime. Do all this for 7 days. With food until gone. 14 Capsule 0 No current facility-administered medications for this visit. [...] performed by Maryam Nguyen MD at ENDOSCOPY [facility] LAPAROSCOPY; CHOLECYSTECTOMY N/A 12/25/2021 LAPAROSCOPY; REPAIR INITIAL INGUINAL HERNIA Right LIGATE/CUT OVIDUCT(S) TN LAP, VENTRAL HERNIA REPAIR,REDUCIBLE N/A 12/25/2021 SKELETAL FIXATION OF ANKLE FRACTURE Right Review of patient's allergies indicates: Allergen Reactions Bee Venom Anaphylaxis Blue Dyes (Parenteral) Anaphylaxis and Rash Red, purple, blue Latex Anaphalaxis Sulfa Antibiotics Anaphylaxis and Hives Amlodipine RASH, EDEMA, HEADACHE, Hydroxyzine Prilosec [Omeprazole] Voltaren [Diclofenac Sodium] Review of Systems Constitutional: Positive for fatigue. Negative for appetite change and unexpected weight change. HENT: Negative for congestion, sore throat and trouble swallowing. Respiratory: Negative for cough, shortness of breath and wheezing. Cardiovascular: Negative for chest pain, palpitations and leg swelling. Gastrointestinal: Positive for diarrhea. Negative for abdominal pain, blood in stool, constipation,nausea and vomiting. Genitourinary: Positive for dysuria and frequency. Negative for hematuria. Musculoskeletal: Negative for back pain and gait problem. Neurological: Negative for dizziness, syncope and headaches. Psychiatric/Behavioral: Positive for decreased concentration and dysphoric mood. Negative for confusion. OBJECTIVE: BP 152/94 (BP Site: Left Arm, BP Position: Sitting, BP Cuff Size: Regular) | Pulse 77 | Temp 97.1 F (36.2 C) (Tympanic) | Ht 5' 5.5" (1.664 m) | Wt 152 lb 12.8 oz (69.3 kg) | SpO2 99% | BMI 25.04kg/m | BSA 1.79 m Physical Exam Vitals [...] There is no abdominal tenderness. Musculoskeletal: Right shoulder: No deformity or effusion. Normal range of motion. Left shoulder: No deformity or effusion. Normal range of motion. Left hip: Normal. No deformity or tenderness. Normal range of motion. Neurological: Mental Status: She is alert. PLAN AND ASSESSMENT: Moderate episode of recurrent major depressive disorder (HCC) (Primary) - Start DULoxetine HCl 20 MG Oral Capsule Delayed Release Particles (duloxetine); Take 1 Capsule bymouth in the morning. Do not cut, crush or chew. 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 Do all this for 7 days. With food until gone. Acute pain of both shoulders - XR SHOULDER, 2 OR MORE VIEWS; Future; Expected date: 04/07/2024 Hip pain, left - XR HIP UNILAT 2-3 VIEWS INCLUDING AP PELVIS; Future; Expected date: 04/07/2024 Acute midline low back pain with left-sided sciatica - XR L SPINE MINIMUM 4 VIEWS; Future; Expected date: 04/07/2024 Alcohol dependence, continuous (HCC) Need for COVID-19 vaccine - COVID-19, MRNA-LNP, PF, 24-25, 30MCG/0.3ML, IM, 12YRS AND ABOVE ([employer]) Follow-up: Return in about 16 days (around 04/23/2024), or if symptoms worsen or fail to improve. | Check-out note: Please schedule mammo Dominic Chen DO 8:01 AM 04/08/2024 documented in this encounter Plan of Treatment Upcoming Encounters Date Type Department Care Team (Late st Contact Info) Description 04/23/2024 1:00 PM EST Office Visit Family Practice [address], [place] [address] [place] [address] Dominic Chen DO [address] [place] [address] Pending Results Name Type Priority Associated Diagnoses Date /Time CULTURE, URINE, QUANTITATIVE Lab Routine Acute cystitis without hematuria 04/07/2024 5:32 PM EST Scheduled Orders Name Type Priority Associated Diagnoses Orde r Schedule URINALYSIS, POINT OF CARE (ENTER/EDIT) Point of Care Testing Routine Acute cystitis without hematuria Ordered: 04/07/2024 XR SHOULDER, 2 OR MORE VIEWS Medical Imaging Routine Acute pain of both shoulders Expected: 04/07/2024, Expires: 05/08/2025 XR L SPINE MINIMUM 4 VIEWS Medical Imaging Routine Acute midline low back pain with left-sided sciatica Expected: 04/07/2024, Expires: 05/08/2025 XR HIP UNILAT 2-3 VIEWS INCLUDING AP PELVIS Medical Imaging Routine Hip pain, left Expected: 04/07/2024, Expires: 05/08/2025 Health Maintenance Due Date Last Done Comments [...] Procedure Name Priority Date/Time Associated Diagnosis Comments URINALYSIS, POINT OF CARE LAURA 04/07/2024 4:24 PM EST documented in this encounter Results * (ABNORMAL) URINALYSIS, POINT OF CARE (04/07/2024 4:24 PM EST) Color, Urine Yellow Light Yellow, Yellow 04/08/2024 8:14 AM [facility] [place] [address]- Clarity, Urine Clear Clear 04/08/2024 8:14 AM EST LAB[facility]ATORY [place] [address] Glucose, Urine Negative Negative mg/dL 04/08/2024 8:14 AM EST [place] [address] Bilirubin, Urine Negative Negative 04/08/2024 8:14 AM EST [place] [address] Ketone, Urine Negative Negative mg/dL 04/08/2024 8:14 AM [facility] [place]- Specific [place], Urine 1.010 1.003 - 1.030 04/08/2024 8:14 AM EST LABORATORY [place] [address] Blood, Urine Negative Negative 04/08/2024 8:14 AM [facility] [place] [address]- pH, Urine 5.5 5.0, 5.5, 6.0, 6.5, 7.0, 7.5 units 04/08/2024 8:14 AM EST [place] [address]- Protein, Urine Negative Negative mg/dL 04/08/2024 8:14 AM EST LABORATORY [place]-21 Urobilinogen, Urine 0.2 0.2, 1.0 mg/dL 04/08/2024 8:14 AM [facility] [place] [address]- Nitrite, Urine Negative Negative 04/08/2024 8:14 AM [facility] 56-21 Esterase, Urine Trace(A) Negative 04/08/2024 8:14 AM [facility] 56- Urine 04/07/2024 4:24 PM EST 04/08/2024 8:14 AM EST us Dominic Chen DO LAB POINT OF CARE TE ST DOCKED DEVICE UNSOLICITED RESULTS Final Result [facility] [address] [place] [address], [facility] documented in this encounter Visit Diagnoses Diagnosis Moderate episode of recurrent major depressive disorder (HCC)- Primary HTN, goal below 140/90 Unspecified essential hypertension JOSE (generalized anxiety disorder) Generalized anxiety disorder 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 Gastroesophageal reflux disease without esophagitis Esophageal reflux Hyperparathyroidism, primary (HCC) Primary hyperparathyroidism Pure hypercholesterolemia Acute cystitis without hematuria Acute cystitis Acute pain of both shoulders Hip pain, left Pain in joint, pelvic region and thigh Acute midline low back pain with left-sided sciatica Alcohol dependence, continuous (HCC) Other and unspecified alcohol dependence, continuous drinking behavior Need for COVID-19 vaccine documented in this encounter Care Teams Health Physicist Relationship Specialty Start Date End Date Dominic Chen DO [address] [place] [address] PCP - General Internal Medicine 10/31/23 documented as of this encounter
--- OUTSIDE RECORDS SUMMARY | 2024-05-14 05:35 | External Medical Summary | Summary of Care ---
Author Name Unknown Organization [facility] Address [address] [place] [address] Phone [phone] Care Team Providers Care Cream Beater Name Role Phone Dominic Chen DO Primary Care Provider [phone] Reason for Visit * Reason Onset Date Comments Med Request 04/13/2024 Pain meds Encounter Details Date Type Department Care Team (Late st Contact Info) Description 04/13/2024 [facility] [address] [place] [address] Dominic Chen DO [address] [place] [address] Med Request (Pain meds) Allergies Active Allergy [...] morning. 48 mL 3 023 Active Ipratropium [place] 0.03 % Nasal Solution (Atrovent)Indications:C hronic rhinitis [...] mRNA, LNP-s, No Pre serve, 2-Dose Series ([employer]) 02/03/2021,06/30/2020,06/02/2020 COVID-19, LNP-s, No Preserve , Aubrey-sucrose, Ages 12+ ([employer]) 12/11/2021 COVID-19, MRNA-LNP, PF, 30 M CG/0.3 mL, 12 YRS AND ABOVE, IM ([facility]) 04/07/2024,03/14/2023 Covid-19, Mrna, Lnp-s, Pf, B ivalent, 30 Mcg, IM, 12 yrs and above ([employer]) 03/05/2022 Pneumococcal Conjugate Vacc, 13 Valent (Prevnar) 10/04/2016 Pneumococcal Conjugate Vacci ne, 20-valent ([id number]) 02/13/2024 Pneumococcal Polysaccharide PPV23 (Pneumovax) 06/23/2015 RSV [...] EST Office Visit Family Practice [address], [place] [address] [place] [address] Dominic Chen, [address] [place] [address] Health Maintenance Due Date Last Done Comments [...] filedocumented as of this encounter Care Teams Cream Beater Relationship Specialty Start Date End Date Dominic Chen DO [address] [place] [address] PCP - General Internal Medicine 10/31/23 documented as of this encounter
--- OUTSIDE RECORDS SUMMARY | 2024-05-14 05:35 | External Medical Summary | Summary of Care ---
Author Name Unknown Organization [facility] Address [address] [place] [address] Phone [phone] Care Team Providers Care Liquid Hydrogen Plant Operator Name Role Phone Dominic Chen DO Primary Care Provider [phone] Reason for Visit * Reason Onset Date Comments Advice 03/02/2024 Order Request 03/02/2024 Encounter Details Date Type Department Care Team (Late st Contact Info) Description 03/02/2024 Telephone Family Practice [address] [facility], [place] [address] [place] [address] Dominic Chen DO [address] [place] [address] Advice; Order Request Allergies Active Allergy Reactions Criticality Noted Date Comments Amlodipine 07/01/2022 RASH, EDEMA, HEADACHE, Bee Venom Anaphylaxis High 05/29/2017 Blue Dyes (Parenteral) Anaphylaxis,Rash High 022 Red, purple, blue Hydroxyzine 10/10/2022 Latex High 07/30/2018 Anaphalaxis Omeprazole 12/17/2023 Sulfa Antibiotics Anaphylaxis,Hives High 05/29/2017 Diclofenac Sodium 05/10/2022 documented as of this encounter (statuses as of 03/03/2024) Medications Probiotic Acidophilus BioBeads Oral Capsule Take [...] morning. 48 mL 3 023 Active Ipratropium [place] 0.03 % Nasal Solution (Atrovent)Indications:C hronic rhinitis [...] THE MORNING 90 Tablet 1 024 Active LORazepam 1 MG Oral Tablet (Ativan)Indications:Unc omplicated alcohol dependence (HCC),JOSE (generalized anxiety disorder) Take 0.5 tablet by mouth in the morning and 0.5 tablet in the afternoon and 1 tablet at bedtime 60 Tablet 1 024 Active ZyrTEC Allergy 10 MG Oral Capsule (Cetirizine HCl) Take 1 Capsule by mouth in the morning. Active Lisinopril 40 MG Oral TabletIndications:HTN, goal below 140/90 Take 1 Tablet by mouth in the morning. 30 Tablet 5 024 Active Additional Information Patient taking differently: 20 mgOral Daily(AM),Twice a day, Reported on 02/11/2024 Gabapentin 300 MG Oral Capsule (Neurontin)Indications: JOSE (generalized anxiety disorder) Take 1 Capsule by mouth at bedtime. 90 Capsule 3 024 Active Famotidine 20 MG Oral Tablet (Pepcid)Indications:Gas troesophageal reflux disease without esophagitis Take 1 Tablet by mouth in the morning. 90 Tablet 3 024 Active PARoxetine HCl 20 MG Oral Tablet (pAXil)Indications:Mode rate episode of recurrent major depressive disorder (HCC) Take 1 Tablet by mouth in the morning. 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 07/13/2021 JOSE (generalized anxiety disorder) 06/04/2019 Moderate episode of recurrent major depressive d isorder 06/04/2019 HTN, goal below 140/90 05/29/2017 Pure hypercholesterolemia 05/29/2017 documented as of this encounter (statuses as of 03/03/2024) Resolved Problems Problem Noted Date Diagnosed Date [...] as of this encounter (statuses as of 03/03/2024) Immunizations Name Administration Dates Next Due COVID-19 mRNA, LNP-s, No Pre serve, 2-Dose Series (Footnote) 02/03/2021,06/30/2020,06/02/2020 COVID-19, LNP-s, No Preserve , Aubrey-sucrose, Ages 12+ (Footnote) 12/11/2021 COVID-19, MRNA-LNP, PF, 30 M CG/0.3 mL, 12 YRS AND ABOVE, IM (PFIZER-Comirnaty) 03/14/2023 Covid-19, Mrna, Lnp-s, Pf, B ivalent, 30 Mcg, IM, 12 yrs and above (Pfizer) 03/05/2022 Pneumococcal Conjugate Vacc, 13 Valent (Prevnar) 10/04/2016 Pneumococcal Conjugate Vacci ne, 20-valent ([id number]) 02/13/2024 Pneumococcal Polysaccharide PPV23 (Pneumovax) 06/23/2015 RSV [...] encounter Miscellaneous Notes * Telephone Encounter - Regi Pack LPN - 03/02/2024 8:38 AM EST Received phone call from patient She states that Cologuard was ordered for her at last PCP visit on 02/19/24 She received an initial message that "it's on it's way" but has not received the kit yet nor has she heard anything about receiving it. She states she also received a message that "Matt is not able to pay at this time" Is there any way staff can check on the status of this for sawyer Thank you documented in this encounter Plan of Treatment Upcoming Encounters Date Type Department Care Team (Late st Contact Info) Description 03/12/2024 11:20 AM EST Office Visit Family Practice [address] [place] [phone] Dominic Chen, DO [address] [place] [address] 04/23/2024 1:00 PM EST Office Visit Family Practice [address] [place] [address] [address] [place] [phone] Dominic Chen, DO [address] [place] [address] Health Maintenance Due Date Last Done Comments Colonoscopy 1995 Fecal Occult Blood Test 1995 Sigmoidoscopy 1995 Adult Wellness Visit 02/15/2023 02/15/2022 Mammogram 08/10/2023 08/09/2022, 07/21, 12/08/2020, Additional history exists COVID-19 Vaccine ( season) 2024 03/14/2023, 03/05/2022, 12/11/2021, Additional history exists Postponed from 12/21/2023 (Other) Cologuard 03/28/2024 03/28/2021, 02/21, 03/20/2021 Colorectal Cancer [...] 05/2019, 02/17/2014 Influenza Vaccine (FLU shot) Completed 01/30/2024, 02/14/2023, 01/16/2022, Additional history exists Pneumococcal Vaccine: 65+ Years Completed 02/13/2024, 10/04/2016, 06/23/2015 HPV (Gardasil) Vaccine Aged Out No lo [...] filedocumented as of this encounter Care Teams Liquid Hydrogen Plant Operator Relationship Specialty Start Date End Date Dominic Chen DO [address] [place] [address] PCP - General Internal Medicine 10/31/23 documented as of this encounter
--- OUTSIDE RECORDS SUMMARY | 2024-05-14 05:35 | External Medical Summary | Summary of Care ---
Author Name Unknown Organization [facility] Address [address] [place] [address] Phone [phone] Care Team Providers Care Loin Trimmer Name Role Phone Reji Chen DO Primary Care Provider [phone] Reason for Visit * Reason Onset Date Comments Medication Refill 03/23/2024 Encounter Details Date Type Department Care Team (Late st Contact Info) Description 03/23/2024 Refill Family Practice [address] [place] [address] [place] [address] Reji Chen DO [address] [place] [address] Uncomplicated alcohol dependence (HCC); JOSE (generalized anxiety disorder) Allergies Active Allergy Reactions Criticality Noted Date Comments Amlodipine 07/01/2022 RASH, EDEMA, HEADACHE, Bee Venom Anaphylaxis High 05/29/2017 Blue Dyes (Parenteral) Anaphylaxis,Rash High 022 Red, purple, blue Hydroxyzine 10/10/2022 Latex High 07/30/2018 Anaphalaxis Omeprazole 12/17/2023 Sulfa Antibiotics Anaphylaxis,Hives High 05/29/2017 Diclofenac Sodium 05/10/2022 documented as of this encounter (statuses as of 03/23/2024) Medications Probiotic Acidophilus BioBeads Oral Capsule Take [...] morning. 48 mL 3 023 Active Ipratropium [place] 0.03 % Nasal Solution (Atrovent)Indications:C hronic rhinitis [...] mgOral Daily(AM),Twice a day, Reported on 02/11/2024 Famotidine 20 MG Oral Tablet (Pepcid)Indications:Gas troesophageal reflux disease without esophagitis Take 1 Tablet by mouth in the morning. 90 Tablet 3 024 Active PARoxetine HCl 20 MG Oral Tablet (pAXil)Indications:Mode rate episode of recurrent major depressive disorder (HCC) Take 1 Tablet by mouth in the morning. 30 Tablet 5 024 Active Gabapentin 300 MG Oral Capsule [...] at bedtime 60 Tablet 1 024 Active LORazepam 1 MG Oral Tablet (Ativan)Indications:Unc omplicated alcohol dependence (HCC),JOSE (generalized anxiety disorder) Take 0.5 tablet by mouth in the morning and 0.5 tablet in the afternoon and 1 tablet at bedtime 60 Tablet 1 024 2023 Disconti nued(Ref ill) documented as of this encounter (statuses as of 03/23/2024) Active Problems Problem Noted Date Diagnosed Date [...] as of this encounter (statuses as of 03/23/2024) Resolved Problems Problem Noted Date Diagnosed Date [...] as of this encounter (statuses as of 03/23/2024) Immunizations Name Administration Dates Next Due COVID-19 mRNA, LNP-s, No Pre serve, 2-Dose Series ([facility]) 02/03/2021,06/30/2020,06/02/2020 COVID-19, LNP-s, No Preserve , Aubrey-sucrose, Ages 12+ (Pfizer) 12/11/2021 COVID-19, MRNA-LNP, PF, 30 M CG/0.3 mL, 12 YRS AND ABOVE, IM ([facility]) 03/14/2023 Covid-19, Mrna, Lnp-s, Pf, B ivalent, 30 Mcg, IM, 12 yrs and above ([facility] [facility]) 03/05/2022 Pneumococcal Conjugate Vacc, 13 Valent (Prevnar) 10/04/2016 Pneumococcal Conjugate Vacci ne, 20-valent ([id number]) 02/13/2024 Pneumococcal Polysaccharide PPV23 (Pneumovax) 06/23/2015 RSV [...] Telephone Encounter - Reji Chen DO - 03/23/2024 4:23 PM ESTSigned Prescriptions: Disp Refills LORazepam 1 MG Oral Tablet (Ativan) 60 Tab*1 Sig: Take 0.5 tablet by mouth in the morning and 0.5 tablet in the afternoon and 1 tablet at bedtimeAuthorizing Provider: REJI CHEN * Telephone Encounter - Reji Chen DO - 03/23/2024 4:22 PM EST I have reviewed the patients controlled substance dispensing history in the Prescription Drug Monitoring Program in compliance with the [facility] regulations before prescribing a controlled substance. Last Tox Screen Results: No results found for this or any previous visit. Medication due 03/22/2024 * Telephone Encounter - Ingrid Yeh RP - 03/23/2024 11:31 AM ESTPending Prescriptions: Disp Refills LORazepam 1 MG Oral Tablet (Ativan) 60 Tab*1 Sig: Take 0.5 tablet by mouth in the morning and 0.5 tablet in the afternoon and 1 tablet at bedtime * Telephone Encounter - Ingrid Yeh [facility] - 03/23/2024 11:30 AM EST I have reviewed the patients controlled substance dispensing history in the Prescription Drug Monitoring Program in compliance with the [facility] regulations before prescribing a controlled substance. PDMP checked on 03/23/2024. Pending Prescriptions: Disp Refills LORazepam 1 MG Oral Tablet (Ativan) 60 Tab*1 Sig: Take 0.5 tablet by mouth in the morning and 0.5 tablet in the afternoon and 1 tablet at bedtime Last Visit: 02/19/2024 (in office), Visit date not found (telemedicine) Next Visit: 04/02/2024 Date medication was last filled: 02/23/24 Date medication is due for refill: 03/24/24 Pharmacy: [facility] [address]- [place] Is this request for a controlled substance? Yes and Urine Drug Screen Not completed Toxicology results: No results found for this or any previous visit. Please approve if appropriate. Thanks, Ingrid Loredo, Pharm D, BCACP Clinical Pharmacist [facility] 03/23/2024, 11:30 AM Ph. [phone] documented in this encounter Plan of Treatment Upcoming Encounters Date Type Department Care Team (Late st Contact Info) Description 04/02/2024 1:40 PM EST Office Visit Family Practice [address] [place] [address] [address] [place] [phone] Reji Chen, [address] [place] [address] 04/23/2024 1:00 PM EST Office Visit Family Practice 65 [facility] [address] [place] [address] Reji Chen, [address] [place] [address] Health Maintenance Due Date Last Done Comments Colonoscopy 1995 Fecal Occult Blood Test 1995 Sigmoidoscopy 1995 Adult Wellness Visit 02/15/2023 02/15/2022 Mammogram 08/10/2023 08/09/2022, 07/21, 12/08/2020, Additional history exists COVID-19 Vaccine ( season) 2023 03/14/2023, 03/05/2022, 12/11/2021, Additional history exists Cologuard 03/28/2024 03/28/2021, 02/21, [...] disorder documented in this encounter Care Teams Loin Trimmer Relationship Specialty Start Date End Date Reji Chen DO [address] [place] [facility] [place] [address] PCP - General Internal Medicine 10/31/23 documented as of this encounter
--- OUTSIDE RECORDS SUMMARY | 2024-05-14 05:35 | External Medical Summary | Summary of Care ---
Author Name Unknown Organization [facility] Address [address] [place] [address] Phone [phone] Care Team Providers Care Guide Dog Trainer Name Role Phone Dominic Chen DO Primary Care Provider Reason for Visit * Reason Comments Follow Up Encounter Details Date Type Department Care Team ([facility] st Contact Info) Description 02/19/2024 11:20 AM EDT Office Visit Family Practice 65 [facility] [place] [address] [place] [phone] Dominic Chen DO [address] [place] [address] Moderate episode of recurrent major depressive disorder (HCC)*; HTN, goal below 140/90; Pure hypercholesterolemia; JOSE (generalized anxiety disorder); 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; Gastroesophageal reflux disease without esophagitis; Hyperparathyroidism, primary (HCC); Special screening for malignant neoplasms, colon Allergies Active Allergy Reactions Criticality Noted Date Comments Amlodipine 07/01/2022 RASH, EDEMA, HEADACHE, Bee Venom Anaphylaxis High 05/29/2017 Blue Dyes (Parenteral) Anaphylaxis,Rash High 022 Red, purple, blue Hydroxyzine 10/10/2022 Latex High 07/30/2018 Anaphalaxis Omeprazole 12/17/2023 Sulfa Antibiotics Anaphylaxis,Hives High 05/29/2017 Diclofenac Sodium 05/10/2022 documented as of this encounter (statuses as of 02/19/2024) Medications Medication Sig Dispensed Refills Start Date [...] the morning. 48 mL 3 3 Active Ipratropium [place] 0.03 % Nasal Solution (Atrovent)Indications:Ch ronic rhinitis Administer 2 Sprays into each nostril in the morning and 2 Sprays at noon and 2 Sprays before bedtime. for runny nose. 30 mL 3 4 Active Magnesium Oxide -Mg Supplement 500 MG Oral Tablet Take 1 Tablet by mouth in the morning and 1 Tablet before bedtime. 4 Active Vitamin B 12 500 MCG Oral Tablet Take by mouth every evening. 4 Active Triamcinolone Acetonide 0.1 % External Ointment (Aristocort)Indications: Dermatitis Apply topically to affected area 2 times a day. To affected area. 60 g 5 4 Active Rosuvastatin Calcium 5 MG Oral Tablet (Crestor)Indications:Pur e hypercholesterolemia TAKE 1 TABLET BY MOUTH IN THE MORNING 90 Tablet 1 4 Active LORazepam 1 MG Oral Tablet (Ativan)Indications:Unco mplicated alcohol dependence (HCC),JOSE (generalized anxiety disorder) Take 0.5 tablet by mouth in the morning and 0.5 tablet in the afternoon and 1 tablet at bedtime 60 Tablet 1 4 Active ZyrTEC Allergy 10 MG Oral Capsule (Cetirizine HCl) Take 1 Capsule by mouth in the morning. Active Lisinopril 40 MG Oral TabletIndications:HTN, goal below 140/90 Take 1 Tablet by mouth in the morning. 30 Tablet 5 4 Active Additional Information Patient taking differently: 20 mgOral Daily(AM),Twice a day, Reported on 02/11/2024 PARoxetine HCl 10 MG Oral Tablet (Paxil)Indications:Moder ate episode of recurrent major depressive disorder (HCC) Take 1 Tablet by mouth in the morning. 30 Tablet 3 4 Active Nitrofurantoin Monohyd Macro 100 MG Oral Capsule (Macrobid)Indications:UT I (urinary tract infection) Take 1 Capsule by mouth in the morning and 1 Capsule before bedtime. Do all this for 7 days. With food until gone. 14 Capsule 4 024 Active Gabapentin 300 MG Oral Capsule (Neurontin)Indications:G AD (generalized anxiety disorder) Take 1 Capsule by mouth at bedtime. 90 Capsule 3 4 Active Famotidine 20 MG Oral Tablet (Pepcid)Indications:Chuckie roesophageal reflux disease without esophagitis Take 1 Tablet by mouth in the morning. 90 Tablet 3 4 Active Famotidine 20 MG Oral Tablet (Pepcid)Indications:Chuckie roesophageal reflux disease without esophagitis TAKE 1 TABLET BY MOUTH ONCE DAILY 90 Tablet 2 4 024 Discontin ued(Refil l) Gabapentin 100 MG Oral Capsule (Neurontin)Indications:G AD (generalized anxiety disorder) Take 1 Capsule by mouth at bedtime. 30 Capsule 3 4 024 Discontin ued(Medic ation/Dos e Changed) documented as of this encounter (statuses as of 02/19/2024) Active Problems Problem Noted Date Diagnosed Date [...] as of this encounter (statuses as of 02/19/2024) Resolved Problems Problem Noted Date Diagnosed Date [...] as of this encounter (statuses as of 02/19/2024) Immunizations Name Administration Dates Next Due COVID-19 mRNA, LNP-s, No Pre serve, 2-Dose Series ([employer]) 02/03/2021,06/30/2020,06/02/2020 COVID-19, LNP-s, No Preserve , Aubrey-sucrose, Ages 12+ ([employer]) 12/11/2021 COVID-19, MRNA-LNP, PF, 30 M CG/0.3 mL, 12 YRS AND ABOVE, IM ([facility]) 03/14/2023 Covid-19, Mrna, Lnp-s, Pf, B ivalent, 30 Mcg, IM, 12 yrs and above ([employer]) 03/05/2022 Pneumococcal Conjugate Vacc, 13 Valent (Prevnar) 10/04/2016 Pneumococcal Conjugate Vacci ne, 20-valent ([id number]) 02/13/2024 Pneumococcal Polysaccharide PPV23 (Pneumovax) 06/23/2015 RSV [...] Sign Reading Time Taken Comments Blood Pressure 130/84 02/19/2024 11:29 AM EDT Pulse 82 02/19/2024 11:29 AM EDT Temperature 36.2 C (97.1 F) 02/19/2024 11:29 AM E DT Respiratory Rate 16 02/19/2024 11:29 AM EDT Oxygen Saturation 97% 02/19/2024 11:29 AM EDT Inhaled Oxygen Concentration - - Weight 66.5 kg (146 lb 9.6 oz) 02/19/2024 11:29 AM EDT Height 166.4 cm (5' 5.5") 02/19/2024 11:29 AM ED T Body Mass Index 24.02 02/19/2024 11:29 AM EDT documented in this encounter Progress Notes * Dominic Chen, - 02/19/2024 4:11 PM EDT SUBJECTIVE: Anupama Caraballo is a 73 year old female. Chief Complaint Patient presents with Follow Up HPI: Patient is a 73 year old female with a history of HTN, Hyperlipidemia, GERD, Allergic Rhinitis, Alcohol Addiction, Hiatal Hernia, elevated PTH, Anxiety, and NABEEL exposure in Utero that is seen for follow up. The patient was started on Paroxetine and Gabapentin 1 week ago. She is sleeping better. Shehas increased Gabapentin dose to 300 mg before bed on her own. Anxiety has improved and she is sleeping better. Depression symptoms have improved. No chest pain or shortness of breath are present. 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 "Women's probiotic" Vitamin C 500 MG Oral Tablet (Ascorbic Acid) Take 1 Tablet by mouth in the morning. Ibuprofen 200 MG Oral Capsule Take 2 Capsules by mouth every 4 hours as needed. Fluticasone Propionate 50 MCG/ACT Nasal Suspension (Flonase) Administer 2 Sprays into nostril in the morning. 48 mL 3 Ipratropium [place] 0.03 % Nasal Solution (Atrovent) Administer 2 Sprays into each nostril in the morning and 2 Sprays at noon and 2 Sprays before bedtime. for runny nose. 30 mL 3 Magnesium Oxide -Mg Supplement 500 MG Oral Tablet Take 1 Tablet by mouth in the morning and 1 Tablet before bedtime. Vitamin B 12 500 MCG Oral Tablet Take by mouth every evening. Rosuvastatin Calcium 5 MG Oral Tablet (Crestor) TAKE 1 TABLET BY MOUTH IN THE MORNING 90 Tablet 1 LORazepam 1 MG Oral Tablet (Ativan) Take 0.5 tablet by mouth in the morning and 0.5 tablet in the afternoon and 1 tablet at bedtime 60 Tablet 1 ZyrTEC Allergy 10 MG Oral Capsule (Cetirizine HCl) Take 1 Capsule by mouth in the morning. Lisinopril 40 MG Oral Tablet Take 1 Tablet by mouth in the morning. (Patient taking differently: Take 0.5 Tablets by mouth in the morning. Twice a day .) 30 Tablet 5 PARoxetine HCl 10 MG Oral Tablet (Paxil) Take 1 Tablet by mouth in the morning. 30 Tablet 3 Nitrofurantoin Monohyd Macro 100 MG Oral Capsule (Macrobid) Take 1 Capsule by mouth in the morning and 1 Capsule before bedtime. Do all this for 7 days. With food until gone. 14 Capsule 0 Gabapentin 300 MG Oral Capsule (Neurontin) Take 1 Capsule by mouth at bedtime. 90 Capsule 3 Famotidine 20 MG Oral Tablet (Pepcid) Take 1 Tablet by mouth in the morning. 90 Tablet 3 Metamucil Smooth Texture 28.3 % Oral Powder (Psyllium) Take by mouth . Triamcinolone Acetonide 0.1 % External Ointment (Aristocort) Apply topically to affected area 2 times a day. To affected area. 60 g 5 No current facility-administered medications for this visit. [...] performed by Maryam Nguyen MD at END[facility]COPY [facility] LAPAROSCOPY; CHOLECYSTECTOMY N/A 12/25/2021 LAPAROSCOPY; REPAIR [...] Negative for dysuria, frequency and hematuria. Musculoskeletal: Negative for back pain and gait problem. Neurological: Negative for dizziness, syncope and headaches. Psychiatric/Behavioral: Positive for decreased concentration and dysphoric mood. Negative for sleepdisturbance and suicidal ideas. The patient is nervous/anxious. OBJECTIVE: BP 130/84 | Pulse 82 | Temp 36.2 C (97.1 F) | Resp 16 | Ht 1.664 m (5' 5.5") | Wt 66.5 kg (146 lb 9.6 oz) | SpO2 97% | BMI 24.02 kg/m | BSA 1.75 m Physical Exam Vitals and nursing note [...] Content: Thought content normal. PLAN AND ASSESSMENT: Moderate episode of recurrent major depressive disorder (HCC) (Primary) Continue Paroxetine HTN, goal below 140/90 Continue Lisinopril Pure hypercholesterolemia Continue Rosuvastatin JOSE (generalized anxiety disorder) - Increase Gabapentin 300 MG Oral Capsule (Neurontin); Take 1 Capsule by mouth at bedtime. 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 Hyperparathyroidism, primary (HCC) Repeat PTH, Calcium and Vitamin D in 3 months Special screening for malignant neoplasms, colon - COLOGUARD Follow Up: Return in about 1 month (around 03/20/2024), or if symptoms worsen or fail to improve. Dominic Chen DO 4:11 PM 02/19/2024 documented in this encounter Nursing Notes * Tamar Russ LPN - 02/19/2024 11:31 AM EDT Overall, feeling better. documented in this encounter Plan of Treatment Upcoming Encounters Date Type Department Care Team (Late st Contact Info) Description 03/12/2024 11:20 AM EST Office Visit [address] [place] [address] Dominic Chen, DO [address] [place] [address] 04/23/2024 1:00 PM EST Office Visit [facility] [address] [place] [address] Dominic Chen, [address] [place] [address] Scheduled Orders Name Type Priority Associated Diagnoses Orde r Schedule COLOGUARD Lab Unrestricted Lab Special screening for malignant neoplasms, colon Ordered: 02/19/2024 Health Maintenance Due Date Last Done Comments [...] as of this encounter Visit Diagnoses Diagnosis Moderate episode of recurrent major depressive disorder (HCC)- Primary HTN, goal below 140/90 Unspecified essential hypertension Pure hypercholesterolemia JOSE (generalized anxiety disorder) Generalized anxiety disorder 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
--- OUTSIDE RECORDS SUMMARY | 2024-05-14 05:35 | External Medical Summary | Summary of Care ---
Author Name Unknown Organization [facility] Address [address] [place] [address] Phone [phone] Care Team Providers Care Director Of Tax Services Name Role Phone Dominic Chen DO Primary Care Provider [phone] Reason for Visit * Reason Comments eRx-Medication Refill Encounter Details Date Type Department Care Team (Late st Contact Info) Description 02/23/2024 Refill Family Practice [address], [place] [address] [place] [phone] Dominic Chen DO [address] [place] [address] Uncomplicated alcohol dependence (HCC); JOSE (generalized anxiety disorder) Allergies Active Allergy Reactions Criticality Noted Date Comments Amlodipine 07/01/2022 RASH, EDEMA, HEADACHE, Bee Venom Anaphylaxis High 05/29/2017 Blue Dyes (Parenteral) Anaphylaxis,Rash High 022 Red, purple, blue Hydroxyzine 10/10/2022 Latex High 07/30/2018 Anaphalaxis Omeprazole 12/17/2023 Sulfa Antibiotics Anaphylaxis,Hives High 05/29/2017 Diclofenac Sodium 05/10/2022 documented as of this encounter (statuses as of 02/24/2024) Medications Medication Sig Dispensed Refills Start Date [...] morning. 48 mL 3 3 Active Ipratropium [place] 0.03 % Nasal Solution (Atrovent)Indications:Chr onic rhinitis [...] Active Triamcinolone Acetonide 0.1 % External Ointment (Aristocort)Indications:D ermatitis Apply topically to affected area 2 times a day. To affected area. 60 g 5 4 Active Rosuvastatin Calcium 5 MG Oral Tablet (Crestor)Indications:Pure hypercholesterolemia TAKE 1 TABLET BY MOUTH IN [...] 02/11/2024 PARoxetine HCl 10 MG Oral Tablet (Paxil)Indications:Modera te episode of recurrent major depressive disorder (HCC) Take 1 Tablet by mouth in the morning. 30 Tablet 3 4 Active Gabapentin 300 MG Oral Capsule (Neurontin)Indications:GA D (generalized anxiety disorder) Take 1 Capsule by mouth at bedtime. 90 Capsule 3 4 Active Famotidine 20 MG Oral Tablet (Pepcid)Indications:Gastr oesophageal reflux disease without esophagitis Take 1 Tablet by mouth in the morning. 90 Tablet 3 4 Active documented as of this encounter (statuses as of 02/24/2024) Active Problems Problem Noted Date Diagnosed Date [...] as of this encounter (statuses as of 02/24/2024) Resolved Problems Problem Noted Date Diagnosed Date [...] as of this encounter (statuses as of 02/24/2024) Immunizations Name Administration Dates Next Due COVID-19 mRNA, LNP-s, No Pre serve, 2-Dose Series ([employer]) 02/03/2021,06/30/2020,06/02/2020 COVID-19, LNP-s, No Preserve , Aubrey-sucrose, Ages 12+ ([employer]) 12/11/2021 COVID-19, MRNA-LNP, PF, 30 M CG/0.3 mL, 12 YRS AND ABOVE, IM ([employer]Comirnaty) 03/14/2023 Covid-19, Mrna, Lnp-s, Pf, B ivalent, 30 Mcg, IM, 12 yrs and above (Pfizer) 03/05/2022 Pneumococcal Conjugate Vacc, 13 Valent (Prevnar) 10/04/2016 Pneumococcal Conjugate Vacci ne, 20-valent ([id number]) 02/13/2024 Pneumococcal Polysaccharide PPV23 (Pneumovax) 06/23/2015 RSV [...] encounter Miscellaneous Notes * Telephone Encounter - Miguel Angel Acevedo [facility] - 02/24/2024 11:14 AM ESTRefused Prescriptions: Disp Refills LORazepam 1 MG Oral Tablet (Ativan) 60 Tab*1 Sig: Take 1/2 tablet by mouth in the morning and 1/2 tablet in the afternoon and 1 tablet at bedtimeRefused By: MIGUEL ANGEL ACEVEDO for Refusal: Too soon documented in this encounter Plan of Treatment Upcoming Encounters Date Type Department Care Team (Late st Contact Info) Description 03/12/2024 11:20 AM EST Office Visit Family Practice [address] [place] [address] [address] [place] [address] Dominic Chen, [address] [place] [address] 04/23/2024 1:00 PM EST Office Visit Family Practice [address] [place] [address] [address] [place] [address] Dominic Chen, [address] [place] [address] Health Maintenance Due Date Last Done Comments Colonoscopy 1995 Fecal Occult Blood Test 1995 Sigmoidoscopy 1995 Adult Wellness Visit 02/15/2023 02/15/2022 Mammogram 08/10/2023 08/09/2022, 0404/2022, 12/08/2020, Additional history exists COVID-19 Vaccine ( [...] disorder documented in this encounter Care Teams Director Of Tax Services Relationship Specialty Start Date End Date Dominic Chen DO [address] [facility] [address] PCP - General Internal Medicine 10/31/23 documented as of this encounter
--- OUTSIDE RECORDS SUMMARY | 2024-05-14 05:35 | External Medical Summary ---
Author Name Unknown Address Unknown Organization K01:[facility] [place] - [address] [place] [id number] Laboratory Report Ordering Provider Test Date Status PUSHPA MENDOZA 04/07/2024 17:32:51 Final Observation Date Value Abnormality Reference (Units) Status Bacteria identified in Specimen by Culture 04/07/2024 17:32:51 No significant growth Final Test: Culture, Urine, Quant itative
Specimen Source: Urine, Clean Catch
Specimen Type: Urine
Specimen Date: 04/07/20241731
Result Date: 04/08/20241731
Result Status: Final result
Resulting Lab: [facility] [place]
[address]
[place] [id number]

CULTURE

No significant growth

null Performing Location [facility] [place] - [address] [facility] [address]
--- OUTSIDE RECORDS SUMMARY | 2024-05-14 05:35 | External Medical Summary | Summary of Care ---
Author Name Unknown Organization [facility] Address [address] [place] [address] Phone [phone] Care Team Providers Care Clinical Research Associate Name Role Phone Dominic Chen DO Primary Care Provider [phone] Reason for Visit * Reason Onset Date Comments Advice 04/02/2024 antidepressant Encounter Details Date Type Department Care Team ([facility] st Contact Info) Description 04/02/2024 Telephone Family Practice [address], [place] [address] [place] [address] Dominic Chen DO [address] [place] [address] Advice (antidepressant) Allergies Active Allergy Reactions Criticality Noted Date Comments Amlodipine 07/01/2022 RASH, EDEMA, HEADACHE, Bee Venom Anaphylaxis High 05/29/2017 Blue Dyes (Parenteral) Anaphylaxis,Rash High 022 Red, purple, blue Hydroxyzine 10/10/2022 Latex High 07/30/2018 Anaphalaxis Omeprazole 12/17/2023 Sulfa Antibiotics Anaphylaxis,Hives High 05/29/2017 Diclofenac Sodium 05/10/2022 documented as of this encounter (statuses as of 04/02/2024) Medications Probiotic Acidophilus BioBeads Oral Capsule Take [...] Active Fluticasone Propionate 50 MCG/ACT Nasal Suspension (Flonase)Indications:E TD (Eustachian tube dysfunction), bilateral,Allergy, initial encounter Administer 2 Sprays into nostril in the morning. 48 mL 3 2022 Active Ipratropium [place] 0.03 % Nasal Solution (Atrovent)Indications: Chronic rhinitis Administer 2 Sprays into each nostril in the morning and 2 Sprays at noon and 2 Sprays before bedtime. for runny nose. 30 mL 3 2023 Active Magnesium Oxide -Mg Supplement 500 MG Oral Tablet Take 1 Tablet by mouth in the morning and 1 Tablet before bedtime. 2023 Active Vitamin B 12 500 MCG Oral Tablet Take by mouth every evening. 2023 Active Triamcinolone Acetonide 0.1 % External Ointment (Aristocort)Indication s:Dermatitis Apply topically to affected area 2 times a day. To affected area. 60 g 5 2023 Active Rosuvastatin Calcium 5 MG Oral Tablet (Crestor)Indications:P ure hypercholesterolemia TAKE 1 TABLET BY MOUTH IN THE MORNING 90 Tablet 1 2023 Active ZyrTEC Allergy 10 MG Oral Capsule (Cetirizine HCl) Take 1 Capsule by mouth in the morning. Active Lisinopril 40 MG Oral TabletIndications:HTN, goal below 140/90 Take 1 Tablet by mouth in the morning. 30 Tablet 5 2023 Active Additional Information Patient taking differently: 20 mgOral Daily(AM),Twice a day, Reported on 02/11/2024 Famotidine 20 MG Oral Tablet (Pepcid)Indications:Ga stroesophageal reflux disease without esophagitis Take 1 Tablet by mouth in the morning. 90 Tablet 3 2023 Active Gabapentin 300 MG Oral Capsule (Neurontin)Indications :JOSE (generalized anxiety disorder) Take 1 Capsule by mouth in the morning and 1 Capsule at noon and 1 Capsule before bedtime. 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 2023 Active PARoxetine HCl 20 MG Oral Tablet (pAXil)Indications:Mod erate episode of recurrent major depressive disorder (HCC) Take 1 Tablet by mouth in the morning. 30 Tablet 5 04/02 Discontinued documented as of this encounter (statuses as of 04/02/2024) Active Problems Problem Noted Date Diagnosed Date [...] as of this encounter (statuses as of 04/02/2024) Resolved Problems Problem Noted Date Diagnosed Date Resolved Date Food insecurity 03/03/2023 06/05/2023 Overview: Per [facility] Protocol Calculus of gallbladder with out cholecystitis without obstruction 11/28/2021 03/05/2022 ETD (Eustachian tube dysfunction), bilateral 8 06/04/2019 High risk for fracture due t o osteoporosis by DEXA scan 05/29/2017 12/21/2020 Gastroesophageal reflux disease 05/29/2017 06/04/2019 Allergy 05/29/2017 07/08/2022 Overview (07/22/2018): ICD-10 update of inactive term documented as of this encounter (statuses as of 04/02/2024) Immunizations Name Administration Dates Next Due COVID-19 mRNA, LNP-s, No Pre serve, 2-Dose Series ([employer]) 02/03/2021,06/30/2020,06/02/2020 COVID-19, LNP-s, No Preserve , Aubrey-sucrose, Ages 12+ (Pfizer) 12/11/2021 COVID-19, MRNA-LNP, PF, 30 M CG/0.3 mL, 12 YRS AND ABOVE, IM ([facility]) 03/14/2023 Covid-19, Mrna, Lnp-s, Pf, B ivalent, 30 Mcg, IM, 12 yrs and above (Pfizer) 03/05/2022 Pneumococcal Conjugate Vacc, 13 Valent (Prevnar) 10/04/2016 Pneumococcal Conjugate Vacci ne, 20-valent ([id number]) 02/13/2024 Pneumococcal Polysaccharide PPV23 (Pneumovax) 06/23/2015 RSV [...] encounter Miscellaneous Notes * Telephone Encounter - Tamra RussALVARO - 04/02/2024 4:29 PM EST Patient is aware and will comply. Thank you * Telephone Encounter - Dominic Chen DO - 04/02/2024 1:12 PM EST Decrease Paroxetine to 10 mg daily Keep appointment on 04/07/2024 * Telephone Encounter - Emily Thapa RN - 04/02/2024 12:42 PM EST Spoke with Patient- She has concerns with taking Paxil. Since starting this about 2 months ago she reports she has had diarrhea every day. Had diarrhea even when she was taking 10 mg daily. Last dose was 1 day ago Anupama reports her balance is off and reports vision changes (" a little blurry") x the last 2 weeks Pt states she has cataracts and needs to make an appointment with her eye doctor. Sees halos aroundlights at night. Diarrhea 1-2 x per day. No blood in stool. No severe abdominal pain/cramping. Nausea has been constant over the last week I episode of vomiting this AM- Non-bloody, small amount of undigested food. Decreased appetite Tolerating fluids well. Afebrile. She reports she's also had a few nose bleeds since starting paxil as well- last was last evening. Amount of bleeding described as "1 tissue soaked, then I get it to stop" Takes a probiotic daily and 20 mg pepcid. Recommended BRAT diet, stay well hydrated, try imodium/follow package directions Patient does not feel sooner OV is needed/will keep as scheduled 04/07/24 Patient does not wish to continue taking Paxil- Please advise if/how she should wean from same * Telephone Encounter - Isabel Fernandez OSA - 04/02/2024 11:28 AM EST Was to have appt today Is having a very hard time on the antidepressant she is on Is vomitting and having diarrhea, Also fell, missed a step and fell I have scheduled her for 04/07/2024 She doesn't sound real good. Can she be seen sooner? documented in this encounter Plan of Treatment Upcoming Encounters Date Type Department Care Team (Late st Contact Info) Description 04/07/2024 4:00 PM EST Office Visit Family Practice [address] [place] [address] [address] [place] [phone] Dominic Chen, [address] [place] [address] 04/23/2024 1:00 PM EST Office Visit Family Practice [address] [facility] [address] [place] [phone] Dominic Chen, [address] [place] [address] Health Maintenance Due Date Last Done Comments [...] episode of recurrent major depressive disorder (HCC) documented in this encounter Care Teams Clinical Research Associate Relationship Specialty Start Date End Date Dominic Chen DO [address] [place] [facility] [place] [address] PCP - General Internal Medicine 10/31/23 documented as of this encounter
--- OUTSIDE RECORDS SUMMARY | 2024-05-14 05:36 | External Medical Summary | Summary of Care ---
Author Name Unknown Organization [facility] Address [address] [place] [address] Phone [phone] Care Team Providers Care Manager Digital Ad Operations Name Role Phone Dominic Chen DO Primary Care Provider [phone] Reason for Visit * Reason Onset Date Comments Test Results 02/17/202402/16 Encounter Details Date Type Department Care Team (Late st Contact Info) Description 02/17/2024 Telephone Family Practice [address], [place] [address] [place] [address] Dominic Chen DO [address] [place] [address] Test Results (02/16) Allergies Active Allergy Reactions Criticality Noted Date Comments Amlodipine 07/01/2022 RASH, EDEMA, HEADACHE, Bee Venom Anaphylaxis High 05/29/2017 Blue Dyes (Parenteral) Anaphylaxis,Rash High 022 Red, purple, blue Hydroxyzine 10/10/2022 Latex High 07/30/2018 Anaphalaxis Omeprazole 12/17/2023 Sulfa Antibiotics Anaphylaxis,Hives High 05/29/2017 Diclofenac Sodium 05/10/2022 documented as of this encounter (statuses as of 02/17/2024) Medications Medication Sig Dispensed Refills Start Date [...] morning. 48 mL 3 3 Active Ipratropium [place] 0.03 % Nasal Solution (Atrovent)Indications:Chr onic rhinitis Administer 2 Sprays into each nostril in the morning and 2 Sprays at noon and 2 Sprays before bedtime. for runny nose. 30 mL 3 4 Active Famotidine 20 MG Oral Tablet (Pepcid)Indications:Gastr oesophageal reflux disease without esophagitis TAKE 1 TABLET BY MOUTH ONCE DAILY 90 Tablet 2 4 Active Magnesium Oxide -Mg Supplement 500 [...] morning. 30 Tablet 3 4 Active Gabapentin 100 MG Oral Capsule (Neurontin)Indications:GA D (generalized anxiety disorder) Take 1 Capsule by mouth at bedtime. 30 Capsule 3 4 Active Nitrofurantoin Monohyd Macro 100 MG Oral Capsule (Macrobid)Indications:UTI (urinary tract infection) Take 1 Capsule by mouth in the morning and 1 Capsule before bedtime. Do all this for 7 days. With food until gone. 14 Capsule 4 02/23/20 24 Active documented as of this encounter (statuses as of 02/17/2024) Active Problems Problem Noted Date Diagnosed Date [...] as of this encounter (statuses as of 02/17/2024) Resolved Problems Problem Noted Date Diagnosed Date [...] as of this encounter (statuses as of 02/17/2024) Immunizations Name Administration Dates Next Due COVID-19 mRNA, LNP-s, No Pre serve, 2-Dose Series ([employer]) 02/03/2021,06/30/2020,06/02/2020 COVID-19, LNP-s, No Preserve , Aubrey-sucrose, Ages 12+ (Pfizer) 12/11/2021 COVID-19, MRNA-LNP, 23-24, P F, 30 MCG/0.3 mL, 12 YRS AND ABOVE, IM ([employer]-Comirnat) 03/14/2023 Covid-19, Mrna, Lnp-s, Pf, B ivalent, 30 Mcg, IM, 12 yrs and above (Pfizer) 03/05/2022 Pneumococcal Conjugate Vacc, 13 Valent (Prevnar) 10/04/2016 Pneumococcal Conjugate Vacci ne, 20-valent ([id number]) 02/13/2024 Pneumococcal Polysaccharide PPV23 (Pneumovax) 06/23/2015 RSV [...] Telephone Encounter - Lucia Rodriguez LPN - 02/17/2024 10:32 AM EDT Call placed to patient and relayed information from Dr. Chen. Pt acknowledged understanding. Agreeable to repeat lab work in 3 months. Lab orders pended. * Telephone Encounter - Lucia Rodriguez LPN - 02/17/2024 10:27 AM EDT ----- Message from Dominic Chen DO sent at 02/17/2024 9:19 AM EDT ----- PTH is up slightly. Calcium is up slightly. All other labs are stable. Repeat PTH, CAlcium , and Vitamin D in 3 months documented in this encounter Plan of Treatment Upcoming Encounters Date Type Department Care Team (Late st Contact Info) Description 02/19/2024 11:20 AM EDT Office Visit Family Practice [address] [phone] Dominic Chen DO [address] [place] [address] 04/23/2024 1:00 PM EST Office Visit Family Practice [address] [address] Dominic Chen DO [address] [place] [address] Scheduled Orders Name Type Priority Associated Diagnoses Orde r Schedule PTH Lab Routine Hyperparathyroidism, primary (HCC) Expected: 05/19/2024 (Approximate), Expires: 02/16/2025 CALCIUM Lab Routine Serum calcium elevated Hyperparathyroidism, primary (HCC) Expected: 05/19/2024 (Approximate), Expires: 02/16/2025 25-HYDROXY VITAMIN D Lab Routine Serum calcium elevated Expected: 05/19/2024 (Approximate), Expires: 02/16/2025 Health Maintenance Due Date Last Done Comments [...] as of this encounter Visit Diagnoses Diagnosis Hyperparathyroidism, primary (HCC)- Primary Primary hyperparathyroidism Serum calcium elevated Hypercalcemia documented in this encounter Care Teams Manager Digital Ad Operations Relationship Specialty Start Date End Date Dominic Chen DO [address] [place] [address] PCP - General Internal Medicine 10/31/23 documented as of this encounter
--- OUTSIDE RECORDS SUMMARY | 2024-05-14 05:36 | External Medical Summary | Summary of Care ---
Author Name Unknown Organization [facility] Address [address] [place] [address] Phone [phone] Care Team Providers Care Fuel Cell Repairer Name Role Phone Reji Chen DO Primary Care Provider Reason for Visit * Reason Onset Date Comments Urinary Tract Infection Symptoms 02/16/2024 Encounter Details Date Type Department Care Team (Late st Contact Info) Description 02/16/2024 Refill Family Practice [address], [place] [address] [place] [address] Reji Chen DO [address] [place] [address] UTI (urinary tract infection)* Allergies Active Allergy Reactions Criticality Noted Date Comments Amlodipine 07/01/2022 RASH, EDEMA, HEADACHE, Bee Venom Anaphylaxis High 05/29/2017 Blue Dyes (Parenteral) Anaphylaxis,Rash High 022 Red, purple, blue Hydroxyzine 10/10/2022 Latex High 07/30/2018 Anaphalaxis Omeprazole 12/17/2023 Sulfa Antibiotics Anaphylaxis,Hives High 05/29/2017 Diclofenac Sodium 05/10/2022 documented as of this encounter (statuses as of 02/16/2024) Medications Medication Sig Dispensed Refills Start Date [...] morning. 48 mL 3 3 Active Ipratropium [place] 0.03 % Nasal Solution (Atrovent)Indications:Chr onic rhinitis [...] as of this encounter (statuses as of 02/16/2024) Active Problems Problem Noted Date Diagnosed Date [...] as of this encounter (statuses as of 02/16/2024) Resolved Problems Problem Noted Date Diagnosed Date [...] as of this encounter (statuses as of 02/16/2024) Immunizations Name Administration Dates Next Due COVID-19 mRNA, LNP-s, No Pre serve, 2-Dose Series ([employer]) 02/03/2021,06/30/2020,06/02/2020 COVID-19, LNP-s, No Preserve , Aubrey-sucrose, Ages 12+ (Pfizer) 12/11/2021 COVID-19, MRNA-LNP, 23-24, P F, 30 MCG/0.3 mL, 12 YRS AND ABOVE, IM ([employer]-Comirnat) 03/14/2023 Covid-19, Mrna, Lnp-s, Pf, B ivalent, 30 Mcg, IM, 12 yrs and above (Pfizer) 03/05/2022 Pneumococcal Conjugate Vacc, 13 Valent (Prevnar) 10/04/2016 Pneumococcal Conjugate Vacci ne, 20-valent ([id number]) 02/13/2024 Pneumococcal Polysaccharide PPV23 (Pneumovax) 06/23/2015 RSV [...] Telephone Encounter - Reji Chen DO - 02/16/2024 9:24 AM EDTSigned Prescriptions: Disp Refills Nitrofurantoin Monohyd Macro 100 MG Oral C*14 Cap*0 Sig: Take 1 Capsule by mouth in the morning and 1 Capsule before bedtime. Do all this for 7 days. With food until gone.Authorizing Provider: REJI CHEN * Telephone Encounter - Tamar Russ LPN - 02/16/2024 9:06 AM EDT Patient is aware and will comply. Pharmacy confirmed. Please confirm number of days you wish patient to be on? * Telephone Encounter - Tamar Russ LPN - 02/16/2024 9:05 AM EDT ----- Message from Reji Chen DO sent at 02/16/2024 8:21 AM EDT ----- Patent has UTI sensitive to Macrobid. Start Macrobid 100 mg two times a day. documented in this encounter Plan of Treatment Upcoming Encounters Date Type Department Care Team (Late st Contact Info) Description 02/19/2024 11:20 AM EDT Office Visit [address] [place] [phone] Reji Chen DO [address] [place] [address] 04/23/2024 1:00 PM EST Office Visit Family Practice [address], [place] [address] [place] [address] Reji Chen, [address] [place] [address] Health Maintenance Due Date Last Done Comments [...] as of this encounter Visit Diagnoses Diagnosis UTI (urinary tract infection)- Primary Urinary tract infection, site not specified documented in this encounter Care Teams Fuel Cell Repairer Relationship Specialty Start Date End Date Reji Chen DO [address] [place] [address] PCP - General Internal Medicine 10/31/23 documented as of this encounter
--- OUTSIDE RECORDS SUMMARY | 2024-05-14 05:37 | External Medical Summary ---
Author Name Unknown Address Unknown Organization K01:[facility] [place] [facility] [address] [facility] [address] [facility] [address] Laboratory Report Ordering Provider Test Date Status PUSHPA MENDOZA 02/13/2024 11:23:26 Final Observation Date Value Abnormality Reference (Units ) Status WBC, Total 02/13/2024 11:23:26 3.73 Below low normal 4.00-10.80 (K/uL) Final RBC 02/13/2024 11:23:26 3.73 3.85-5.15 (M/uL) Final Hemoglobin 02/13/2024 11:23:26 12.1 12.0-15.3 (g/dL) Final HCT 02/13/2024 11:23:26 36.7 36.0-45.2 (%) Final MCV 02/13/2024 11:23:26 98.4 81.5-97.5 (fL) Final MCH 02/13/2024 11:23:26 32.4 27.0-34.0 (pg) Final MCHC 02/13/2024 11:23:26 33.0 32.0-36.0 (g/dL) Final RDW 02/13/2024 11:23:26 13.2 11.5-15.5 (%) Final Platelets 02/13/2024 11:23:26 198 140-400 (K/uL) Final MPV 02/13/2024 11:23:26 9.4 6.6-11.1 (fL) Final Nucleated erythrocytes/100 leukocytes [Ratio] in Blood by Automated count 02/13/2024 11:23:26 0 <=0 (/100 WBCs) Final Performing Location [facility] [place] [address] [place] [address]
--- OUTSIDE RECORDS SUMMARY | 2024-05-14 05:37 | External Medical Summary ---
Author Name Unknown Address Unknown Organization K01:LABORATORY [facility] [place] - [address] [place] [address] Laboratory Report Ordering Provider Test Date Status PUSHPA MENDOZA 02/13/2024 11:23:26 Final Observation Date Value Abnormality Reference (Units ) Status TSH 02/13/2024 11:23:26 2.47 0.27-4.20 (uIU/mL) Final Performing Location LAB[facility]ATORY [facility] [place] - [address] [place] [address]
--- OUTSIDE RECORDS SUMMARY | 2024-05-14 05:37 | External Medical Summary | Summary of Care ---
Author Name Unknown Organization [facility] Address [address] [place] [address] Phone [phone] Care Team Providers Care Fruit Dumper Name Role Phone Dominic Chen DO Primary Care Provider [phone] Reason for Visit * Reason Onset Date Comments Advice 02/12/2024 Encounter Details Date Type Department Care Team (Late st Contact Info) Description 02/12/2024 Telephone Family Practice [address] [place] [address] [place] [address] Dominic Chen DO 293 [place] [address] Advice Allergies Active Allergy Reactions Criticality Noted Date Comments Amlodipine 07/01/2022 RASH, EDEMA, HEADACHE, Bee Venom Anaphylaxis High 05/29/2017 Blue Dyes (Parenteral) Anaphylaxis,Rash High 022 Red, purple, blue Hydroxyzine 10/10/2022 Latex High 07/30/2018 Anaphalaxis Omeprazole 12/17/2023 Sulfa Antibiotics Anaphylaxis,Hives High 05/29/2017 Diclofenac Sodium 05/10/2022 documented as of this encounter (statuses as of 02/12/2024) Medications Medication Sig Dispensed Refills Start Date [...] morning. 48 mL 3 3 Active Ipratropium [place] 0.03 % Nasal Solution (Atrovent)Indications:Chr onic rhinitis [...] mgOral Daily(AM),Twice a day, Reported on 02/11/2024 documented as of this encounter (statuses as of 02/12/2024) Active Problems Problem Noted Date Diagnosed Date [...] as of this encounter (statuses as of 02/12/2024) Resolved Problems Problem Noted Date Diagnosed Date [...] as of this encounter (statuses as of 02/12/2024) Immunizations Name Administration Dates Next Due COVID-19 mRNA, LNP-s, No Pre serve, 2-Dose Series ([employer]) 02/03/2021,06/30/2020,06/02/2020 COVID-19, LNP-s, No Preserve , Aubrey-sucrose, Ages 12+ (Pfizer) 12/11/2021 COVID-19, MRNA-LNP, 23-24, P F, 30 MCG/0.3 mL, 12 YRS AND ABOVE, IM ([employer]-Comirnat) 03/14/2023 Covid-19, Mrna, Lnp-s, Pf, B ivalent, 30 Mcg, IM, 12 yrs and above ([employer]) 03/05/2022 Pneumococcal Conjugate Vacc, 13 Valent (Prevnar) [...] 06/05/2023 Does the household have a re lar source of income? (Household - for ages [...] Telephone Encounter - Tamar Russ LPN - 02/12/2024 1:42 PM EDT [facility]. Thank you * Telephone Encounter - Dominic Chne DO - 02/12/2024 1:36 PM EDT Start Losartan 25 mg daily Start Sertraline 25 mg daily Refer to Psychology BP check in 1 week * Telephone Encounter - Tamar Russ LPN - 02/12/2024 1:28 PM EDT Patient called in states she is willing to do counseling for general anxiety issues. Willing to take a "weak antidepressant". Is willing to try a blood pressure med. Did have alcohol on 01/31 states 3 glasses of wine at wedding. * Telephone Encounter - Isabel Fernandez OSA - 02/12/2024 9:05 AM EDT Calling inregards to yesterdays appt Has several things she would like to discuss with you Things that are important to her Please call documented in this encounter Plan of Treatment Upcoming Encounters Date Type Department Care Team (Late st Contact Info) Description 02/13/2024 10:00 AM EDT Nurse Only Family Practice [address] [place] [address] College, Nurse Fam Prac [address] [place] [address] 02/13/2024 10:40 AM EDT Office Visit Family Practice 65 [facility] 293 [place] [address] Dominic Chen, 293 [place] [address] 04/23/2024 1:00 PM EST Office Visit Family Practice 65 [facility] 293 [place] [address] Dominic Chen, 293 [place] [address] Health Maintenance Due Date Last Done Comments [...] 09/09/2017 Albumin/Creatinine Ratio 05/10/2025 023, 03/23/2021, 09/22/2020 DTap/Tdap Vaccines (2 - Td or Tdap) 10/04/2026 10/04/2016, 11/19/2003 Lipid Panel 06/19/2028 06/20/2023, 04/22, 03/23/2021, Additional history exists Pneumococcal Vaccine: 65+ Years Completed 10/04/2016, 06/23/2015 Zoster Vaccines Completed 02/21/2020, 05/2019, 02/17/2014 Influenza Vaccine (FLU shot) Completed 02/2024, 02/14/2023, 01/16/2022, Additional history exists HPV (Gardasil) Vaccine Aged [...] filedocumented as of this encounter Care Teams Fruit Dumper Relationship Specialty Start Date End Date Dominic Chen DO [address] [facility] [place] [address] PCP - General Internal Medicine 10/31/23 documented as of this encounter
--- OUTSIDE RECORDS SUMMARY | 2024-05-14 05:37 | External Medical Summary | Summary of Care ---
Author Name Unknown Organization [facility] Address [address] [place] [address] Phone [phone] Care Team Providers Care Chain Person Name Role Phone Dominic Chen DO Primary Care Provider [phone] Reason for Visit * Reason Onset Date Comments Appointment 02/09/202402/09 Encounter Details Date Type Department Care Team (Late st Contact Info) Description 02/09/2024 Telephone Family Practice 65 [facility] [place] [address] [place] [address] Dominic Chen DO 293 [place] [address] Appointment (02/09) Allergies Active Allergy Reactions Criticality Noted Date Comments Amlodipine 07/01/2022 RASH, EDEMA, HEADACHE, Bee Venom Anaphylaxis High 05/29/2017 Blue Dyes (Parenteral) Anaphylaxis,Rash High 022 Red, purple, blue Hydroxyzine 10/10/2022 Latex High 07/30/2018 Anaphalaxis Omeprazole 12/17/2023 Sulfa Antibiotics Anaphylaxis,Hives High 05/29/2017 Diclofenac Sodium 05/10/2022 documented as of this encounter (statuses as of 02/10/2024) Medications Medication Sig Dispensed Refills Start Date [...] nostril in the morning. 48 mL 3 02/14/2023 Active Ipratropium [place] 0.03 % Nasal Solution (Atrovent)Indications:Chr onic rhinitis Administer 2 Sprays into each nostril in the morning and 2 Sprays at noon and 2 Sprays before bedtime. for runny nose. 30 mL 3 05/23/2023 Active Famotidine 20 MG Oral Tablet (Pepcid)Indications:Gastr oesophageal reflux disease without esophagitis TAKE 1 TABLET BY MOUTH ONCE DAILY 90 Tablet 2 10/27/2023 Active Magnesium Oxide -Mg Supplement 500 MG Oral Tablet Take 1 Tablet by mouth in the morning and 1 Tablet before bedtime. 12/17/2023 Active Vitamin B 12 500 MCG Oral Tablet Take by mouth every evening. 12/17/2023 Active Triamcinolone Acetonide 0.1 % External Ointment (Aristocort)Indications:D ermatitis Apply topically to affected area 2 times a day. To affected area. 60 g 5 12/17/2023 Active Rosuvastatin Calcium 5 MG Oral Tablet (Crestor)Indications:Pure hypercholesterolemia TAKE 1 TABLET BY MOUTH IN THE MORNING 90 Tablet 1 01/02/2024 Active LORazepam 1 MG Oral Tablet (Ativan)Indications:Uncom plicated alcohol dependence (HCC),JOSE (generalized anxiety disorder) Take 0.5 tablet by mouth in the morning and 0.5 tablet in the afternoon and 1 tablet at bedtime 60 Tablet 1 01/26/2024 Active ZyrTEC Allergy 10 MG Oral Capsule (Cetirizine HCl) Take 1 Capsule by mouth in the morning. Active Lisinopril 40 MG Oral TabletIndications:HTN, goal below 140/90 Take 1 Tablet by mouth in the morning. 30 Tablet 5 01/30/2024 Active documented as of this encounter (statuses as of 02/10/2024) Active Problems Problem Noted Date Diagnosed Date [...] as of this encounter (statuses as of 02/10/2024) Resolved Problems Problem Noted Date Diagnosed Date [...] as of this encounter (statuses as of 02/10/2024) Immunizations Name Administration Dates Next Due COVID-19 mRNA, LNP-s, No Pre serve, 2-Dose Series ([employer]) 02/03/2021,06/30/2020,06/02/2020 COVID-19, LNP-s, No Preserve , Aubrey-sucrose, Ages 12+ (Pfizer) 12/11/2021 COVID-19, MRNA-LNP, 23-24, P F, 30 MCG/0.3 mL, 12 YRS AND ABOVE, IM (.[employer]-Comirnaty) 03/14/2023 Covid-19, Mrna, Lnp-s, Pf, B ivalent, [...] Telephone Encounter - Dominic Chen DO - 02/10/2024 2:52 PM EDT Noted * Telephone Encounter - Isabel Killian OSA - 02/10/2024 1:57 PM EDT Appt added * Telephone Encounter - Tamar Russ LPN - 02/10/2024 12:13 PM EDT Please add to nurse visit for visit tomorrow at 11 for urine poc and 3 position bp. Thank you * Telephone Encounter - Isabel Killian OSA - 02/10/2024 12:06 PM EDT Pt calling today for an appt. Pt states she thinks she may have a UTI. She is feeling confused, exhausted. She is scheduled for Friday, however; states she cannot wait until then as she is peeing more frequently and started w the confusion. Please call her at [phone] * Telephone Encounter - Lucia Rodriguez LPN - 02/10/2024 11:52 AM EDT Call placed to patient. Relayed to her that Dr. Chen would like her to come in for NV for orthostatic BP check. Pt is already scheduled for NV for Friday at 1000 for BP check. States she is unable to come in any sooner than Friday. Pt reports she thinks she may have long COVID - very tired, no energy. Pt also is concerned she may be Bipolar - states she is depressed and feels like she may need an antidepressant. States she is no longer drinking alcohol. Noted pt also has OV scheduled with Dr. Chen on 02/13/24 at 1040. Please advise. * Telephone Encounter - Dominic Chen DO - 02/09/2024 9:20 PM EDT Schedule nurse visit for orthostatic BP * Telephone Encounter - Tamar Russ LPN - 02/09/2024 9:43 AM EDT Called patient back, states at time of visit her bp was elevated. She started taking lisinopril 20 mg twice daily. States she can't take lisinopril 40 mg in the am, states she is done this way. States very fatigued, states wobbly at times. Bp is currently 140/80 pulse is 76 pulse ox is 97. * Telephone Encounter - Isabel Killian OSA - 02/09/2024 9:40 AM EDT Pt calling to set up an appt on Friday. Pt states Dr Chen recently changed her Lisinopril from 20mg to 40 mg and she is not feeling good. States exhausted, sick to her stomach. Please call her at [phone] documented in this encounter Plan of Treatment Upcoming Encounters Date Type Department Care Team (Late st Contact Info) Description 02/11/2024 11:15 AM EDT Nurse Only Family Practice 65 [facility] 293 [place] [phone] Impact, Nurse Fam Prac [address] [place] [address] 02/13/2024 10:00 AM EDT Nurse Only Family Practice 65 [facility] 293 [place] [phone] [place], Nurse Fam Prac [address] [place] [address] 02/13/2024 10:40 AM EDT Office Visit Family Practice 65 [facility] 293 [place] [phone] Dominic Chen, 293 [place] [address] 02/18/2024 11:45 AM EDT Imaging Radiology [facility], [address] [place] [address] 04/23/2024 1:00 PM EST Office Visit Family Practice [address], [place] 293 [place] [address] Dominic Chen, 293 [place] [address] Health Maintenance Due Date Last Done Comments [...] filedocumented as of this encounter Care Teams Chain Person Relationship Specialty Start Date End Date Dominic Chen DO [address] [place] [address] PCP - General Internal Medicine 10/31/23 documented as of this encounter
--- OUTSIDE RECORDS SUMMARY | 2024-05-14 05:37 | External Medical Summary | Summary of Care ---
Author Name Unknown Organization [facility] Address [address] [place] [address] Phone [phone] Care Team Providers Care Senior Litigation Paralegal Name Role Phone Doimnic Chen DO Primary Care Provider [phone] Reason for Visit * Reason Onset Date Comments Appointment 02/09/202402/09 Encounter Details Date Type Department Care Team (Late st Contact Info) Description 02/09/2024 Telephone Family Practice 65 [facility] [place] 293 [place] [address] Dominic Chen DO 293 [place] [address] Appointment (02/09) Allergies Active Allergy Reactions Criticality [...] morning. 48 mL 3 02/14/2023 Active Ipratropium [place] 0.03 % Nasal Solution (Atrovent)Indications:Chr onic rhinitis [...] mRNA, LNP-s, No Pre serve, 2-Dose Series ([employer]) 02/03/2021,06/30/2020,06/02/2020 COVID-19, LNP-s, No Preserve , Aubrey-sucrose, Ages 12+ (Pfizer) 12/11/2021 COVID-19, MRNA-LNP, 23-24, P F, 30 MCG/0.3 mL, 12 YRS AND ABOVE, IM ([employer]-Comirnaty) 03/14/2023 Covid-19, Mrna, Lnp-s, Pf, B ivalent, [...] w the confusion. Please call her at [phone] * Telephone Encounter - Lucia Rodriguez LPN [...] an appt on Friday. Pt states Dr Gustavo recently changed her Lisinopril from 20mg to 40 mg and she is not feeling good. States exhausted, sick to her stomach. Please call her at [phone] documented in this encounter Plan of Treatment Upcoming Encounters Date Type Department Care Team (Late st Contact Info) Description 02/11/2024 11:15 AM EDT Nurse Only Family Practice 65 [facility] 293 [facility] [place] [phone] [place], Nurse Fam Prac [address] [place] [address] 02/13/2024 10:00 AM EDT Nurse Only Family Practice 65 [facility] 293 [facility] [place], [place] [phone] [place], Nurse Fam Prac [address] [place] [address] 02/13/2024 10:40 AM EDT Office Visit Family Practice 65 [facility] 293 [facility] [phone] Dominic Chen, 293 [facility], [place] [address] 02/18/2024 11:45 AM EDT Imaging Radiology [facility] 1st Floor, [place] [address] [facility] [place] [address] 04/23/2024 1:00 PM EST Office Visit Family Practice 65 [facility] 293 [facility] [phone] Dominic Chen, [address] [place] [address], [place] [address] Health Maintenance Due Date Last Done Comments [...] filedocumented as of this encounter Care Teams Senior Litigation Paralegal Relationship Specialty Start Date End Date Dominic Chen DO [address] [facility] [place] [address] PCP - General Internal Medicine 10/31/23 documented as of this encounter
--- OUTSIDE RECORDS SUMMARY | 2024-05-14 05:37 | External Medical Summary | Summary of Care ---
Author Name Unknown Organization [facility] Address [address] [place] [address] Phone [phone] Care Team Providers Care Oval Or Circular Glass Cutter Name Role Phone Dominic Chen DO Primary Care Provider [phone] Reason for Visit * Reason Comments Nurse Documentation Encounter Details Date Type Department Care Team (Late st Contact Info) Description 02/02/2024 1:15 PM EDT Nurse Only Family Practice 65 [facility] [address] [place] [address] Tamar Powell, [place] [address] [place] [address] Nurse Documentation Allergies Active Allergy Reactions Criticality Noted Date Comments Amlodipine 07/01/2022 RASH, EDEMA, HEADACHE, Bee Venom Anaphylaxis High 05/29/2017 Blue Dyes (Parenteral) Anaphylaxis,Rash High 022 Red, purple, blue Hydroxyzine 10/10/2022 Latex High 07/30/2018 Anaphalaxis Omeprazole 12/17/2023 Sulfa Antibiotics Anaphylaxis,Hives High 05/29/2017 Diclofenac Sodium 05/10/2022 documented as of this encounter (statuses as of 02/02/2024) Medications Medication Sig Dispensed Refills Start Date [...] morning. 48 mL 3 02/14/2023 Active Ipratropium [place] 0.03 % Nasal Solution (Atrovent)Indications:Chr onic rhinitis [...] as of this encounter (statuses as of 02/02/2024) Active Problems Problem Noted Date Diagnosed Date [...] as of this encounter (statuses as of 02/02/2024) Resolved Problems Problem Noted Date Diagnosed Date [...] as of this encounter (statuses as of 02/02/2024) Immunizations Name Administration Dates Next Due COVID-19 mRNA, LNP-s, No Pre serve, 2-Dose Series ([employer]) 02/03/2021,06/30/2020,06/02/2020 COVID-19, LNP-s, No Preserve , Aubrey-sucrose, Ages 12+ (Pfizer) 12/11/2021 COVID-19, MRNA-LNP, 23-24, P F, 30 MCG/0.3 mL, 12 YRS AND ABOVE, IM ([employer]-Comirnaty) 03/14/2023 Covid-19, Mrna, Lnp-s, Pf, B ivalent, [...] on file documented as of this encounter Progress Notes * Tamar Powell RN - 02/02/2024 1:21 PM EDT RN Lead: Tamar Powell RN Date: 02/02/2024 Patient seen for ASC: HTN<140/90, JOSE and GERD Connected with patient via phone. Verified patient name/. Assessment: Pt. seen: 01/30/2024 Treatment plan: HTN, goal below 140/90 (Primary) BP not controlled - CBC WITH WBC DIFFERENTIAL; Future; Expected date: 01/30/2024 - Increase Lisinopril 40 MG Oral Tablet; Take 1 Tablet by mouth in the morning. - BASIC METABOLIC PANEL; Future; Expected date: 01/30/2024 JOSE (generalized anxiety disorder) Continue Lorazepam Gastroesophageal reflux disease without esophagitis Continue Famotidine Status update: call to pt-states she was able to nut picker the lisinopril 40 mg and is taking 1 tab in AM. She has not checked her BP at home-had company over the weekend and has been busy. She will monitor when she can and will keep a log. She will bring the log and her BP cuff to her appt with the nurse on 02/06/24 for BP check. She will call sooner with any problems or concerns. Medication Reconciliation: Medication Reconciliation completed: Yes Careteam: Secondary Social Studies Teacher: No Please let patient know you will be sharing with the CM and they may contact patient for future follow up. If patient is case managed, please route note to CM. If patient requires further follow-up for this ASC episode, please reach out directly to the medical case manager via Teams or [place]. Plan for Future Contacts: Plan to follow up Keep scheduled appointment 02/06/2024-nurse visit for BP check Advancement/Closure Plan: Patient provided contact information and encouraged to call CM or clinic directly with any changes in condition. documented in this encounter Plan of Treatment Upcoming Encounters Date Type Department Care Team (Late st Contact Info) Description 02/06/2024 10:00 AM EDT Nurse Only Family Practice 65 [facility] [address] [place] [address] College, Nurse Fam Prac [address] [address] 02/06/2024 2:15 PM EDT Imaging Radiology [facility] 1st Floor, [place] 132 [facility] [place] [address] 04/23/2024 1:00 PM EST Office Visit Family Practice 65 [facility] [address] [place] [address] Dominic Chen, 293 [place] [address] Health Maintenance Due Date Last Done Comments [...] filedocumented as of this encounter Care Teams Oval Or Circular Glass Cutter Relationship Specialty Start Date End Date Dominic Chen DO [address] [place] [address] PCP - General Internal Medicine 10/31/23 documented as of this encounter
--- OUTSIDE RECORDS SUMMARY | 2024-05-14 05:37 | External Medical Summary ---
Author Name Unknown Address Unknown Organization [id number]:[facility]ORY [facility] [place] - [address] [facility] [facility] [address] Laboratory Report Ordering Provider Test Date Status PUSHPA MENDOZA 02/13/2024 11:23:26 Final Observation Date Value Abnormality Reference (Units ) Status SYNC LEUKOCYTES IN BLOOD BY AUTOMATED COUNT 02/13/2024 11:23:26 3.73 Below low normal 4.00-10.80 (K/uL) Final Segs 02/13/2024 11:23:26 59.0 40.0-75.0 (%) Final Lymphs % 02/13/2024 11:23:26 27.6 18.0-42.0 (%) Final Monos 02/13/2024 11:23:26 11.0 1.0-11.0 (%) Final Eosinophils 02/13/2024 11:23:26 0.8 0.0-6.0 (%) Final Basos 02/13/2024 11:23:26 1.1 0.0-2.0 (%) Final Immature Granulocyte, Percent 02/13/2024 11:23:26 0.5 0.0-2.0 (%) Final Absolute Segs 02/13/2024 11:23:26 2.20 1.80-7.70 (K/uL) Final Lymphs, absolute 02/13/2024 11:23:26 1.03 1.00-4.80 (K/ul) Final Monos, Abs 02/13/2024 11:23:26 0.41 0.00-1.10 (K/uL) Final Eos, Abs 02/13/2024 11:23:26 0.03 0.00-0.70 (K/uL) Final Basos, Abs 02/13/2024 11:23:26 0.04 0.00-0.20 (K/uL) Final Immature Granulocytes, Number 02/13/2024 11:23:26 0.02 0.00-0.20 (K/uL) Final Performing Location LAB[facility]ORY [facility] [place] - [address] [facility] [address]
--- OUTSIDE RECORDS SUMMARY | 2024-05-14 05:37 | External Medical Summary ---
Author Name Unknown Address Unknown Organization K01:LABORATORY [place] - [address] [place] [address] Laboratory Report Ordering Provider Test Date Status PUSHPA MENDOZA 02/11/2024 10:48:09 Final <10,000 colonies/ml normal f china, one colony type Observation Date Value Abnormality Reference (Units ) Status Bacteria identified in Specimen by Culture 02/11/2024 10:48:09 [id number]^STAPHYLO COCCUS, COAGULASE NEGATIVE Abnormal Final 10,000 to 100,000 colonies/m L Staphylococcus, coagulase negative Performing Location [facility] [place] - [address] [place] [id number] Ordering Provider Test Date Status PUSHPA MENDOZA 02/11/2024 10:48:09 Final Observation Date Value Abnormality Reference (Units ) Status Nitrofurantoin susceptibility 02/11/2024 10:48:09 <=16 Susceptible Final Oxacillinsusceptibility 02/11/2024 10:48:09 >=4 Resistant Final Oxacillin/Methicillin resist ant Staphylococci are considered clinically resistant to all Beta-lactam (Penicillin and Cephalosporin) antibiotics. Quinolone antibiotics should also not be used for Staphylococci that are Oxacillin resistant. Tetracyclinesusceptibility 02/11/2024 10:48:09 >=16 Res istant Final TMP-SMZ susceptibility 02/11/2024 10:48:09 <=10 Suscept ible Final Vancomycinsusceptibility 02/11/2024 10:48:09 2 Susce ptible Final Test: Culture, Urine, Quanti tative
Specimen Source: Urine, Clean Catch
Specimen Type: Urine
Specimen Date: 02/11/2024 1048
Result Date: 02/15/2024 1114
Result Status: Final result
Abnormal: Yes
Resulting Lab: LABORATORY [facility]
[address] [facility] [address]

CULTURE

10,000 to 100,000 colonies/mL Staphylococcus, coagulase negative (Abnormal)

<10,000 colonies/ml normal pa, one colony type

SUSCEPTIBILITY

Staphylococcus,
coagulase
negative
METHOD MICROBROTH
DILUTIONS

NITROFURANTOIN <=16 Susceptible
OXACILLIN >=4 Resistant
[1]
TETRACYCLINE >=16 Resistant
TRIMETH/SULFAMETHOXAZOLE <=10 Susceptible
VANCOMYCIN 2 Susceptible

[1] Oxacillin/Methicillin resistant Staphylococci are considered clinically
resistant to all Beta-lactam (Penicillin and Cephalosporin) antibiotics.
Quinolone antibiotics should also not be used for Staphylococci that are
Oxacillin resistant.

null Performing Location LABORATORY [place] [address] [address] [facility] [facility]. [facility] [address]
--- OUTSIDE RECORDS SUMMARY | 2024-05-14 05:37 | External Medical Summary | Summary of Care ---
Author Name Unknown Organization [facility] Address [address] [place] [address] Phone [phone] Care Team Providers Care Production Machine Shop Supervisor Name Role Phone Dominic Chen DO Primary Care Provider [phone] Reason for Visit * Reason Comments Acute Encounter Details Date Type Department Care Team (Late st Contact Info) Description 02/13/2024 10:40 AM EDT Office Visit Family Practice [facility], [place] [address] [place] [id number] Dominic Chen DO [address] [place] [address] Moderate episode of recurrent major depressive disorder (HCC)*; JOSE (generalized anxiety disorder); HTN, goal below 140/90; Pure hypercholesterolemia; Gastroesophageal reflux disease without esophagitis; 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; Uncomplicated alcohol dependence (HCC); Need for pneumococcal vaccination; Hyperparathyroidism, primary (HCC) Allergies Active Allergy Reactions Criticality Noted Date Comments Amlodipine 07/01/2022 RASH, EDEMA, HEADACHE, Bee Venom Anaphylaxis High 05/29/2017 Blue Dyes (Parenteral) Anaphylaxis,Rash High 022 Red, purple, blue Hydroxyzine 10/10/2022 Latex High 07/30/2018 Anaphalaxis Omeprazole 12/17/2023 Sulfa Antibiotics Anaphylaxis,Hives High 05/29/2017 Diclofenac Sodium 05/10/2022 documented as of this encounter (statuses as of 02/13/2024) Medications Medication Sig Dispensed Refills Start Date [...] morning. 48 mL 3 3 Active Ipratropium Bowman 0.03 % Nasal Solution (Atrovent)Indications:Chr onic rhinitis [...] at bedtime. 30 Capsule 3 4 Active documented as of this encounter (statuses as of 02/13/2024) Active Problems Problem Noted Date Diagnosed Date [...] as of this encounter (statuses as of 02/13/2024) Resolved Problems Problem Noted Date Diagnosed Date Resolved Date Food insecurity 03/03/2023 06/05/2023 Overview: Per [facility] Protocol Calculus of gallbladder with out cholecystitis without obstruction 11/28/2021 03/05/2022 ETD (Eustachian tube dysfunction), bilateral 8 06/04/2019 High risk for fracture due t o osteoporosis by DEXA scan 05/29/2017 12/21/2020 Gastroesophageal reflux disease 05/29/2017 06/04/2019 Allergy 05/29/2017 07/08/2022 Overview: ICD-10 update of inactive term documented as of this encounter (statuses as of 02/13/2024) Immunizations Name Administration Dates Next Due COVID-19 mRNA, LNP-s, No Pre serve, 2-Dose Series ([employer]) 02/03/2021,06/30/2020,06/02/2020 COVID-19, LNP-s, No Preserve , Aubrey-sucrose, Ages 12+ ([employer]) 12/11/2021 COVID-19, MRNA-LNP, 23-24, P F, 30 MCG/0.3 mL, 12 YRS AND ABOVE, IM [facility] 03/14/2023 Covid-19, Mrna, Lnp-s, Pf, B ivalent, 30 Mcg, IM, 12 yrs and above (Pfizer) 03/05/2022 Pneumococcal Conjugate Vacc, 13 Valent (Prevnar) 10/04/2016 Pneumococcal Conjugate Vacci ne, 20-valent ([id number]) 02/13/2024 Pneumococcal Polysaccharide PPV23 (Pneumovax) 06/23/2015 RSV [...] Sign Reading Time Taken Comments Blood Pressure 150/109 02/13/2024 11:16 AM EDT Pulse 77 02/13/2024 11:16 AM EDT Temperature 36.4 C (97.6 F) 02/13/2024 10:29 AM E DT Respiratory Rate 16 02/13/2024 10:29 AM EDT Oxygen Saturation 99% 02/13/2024 10:29 AM EDT Inhaled Oxygen Concentration - - Weight 66.3 kg (146 lb 1.6 oz) 02/13/2024 10:29 AM EDT Height 166.4 cm (5' 5.5") 02/13/2024 10:29 AM ED T Body Mass Index 23.94 02/13/2024 10:29 AM EDT documented in this encounter Progress Notes * Dominic Chen, DO - 02/13/2024 11:19 AM EDT SUBJECTIVE: Anupama Caraballo is a 73 year old female. 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 The patient has irritability, insomnia, loss of appetite, fatigue, and lack of motivation. Brain fog is present as well. No suicidal thought. No chest pain or shortness of breath [...] in the morning. 48 mL 3 Ipratropium Bowman 0.03 % Nasal Solution (Atrovent) Administer 2 Sprays into each nostril in the morning and 2 Sprays at noon and 2 Sprays before bedtime. for runny nose. 30 mL 3 Famotidine 20 MG Oral Tablet (Pepcid) TAKE 1 TABLET BY MOUTH ONCE DAILY 90 Tablet 2 Magnesium Oxide -Mg Supplement 500 MG Oral [...] mouth in the morning. 30 Tablet 3 Gabapentin 100 MG Oral Capsule (Neurontin) Take 1 Capsule by mouth at bedtime. 30 Capsule 3 Triamcinolone Acetonide 0.1 % External Ointment (Aristocort) [...] performed by Maryam Nguyen MD at ENDOSCOPY [facility] LAPAROSCOPY; CHOLECYSTECTOMY N/A 12/25/2021 LAPAROSCOPY; REPAIR INITIAL INGUINAL HERNIA Right LIGATE/CUT OVIDUCT(S) MS LAP, VENTRAL HERNIA REPAIR,REDUCIBLE N/A 12/25/2021 SKELETAL FIXATION OF ANKLE FRACTURE Right Review of patient's allergies indicates: Allergen Reactions Bee Venom Anaphylaxis Blue Dyes (Parenteral) Anaphylaxis and Rash Red, purple, blue Latex Anaphalaxis Sulfa Antibiotics Anaphylaxis and Hives Amlodipine RASH, EDEMA, HEADACHE, Hydroxyzine Prilosec [Omeprazole] Voltaren [Diclofenac Sodium] Review of Systems Constitutional: Positive for fatigue. Negative for appetite change (decreased), chills and fever. Respiratory: Negative for cough, shortness of breath and wheezing. Cardiovascular: Negative for chest pain, palpitations and leg swelling. Gastrointestinal: Negative for abdominal pain, blood in stool, constipation, diarrhea, nausea and vomiting. Genitourinary: Negative for dysuria, frequency and hematuria. Musculoskeletal: Negative for back pain and gait problem. Neurological: Negative for dizziness, syncope and headaches. Psychiatric/Behavioral: Positive for decreased concentration, dysphoric mood and sleep disturbance.Negative for self-injury and suicidal ideas. The patient is nervous/anxious. OBJECTIVE: BP 150/109 | Pulse 77 | Temp 36.4 C (97.6 F) | Resp 16 | Ht 1.664 m (5' 5.5") | Wt 66.3 kg (146lb 1.6 oz) | SpO2 99% | BMI 23.94 kg/m | BSA 1.75 m Physical Exam [...] baseline. Motor: No weakness. Gait: Gait normal. PLAN AND ASSESSMENT: Moderate episode of recurrent major depressive disorder (HCC) (Primary) - Start PARoxetine HCl 10 MG Oral Tablet (Paxil); Take 1 Tablet by mouth in the morning. JOSE (generalized anxiety disorder) - Start Gabapentin 100 MG Oral Capsule (Neurontin); Take 1 Capsule by mouth at bedtime. 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 Dominic Chen DO 11:19 AM 02/13/2024 * Tamar Russ LPN - 02/13/2024 11:14 AM EDT Patient's blood pressure cuff was validated today. documented in this encounter Nursing Notes * Tamar Russ LPN - 02/13/2024 10:29 AM EDT Please see prior notes regarding bp and how she is feeling. Review bp's from nurse visit documented in this encounter Plan of Treatment Upcoming Encounters Date Type Department Care Team (Late st Contact Info) Description 02/20/2024 10:40 AM EDT Office Visit Family [facility] [address], [place] [address] [facility] [place] [phone] Dominic Chen, [address] [place] [address] 04/23/2024 1:00 PM EST Office Visit Family Practice [address], [place] [address] [facility] [place] [phone] Dominic Chen, [address] [place] [address] Pending Results Name Type Priority Associated Diagnoses Date /Time COMPREHENSIVE METABOLIC PANEL Lab Routine HTN, goal below 140/90 Hyperparathyroidism, primary (HCC) 02/13/2024 11:23 AM EDT TSH WITH FREE T4 IF INDICATED Lab Routine HTN, goal below 140/90 02/13/2024 11:23 AM EDT CBC WITH WBC DIFFERENTIAL Lab Routine HTN, goal below 140/90 02/13/2024 11:23 AM EDT PTH Lab Routine Hyperparathyroidism, primary (HCC) 02/13/2024 11:23 AM EDT CBC Lab Routine HTN, goal below 140/90 02/13/2024 11:23 AM EDT DIFFERENTIAL, AUTOMATED Lab Routine HTN, goal below 140/90 02/13/2024 11:23 AM EDT Scheduled Orders Name Type Priority Associated Diagnoses Orde r Schedule EKG EKG Routine HTN, goal below 140/90 Ordered: 02/13/2024 COMPREHENSIVE METABOLIC PANEL Lab Routine HTN, goal below 140/90 Hyperparathyroidism, primary (HCC) Expected: 02/13/2024 (Approximate), Expires: 02/12/2025 TSH WITH FREE T4 IF INDICATED Lab Routine HTN, goal below 140/90 Expected: 02/13/2024 (Approximate), Expires: 02/12/2025 Health Maintenance Due Date Last Done Comments [...] exists DXA Scan 10/09/2024 10/09/2021, 09/20, 09/09/2017 HOME BP CUFF VALIDATION YEARLY 02/12/2025 02/13/2024 [...] of recurrent major depressive disorder (HCC)- Primary JOSE (generalized anxiety disorder) Generalized anxiety disorder HTN, goal below 140/90 Unspecified essential hypertension Pure hypercholesterolemia Gastroesophageal reflux disease without esophagitis Esophageal reflux 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
--- OUTSIDE RECORDS SUMMARY | 2024-05-14 05:37 | External Medical Summary | Summary of Care ---
Author Name Unknown Organization [facility] Address [address] [place] [address] Phone [phone] Care Team Providers Care Pack Operator Name Role Phone Dominic Chen DO Primary Care Provider [phone] Encounter Details Date Type Department Care Team (Late st Contact Info) Description 02/11/2024 11:15 AM EDT Nurse Only Family Practice 65 [facility] [address] [place] [address] College, Nurse [facility] [address] [address] Allergies Active Allergy Reactions Criticality Noted Date [...] morning. 48 mL 3 3 Active Ipratropium [place] 0.03 % Nasal Solution (Atrovent)Indications:Chr onic rhinitis [...] Date Food insecurity 03/03/2023 06/05/2023 Overview: Per [facility] Protocol Calculus of gallbladder with [...] mRNA, LNP-s, No Pre serve, 2-Dose Series ([employer]) 02/03/2021,06/30/2020,06/02/2020 COVID-19, LNP-s, No Preserve , Aubrey-sucrose, Ages 12+ (Pfizer) 12/11/2021 COVID-19, MRNA-LNP, 23-24, P F, 30 MCG/0.3 mL, 12 YRS AND ABOVE, IM ([employer]) 03/14/2023 Covid-19, Mrna, Lnp-s, Pf, B ivalent, [...] Progress Notes * Tamar Russ LPN - 02/11/2024 10:58 AM EDT 3 positional bp done today along with urine poc. States ongoing sore throat, thirsty all the time. States no energy at all. Complaining of fatigue. States doesn't take lisinopril 40 mg at once does take lisinopril 40 mg 1/2 tablet twice daily. Did take 20 mg lisinopril today. Is scheduled to see pcp on Friday. Thank you documented in this encounter Plan of Treatment Upcoming Encounters Date Type Department Care Team (Late st Contact Info) Description 02/20/2024 10:40 AM EDT Office Visit Family Practice 65 [facility] [address] [place] [address] Dominic Chen, [address] [place] [address] 04/23/2024 1:00 PM EST Office Visit [facility] [address] [place] [address] Dominic Chen, [address] [place] [address] Pending Results Name Type Priority Associated Diagnoses Date /Time CULTURE, URINE, QUANTITATIVE Lab Routine Polyuria 02/11/2024 10:48 AM EDT Scheduled Orders Name Type Priority Associated Diagnoses Orde r Schedule URINALYSIS, POINT OF CARE (ENTER/EDIT) Point of Care Testing Routine Polyuria Ordered: 02/11/2024 Health Maintenance Due Date Last Done Comments [...] Procedure Name Priority Date/Time Associated Diagnosis Comments CULTURE, URINE, QUANTITATIVE Routine 02/11/2024 10:48 AM EDT Polyuria URINALYSIS, POINT OF CARE LAURA 02/11/2024 10:47 AM EDT documented in this encounter Results * (ABNORMAL) URINALYSIS, POINT OF CARE (02/11/2024 10:47 AM EDT) Color, Urine Other(A) Light Yellow, Yellow 02/11/2024 10:50 AM EDT [facility] Clarity, Urine Slightly Cloudy(A) Clear 02/11/2024 10:50 AM EDT [facility] Glucose, Urine Negative Negative mg/dL 02/11/2024 10:50 AM EDT [facility] Bilirubin, Urine Negative Negative 02/11/2024 10:50 AM EDT [facility] Ketone, Urine Negative Negative mg/dL 02/11/2024 10:50 AM EDT [facility] Specific [place], Urine 1.015 1.003 - 1.030 02/11/2024 10:50 AM EDT [facility] Blood, Urine Negative Negative 02/11/2024 10:50 AM EDT [facility] pH, Urine 8.5(A) 5.0, 5.5, 6.0, 6.5, 7.0, 7.5 units 02/11/2024 10:50 AM EDT [facility] Protein, Urine 30(A) Negative mg/dL 02/11/2024 10:50 AM EDT [facility] Urobilinogen, Urine 0.2 0.2, 1.0 mg/dL 02/11/2024 10:50 AM EDT [facility] Nitrite, Urine Negative Negative 02/11/2024 10:50 AM EDT [facility] Esterase, Urine Small(A) Negative 02/11/2024 10:50 AM T [facility] Urine 02/11/2024 10:4 7 AM EDT 02/11/2024 10:50 AM EDT Nurse Fam Prac [address] [place] [address] LAB POINT OF CARE TEST DOCKED DEVICE UNSOLICITED RESULTS [facility] [address] [place] [address] documented in this encounter Visit Diagnoses Diagnosis Polyuria- Primary documented in this encounter Care Teams Pack Operator Relationship Specialty Start Date End Date Dominic Chen DO [address] [place] [address] PCP - General Internal Medicine 10/31/23 documented as of this encounter
--- OUTSIDE RECORDS SUMMARY | 2024-05-14 05:37 | External Medical Summary ---
Author Name Unknown Address Unknown Organization : Laboratory Report Ordering Provider Test Date Status NURSE,[facility] 02/11/2024 10:47:00 Final Observation Date Value Abnormality Reference (Units ) Status Color of Urine by Auto 02/11/2024 10:47:00 Other Abnormal Light Yellow, Yellow Final Clarity, Urine 02/11/2024 10:47:00 Slightly Cloudy Abnormal Clear Final Glucose [Mass/volume] in Urine by Automated test strip 02/11/2024 10:47:00 Negative Negative (mg/dL) Final Bilirubin.total [Presence] in Urine by Automated test strip 02/11/2024 10:47:00 Negative Negative Final Ketones [Mass/volume] in Urine by Automated test strip 02/11/2024 10:47:00 Negative Negative (mg/dL) Final Specific gravity, Urine 02/11/2024 10:47:00 1.015 1.003-1.030 Final Hemoglobin [Presence] in Urine by Automated test strip 02/11/2024 10:47:00 Negative Negative Final pH, Urine 02/11/2024 10:47:00 8.5 Abnormal 5.0, 5.5, 6.0, 6.5, 7.0, 7.5 (units) Final Protein [Mass/volume] in Urine by Automated test strip 02/11/2024 10:47:00 30 Abnormal Negative (mg/dL) Final Urobilinogen, Urine 02/11/2024 10:47:00 0.2 0.2, 1.0 (mg/dL) Final Nitrite [Presence] in Urine by Automated test strip 02/11/2024 10:47:00 Negative Negative Final Leukocyte esterase [Presence] in Urine by Automated test strip 02/11/2024 10:47:00 Small Abnormal Negative Final Performing Location
--- OUTSIDE RECORDS SUMMARY | 2024-05-14 05:37 | External Medical Summary ---
Author Name Unknown Address Unknown Organization [id number]:LABORATORY [facility] - [address] [place] [address] Laboratory Report Ordering Provider Test Date Status PUSHPA MENDOZA 02/13/2024 11:23:26 Final Observation Date Value Abnormality Reference (Units ) Status Parathyrin.intact [Mass/volume] in Serum or Plasma 02/13/2024 11:23:26 78 Above high normal 15-65 (pg/mL) Final Performing Location LABORATORY [facility] - [address] [place] [address]
--- OUTSIDE RECORDS SUMMARY | 2024-05-14 05:37 | External Medical Summary ---
Author Name Unknown Address Unknown Organization [id number]:LAB[facility]ATORY [facility] - [address] [facility]. [facility] [address] Laboratory Report Ordering Provider Test Date Status PUSHPA MENDOZA 02/13/2024 11:23:26 Final Observation Date Value Abnormality Reference (Units ) Status BUN 02/13/2024 11:23:26 8 6-20 (mg/dL) Final Creatinine 02/13/2024 11:23:26 0.7 0.5-1.0 (mg/dL) Final Glomerular filtration rate/1.73 sq M.predicted [Volume Rate/Area] in Serum, Plasma or Blood by Creatinine-based formula (CKD-EPI) 02/13/2024 11:23:26 >90 >=60 (mL/min) Final eGFR is calculated based on the CKD-EPI 2020 equation. Sodium 02/13/2024 11:23:26 140 135-146 (m mol/L) Final Potassium 02/13/2024 11:23:26 3.8 3.5-5.1 (m mol/L) Final Cl 02/13/2024 11:23:26 98 98-107 (mm ol/L) Final CO2 02/13/2024 11:23:26 26 22-32 (mmo l/L) Final Anion gap 02/13/2024 11:23:26 16 Above high normal 7- 15 (mmol/L) Final Glucose 02/13/2024 11:23:26 92 70-120 (mg /dL) Final Albumin 02/13/2024 11:23:26 4.9 3.8-5.0 (g /dL) Final AST (Aspartate aminotransferase) 02/13/2024 11:23:26 27 10-35 (U/L) Fin al Alk Phos 02/13/2024 11:23:26 90 35-130 (U/ L) Final Bilirubin, Total 02/13/2024 11:23:26 0.6 <=1 .2 (mg/dL) Final Calcium 02/13/2024 11:23:26 10.5 Above high normal 8. 4-10.2 (mg/dL) Final Protein 02/13/2024 11:23:26 7.3 6.0-8.3 (g /dL) Final ALT (Alanine aminotransferase) 02/13/2024 11:23:26 21 10-35 (U/L) Armin herman Performing Location LABORATORY [facility] - [facility] [address] [facility] [address]
--- OUTSIDE RECORDS SUMMARY | 2024-05-14 05:38 | External Medical Summary | Summary of Care ---
Author Name Unknown Organization [facility] Address [address] [place] [address] Phone [phone] Care Team Providers Care Pilot Plant Supervisor Name Role Phone Dominic Chen DO Primary Care Provider [phone] Reason for Visit * Reason Onset Date Comments Follow Up Pt here for a fo llow up appt - having post covid sx from 3 weeks ago. Nasal congestion/drip. Medication Administration 01/30/2024 Flu an d/or Pneumo Inj Encounter Details Date Type Department Care Team (Late st Contact Info) Description 01/30/2024 8:40 AM EDT Office Visit Family Practice [facility] [address] [place] [address] Dominic Chen DO [address] [place] [address] HTN, goal below 140/90*; Pure hypercholesterolemia; JOSE (generalized anxiety disorder); Gastroesophageal reflux disease without esophagitis; Hyperparathyroidism, primary (HCC); Uncomplicated alcohol dependence (HCC); Need for prophylactic vaccination and inoculation against influenza; Encounter for screening mammogram for breast cancer Allergies Active Allergy Reactions Criticality Noted Date [...] morning. 48 mL 3 3 Active Ipratropium [place] 0.03 % Nasal Solution (Atrovent)Indications:Ch ronic rhinitis [...] the morning. 30 Tablet 5 4 Active Loratadine 10 MG Oral Tablet (Claritin) Take 1 Tablet by mouth in the morning. Discontin ued(Medic ation List Clean Up) Lisinopril 30 MG Oral TabletIndications:HTN, goal below 140/90 TAKE 1 TABLET DAILY IN THE MORNING. 90 Tablet 2 4 Discontin ued(Medic ation/Dos e Changed) methylPREDNISolone 4 MG Oral Tablet Therapy Pack (Medrol) Take 1 Tablet by mouth. follow package directions Discontin ued(Medic ation List Clean Up) Nirmatrelvir&Ritonavir 300/100 20 x 150 MG & 10 x 100MG Oral Tablet Therapy Pack (Paxlovid (300/100))Indications:CO VID-19 virus infection Take 2 pink tablets of Nirmatrelvir and 1 white tablet of Ritonavir two times a day by mouth. 30 Tablet 4 Discontin ued(Medic ation List Clean Up) documented [...] mRNA, LNP-s, No Pre serve, 2-Dose Series ([employer]) 02/03/2021,06/30/2020,06/02/2020 COVID-19, LNP-s, No Preserve , Aubrey-sucrose, Ages 12+ ([employer]) 12/11/2021 COVID-19, MRNA-LNP, 23-24, P F, 30 MCG/0.3 mL, 12 YRS AND ABOVE, IM ([facility]) 03/14/2023 Covid-19, Mrna, Lnp-s, Pf, B ivalent, 30 Mcg, IM, 12 yrs and above ([employer]) 03/05/2022 Pneumococcal Conjugate Vacc, 13 Valent (Prevnar) [...] Sign Reading Time Taken Comments Blood Pressure 154/100 01/30/2024 8:42 AM EDT Pulse 66 01/30/2024 8:42 AM EDT Temperature 35.2 C (95.4 F) 01/30/2024 8:42 AM ED T Respiratory Rate 16 01/30/2024 8:42 AM EDT Oxygen Saturation 100% 01/30/2024 8:42 AM EDT Inhaled Oxygen Concentration - - Weight 67.7 kg (149 lb 4.8 oz) 01/30/2024 8:42 A M EDT Height 166.4 cm (5' 5.5") 01/30/2024 8:42 AM EDT Body Mass Index 24.47 01/30/2024 8:42 AM EDT documented in this encounter Progress Notes * Dominic Chen, - 01/30/2024 9:04 AM EDT SUBJECTIVE: Anupama Caraballo is a 73 year old female. Chief Complaint Patient presents with Follow Up Pt here for a follow up appt - having post covid sx from 3 weeks ago. Nasal congestion/drip. 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 She is recovering from COVID infection. She has continued brain fog,dizziness, and fatigue. Cough has improved. No chest pain or shortness of breath are present. She has not had any alcohol since being admitted to the hospital in 11/2023. 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 48 mL 3 Ipratropium [place] 0.03 % Nasal Solution (Atrovent) Administer 2 [...] mouth in the morning. 30 Tablet 5 Famotidine 20 MG Oral Tablet (Pepcid) TAKE 1 TABLET BY MOUTH ONCE DAILY 90 Tablet 2 No current facility-administered medications for this visit. The patient's medication list was reviewed and updated as needed. Past Medical History: Diagnosis Date Alcohol addiction ([facility]) Allergy 05/29/2017 ICD-10 update of inactive term [...] performed by Maryam Nguyen MD at ENDOSCOPY [facility] LAP[facility]OSCOPY; CHOLECYSTECTOMY N/A 12/25/2021 LAPAROSCOPY; REPAIR INITIAL [...] Constitutional: Positive for fatigue. Negative for appetite change, chills, fever and unexpected weight change. HENT: Negative for congestion, sore throat and trouble swallowing. Respiratory: Positive for cough. Negative for shortness of breath and wheezing. Cardiovascular: Negative for chest pain, palpitations and leg swelling. Gastrointestinal: Negative for abdominal pain, blood in stool, constipation, diarrhea, nausea and vomiting. Genitourinary: Negative for dysuria and hematuria. Musculoskeletal: Negative for back pain and gait problem. Neurological: Positive for dizziness. Negative for syncope and headaches. Psychiatric/Behavioral: Negative for confusion, decreased concentration and sleep disturbance. OBJECTIVE: BP 154/100 (BP Site: Left Arm, BP Position: Sitting) | Pulse 66 | Temp 35.2 C (95.4 F) | Resp 16 | Ht 1.664 m (5' 5.5") | Wt 67.7 kg (149 lb 4.8 oz) | SpO2 100% | BMI 24.47 kg/m | BSA 1.77 m Physical Exam Vitals and nursing note [...] AND ASSESSMENT: HTN, goal below 140/90 (Primary) BP not controlled - CBC WITH WBC DIFFERENTIAL; Future; Expected date: 01/30/2024 - Increase Lisinopril 40 MG Oral Tablet; Take 1 Tablet by mouth in the morning. - BASIC METABOLIC PANEL; Future; Expected date: 01/30/2024 Pure hypercholesterolemia Continue Rosuvastatin JOSE (generalized anxiety disorder) Continue Lorazepam Gastroesophageal reflux disease without esophagitis Continue Famotidine Hyperparathyroidism, primary (HCC) - PTH; Future; Expected date: 01/30/2024 Uncomplicated alcohol dependence (HCC) Patient has not had alcohol for 2 months Need for prophylactic vaccination and inoculation against influenza - INFLUENZA VAC., TRIVALENT, HD, PF, 65 AND ABOVE, 0.5 ML IM (FLUZONE HD) Encounter for screening mammogram for breast cancer - MAMMOGRAM SCREENING KAVITHA BILATERAL; Future; Expected date: 01/30/2024 Follow-up: Return in about 4 months (around 06/01/2024), or if symptoms worsen or fail to improve. |Check-out note: Nurse BP check in 1 week Dominic Chen DO 9:04 AM 01/30/2024 * Shellie Buck CCMA - 01/30/2024 8:41 AM EDT PRE - ADMINISTRATION DOCUMENTATION Are you experiencing any cold symptoms or fever? No Have you had Guillain-[place] Syndrome (an illness that causes paralysis) within the last 6 weeks? No Have you had the flu shot in the past? YES Have you ever had a reaction to the flu shot? No ZONIA Haider, 01/30/2024 8:41 AM Immunization Administration Documentation Time Out Procedure Performed: Yes Patient Identified (Ask Name/Date of ): Yes Does the patient have a fever greater than 101 degrees today? No Patient allergic to latex? No VFC Stock: No Injection(s) verified: Yes, Injection Name: flu shot Verified Side and Site: Yes Verified Shot(s) with Parent(s)/Patient: Yes documented in this encounter Nursing Notes * Shellie Buck CCMA - 01/30/2024 8:39 AM EDT Chief Complaint Patient presents with Follow Up Pt here for a follow up appt - having post covid sx from 3 weeks ago. Nasal congestion/drip. Pt would like flu shot. Interested in setting up mammogram. documented in this encounter Plan of Treatment Upcoming Encounters Date Type Department Care Team (Late st Contact Info) Description 02/06/2024 10:00 AM EDT Nurse Only Family Practice [facility] [address] [facility], [address] Fam Prac [address] [address] 02/06/2024 2:15 PM EDT Imaging Radiology [address], [place] [address] [place] [address] 04/23/2024 1:00 PM EST Office Visit Family Practice [facility] [address] [facility] [address] Dominic Chen, DO [address] [place] [address] Scheduled Orders Name Type Priority Associated Diagnoses Orde r Schedule MAMMOGRAM SCREENING KAVITHA BILATERAL Medical Imaging Routine Encounter for screening mammogram for breast cancer Expected: 01/30/2024, Expires: 03/01/2025 CBC WITH WBC DIFFERENTIAL Lab Routine HTN, goal below 140/90 Expected: 01/30/2024 (Approximate), Expires: 01/29/2025 PTH Lab Routine Hyperparathyroidism, primary (HCC) Expected: 01/30/2024 (Approximate), Expires: 01/29/2025 BASIC METABOLIC PANEL Lab Routine HTN, goal below 140/90 Expected: 01/30/2024 (Approximate), Expires: 01/29/2025 Health Maintenance Due Date Last Done Comments [...] 140/90- Primary Unspecified essential hypertension Pure hypercholesterolemia JOSE (generalized anxiety disorder) Generalized anxiety disorder Gastroesophageal reflux disease without esophagitis Esophageal reflux Hyperparathyroidism, primary (HCC) Primary hyperparathyroidism Uncomplicated alcohol dependence (HCC) Other and unspecified alcohol dependence, unspecified drinking behavior Need for prophylactic vaccination and inoculation against influenza Encounter for screening mammogram for breast cancer documented in this encounter Care Teams Pilot Plant Supervisor Relationship Specialty Start Date End Date Dominic Chen DO [address] [place] [address] PCP - General Internal Medicine 10/31/23 documented as of this encounter
--- OUTSIDE RECORDS SUMMARY | 2024-05-14 05:38 | External Medical Summary | Summary of Care ---
Author Name Unknown Organization [facility] Address [address] [place] [address] Phone [phone] Care Team Providers Care Coal And Ash Supervisor Name Role Phone Reji Chen DO Primary Care Provider [phone] Reason for Visit * Reason Onset Date Comments Appointment 01/05/2024 Acute request Encounter Details Date Type Department Care Team (Late st Contact Info) Description 01/05/2024 Telephone Family Practice [address] [place] [address] [place] [address] Reji Chen DO [address] [place] [address] Appointment (Acute request) Allergies Active Allergy Reactions Criticality Noted Date Comments Amlodipine 07/01/2022 RASH, EDEMA, HEADACHE, Bee Venom Anaphylaxis High 05/29/2017 Blue Dyes (Parenteral) Anaphylaxis,Rash High 022 Red, purple, blue Hydroxyzine 10/10/2022 Latex High 07/30/2018 Anaphalaxis Omeprazole 12/17/2023 Sulfa Antibiotics Anaphylaxis,Hives High 05/29/2017 Diclofenac Sodium 05/10/2022 documented as of this encounter (statuses as of 01/05/2024) Medications Medication Sig Dispensed Refills Start Date [...] morning. 48 mL 3 3 Active Ipratropium [place] 0.03 % Nasal Solution (Atrovent)Indications:Chr onic rhinitis [...] at bedtime 60 Tablet 1 4 Active Magnesium Oxide -Mg Supplement 500 MG Oral Tablet Take 1 Tablet by mouth in the morning and 1 Tablet before bedtime. 4 Active Vitamin B 12 500 MCG Oral Tablet Take by mouth every evening. 4 Active methylPREDNISolone 4 MG Oral Tablet Therapy Pack (Medrol) Take 1 Tablet by mouth. follow package directions Active Triamcinolone Acetonide 0.1 % External Ointment (Aristocort)Indications:D ermatitis Apply topically to affected area 2 times a day. To affected area. 60 g 5 4 Active Rosuvastatin Calcium 5 MG Oral Tablet (Crestor)Indications:Pure hypercholesterolemia TAKE 1 TABLET BY MOUTH IN THE MORNING 90 Tablet 1 4 Active Nirmatrelvir&Ritonavir 300/100 20 x 150 MG & 10 x 100MG Oral Tablet Therapy Pack (Paxlovid (300/100))Indications:COV ID-19 virus infection Take 2 pink tablets of Nirmatrelvir and 1 white tablet of Ritonavir two times a day by mouth. 30 Tablet 4 Active documented as of this encounter (statuses as of 01/05/2024) Active Problems Problem Noted Date Diagnosed Date [...] as of this encounter (statuses as of 01/05/2024) Resolved Problems Problem Noted Date Diagnosed Date [...] as of this encounter (statuses as of 01/05/2024) Immunizations Name Administration Dates Next Due COVID-19 mRNA, LNP-s, No Pre serve, 2-Dose Series ([employer]) 02/03/2021,06/30/2020,06/02/2020 COVID-19, LNP-s, No Preserve , Aubrey-sucrose, Ages 12+ ([employer]) 12/11/2021 COVID-19, MRNA-LNP, 23-24, P F, 30 MCG/0.3 mL, 12 YRS AND ABOVE, IM ([facility]) 03/14/2023 Covid-19, Mrna, Lnp-s, Pf, B [...] Addendum Note - Reji Chen DO - 01/05/2024 3:08 PM EDTAddended by: REJI CHEN on: 01/05/2024 03:08 PM Modules accepted: Orders * Telephone Encounter - Tamar Powell RN - 01/05/2024 3:06 PM EDT Pt called-[facility] does not carry paxlovid-request rx be sent to [facility]. * Telephone Encounter - Tamar Powell RN - 01/05/2024 2:45 PM EDT Call to pt-notified that paxlovid was sent to pharmacy. Pt to hold her rosuvastatin while taking the paxovid-pt verbalized understanding. She asked what she should use for her cough-told her plain robutussin or plain delsym are good choices to try. To call with any worsening symptoms. * Telephone Encounter - Isabel Killian OSA - 01/05/2024 2:21 PM EDT Pt calling to check the status of her meds. Pt states husbands are done and she wanted to see if she could get hers sent also to make one trip to [place]. Pt is asking us to call her once filled. * Telephone Encounter - Reji Chen DO - 01/05/2024 1:19 PM EDT OK to treat with Paxlovid Hold Rosuvastatin when taking Paxlovid * Telephone Encounter - Tamar Powell RN - 01/05/2024 8:35 AM EDT Spoke with pt-states she started yesterday with cough-productive of clear muc. Runny nose, post nasal drip, nausea, body aches, chills/feverish-temp not higher than 99.0. , fatigue. Red SOB/diff. breathing. She tested positive this AM for covid, her is also positive. She would like paxlovid if possible. Message forwarded to Dr Chen. * Telephone Encounter - Isabel Killian OSA - 01/05/2024 8:07 AM EDT PT calling stating to have cough, fever, and body aches the past few days. She is requesting an appt for today. She does have Covid test at home that she was going to do now. Please call her back w spouse. Thank you documented in this encounter Plan of Treatment Upcoming Encounters Date Type Department Care Team (Late st Contact Info) Description 04/23/2024 1:00 PM EST Office Visit Family Practice [address] [place] [address] [place] [id number] Reji Chen, DO [address] [place] [address] Health Maintenance Due Date Last Done Comments Colonoscopy 1995 Fecal Occult Blood Test 1995 Sigmoidoscopy 1995 Adult Wellness Visit 02/15/2023 02/15/2022 Mammogram 08/10/2023 08/09/2022, 07/21, 12/08/2020, Additional history exists COVID-19 Vaccine ( season) 2023 03/14/2023, 03/05/2022, 12/11/2021, Additional history exists Influenza Vaccine (FLU shot) [...] as of this encounter Visit Diagnoses Diagnosis COVID-19 virus infection- Primary documented in this encounter Care Teams Coal And Ash Supervisor Relationship Specialty Start Date End Date Reji Chen DO [address] [facility] [place] [address] PCP - General Internal Medicine 10/31/23 documented as of this encounter
--- OUTSIDE RECORDS SUMMARY | 2024-05-14 05:38 | External Medical Summary | Summary of Care ---
Author Name Unknown Organization [facility] Address [address] [place] [address] Phone [phone] Care Team Providers Care Resident Services Supervisor Name Role Phone Dominic Chen DO Primary Care Provider [phone] Reason for Visit * Reason Onset Date Comments Follow Up Pt here for a fo llow up appt - having post covid sx from 3 weeks ago. Nasal congestion/drip. Medication Administration 01/30/2024 Flu an d/or Pneumo Inj Encounter Details Date Type Department Care Team (Late st Contact Info) Description 01/30/2024 8:40 AM EDT Office Visit Family Practice 65 [facility] [address] [place] [address] Dominic Chen DO [address] [place] [address] HTN, goal below 140/90*; Pure hypercholesterolemia; JOSE [...] as of this encounter (statuses as of 01/30/2024) Medications Medication Sig Dispensed Refills Start Date [...] morning. 48 mL 3 3 Active Ipratropium [place] 0.03 % Nasal Solution (Atrovent)Indications:Ch ronic rhinitis [...] as of this encounter (statuses as of 01/30/2024) Active Problems Problem Noted Date Diagnosed Date [...] as of this encounter (statuses as of 01/30/2024) Resolved Problems Problem Noted Date Diagnosed Date [...] as of this encounter (statuses as of 01/30/2024) Immunizations Name Administration Dates Next Due COVID-19 mRNA, LNP-s, No Pre serve, 2-Dose Series ([employer]) 02/03/2021,06/30/2020,06/02/2020 COVID-19, LNP-s, No Preserve , Aubrey-sucrose, Ages 12+ ([employer]) 12/11/2021 COVID-19, MRNA-LNP, 23-24, P F, 30 MCG/0.3 mL, 12 YRS AND ABOVE, IM ([facility]) 03/14/2023 Covid-19, Mrna, Lnp-s, Pf, B ivalent, 30 Mcg, IM, 12 yrs and above ([employer]) 03/05/2022 Pneumococcal Conjugate Vacc, 13 Valent (Prevnar) [...] (HCC) Hyperparathyroidism, primary (HCC) Alcohol dependence, continuous ([facility]) Current Outpatient Medications Medication Sig Dispense Refill [...] in the morning. 48 mL 3 Ipratropium [place] 0.03 % Nasal Solution (Atrovent) Administer 2 [...] Past Medical History: Diagnosis Date Alcohol addiction ([facility]) Allergy 05/29/2017 ICD-10 update of inactive term [...] performed by Maryam Nguyen MD at ENDOSCOPY [facility] LAP[facility]OSCOPY; CHOLECYSTECTOMY N/A 12/25/2021 LAPAROSCOPY; REPAIR INITIAL INGUINAL HERNIA Right LIGATE/CUT OVIDUCT(S) FL LAP, VENTRAL HERNIA REPAIR,REDUCIBLE N/A 12/25/2021 SKELETAL [...] symptoms or fever? No Have you had Guillain-[place] Syndrome (an illness that causes paralysis) within [...] AM EDT Nurse Only Family Practice 65 [facility] [address] [facility] [address] College, Nurse Fam Prac [address] [address] 02/06/2024 2:15 PM EDT Imaging Radiology [address], [place] [address] [place] [address] 04/23/2024 1:00 PM EST Office Visit Family Practice [facility] [address] [facility] [address] Dominic Chen, DO [address] [place] [address] Scheduled Orders Name Type Priority Associated Diagnoses [...] cancer documented in this encounter Care Teams Resident Services Supervisor Relationship Specialty Start Date End Date Dominic Chen DO 293 [place] [address] PCP - General Internal Medicine 10/31/23 documented as of this encounter
--- OUTSIDE RECORDS SUMMARY | 2024-05-14 05:38 | External Medical Summary | Summary of Care ---
Author Name Unknown Organization [facility] Address [address] [place] [address] Phone [phone] Care Team Providers Care Market Director Name Role Phone Dominic Chen DO Primary Care Provider [phone] Reason for Visit * Reason Onset Date Comments Appointment 01/05/2024 Acute request Encounter Details Date Type Department Care Team (Late st Contact Info) Description 01/05/2024 Telephone Family Practice [address] [place] [address] [place] [address] Dominic Chen DO [address] [place] [address] Appointment (Acute request) Allergies Active Allergy Reactions [...] morning. 48 mL 3 02/14/2023 Active Ipratropium [place] 0.03 % Nasal Solution (Atrovent)Indications:Chr onic rhinitis Administer 2 Sprays into each nostril in the morning and 2 Sprays at noon and 2 Sprays before bedtime. for runny nose. 30 mL 3 05/23/2023 Active Famotidine 20 MG Oral Tablet (Pepcid)Indications:Gastr oesophageal reflux disease without esophagitis TAKE 1 TABLET BY MOUTH ONCE DAILY 90 Tablet 2 10/27/2023 Active Lisinopril 30 MG Oral TabletIndications:HTN, goal below 140/90 TAKE 1 TABLET DAILY IN THE MORNING. 90 Tablet 2 10/27/2023 Active LORazepam 1 MG Oral Tablet (Ativan)Indications:Uncom plicated alcohol dependence (HCC),JOSE (generalized anxiety disorder) Take 0.5 tablet by mouth in the morning and 0.5 tablet in the afternoon and 1 tablet at bedtime 60 Tablet 1 11/26/2023 Active Magnesium Oxide -Mg Supplement 500 MG Oral Tablet Take 1 Tablet by mouth in the morning and 1 Tablet before bedtime. 12/17/2023 Active Vitamin B 12 500 MCG Oral Tablet Take by mouth every evening. 12/17/2023 Active methylPREDNISolone 4 MG Oral Tablet Therapy [...] THE MORNING 90 Tablet 1 01/02/2024 Active documented as of this encounter (statuses [...] Date Food insecurity 03/03/2023 06/05/2023 Overview: Per [facility] Protocol Calculus of gallbladder with [...] mRNA, LNP-s, No Pre serve, 2-Dose Series ([employer]) 02/03/2021,06/30/2020,06/02/2020 COVID-19, LNP-s, No Preserve , Aubrey-sucrose, Ages 12+ ([employer]) 12/11/2021 COVID-19, MRNA-LNP, 23-24, P F, 30 MCG/0.3 mL, 12 YRS AND ABOVE, IM ([facility]) 03/14/2023 Covid-19, Mrna, Lnp-s, Pf, B ivalent, [...] Miscellaneous Notes * Telephone Encounter - Tamar Powell RN - 01/05/2024 3:06 PM EDT Pt called-[facility] not [facility]axlovid-request rx be sent to [facility]. * Telephone Encounter - Tamar [...] sent also to make one trip to [place]. Pt is asking us to call her once filled. * Telephone Encounter - Dominic Chen DO - 01/05/2024 1:19 PM EDT [...] EST Office Visit Family Practice [address] [place] [address] [place] [address] Dominic Chen, 293 [place] [address] Health Maintenance Due Date Last Done Comments [...] filedocumented as of this encounter Care Teams Market Director Relationship Specialty Start Date End Date Dominic Chen DO [address] [place] [address] PCP - General Internal Medicine 10/31/23 documented as of this encounter
--- OUTSIDE RECORDS SUMMARY | 2024-05-14 05:38 | External Medical Summary | Summary of Care ---
Author Name Unknown Organization [facility] Address [address] [place] [address] Phone [phone] Care Team Providers Care Seed Collector Name Role Phone Dominic Chen DO Primary Care Provider [phone] Reason for Visit * Reason Onset Date Comments Appointment 01/05/2024 Acute request Encounter Details Date Type Department Care Team (Late st Contact Info) Description 01/05/2024 Telephone Family Practice [address] [place] [address] [place] [address] Dominic Chen DO [address] [place] [address] Appointment (Acute request) Allergies Active Allergy Reactions [...] morning. 48 mL 3 02/14/2023 Active Ipratropium [place] 0.03 % Nasal Solution (Atrovent)Indications:Chr onic rhinitis [...] Date Food insecurity 03/03/2023 06/05/2023 Overview: Per [facility] Protocol Calculus of gallbladder [...] mRNA, LNP-s, No Pre serve, 2-Dose Series ([employer]) 02/03/2021,06/30/2020,06/02/2020 COVID-19, LNP-s, No Preserve , Aubrey-sucrose, Ages 12+ ([employer]) 12/11/2021 COVID-19, MRNA-LNP, 23-24, P F, 30 MCG/0.3 mL, 12 YRS AND ABOVE, IM ([facility]) 03/14/2023 Covid-19, Mrna, Lnp-s, Pf, B ivalent, [...] not carry paxlovid-request rx be sent to [facility]. * Telephone Encounter - [...] sent also to make one trip to [place]. Pt is asking us to call her [...] EST Office Visit Family Practice [address] [place] [address] [place] [address] Dominic Chen, 293 [place] [address] Health Maintenance Due Date Last Done Comments [...] filedocumented as of this encounter Care Teams Seed Collector Relationship Specialty Start Date End Date Dominic Chen DO [address] [place] [address] PCP - General Internal Medicine 10/31/23 documented as of this encounter
--- OUTSIDE RECORDS SUMMARY | 2024-05-14 05:38 | External Medical Summary | Summary of Care ---
Author Name Unknown Organization [facility] Address [address] [place] [address] Phone [phone] Care Team Providers Care Senior Production Planner Name Role Phone Dominic Chen DO Primary Care Provider [phone] Reason for Visit * Reason Onset Date Comments Appointment 01/05/2024 Acute request Encounter Details Date Type Department Care Team (Late st Contact Info) Description 01/05/2024 Telephone Family Practice [address] [place] [address] [place] [address] Dominic Chen DO [address] [place] [address] Appointment (Acute request) Allergies Active Allergy Reactions [...] morning. 48 mL 3 02/14/2023 Active Ipratropium [place] 0.03 % Nasal Solution (Atrovent)Indications:Chr onic rhinitis [...] Date Food insecurity 03/03/2023 06/05/2023 Overview: Per [facility] Protocol Calculus of gallbladder with [...] mRNA, LNP-s, No Pre serve, 2-Dose Series ([employer]) 02/03/2021,06/30/2020,06/02/2020 COVID-19, LNP-s, No Preserve , Aubrey-sucrose, Ages 12+ (Pfizer) 12/11/2021 COVID-19, MRNA-LNP, 23-24, P F, 30 MCG/0.3 mL, 12 YRS AND ABOVE, IM ([employer]Comirnat) 03/14/2023 Covid-19, Mrna, Lnp-s, Pf, B ivalent, [...] sent also to make one trip to [place]. Pt is asking us to call her once filled. * Telephone Encounter - Dominic Chen DO - 01/05/2024 1:19 PM EDT OK to treat with Paxlovid Hold Rosuvastatin when taking Paxlovid * Telephone Encounter - Tamar Powell, GARRET - 01/05/2024 8:35 AM EDT Spoke with [...] EST Office Visit Family Practice [address] [place] [address] [place] [address] Dominic Chen DO 293 [place] [address] Health Maintenance Due Date Last Done Comments [...] as of this encounter Care Teams Senior Production Planner Relationship Specialty Start Date End Date Dominic Chen DO [address] [place] [address] PCP - General Internal Medicine 10/31/23 documented as of this encounter
--- OUTSIDE RECORDS SUMMARY | 2024-05-14 05:38 | External Medical Summary | Summary of Care ---
Author Name Unknown Organization [facility] Address [address] [place] [address] Phone [phone] Care Team Providers Care Roller Skates Assembler Name Role Phone Dominic Chen DO Primary Care Provider [phone] Reason for Visit * Reason Onset Date Comments Medication Refill 01/22/2024 Encounter Details Date Type Department Care Team (Late st Contact Info) Description 01/22/2024 Refill Family Practice [address] [place] [address] [place] [address] Dominic Chen DO [address] [place] [address] Uncomplicated alcohol dependence (HCC); JOSE (generalized anxiety disorder) Allergies Active Allergy Reactions Criticality Noted Date Comments Amlodipine 07/01/2022 RASH, EDEMA, HEADACHE, Bee Venom Anaphylaxis High 05/29/2017 Blue Dyes (Parenteral) Anaphylaxis,Rash High 022 Red, purple, blue Hydroxyzine 10/10/2022 Latex High 07/30/2018 Anaphalaxis Omeprazole 12/17/2023 Sulfa Antibiotics Anaphylaxis,Hives High 05/29/2017 Diclofenac Sodium 05/10/2022 documented as of this encounter (statuses as of 01/26/2024) Medications Medication Sig Dispensed Refills Start Date [...] morning. 48 mL 3 3 Active Ipratropium [place] 0.03 % Nasal Solution (Atrovent)Indications:Chr onic rhinitis [...] THE MORNING. 90 Tablet 2 4 Active Magnesium Oxide [...] as of this encounter (statuses as of 01/26/2024) Active Problems Problem Noted Date Diagnosed Date [...] as of this encounter (statuses as of 01/26/2024) Resolved Problems Problem Noted Date Diagnosed Date [...] as of this encounter (statuses as of 01/26/2024) Immunizations Name Administration Dates Next Due COVID-19 mRNA, LNP-s, No Pre serve, 2-Dose Series ([employer]) 02/03/2021,06/30/2020,06/02/2020 COVID-19, LNP-s, No Preserve , Aubrey-sucrose, Ages 12+ ([employer]) 12/11/2021 COVID-19, MRNA-LNP, 23-24, P F, 30 MCG/0.3 mL, 12 YRS AND ABOVE, IM ([employer]Comirnat) 03/14/2023 Covid-19, Mrna, Lnp-s, Pf, B ivalent, 30 Mcg, IM, 12 yrs and above ([employer]) 03/05/2022 Pneumococcal Conjugate Vacc, 13 Valent (Prevnar) [...] Miscellaneous Notes * Telephone Encounter - Ingrid Yeh RPh - 01/26/2024 4:48 PM EDT Duplicate request documented in this encounter Plan of Treatment Upcoming Encounters Date Type Department Care Team (Late st Contact Info) Description 04/23/2024 1:00 PM EST Office Visit Family Practice [address] [place] [address] [place] [address] Dominic Chen, DO 293 [place] [address] Health Maintenance Due Date Last Done Comments [...] disorder documented in this encounter Care Teams Roller Skates Assembler Relationship Specialty Start Date End Date Dominic Chen DO [address] [place] [facility] [place] [address] PCP - General Internal Medicine 10/31/23 documented as of this encounter
--- OUTSIDE RECORDS SUMMARY | 2024-05-14 05:38 | External Medical Summary | Summary of Care ---
Author Name Unknown Organization [facility] Address [address] [place] [address] Phone [phone] Care Team Providers Care Concession Supervisor Name Role Phone Reji Chen DO Primary Care Provider [phone] Reason for Visit * Reason Onset Date Comments Medication Refill 01/26/2024 Encounter Details Date Type Department Care Team (Late st Contact Info) Description 01/26/2024 Refill Family Practice [address] [place] [address] [place] [address] Reji Chen DO [address] [place] [address] Uncomplicated alcohol dependence (HCC); JOSE (generalized anxiety [...] morning. 48 mL 3 3 Active Ipratropium [place] 0.03 % Nasal Solution (Atrovent)Indications:Ch ronic rhinitis [...] day by mouth. 30 Tablet 4 Active LORazepam 1 MG Oral Tablet (Ativan)Indications:Unco mplicated alcohol dependence (HCC),JOSE (generalized anxiety disorder) Take 0.5 tablet by mouth in the morning and 0.5 tablet in the afternoon and 1 tablet at bedtime 60 Tablet 1 Active LORazepam 1 MG Oral Tablet (Ativan)Indications:Unco mplicated alcohol dependence (HCC),JOSE (generalized anxiety disorder) Take 0.5 tablet by mouth in the morning and 0.5 tablet in the afternoon and 1 tablet at bedtime 60 Tablet 1 4 024 Discontin ued(Refil l) documented as of this [...] mRNA, LNP-s, No Pre serve, 2-Dose Series ([employer]) 02/03/2021,06/30/2020,06/02/2020 COVID-19, LNP-s, No Preserve , Aubrey-sucrose, Ages 12+ (Pfizer) 12/11/2021 COVID-19, MRNA-LNP, 23-24, P F, 30 MCG/0.3 mL, 12 YRS AND ABOVE, IM ([employer]-Comirnaty) [...] Telephone Encounter - Reji Chen DO - 01/26/2024 2:50 PM EDTSigned Prescriptions: Disp Refills LORazepam 1 MG Oral Tablet (Ativan) 60 Tab*1 Sig: Take 0.5 tablet by mouth in the morning and 0.5 tablet in the afternoon and 1 tablet at bedtimeAuthorizing Provider: REJI CHEN * Telephone Encounter - Reji Chen DO - 01/26/2024 2:50 PM EDT I have reviewed the patients controlled substance dispensing history in the Prescription Drug Monitoring Program in compliance with the [facility] regulations before prescribing a controlled substance. Last Tox Screen Results: No results found for this or any previous visit. Medication due 12/23/2023 * Telephone Encounter - Tamar Russ LPN - 01/26/2024 2:40 PM EDTPending Prescriptions: Disp Refills LORazepam 1 MG Oral Tablet (Ativan) 60 Tab*1 Sig: Take 0.5 tablet by mouth in the morning and 0.5 tablet in the afternoon and 1 tablet at bedtime * Telephone Encounter - Tamar Russ LPN - 01/26/2024 2:39 PM EDT Last refill 11/26/2023 * Telephone Encounter - Isabel Fernandez OSA - 01/26/2024 2:38 PM EDT WANTS TO IMPREGNATOR AND DRIER HELPER ON WAY HOME Pending Prescriptions: Disp Refills LORazepam 1 MG Oral Tablet (Ativan) 60 Tab*1 Sig: Take 0.5 tablet by mouth in the morning and 0.5 tablet in the afternoon and 1 tablet at bedtime Last Visit: 12/17/2023 (in office), Visit date not found (telemedicine) Next Visit: 04/23/2024 Last date the medication was ordered: Patient Active Problem List Diagnosis HTN, goal below 140/90 Pure hypercholesterolemia JOSE (generalized anxiety disorder) Moderate episode of recurrent major depressive disorder (HCC) Non-seasonal allergic rhinitis due to pollen 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 Gastroesophageal reflux disease without esophagitis Hiatal hernia Umbilical hernia Uncomplicated alcohol dependence (HCC) Hyperparathyroidism, primary (HCC) Alcohol dependence, continuous (HCC) Labs: Lab Results Component Value Date/Time CREATININE - [facility] 0.7 06/20/2023 02:45 PM CREATININE - [facility] 0.63 03/23/2021 12:00 AM CREATININE - [facility] 0.7 01/22/2019 10:24 AM CREATININE, RANDOM URINE - [facility] 37 05/10/2022 10:59 AM CREATININE, RANDOM URINE - [facility] 50 01/22/2019 10:28 AM Lab Results Component Value Date/Time POTASSIUM - [facility] 3.8 06/20/2023 02:45 PM POTASSIUM - [facility] 4.2 03/23/2021 12:00 AM POTASSIUM - [facility] 4.4 01/22/2019 10:24 AM Lab Results Component Value Date/Time TSH - [facility] 2.29 03/24/2015 12:47 PM Lab Results Component Value Date/Time LDL (CALCULATED)-[facility] 84 03/23/2021 12:00 AM LDL (CALCULATED)-[facility] 205 09/22/2020 12:00 AM LDL CHOLESTEROL (CALCULATED) - [facility] 68 06/20/2023 02:45 PM LDL CHOLESTEROL (CALCULATED) - [facility] 93 05/10/2022 10:48 AM LDL CHOLESTEROL (CALCULATED) - [facility] 206 (H) 01/22/2019 10:24 AM LDL CHOLESTEROL (CALCULATED) - [facility] 205 (H) 03/24/2015 12:47 PM LDL CHOLESTEROL (DIRECT MEASURE) - [facility] NOT APPLICABLE 01/22/2019 10:24 AM Lab Results Component Value Date/Time ALT - [facility] 23 06/20/2023 02:45 PM ALT - [facility] 28 01/22/2019 10:24 AM Hemoglobin AIC Results: Lab Results Component Value Date/Time HEMOGLOBIN A1C - [facility] 5.1 01/22/2019 10:24 AM documented in this encounter Plan of Treatment Upcoming Encounters Date Type Department Care Team (Late st Contact Info) Description 04/23/2024 1:00 PM EST Office Visit Family Practice [address] [place] [address] [place] [address] Reji Chen, [address] [place] [address] Health Maintenance Due Date Last Done Comments [...] disorder documented in this encounter Care Teams Concession Supervisor Relationship Specialty Start Date End Date Reji Chen DO [address] [facility] [place] [address] PCP - General Internal Medicine 10/31/23 documented as of this encounter
--- OUTSIDE RECORDS SUMMARY | 2024-05-14 05:39 | External Medical Summary | Summary of Care ---
Author Name Unknown Organization [facility] Address [address] [place] [address] Phone [phone] Care Team Providers Care Milk Condenser Name Role Phone Reji Chen DO Primary Care Provider [phone] Reason for Visit * Reason Comments eRx-Medication Refill Encounter Details Date Type Department Care Team (Late st Contact Info) Description 12/25/2023 Refill Family Practice [address] [place] [address] [place] [address] Reji Chen DO [address] [place] [address] Uncomplicated alcohol dependence (HCC); JOSE (generalized anxiety disorder) Allergies Active Allergy Reactions Criticality Noted Date Comments Amlodipine 07/01/2022 RASH, EDEMA, HEADACHE, Bee Venom Anaphylaxis High 05/29/2017 Blue Dyes (Parenteral) Anaphylaxis,Rash High 022 Red, purple, blue Hydroxyzine 10/10/2022 Latex High 07/30/2018 Anaphalaxis Omeprazole 12/17/2023 Sulfa Antibiotics Anaphylaxis,Hives High 05/29/2017 Diclofenac Sodium 05/10/2022 documented as of this encounter (statuses as of 12/28/2023) Medications Medication Sig Dispensed Refills Start Date [...] the morning. 48 mL 3 02/14/2023 Active Rosuvastatin Calcium 5 MG Oral Tablet (Crestor)Indications:Pure hypercholesterolemia Take 1 Tablet by mouth in the morning. 90 Tablet 2 04/01/2023 Active Ipratropium [place] 0.03 % Nasal Solution (Atrovent)Indications:Chr onic rhinitis [...] affected area. 60 g 5 12/17/2023 Active documented as of this encounter (statuses as of 12/28/2023) Active Problems Problem Noted Date Diagnosed Date [...] as of this encounter (statuses as of 12/28/2023) Resolved Problems Problem Noted Date Diagnosed Date [...] as of this encounter (statuses as of 12/28/2023) Immunizations Name Administration Dates Next Due COVID-19 mRNA, LNP-s, No Pre serve, 2-Dose Series ([employer]) 02/03/2021,06/30/2020,06/02/2020 COVID-19, LNP-s, No Preserve , Aubrey-sucrose, Ages 12+ (Pfizer) 12/11/2021 COVID-19, MRNA-LNP, 23-24, P F, 30 MCG/0.3 mL, 12 YRS AND ABOVE, IM ([employer]Comirnat) 03/14/2023 Covid-19, Mrna, Lnp-s, Pf, B ivalent, 30 Mcg, IM, 12 yrs and above ([employer]) 03/05/2022 Pneumococcal Conjugate Vacc, 13 Valent (Prevnar) [...] Telephone Encounter - Reji Chen DO - 12/28/2023 12:22 PM EDTRefused Prescriptions: Disp Refills LORazepam 1 MG Oral Tablet (Ativan) 60 Tab*1 Sig: Take 0.5 tablet by mouth in the morning and 0.5 tablet in the afternoon and 1 tablet at bedtimeRefused By: REJI CHEN for Refusal: Duplicate Request * Telephone Encounter - Janet Garner [facility] - 12/27/2023 8:49 PM EDT Pending Prescriptions: Disp Refills LORazepam 1 MG Oral Tablet [Pharmacy Med N*60 Tab*1 Sig: Take 0.5 tablet by mouth in the morning and 0.5 tablet in the afternoon and 1 tablet at bedtime * Telephone Encounter - Janet Garner RP - 12/27/2023 8:49 PM EDT I have reviewed the patients controlled substance dispensing history in the Prescription Drug Monitoring Program in compliance with the [facility] regulations before prescribing a controlled substance. PDMP checked on 12/27/2023. Pending Prescriptions: Disp Refills LORazepam 1 MG Oral Tablet (Ativan) [Phar*60 Tab*1 Sig: Take 0.5 tablet by mouth in the morning and 0.5 tablet in the afternoon and 1 tablet at bedtime Last Visit: 12/17/2023 (in office), Visit date not found (telemedicine) Next Visit: 04/23/2024 Date medication was last filled: 12/25/23 Date medication is due for refill: 01/22/24 Pharmacy: [facility] [address] Is this request for a controlled substance? Yes and Urine Drug Screen Not completed Toxicology results: No results found for this or any previous visit. Please approve if appropriate. Thanks, Janet Garner [facility] Clinical Pharmacist [facility] ([facility]) [phone] documented in this encounter Plan of Treatment Upcoming Encounters Date Type Department Care Team (Late st Contact Info) Description 04/23/2024 1:00 PM EST Office Visit Family Practice [address] [place] [address] [place] [address] Reji Chen DO [address] [place] [address] Health Maintenance Due Date Last Done Comments [...] disorder documented in this encounter Care Teams Milk Condenser Relationship Specialty Start Date End Date Reji Chen DO [address] [place] [address] PCP - General Internal Medicine 10/31/23 documented as of this encounter
--- OUTSIDE RECORDS SUMMARY | 2024-05-14 05:39 | External Medical Summary | Summary of Care ---
Author Name Unknown Organization [facility] Address [address] [place] [address] Phone [phone] Care Team Providers Care Printing Estimator Name Role Phone Dominic Chen DO Primary Care Provider [phone] Encounter Details Date Type Department Care Team (Late st Contact Info) Description 12/10/2023 Population Health External Data Unspecified Department Allergies Active Allergy Reactions Criticality Noted Date Comments Amlodipine 07/01/2022 RASH, EDEMA, HEADACHE, Bee Venom Anaphylaxis High 05/29/2017 Blue Dyes (Parenteral) Anaphylaxis,Rash High 022 Red, purple, blue Hydroxyzine 10/10/2022 Latex High 07/30/2018 Anaphalaxis Sulfa Antibiotics Anaphylaxis,Hives High 05/29/2017 Diclofenac Sodium 05/10/2022 documented as of this encounter (statuses as of 12/10/2023) Medications Medication Sig Dispensed Refills Start Date [...] morning. 90 Tablet 2 3 Active Ipratropium [place] 0.03 % Nasal Solution (Atrovent)Indications:Chr onic rhinitis [...] as of this encounter (statuses as of 12/10/2023) Active Problems Problem Noted Date Diagnosed Date [...] as of this encounter (statuses as of 12/10/2023) Resolved Problems Problem Noted Date Diagnosed Date Resolved Date Food insecurity 03/03/2023 06/05/2023 Overview: Per [facility] Protocol Calculus of gallbladder with out cholecystitis without obstruction 11/28/2021 03/05/2022 ETD (Eustachian tube dysfunction), bilateral 8 06/04/2019 High risk for fracture due t o osteoporosis by DEXA scan 05/29/2017 12/21/2020 Gastroesophageal reflux disease 05/29/2017 06/04/2019 Allergy 05/29/2017 07/08/2022 Overview: ICD-10 update of inactive term documented as of this encounter (statuses as of 12/10/2023) Immunizations Name Administration Dates Next Due COVID-19 mRNA, LNP-s, No Pre serve, 2-Dose Series ([email or web address]) 02/03/2021,06/30/2020,06/02/2020 COVID-19, LNP-s, No Preserve , Aubrey-sucrose, Ages 12+ (Pfizer) 12/11/2021 COVID-19, MRNA-LNP, 23-24, P F, 30 MCG/0.3 mL, 12 YRS AND ABOVE, IM ([employer]) 03/14/2023 Covid-19, Mrna, Lnp-s, Pf, B ivalent, 30 Mcg, IM, 12 yrs and above ([email or web address]) 03/05/2022 Pneumococcal Conjugate Vacc, 13 Valent (Prevnar) [...] Team (Late st Contact Info) Description 12/17/2023 4:15 PM EDT Nurse Only Family Practice 65 [facility] 293 [place] [address] College, Nurse Fam Prac [address] [address] 12/17/2023 4:20 PM EDT Office Visit Family Practice 65 [facility] [place] [place] [address] [place] [address] Dominic Chen, DO 293 [place] [address] 12/26/2023 11:30 AM EDT Imaging Radiology [facility] [address]st [facility], [place] [address] [address] Health Maintenance Due Date Last Done Comments [...] filedocumented as of this encounter Care Teams Printing Estimator Relationship Specialty Start Date End Date Dominic Chen DO [address] [place] [facility] [place] [address] PCP - General Internal Medicine 10/31/23 documented as of this encounter
--- OUTSIDE RECORDS SUMMARY | 2024-05-14 05:39 | External Medical Summary | Summary of Care ---
Author Name Unknown Organization [facility] Address [address] [place] [address] Phone [phone] Care Team Providers Care Procedural Nurse Name Role Phone Dominic Chen DO Primary Care Provider [phone] Encounter Details Date Type Department Care Team (Late st Contact Info) Description 12/17/2023 4:15 PM EDT Nurse Only Family Practice 65 [facility] [address] [place] [address] College, Nurse [facility] [address] [address] Allergies Active Allergy Reactions Criticality Noted Date Comments Amlodipine 07/01/2022 RASH, EDEMA, HEADACHE, Bee Venom Anaphylaxis High 05/29/2017 Blue Dyes (Parenteral) Anaphylaxis,Rash High 022 Red, purple, blue Hydroxyzine 10/10/2022 Latex High 07/30/2018 Anaphalaxis Omeprazole 12/17/2023 Sulfa Antibiotics Anaphylaxis,Hives High 05/29/2017 Diclofenac Sodium 05/10/2022 documented as of this encounter (statuses as of 12/18/2023) Medications Medication Sig Dispensed Refills Start Date [...] morning. 90 Tablet 2 04/01/2023 Active Ipratropium [place] 0.03 % Nasal Solution (Atrovent)Indications:Chr onic rhinitis [...] at bedtime 60 Tablet 1 11/26/2023 Active documented as of this encounter (statuses as of 12/18/2023) Active Problems Problem Noted Date Diagnosed Date [...] as of this encounter (statuses as of 12/18/2023) Resolved Problems Problem Noted Date Diagnosed Date Resolved Date Food insecurity 03/03/2023 06/05/2023 Overview: Per [facility] Protocol Calculus of gallbladder with out cholecystitis without obstruction 11/28/2021 03/05/2022 ETD (Eustachian tube dysfunction), bilateral 8 06/04/2019 High risk for fracture due t o osteoporosis by DEXA scan 05/29/2017 12/21/2020 Gastroesophageal reflux disease 05/29/2017 06/04/2019 Allergy 05/29/2017 07/08/2022 Overview: ICD-10 update of inactive term documented as of this encounter (statuses as of 12/18/2023) Immunizations Name Administration Dates Next Due COVID-19 mRNA, LNP-s, No Pre serve, 2-Dose Series ([employer]) 02/03/2021,06/30/2020,06/02/2020 COVID-19, LNP-s, No Preserve , Aubrey-sucrose, Ages 12+ ([employer]) 12/11/2021 COVID-19, MRNA-LNP, 23-24, P F, 30 MCG/0.3 mL, 12 YRS AND ABOVE, IM ([employer] [facility] [employer]) 03/14/2023 Covid-19, Mrna, Lnp-s, Pf, B ivalent, 30 Mcg, IM, 12 yrs and above ([employer]) 03/05/2022 Pneumococcal Conjugate Vacc, 13 Valent (Prevnar) [...] Progress Notes * Tamar Russ LPN - 12/18/2023 4:00 PM EDT Nursing did medication reconciliation documented in this encounter Plan of Treatment Upcoming Encounters Date Type Department Care Team (Late st Contact Info) Description 12/26/2023 11:30 AM EDT Imaging Radiology [facility] 1st [facility] [address] [facility] [place] [address] 04/23/2024 1:00 PM EST Office Visit Family Practice [address] [place] [address] [place] [address] Dominic Chen, DO [address] [place] [address] Health Maintenance Due Date Last Done Comments Colonoscopy 1995 Fecal Occult Blood Test 1995 Sigmoidoscopy 1995 Adult Wellness Visit 02/15/2023 02/15/2022 Mammogram 08/10/2023 08/09/2022, 0404/2022, 12/08/2020, Additional history exists COVID-19 Vaccine ( season) 2023 03/14/2023, 03/05/2022, 12/11/2021, Additional history exists Postponed from 07/13/2023 (Unavailable) Influenza Vaccine (FLU shot) (#1) 2023 02/14/2023, [...] filedocumented as of this encounter Care Teams Procedural Nurse Relationship Specialty Start Date End Date Dominic Chen DO [address] [facility] [place] [address] PCP - General Internal Medicine 10/31/23 documented as of this encounter
--- OUTSIDE RECORDS SUMMARY | 2024-05-14 05:39 | External Medical Summary | Summary of Care ---
Author Name Unknown Organization [facility] Address [address] [place] [address] Phone [phone] Care Team Providers Care Abrasive Band Winder Name Role Phone Dominic Chen DO Primary Care Provider [phone] Reason for Visit * Reason Onset Date Comments Hospital Follow-Up Hospital Follow-Up 12/17/2023 Encounter Details Date Type Department Care Team (Late st Contact Info) Description 12/17/2023 4:20 PM EDT Office Visit Family Practice [address] 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 90 Tablet 2 04/01/20 23 Active Ipratropium [place] 0.03 % Nasal Solution (Atrovent)Indications:C hronic rhinitis Administer 2 Sprays into each nostril in the morning and 2 Sprays at noon and 2 Sprays before bedtime. for runny nose. 30 mL 3 05/23/19 24 Active Famotidine 20 MG Oral Tablet (Pepcid)Indications:Gas troesophageal reflux disease without esophagitis TAKE 1 TABLET BY MOUTH ONCE DAILY 90 Tablet 2 10/27/19 24 Active Lisinopril 30 MG Oral TabletIndications:HTN, goal below 140/90 TAKE 1 TABLET DAILY IN THE MORNING. 90 Tablet 2 10/27/19 24 Active LORazepam 1 MG Oral Tablet (Ativan)Indications:Unc omplicated alcohol dependence (HCC),JOSE (generalized anxiety disorder) Take 0.5 tablet by mouth in the morning and 0.5 tablet in the afternoon and 1 tablet at bedtime 60 Tablet 1 11/26/19 24 Active Magnesium Oxide -Mg Supplement 500 MG Oral Tablet Take 1 Tablet by mouth in the morning and 1 Tablet before bedtime. 12/17/19 24 Active Vitamin B 12 500 MCG Oral Tablet Take by mouth every evening. 12/17/19 24 Active methylPREDNISolone 4 MG Oral Tablet Therapy Pack (Medrol) Take 1 Tablet by mouth. follow package directions Active Triamcinolone Acetonide 0.1 % External Ointment (Aristocort)Indications :Dermatitis Apply topically to affected area 2 times a day. To affected area. 60 g 5 12/17/19 24 Active Zinc 50 MG Oral Capsule Take 1 Capsule by mouth in the morning. 024 Discontinued hydroCHLOROthiazide 12.5 MG Oral CapsuleIndications:HTN, goal below 140/90 Take 1 Capsule by mouth in the morning. 90 Capsule 1 08/06/19 24 024 Discontinued(M edication List Clean Up) Omeprazole 20 MG Oral Capsule Delayed Release (PriLOSEC)Indications:G astroesophageal reflux disease without esophagitis Take 1 Capsule by mouth in the morning. 1 hour before the first meal of the day. 90 Capsule 3 08/22/19 24 024 Discontinued documented as of this [...] mRNA, LNP-s, No Pre serve, 2-Dose Series ([employer]) 02/03/2021,06/30/2020,06/02/2020 COVID-19, LNP-s, No Preserve , Aubrey-sucrose, Ages 12+ (Pfizer) 12/11/2021 COVID-19, MRNA-LNP, 23-24, P F, 30 MCG/0.3 mL, 12 YRS AND ABOVE, IM ([facility]) 03/14/2023 Covid-19, Mrna, Lnp-s, Pf, B ivalent, 30 Mcg, IM, 12 yrs and above ([employer]ka) 03/05/2022 Pneumococcal Conjugate Vacc, 13 Valent (Prevnar) [...] Sign Reading Time Taken Comments Blood Pressure 124/80 12/17/2023 4:02 PM EDT Pulse 72 12/17/2023 4:02 PM EDT Temperature 36.8 C (98.2 F) 12/17/2023 4:02 PM ED T Respiratory Rate 14 12/17/2023 4:02 PM EDT Oxygen Saturation - - Inhaled Oxygen Concentration - - Weight 67.7 kg (149 lb 4.8 oz) 12/17/2023 4:02 P M EDT Height 166.4 cm (5' 5.5") 12/17/2023 4:02 PM EDT Body Mass Index 24.47 12/17/2023 4:02 PM EDT documented in this encounter Patient Instructions * Patient Instructions* Jeb Gloria, LPN - 12/17/2023 3:54 PM EDT Patient Instructions - Fall Prevention (This education is for all patients over 65 regardless of symptoms) Remember to take your current medications as prescribed. In order to prevent falls, you are encouraged to: Exercise Utilize assistive/adaptive devices Avoid multifocal lenses when walking Avoid hazards in home Maintain a regular toileting schedule Any questions please contact our office. Preventing Falls in the Home (This education is for all patients over 65 regardless of symptoms) As you get older, falls are more likely. Thats because your reaction time slows. Your muscles and joints may also get stiffer, making them less flexible. Illness, medications, and vision changes can also affect your balance. A fall could leave you unable to live on your own. To make your home safer, follow these tips: Floors Put nonskid pads under area rugs Remove throw rugs Replace worn floor coverings Tack carpets firmly to each step on carpeted stairs. Put nonskid strips on the edges of uncarpeted stairs Keep floors and stairs free of clutter and cords Arrange furniture so there are clear pathways Clean up any spills right away Bathrooms Install grab bars in the tub or shower Apply nonskid strips or put a nonskid rubber mat in the tub or shower Sit on a bath chair to bathe Use bathmats with nonskid backing Lighting Keep a flashlight in each room Put a nightlight along the pathway between the bedroom and the bathroom [employer] Patient Education Copyright 2008 - 2010 Geno except where otherwise noted Preventing Falls: Exercises to Improve Balance, Flexibility, Strength, and Staying Power (This education is for all patients over 65 regardless of symptoms) Certain types of exercises may help make you less likely to fall. Try the ones below. Or do other exercises that your healthcare provider suggests. Depending on your health, you may need to start slowly. Dont let that stop you. Even small amounts of exercise can help you. Be sure to talk to yourhealthcare provider before starting any exercise program. Improve Balance Many types of exercise can help improve balance. Boyd chi and yoga are good examples. Heres another one to try. You can do it anytime and almost anywhere. Stand next to a counter or solid support. Push yourself up onto your tiptoes. Hold for 5 seconds. If you start to lose your balance, hold on to the counter. Rest and repeat 5 times. Work up to holding for 20 to 30 seconds, if you can. Increase Flexibility Being more flexible makes it easier for you to move around safely. Try exercises like the seated hamstring stretch. Sit in a chair and put one foot on a stool. Straighten your leg and reach with both hands down either side of your leg. Reach as far down your leg as you can. Hold for about 20 seconds. Go back to the starting position. Then repeat 5 times. Switch legs. Build Strength Resistance exercises help build strength. You can do them without equipment. Or you can use weights, elastic bands, or special machines. One such exercise is called the biceps curl. You can hold a 1 pound weight or even a can of soup. Do this exercise at least 3 times a week. Strive for everyday. Sit up straight in a chair. Keep your elbow close to your body and your wrist straight. Bend your arm, moving your hand up to your shoulder. Then slowly lower your arm. Repeat 5 times. Switch to the other arm. Build Your Staying Power Aerobic exercises make your heart and lungs stronger so you can keep moving longer. Walking and swimming are two of the best types of exercises you can do. Using a stationary bike is great, too. Find an aerobic exercise that you enjoy. Start slowly and build up. Even 5 minutes is helpful. Aimfor a goal of 30 minutes, at least 3 times a week. You dont have to do 30 minutes in one session. Break it up and walk a little throughout the day. More Helpful Tips Start easy. Slowly work up to doing more. Talk with your healthcare provider about the best exercises for you. Call senior centers or health clubs about exercise programs. If needed, have a family member watch you walk every so often to check your stability. Exercise with a friend. Choose an activity you both enjoy. Try exercises that you can do anytime, anywhere. Here are two examples. Have someone with you when you first try these: Practice walking by placing one foot right in front of the other. Stand up and sit down 10 times. Repeat this throughout the day. Geno Patient Education Copyright 2008 - 2010 Geno except where otherwise noted. Preventing Falls: Moving Safely Using a Cane or Walker (This education is for all patients over 65 regardless of symptoms) Keep the cane away from your feet so you dont trip. A walking aid, such as a cane or walker, can help you stay more independent and avoid falls. Remember to keep your walking aid within easy reach when youre in a chair or in bed. And learn how to use it safely so you dont injure yourself. Using a Cane If you have a stronger side, hold the cane on that side. Get your balance. Move the cane and your weaker leg forward. Support your weight on both the cane and your weaker side. Step with your stronger leg. Start again from step 1. If youre using a folding walker, be sure you know how to lock it open. Check that its locked open before each use. Using a Walker Roll the walker (or lift it, if youre using one without wheels) forward about 12 inches. Step forward with your weaker leg first. Use the walker to help keep your balance. Bring your other foot forward to the center of the walker. Start again from step 1. Helpful Tips Check with your healthcare provider about the right walking aid to use. Ask about a walker with a seat attached. Check the tips of your cane or walker to make sure they have nonskid covers. Move slowly from room to room. Dont nascimento. Sit down to get dressed. Use a shai pack or backpack to keep your hands free. Get help for jobs that mean climbing, even on a stepstool. [employer] Patient Education Copyright 2008 - 2010 [employer] except where otherwise noted. Urinary Incontinence Plan of Care Documentation: (This education is for all patients over 65 regardless of symptoms) Current medications reconciled. Patient encouraged to: Practice kegal exercises Provide education materials Use the restroom every 2 hours throughout the day Limit caffeine, alcohol, spicy foods and acidic foods Keep a bladder diary Limit fluid intake 3-4 hours before bed Lose weight Prevent constipation Take fluid pills at a time when you can get to the bathroom quickly Control sugar better if diabetic Limit fluid intake to 60 oz. per day Wear support stockings (TEDs)if you have edema Tamar Russ LPN 12/17/2023 Kegel Exercises Kegel exercises dont require special clothing or equipment. Theyre easy to learn and simple to do. And if you do them right, no one can tell youre doing them, so they can be done almost anywhere. Your doctor, nurse, or physical therapist can answer any questions you have and help you get started. A Weak Pelvic Floor The pelvic floor muscles may weaken due to aging, and vaginal childbirth, injury, surgery, chronic cough, or lack of exercise. If the pelvic floor is weak, your bladder and other pelvic organs may sag out of place. The urethra may also open too easily and allow urine to leak out. Kegel exercises can help you strengthen your pelvic floor muscles so they can better support the pelvic organs and control urine flow. How Kegel Exercises Are Done Try each of the Kegel exercises described below. When youre doing them, try not to move your leg, buttock, or stomach muscles. While youre urinating, try to stop the flow of urine. Start and stop it as often as you can. Contract as if you were stopping your urine stream, but do it when youre not urinating. Tighten your rectum as if trying not to pass gas. Contract your anus, but dont move your buttocks. Helpful Hints Do your Kegels as often as you can. The more you do them, the faster youll feel the results. Pick an activity you do often as a reminder. For instance, do your Kegels every time you sit down. Tighten your pelvic floor before you sneeze, get up from a chair, cough, laugh, or lift. This protects your pelvic floor from injury and can help prevent urine leakage. Try to hold each Kegel for a slow count to five. You probably wont be able to hold them for thatlong at first, but keep practicing. It will get easier as your pelvic floor gets stronger. Eventually, special weights that you place in your vagina may be recommended to help make your Kegels even more effective. Geno Patient Education Copyright 2008 - 2010 Geno except where otherwise noted. Here are some helpful tips for your urinary incontinence: (This education is for all patients over 65 regardless of symptoms) Practice Kegel exercises Use the restroom every 2 hours throughout the day Limit caffeine, alcohol, spicy foods, and acidic foods Keep a bladder diary Limit fluid intake 3-4 hours before bed Lose weight Prevent constipation Take fluid pills at a time when can get to the bathroom quickly Control sugar better if diabetic Limit fluid intake to 60 oz. per day Any questions, please feel free to contact our office. documented in this encounter Progress Notes * Dominic Chen, - 12/17/2023 4:35 PM EDT SUBJECTIVE: Anupama Caraballo is a 73 year old female. Chief Complaint Patient presents with Hospital Follow-Up Hospital Follow-Up Recent Admission: Patient was recently admitted to [facility]. The date of discharge was 12/09/2023.Discharge report received and reviewed. 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 The patient was admitted to [facility] due to Alcohol Intoxication and Mariajuana use. She had UTI as well. The patient has not had any alcohol since hospital discharge. She is meeting with a friend group two times a week to avoid alcohol. She does not wish to return to or have addiction counseling. No chest pain or shortness of breath are present. Weight is stable and appetiteis fair. 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 48 mL 3 Rosuvastatin Calcium 5 MG Oral Tablet (Crestor) Take 1 Tablet by mouth in the morning. 90 Tablet 2 Ipratropium [place] 0.03 % Nasal Solution (Atrovent) Administer 2 Sprays into each nostril in the morning and 2 Sprays at noon and 2 Sprays before bedtime. for runny nose. 30 mL 3 Famotidine 20 MG Oral Tablet (Pepcid) TAKE 1 TABLET BY MOUTH ONCE DAILY 90 Tablet 2 Lisinopril 30 MG Oral Tablet TAKE 1 TABLET DAILY IN THE MORNING. 90 Tablet 2 LORazepam 1 MG Oral Tablet (Ativan) Take 0.5 tablet by mouth in the morning and 0.5 tablet in the afternoon and 1 tablet at bedtime 60 Tablet 1 Magnesium Oxide -Mg Supplement 500 MG Oral Tablet Take 1 Tablet by mouth in the morning and 1 Tablet before bedtime. Vitamin B 12 500 MCG Oral Tablet Take by mouth every evening. methylPREDNISolone 4 MG Oral Tablet Therapy Pack (Medrol) Take 1 Tablet by mouth. follow package directions No current facility-administered medications for this visit. Current and discharge medications have been reconciled. Review of patient's allergies indicates: Allergen Reactions Bee Venom Anaphylaxis Blue Dyes (Parenteral) Anaphylaxis and Rash Red, purple, blue Latex Anaphalaxis Sulfa Antibiotics Anaphylaxis and Hives Amlodipine RASH, EDEMA, HEADACHE, Hydroxyzine Prilosec [Omeprazole] Voltaren [Diclofenac Sodium] OBJECTIVE: BP 124/80 | Pulse 72 | Temp 36.8 C (98.2 F) (Tympanic) | Resp 14 | Ht 1.664 m (5' 5.5") | Wt 67.7 kg (149 lb 4.8 oz) | BMI 24.47 kg/m | BSA 1.77 m REVIEW OF SYSTEMS: Review of Systems Constitutional: Negative for appetite change, fatigue and unexpected weight change. HENT: Negative for congestion, sore throat and trouble swallowing. Respiratory: Negative for cough, shortness of breath and wheezing. Cardiovascular: Negative for chest pain, palpitations and leg swelling. Gastrointestinal: Negative for abdominal pain, blood in stool, constipation, diarrhea, nausea and vomiting. Genitourinary: Negative for dysuria and hematuria. Neurological: Negative for dizziness, syncope and headaches. Psychiatric/Behavioral: Negative for confusion, decreased concentration and sleep disturbance. PHYSICAL EXAM: BP 124/80 | Pulse 72 | Temp 36.8 C (98.2 F) (Tympanic) | Resp 14 | Ht 1.664 m (5' 5.5") | Wt 67.7 kg (149 lb 4.8 oz) | BMI 24.47 kg/m | BSA 1.77 [...] Behavior normal. Thought Content: Thought content normal. 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 I spent a total of 40-54 minutes (exact time 40 mins) minutes on the date of service in preparation, delivery, and documentation of the care provided to Anupama Caraballo excluding any time spent in performance of separately billed services. Dominic Chen DO documented in this encounter Nursing Notes * Tamar Russ LPN - 12/17/2023 4:01 PM EDT Here for follow up, states she is doing well. documented in this encounter Plan of Treatment Upcoming Encounters Date Type Department Care Team (Late st Contact Info) Description 12/26/2023 11:30 AM EDT Imaging Radiology [facility] [address] [facility] [place] [address] 04/23/2024 1:00 PM EST Office Visit Family Practice [address] [place] [address] [place] [address] Dominic Chen DO [address] [place] [address] Health Maintenance Due Date Last Done Comments Colonoscopy 1995 Fecal Occult Blood Test 1995 Sigmoidoscopy 1995 Adult Wellness Visit 02/15/2023 02/15/2022 Mammogram 08/10/2023 08/09/2022, 0404/2022, 12/08/2020, Additional history exists COVID-19 Vaccine (2022- season) 2023 03/14/2023, 03/05/2022, 12/11/2021, Additional history [...] as of this encounter Visit Diagnoses Diagnosis Alcohol dependence, continuous (HCC)- Primary Other and unspecified alcohol dependence, continuous drinking behavior HTN, goal below 140/90 Unspecified essential hypertension Pure hypercholesterolemia JOSE (generalized anxiety disorder) Generalized anxiety disorder Moderate episode of recurrent major depressive disorder (HCC) 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
--- OUTSIDE RECORDS SUMMARY | 2024-05-14 05:39 | External Medical Summary | Summary of Care ---
Author Name Unknown Organization [facility] Address [address] [place] [address] Phone [phone] Care Team Providers Care Capacity Planner Name Role Phone Dominic Chen DO Primary Care Provider [phone] Reason for Visit * Reason Onset Date Comments Appointment 12/09/2023 HD Encounter Details Date Type Department Care Team (Late st Contact Info) Description 12/09/2023 Telephone Family Practice [address] [facility] [place] [address] [place] [address] Dominic Chen DO [address] [place] [address] Appointment (HD ) Allergies Active Allergy Reactions Criticality Noted Date Comments Amlodipine 07/01/2022 RASH, EDEMA, HEADACHE, Bee Venom Anaphylaxis High 05/29/2017 Blue Dyes (Parenteral) Anaphylaxis,Rash High 022 Red, purple, blue Hydroxyzine 10/10/2022 Latex High 07/30/2018 Anaphalaxis Sulfa Antibiotics Anaphylaxis,Hives High 05/29/2017 Diclofenac Sodium 05/10/2022 documented as of this encounter (statuses as of 12/09/2023) Medications Medication Sig Dispensed Refills Start Date [...] morning. 90 Tablet 2 3 Active Ipratropium [place] 0.03 % Nasal Solution (Atrovent)Indications:Chr onic rhinitis [...] as of this encounter (statuses as of 12/09/2023) Active Problems Problem Noted Date Diagnosed Date [...] as of this encounter (statuses as of 12/09/2023) Resolved Problems Problem Noted Date Diagnosed Date [...] as of this encounter (statuses as of 12/09/2023) Immunizations Name Administration Dates Next Due COVID-19 mRNA, LNP-s, No Pre serve, 2-Dose Series ([employer]) 02/03/2021,06/30/2020,06/02/2020 COVID-19, LNP-s, No Preserve , Aubrey-sucrose, Ages 12+ (Pfizer) 12/11/2021 COVID-19, MRNA-LNP, 23-24, P F, 30 MCG/0.3 mL, 12 YRS AND ABOVE, IM ([employer]) 03/14/2023 Covid-19, Mrna, Lnp-s, Pf, B ivalent, 30 Mcg, IM, 12 yrs and above ([employer]) 03/05/2022 Pneumococcal Conjugate Vacc, 13 Valent (Prevnar) [...] encounter Miscellaneous Notes * Telephone Encounter - Ale Bond RN - 12/09/2023 4:09 PM EDT Will call for JAYLYN. Thank you. * Telephone Encounter - Tamar Russ LPN - 12/09/2023 10:18 AM EDT Please change type of visit to hospital follow up * Telephone Encounter - Dominic Chen DO - 12/09/2023 10:07 AM EDT Hospital discharge on 12/16 is OK * Telephone Encounter - Tamar Russ LPN - 12/09/2023 9:43 AM EDT Will ask pcp if date is appropriate. Will send to director case to do jaylyn. Thank you * Telephone Encounter - Isabel Fernandez OSA - 12/09/2023 9:34 AM EDT Is being discharged from [facility] today or tomorrow Has follow up appt on 12/17/2023. Is it alright to use that appointment for follow up? documented in this encounter Plan of Treatment Upcoming Encounters Date Type Department Care Team (Late st Contact Info) Description 12/17/2023 4:15 PM EDT Nurse Only Family Practice [address] [facility] [address] [place] [phone] College, Nurse Fam Prac [address] [address] 12/17/2023 4:20 PM EDT Office Visit Family Practice [address] [facility] [address] [place] [phone] Dominic Chen, DO [address] [place] [address] 12/26/2023 11:30 AM EDT Imaging Radiology [facility] [place] [address] [facility] [place] [address] Health Maintenance Due Date Last Done Comments [...] filedocumented as of this encounter Care Teams Capacity Planner Relationship Specialty Start Date End Date Dominic Chen DO [address] [address] PCP - General Internal Medicine 10/31/23 documented as of this encounter
--- OUTSIDE RECORDS SUMMARY | 2024-05-14 05:39 | External Medical Summary | Summary of Care ---
Author Name Unknown Organization [facility] Address [address] [place] [address] Phone [phone] Care Team Providers Care Cottage Attendant Name Role Phone Dominic Chen DO Primary Care Provider [phone] Reason for Visit * Reason Onset Date Comments Hospital Follow-Up Hospital Follow-Up 12/17/2023 Encounter Details Date Type Department Care Team (Late st Contact Info) Description 12/17/2023 4:20 PM EDT Office Visit Family Practice [facility] [address] [place] [phone] Dominic Chen DO [address] [place] [address] Alcohol dependence, continuous (HCC)*; HTN, goal below [...] 90 Tablet 2 04/01/20 23 Active Ipratropium [place] 0.03 % Nasal Solution (Atrovent)Indications:C hronic rhinitis [...] mRNA, LNP-s, No Pre serve, 2-Dose Series ([employer]) 02/03/2021,06/30/2020,06/02/2020 COVID-19, LNP-s, No Preserve , Aubrey-sucrose, Ages 12+ (Pfizer) 12/11/2021 COVID-19, MRNA-LNP, 23-24, P F, 30 MCG/0.3 mL, 12 YRS AND ABOVE, IM ([facility]) 03/14/2023 Covid-19, Mrna, Lnp-s, Pf, B ivalent, 30 Mcg, IM, 12 yrs and above ([employer]) 03/05/2022 Pneumococcal Conjugate Vacc, 13 Valent (Prevnar) [...] Recent Admission: Patient was recently admitted to [facility]. The date of discharge was 12/09/2023.Discharge report received and reviewed. 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 The patient was admitted to [facility] due to Alcohol Intoxication and Mariajuana [...] (HCC) Hyperparathyroidism, primary (HCC) Alcohol dependence, continuous ([facility]) Current Outpatient Medications Medication Sig [...] in the morning. 90 Tablet 2 Ipratropium [place] 0.03 % Nasal Solution (Atrovent) Administer 2 [...] Description 12/26/2023 11:30 AM EDT Imaging Radiology [facility] [address] [facility] [place] [address] 04/23/2024 1:00 PM EST Office Visit Family Practice [address] [place] [address] [place] [address] Dominic Chen DO [address] [place] [address] Health Maintenance Due Date Last Done Comments [...] examination documented in this encounter Care Teams Cottage Attendant Relationship Specialty Start Date End Date Dominic Chen DO [address] [place] [address] PCP - General Internal Medicine 10/31/23 documented as of this encounter
--- OUTSIDE RECORDS SUMMARY | 2024-05-14 05:39 | External Medical Summary | Summary of Care ---
Author Name Unknown Organization [facility] Address [address] [place] [address] Phone [phone] Care Team Providers Care Rod Buster Helper Name Role Phone Reji Chen DO Primary Care Provider [phone] Reason for Visit * Reason Comments eRx-Medication Refill Encounter Details Date Type Department Care Team (Late st Contact Info) Description 12/31/2023 Refill Family Practice [address] [place] [address] [place] [phone] Reji Chen DO [address] [place] [address] Pure hypercholesterolemia Allergies Active Allergy Reactions Criticality Noted Date Comments Amlodipine 07/01/2022 RASH, EDEMA, HEADACHE, Bee Venom Anaphylaxis High 05/29/2017 Blue Dyes (Parenteral) Anaphylaxis,Rash High 022 Red, purple, blue Hydroxyzine 10/10/2022 Latex High 07/30/2018 Anaphalaxis Omeprazole 12/17/2023 Sulfa Antibiotics Anaphylaxis,Hives High 05/29/2017 Diclofenac Sodium 05/10/2022 documented as of this encounter (statuses as of 01/02/2024) Medications Medication Sig Dispensed Refills Start Date [...] morning. 48 mL 3 02/15/20 23 Active Ipratropium [place] 0.03 % Nasal Solution (Atrovent)Indications:Ch ronic rhinitis [...] area. 60 g 5 12/17/19 24 Active Rosuvastatin Calcium 5 MG Oral Tablet (Crestor)Indications:Pur e hypercholesterolemia TAKE 1 TABLET BY MOUTH IN THE MORNING 90 Tablet 1 01/02/20 24 Active Rosuvastatin Calcium 5 MG Oral Tablet (Crestor)Indications:Pur e hypercholesterolemia Take 1 Tablet by mouth in the morning. 90 Tablet 2 04/01/20 23 024 Discontinued documented as of this encounter (statuses as of 01/02/2024) Active Problems Problem Noted Date Diagnosed Date [...] as of this encounter (statuses as of 01/02/2024) Resolved Problems Problem Noted Date Diagnosed Date [...] as of this encounter (statuses as of 01/02/2024) Immunizations Name Administration Dates Next Due COVID-19 mRNA, LNP-s, No Pre serve, 2-Dose Series ([employer]) 02/03/2021,06/30/2020,06/02/2020 COVID-19, LNP-s, No Preserve , Aubrey-sucrose, Ages 12+ ([employer]) 12/11/2021 COVID-19, MRNA-LNP, 23-24, P F, 30 MCG/0.3 mL, 12 YRS AND ABOVE, IM ([employer]) 03/14/2023 Covid-19, Mrna, Lnp-s, Pf, B ivalent, 30 Mcg, IM, 12 yrs and above ([employer]) 03/05/2022 Pneumococcal Conjugate Vacc, 13 Valent (Prevnar) [...] encounter Miscellaneous Notes * Telephone Encounter - Gwen Lopez RPh - 01/02/2024 9:28 AM EDTSigned Prescriptions: Disp Refills Rosuvastatin Calcium 5 MG Oral Tablet (Cre*90 Tab*1 Sig: TAKE 1 TABLET BY MOUTH IN THE MORNINGAuthorizing Provider: REJI CHEN AOrpiter User: GWEN LOPEZ--- documented in this encounter Plan of Treatment Upcoming Encounters Date Type Department Care Team (Late st Contact Info) Description 04/23/2024 1:00 PM EST Office Visit Family Practice [address] [place] [address] [place] [address] Reji Chen, [address] [place] [address] Health Maintenance Due Date Last Done Comments Colonoscopy 1995 Fecal Occult Blood Test 1995 Sigmoidoscopy 1995 Adult Wellness Visit 02/15/2023 02/15/2022 Mammogram 08/10/2023 08/09/2022, 07/21, 12/08/2020, Additional history exists COVID-19 Vaccine (2022- [...] as of this encounter Visit Diagnoses Diagnosis Pure hypercholesterolemia documented in this encounter Care Teams Rod Buster Helper Relationship Specialty Start Date End Date Reji Chen DO [address] [place] [address] PCP - General Internal Medicine 10/31/23 documented as of this encounter
[2024-05-14] MEDS: PROMETHAZINE 6.25 MG/50.25 ML BAG IV PRN (06:46)
[2024-05-14] MEDS: lisinopril 20 MG TAB PO SCH (08:18)
[2024-05-14] MEDS: ADVANCED PROBIOTIC 625 MG CAPSULE PO SCH (08:18)
[2024-05-14] MEDS: FLUTICASONE PROPIONATE NA SPR 16 GM BTL SCH (08:18)
[2024-05-14] MEDS: CETIRIZINE HCL 10 MG TABLET PO SCH (08:18)
[2024-05-14] MEDS: GABAPENTIN 300 MG CAP PO SCH (08:18)
[2024-05-14] MEDS: ENOXAPARIN INJ 40 MG/0.4 ML SYR SQ SCH (08:18)
[2024-05-14] MEDS: FOLIC ACID 1 MG TAB PO SCH (08:18)
[2024-05-14] MEDS: FAMOTIDINE 20 MG TAB PO SCH (08:18)
[2024-05-14] MEDS: MULTIVITAMIN TAB PO SCH (08:19)
[2024-05-14] MEDS: MAGNESIUM OXIDE 400 MG TAB PO SCH (08:19)
--- NOTE | 2024-05-14 11:31 | Hospitalist Progress Note ---
Date of Service May 14, 2024 Assessment & Plan (1) Alcohol intoxication delirium with moderate or severe use disorder: (2) Benzodiazepine withdrawal: (3) Anxiety: (4) Alcohol abuse: Plan Patient with known history of alcohol misuse presents to the emergency room with some confusion and weakness in the setting of alcohol intoxication and possibly benzodiazepine withdrawal. Patient has not had any real significant withdrawal symptoms at this point Reviewed patient's most recent hospitalization for similar presentation. She did not have any severe withdrawal symptoms at that time as well. Will restart her scheduled lorazepam. Discontinue Librium. Continue lorazepam as needed for withdrawal symptoms Give some oral potassium Okay to [facility] Phone conversation with patient's . He shared with me that the patient had just suffered a loss of a very good high school friend as well as had to give way there new puppy due to behaviors and these 2 events really increased her anxiety levels and unfortunately her coping mechanism for her anxiety is to drink alcohol. They are committed to continue to work through her anxiety and eliminate alcohol as a treatment plan for her anxiety. Admission and Anticipated Discharge Date Admission Date: May 14, 2024 Subjective Patient denies any significant withdrawal symptoms. Admits to history of alcohol misuse. Also significant family history of alcohol misuse Physical Exam Physical Exam: Constitutional: Alert, calm, no acute distress HEENT: Mucous membranes moist. Lungs: Clear to auscultation, decreased, no wheezes rales or rhonchi CV: S1-S2, regular Abdomen: Soft, nontender, nondistended Extremities: No significant edema Neuro: No focal deficits, generalized weakness, no tremor Psych: Cooperative, normal mood, cognitively appears to be intact Results & Data Results & Data Vital Signs (Past 12 Hours) Vital Signs Temp Pulse Pulse Pulse Resp BP Pulse Ox 05/14/24 07:57 36.9 C 67 16 168/89 H 96 05/14/24 07:38 70 05/14/24 06:10 37.1 C 75 16 159/90 H 97 05/14/24 04:05 37.1 C 97 H 18 159/85 H 98 05/14/24 02:26 70 05/14/24 02:06 36.8 C 69 18 165/84 H 93 05/14/24 01:09 88 16 166/95 H 96 O2 Del Method 05/14/24 07:57 Room Air 05/14/24 07:38 05/14/24 06:10 Room Air 05/14/24 04:05 Room Air 05/14/24 02:26 05/14/24 02:06 Room Air 05/14/24 01:09 Diagnostic Findings Reviewed imaging, laboratory and diagnostic studies. Pertinent findings as below. WBCs 3.6 Hemoglobin 10.7 Potassium 3.6 Creatinine 0.52 Magnesium 1.9
[2024-05-14] MEDS ORDERED: LORazepam 1 MG TAB PO PRN (11:39)
[2024-05-14] MEDS: POTASSIUM CHLORIDE CRTAB 20 MEQ TABCR PO STA (11:50)
[2024-05-14] MEDS: LORazepam 1 MG TAB PO ONE (13:04)
[2024-05-14] MEDS: LORazepam 1 MG TAB PO SCH (20:03)
[2024-05-14] MEDS: ROSUVASTATIN CALCIUM 5 MG TAB PO SCH (20:05)
--- NOTE | 2024-05-14 22:32 | Communication Note ---
Date of Service: May 14, 2024
[2024-05-14] MEDS: ACETAMINOPHEN 1,000 MG/100 ML VIAL IV STA (23:08)
[2024-05-14] MEDS: ACETAMINOPHEN 500 MG TAB PO STA (23:18)
[2024-05-14] MEDS: amLODIPine BESYLATE 5 MG TAB PO SCH (23:18)
--- NOTE | 2024-05-15 01:12 | CT Scan Report ---
Exam(s): CT HEAD Without Contrast EXAM: CT Head Without Intravenous Contrast CLINICAL HISTORY: Reason for exam: jose, htn. TECHNIQUE: Axial computed tomography images of the head/brain without intravenous contrast. CTDI is 36.55 mGy and DLP is 625.8 mGy-cm. Automated exposure control was utilized for the study. A dose lowering technique was utilized adhering to the principles of ALARA. COMPARISON: Prior head CT from May 13, 2024. FINDINGS: Brain: Unremarkable. No hemorrhage. No significant white matter disease. No edema. There is a small right choroidal fissure cyst. Ventricles: Unremarkable. No ventriculomegaly. Bones/joints: Unremarkable. No acute fracture. Soft tissues: Unremarkable. Sinuses: Unremarkable as visualized. No acute sinusitis. Mastoid air cells: Unremarkable as visualized. No mastoid effusion. IMPRESSION: No evidence of acute intracranial pathology. Electronically signed by: Emily Benítez MD 05/15/24 01:11 AM
[2024-05-15 02:11] VITALS: TEMP 97.9; O2SAT 96
[2024-05-15] MEDS: MELATONIN 3 MG TAB PO PRN (02:58)
[2024-05-15] MEDS: hydrOXYzine HCl 10 MG TAB PO STA (02:59)
[2024-05-15] MEDS ORDERED: chlordiazePOXIDE HCl 25 MG CAP PO SCH (03:15)
[2024-05-15 05:14] LABS: BUN Creatinine Ratio 23.2 (10-20); Calcium 9.5 mg/dl (8.6-10.3); Creatinine Clr Calc Pharmacy 82.5 ml/min; Magnesium 1.9 mg/dl (1.7-2.4); Potassium 3.6 mmol/L (3.5-5.1)
[2024-05-15 07:41] VITALS: RESP 18
[2024-05-15] MEDS: THIAMINE HCL 100 MG TAB PO SCH (08:34)
[2024-05-15] MEDS: LORazepam 0.5 MG TAB PO SCH (08:40)
[2024-05-15 11:01] VITALS: BP 189/104; PULSE 69
--- NOTE | 2024-05-15 11:01 | Discharge Summary ---
Discharge Summary Date of Service May 15, 2024 Principal Dx & Hospital Course #1 = Principal Diagnosis (1) Alcohol intoxication delirium with moderate or severe use disorder: (2) Benzodiazepine withdrawal: (3) Anxiety: (4) Alcohol abuse: Plan Patient presented to the emergency room with some confusion. Has a history of known alcohol misuse. She was noted to be intoxicated and alcohol. She also reported a history of having run out of her lorazepam. Concern for possible benzodiazepine withdrawal. Patient was cared for in the hospital. She is placed on her usual lorazepam dosing. Also given some additional Librium. She had no significant withdrawal symptoms. Her mentation returned to baseline. The following day she was able to share and her confirmed that she lost a very close friend within the last week or 2 and was struggling to deal with his . She often turns to alcohol to soothe her her depression and anxiety. Also to apparently they have gone through some pets having to be put to sleep and also a new puppy that did not work out that they had to give away. She is very close to all of her pets and this was also quite distressing to her to her. She was seen by case management and she was given information for [facility] support services for alcohol misuse. She is no interested in inpatient alcohol rehab. She says she has tried several antidepressants without any effect. She has she is on scheduled lorazepam. She reports that she ran out of this. Review of the PDMP indicates that she did have a prescription filled the beginning of April. This does raise the question of possible misuse of her benzodiazepine. On the day of discharge blood pressure slightly elevated will increase her lisinopril as an outpatient for better control she is not requiring any as needed withdrawal medication she had no significant tremors. Believe she can be discharged home continue her follow-up with her PCP strongly encouraged her to seek support services for her alcohol addiction as well as to manage her depression and anxiety. Notes For Next Care Provider Consider psychiatry consultation for anxiety and depression Continue to monitor for possible benzodiazepine misuse Medication Changes From Visit Lisinopril increased Admission HPI Per Admitting Provider History obtained from patient, family, and records. Medical history significant for hypertension, hyperlipidemia, GERD, primary hyperparathyroidism, anxiety/mood disorder, chronic anemia (baseline hemoglobin 11), alcohol abuse. Last confinement November 2023 for alcohol withdrawal and complicated UTI. 3 weeks history of junky cough symptoms with congestion, body aches and diarrhea. Symptoms preceded by fall last month resulting in shoulder and hip pain. Outpatient x-ray from last month showed L2 compression fracture and left hip ost eoarthritis. Outpatient flu, RSV and COVID swab negative from PCP visit 3 weeks ago. Patient prescribed prednisone course, antitussives, and tizanidine by PCP. Outpatient lumbar spine CT contemplated. Cough symptoms improving. Patient noted to be increasingly shaky, weak, and confused over the last 2 days. Not drinking as much alcohol as per patient. Patient ran out of lorazepam tablets yesterday. Patient denies unusual headache, chest pain, SOB. Transient diarrhea and nausea symptoms. Denies abdominal pain. Back pain not any worse as per patient. Patient denies worsening depression or suicidality. Patient brought to ER for evaluation. 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 Lungs: Clear to auscultation, decreased, no wheezes rales or rhonchi CV: S1-S2, regular Abdomen: Soft, nontender, nondistended Extremities: No significant edema Neuro: No focal deficits Psych: Cooperative, normal mood, normal mentation Updated Medication List Medication Instructions Recorded Confirmed Type ascorbic acid (vitamin C) 500 mg 500 mg PO QAM 11/20/21 05/14/24 History tablet (Vitamin C) cetirizine 10 mg tablet (All Day 10 mg PO QAM Allergy Symptoms 11/20/21 05/14/24 History Allergy (cetirizine)) lorazepam 1 mg tablet 1 mg PO HS 11/20/21 05/14/24 History psyllium husk 3.4 gram/5.4 gram 1 tbsp PO QAM 11/20/21 05/14/24 History oral powder (Metamucil) rosuvastatin 5 mg tablet 5 mg PO HS 11/20/21 05/14/24 History fluticasone propionate 50 2 spray intranasal QAM 12/25/21 05/14/24 History mcg/actuation nasal spray,suspension ibuprofen 200 mg capsule (Advil 400 mg PO Q4 PRN Pain 12/25/21 05/14/24 History Liqui-Gel) ipratropium bromide 21 mcg (0.03 2 spray intranasal TID 12/08/23 05/14/24 History %) nasal spray L.acidophilus-L.plantarum-B.animalis-B.longum 1 cap PO BID 05/14/24 05/14/24 History 2 billion cell capsule (Probiotic Acidophilus Beads) benzonatate 100 mg capsule 100 mg PO TID PRN Cough 05/14/24 05/14/24 History cyanocobalamin (vitamin B-12) 500 500 mcg PO QPM 05/14/24 05/14/24 History mcg tablet (Vitamin B-12) famotidine 20 mg tablet 20 mg PO QAM 05/14/24 05/14/24 History gabapentin 300 mg capsule 300 mg PO TID 05/14/24 05/14/24 History magnesium oxide 500 mg PO AMHS 05/14/24 05/14/24 History tizanidine 4 mg tablet 4 mg PO Q8 PRN BACK PAIN/MUSCLE 05/14/24 05/14/24 History SPASM lisinopril 40 mg tablet 40 mg PO AMHS #30 tabs 05/15/24 Rx lorazepam 0.5 mg tablet 0.5 mg PO .MORNING & AFTERNOON #12 05/15/24 Rx tabs Hospital Stay Data Consultations 05/14/24 00:25 ED Decision to Admit Stat Diagnostic Imagining Performed 05/13/24 21:32 CT head/brain wo con Stat 05/14/24 22:31 CT head/brain wo con Stat Reviewed imaging, laboratory and diagnostic studies. Pertinent findings as below. Electrolytes within normal range Creatinine 0.56 Glucose of [address] no acute abnormalities Pending Results Patient Have Any Pending Studies at Discharge: No Discharge Instructions Given to Patient (Per Discharging Provider) Strongly encourage you to follow-up with the [facility] alcohol support services Strongly recommend you stop all alcohol. Strongly recommend you seek counseling services for your recent loss of pets and friends. Total Time Total Time Spent Total Time Spent (In Minutes): 36
--- NOTE | 2024-05-15 11:08 | Electrocardiogram Report ---
Test Reason : Blood Pressure : */* mmHG Vent. Rate : 77 BPM Atrial Rate : 77 BPM P-R Int : 182 ms QRS Dur : 78 ms QT Int : 400 ms P-R-T Axes : 46 14 64 degrees QTcB Int : 452 ms Normal sinus rhythm Low voltage QRS RSR' or QR pattern in V1 suggests right ventricular conduction delay Normal ECG When compared with ECG of 07-Dec-2023 23:20, No significant change Confirmed by Lashon Frances ([id number]) on 05/15/2024 11:08:02 AM Referred By: REFERRED SELF Confirmed By: Lashon Frances
[2024-05-17] MEDS ORDERED: chlordiazePOXIDE HCl 5 MG CAP PO SCH (07:15)
[2024-05-18] MEDS ORDERED: LORazepam 0.5 MG TAB PO SCH (09:00)
[2024-05-18] MEDS ORDERED: LORazepam 1 MG TAB PO SCH (21:00)
== END 2024-05-15 11:34 | disposition home or self-care (01) | DRG 897 ==
LOC: ED 19:51 → 2W 05-14 01:08